=== PATIENT | female | born 1995 | race Caucasian/White ===

== ENCOUNTER 2016-11-30 17:21 | Emergency (ER) | payer OTHER ==
[~2016-11-30] VITALS: Ht 175.3 cm; Wt 74.2 kg
[~2016-11-30 17:21] MED LIST: BCPILLS PO; CERT200K; [UNRECOGNIZED DRUG - CODE] PO
[2016-11-30 17:25] VITALS: Ht 175.3 cm; Wt 74.2 kg
[2016-11-30] MEDS ORDERED: SODIUM CHLORIDE 0.9% 1000ML 1,000 ML IV STA (17:35)
[2016-11-30] MEDS ORDERED: KETOROLAC TROMETHAMINE 30 MG/ML VIAL IV STA (17:35)
--- NOTE | 2016-11-30 17:36 | EMERGENCY ROOM VISIT NOTE ---
History Report prepared by Haim: Juan Shrestha Under the Supervision of: Dr. Shanna Pickens M.D. First contact with patient: 17:35 Chief Complaint: ILLNESS Stated Complaint: TEMP 103, CHILLS, MOORE, SORE THROAT History of Present Illness The patient is a 21 year old female who presents to the Emergency Room with complaints of a worsening illness that started yesterday. The patient notes that the symptoms worsened today. She says she a sore throat, headache, chills, cough, and nausea. The patient notes low energy, and she has only eaten once today. She denies any shortness of breath or urinary symptoms. The patient did not get her flu shot this year. She has Crohn's disease and has not had a bowel movement yesterday or today. The patient did not take any ibuprofen, but she did take 2 NyQuil today as well as cough drops. Her primary care physician is Dr. Yee, and she has a customer account executive too. Source of History: patient Onset: Yesterday Position: other (global - illness) Timing: worsening Associated Symptoms: + chills, + cough, + headache, + nausea, No SOB, No urinary symptoms Note: Associated symptoms: Low energy. Review of Systems See HPI for pertinent positives & negatives. A total of 10 systems reviewed and were otherwise negative. Past Medical & Surgical Medical Problems: (1) Crohn disease Family History Cancer Diabetes mellitus FH: heart disease Hypertension Social History Smoking Status: Never Smoker Alcohol Use: none Drug Use: none Marital Status: in relationship Housing Status: lives with family Occupation Status: student Current/Historical Medications Scheduled Control Pills ( Control Pills), 1 TAB PO DAILY Oseltamivir (Tamiflu), 75 MG PO BID Miscellaneous Medications Vedolizumab (Entyvio) Allergies Coded Allergies: Infliximab (Verified Allergy, Severe, ANAPHYLAXIS, 04/16/16) Physical Exam Vital Signs Date Time Temp Pulse Resp B/P Pulse Ox O2 Delivery O2 Flow Rate FiO2 11/30/16 20:32 105 18 11/30/16 19:37 37.9 102 18 109/60 98 Room Air 11/30/16 17:25 39.0 138 20 111/79 100 Room Air Physical Exam Vital signs reviewed. General: Noted to be febrile, somewhat ill-appearing 21 year old female, in no significant distress. HEENT: No scleral icterus, PERRLA, neck supple. Atraumatic. Posterior oropharynx is clear. Cardiovascular: Tachycardic rate and regular rhythm, no extra sounds. Pulmonary: Clear to auscultation bilaterally, normal work of breathing. Dry cough. Abdomen: Soft, nontender, nondistended, positive bowel sounds. Musculoskeletal: Atraumatic, no peripheral edema. Neurologic: Patient awake alert and oriented x 3, full strength in all 4 extremities. Cranial nerves 2 through 12 grossly intact. Skin: Warm, dry, no rash Medical Decision & Procedures ER Provider Diagnostic Interpretation: X-ray results as stated below per interpretation by me and the radiologist: SINGLE VIEW CHEST CLINICAL HISTORY: Cough and fever. FINDINGS: An AP, portable, upright chest radiograph is compared to study dated 04/16/2016. The examination is mildly degraded by portable technique and patient rotation. The cardiomediastinal silhouette is unremarkable. The lungs and pleural spaces are clear. No pneumothorax is seen. The bony thorax is grossly intact. IMPRESSION: No active disease in the chest. Electronically signed by: Henry Patel M.D. 11/30/2016 7:12 PM Laboratory Results 11/30/16 17:46 Red Blood Count 4.64, Mean Corpuscular Volume 79.1, Mean Corpuscular Hemoglobin 25.4, Mean Corpuscular Hemoglobin Concent 32.2, Mean Platelet Volume 9.5, Neutrophils (%) (Auto) 70.5, Lymphocytes (%) (Auto) 11.1, Monocytes (%) (Auto) 17.0, Eosinophils (%) (Auto) 0.6, Basophils (%) (Auto) 0.4, Neutrophils # (Auto ) 3.81, Lymphocytes # (Auto) 0.60, Monocytes # (Auto) 0.92, Eosinophils # (Auto ) 0.03, Basophils # (Auto) 0.02 11/30/16 17:46 Test 11/30/16 17:46 11/30/16 17:50 11/30/16 18:10 White Blood Count 5.40 K/uL (4.8-10.8) Red Blood Count 4.64 M/uL (4.2-5.4) Hemoglobin 11.8 g/dL (12.0-16.0) Hematocrit 36.7 % (37-47) Mean Corpuscular Volume 79.1 fL (80-100) Mean Corpuscular Hemoglobin 25.4 pg (25-34) Mean Corpuscular Hemoglobin Concent 32.2 g/dl (32-36) Platelet Count 253 K/uL (130-400) Mean Platelet Volume 9.5 fL (7.4-10.4) Neutrophils (%) (Auto) 70.5 % Lymphocytes (%) (Auto) 11.1 % Monocytes (%) (Auto) 17.0 % Eosinophils (%) (Auto) 0.6 % Basophils (%) (Auto) 0.4 % Neutrophils # (Auto) 3.81 K/uL (1.4-6.5) Lymphocytes # (Auto) 0.60 K/uL (1.2-3.4) Monocytes # (Auto) 0.92 K/uL (0.11-0.59) Eosinophils # (Auto) 0.03 K/uL (0-0.5) Basophils # (Auto) 0.02 K/uL (0-0.2) RDW Standard Deviation 42.5 fL (36.4-46.3) RDW Coefficient of Variation 14.9 % (11.5-14.5) Immature Granulocyte % (Auto) 0.4 % Immature Granulocyte # (Auto) 0.02 K/uL (0.00-0.02) Anion Gap 8.0 mmol/L (3-11) Est Creatinine Clear Calc Drug Dose 118.3 ml/min Estimated GFR () 125.1 Estimated GFR (Non- 107.9 BUN/Creatinine Ratio 8.2 (10-20) Calcium Level 8.6 mg/dl (8.5-10.1) Total Bilirubin 0.4 mg/dl (0.2-1) Direct Bilirubin 0.2 mg/dl (0-0.2) Aspartate Amino Transf (AST/SGOT) 21 U/L (15-37) Alanine Aminotransferase (ALT/SGPT) 24 U/L (12-78) Alkaline Phosphatase 78 U/L (45-117) Total Protein 7.3 gm/dl (6.4-8.2) Albumin 3.2 gm/dl (3.4-5.0) Urine Color YELLOW Urine Appearance CLEAR (CLEAR) Urine pH 8.0 (4.5-7.5) Urine Specific Gerlaw 1.005 (1.000-1.030) Urine Protein NEG (NEG) Urine Glucose (UA) NEG (NEG) Urine Ketones NEG (NEG) Urine Occult Blood NEG (NEG) Urine Nitrite NEG (NEG) Urine Bilirubin NEG (NEG) Urine Urobilinogen NEG (NEG) Urine Leukocyte Esterase TRACE (NEG) Urine WBC (Auto) 1-5 /hpf (0-5) Urine RBC (Auto) 0-4 /hpf (0-4) Urine Hyaline Casts (Auto) 0 /lpf (0-5) Urine Epithelial Cells (Auto) >30 /lpf (0-5) Urine Bacteria (Auto) NEG (NEG) Influenza Type A Antigen POS for Influ A (NEG) Influenza Type B Antigen Neg for Influ B (NEG) Laboratory results per my review. Medications Administered Medications (Trade) Dose Ordered Sig/Amna Route Start Time Stop Time Status Last Admin Dose Admin Sodium Chloride (Nss 1000ml) 1,000 ml @ 999 mls/hr Q1H1M STAT IV 11/30/16 17:35 11/30/16 18:35 DC 11/30/16 17:47 999 MLS/HR Ketorolac Tromethamine (Toradol Inj) 30 mg NOW STAT IV 11/30/16 17:35 11/30/16 17:37 DC 11/30/16 17:48 30 MG Oseltamivir Phosphate (Tamiflu Cap) 75 mg NOW STAT PO 11/30/16 19:47 11/30/16 19:48 DC 11/30/16 19:47 75 MG ED Course 1735: Ordered Toradol Inj 30 mg IV, NSS 1000 ml @ 999 mls/hr IV. 1736: Past medical records reviewed. The patient was evaluated in room C12B. A complete history and physical examination was performed. 1946: Ordered Tamiflu Cap 75 mg PO. 1949: I reevaluated the patient and she is resting comfortably. The patient verbally expressed agreement and understanding of the treatment plan. The patient will be discharged. Medical Decision Differential diagnosis: Influenza, other viral illness, pneumonia, urinary tract infection, metabolic abnormality, medication effect, cellulitis, meningitis, intra-abdominal source. This patient was evaluated and appeared to be in no significant distress. IV access was obtained and laboratory work was drawn. Patient was placed on the cardiac catheterization technician. She was hydrated with normal saline solution. Patient was medicated with IV Toradol. Laboratory work is fairly unrevealing. Influenza swab is positive for influenza A. Strep swab is negative. I did discuss my findings with the patient and her family. They're concerned regarding her Crohn 's disease and therapies. Tamiflu was ordered 75 mg. They were educated on use of Tylenol for fever management and that the patient should see hydrated. She will follow-up with her primary care physician this week and return to the ER for worsening of symptoms or any medical concerns. Impression Primary Impression: Influenza A Scribe Attestation The scribe's documentation has been prepared under my direction and personally reviewed by me in its entirety. I confirm that the note above accurately reflects all work, treatment, procedures, and medical decision making performed by me. Departure Information Dispostion Home / Self-Care Prescriptions Oseltamivir (Tamiflu) 75 Mg Cap 75 MG PO BID, #9 CAP Prov: Shanna Pickens M.D. 11/30/16 Referrals Tiffany Yee DO (PCP) Forms HOME CARE DOCUMENTATION FORM, IMPORTANT VISIT INFORMATION, WORK / SCHOOL INSTRUCTIONS Patient Instructions A Signature Page, My [facility], Oseltamivir Phosphate Oral capsule Additional Instructions Diagnosis: Influenza A Tylenol 650 mg every 6 hours as needed for pain or fever. Ibuprofen 600 mg every 6 hours as needed for pain or fever with food. Tamiflu 75 mg twice daily for 5 days. Drink plenty of clear fluids. Return to the ER for worsening symptoms or any medical concerns
[2016-11-30 17:59] LABS: BASO % 0.4 %; BASO ABS # 0.02 K/uL (0-0.2); COMPLETE YES; EOS % 0.6 %; HEMATOCRIT 36.7 % (37-47); IG% 0.4 %; LYMPH % 11.1 %; MEAN CELL VOLUME 79.1 fL (80-100); MEAN CORPUSCULAR HEMOGLOBIN 25.4 pg (25-34); MEAN CORPUSCULAR HGB CONC 32.2 g/dl (32-36); MEAN PLATELET VOLUME 9.5 fL (7.4-10.4); NEUT % 70.5 %; PLATELET COUNT 253 K/uL (130-400); RED BLOOD COUNT 4.64 M/uL (4.2-5.4)
[2016-11-30 18:13] LABS: URINE APPEARANCE CLEAR (CLEAR); URINE BILIRUBIN NEG (NEG); URINE COLOR YELLOW; URINE EPITHELIAL CELL AUTO >30 /lpf (0-5); URINE NITRITE NEG (NEG); URINE SPECIFIC GRAVITY 1.005 (1.000-1.030); UROBILINOGEN NEG (NEG); ZZUR CULT IF INDIC CLEAN CATCH NO
[2016-11-30 18:13] LABS: BUN/CREATININE RATIO 8.2 (10-20); CALCIUM 8.6 mg/dl (8.5-10.1); CREATININE 0.78 mg/dl (0.60-1.20); POTASSIUM 3.7 mmol/L (3.5-5.1)
[2016-11-30 18:15] LABS: MANUAL MICROSCOPIC REQUIRED? NO; REVIEW REQ? NO
[2016-11-30] MEDS ORDERED: VEDO1INJ (18:15)
--- NOTE | 2016-11-30 19:14 | DIAGNOSTIC IMAGING REPORT ---
SINGLE VIEW CHEST CLINICAL HISTORY: Cough and fever. FINDINGS: An AP, portable, upright chest radiograph is compared to study dated 04/16/2016. The examination is mildly degraded by portable technique and patient rotation. The cardiomediastinal silhouette is unremarkable. The lungs and pleural spaces are clear. No pneumothorax is seen. The bony thorax is grossly intact. IMPRESSION: No active disease in the chest. Electronically signed by: Henry Patel M.D. 11/30/2016 7:12 PM
[2016-11-30 19:37] VITALS: BP 109/60; TEMP 37.9; O2SAT 98
[2016-11-30] MEDS ORDERED: OSEL75CA12 PO (19:46)
[2016-11-30] MEDS ORDERED: OSELTAMIVIR PHOSPHATE 75 MG CAP PO STA (19:47)
[2016-11-30 20:32] VITALS: PULSE 105
== END 2016-11-30 20:05 | disposition home or self-care (01) ==
LOC: C.EDB 17:21 → C.EDC 20:05
DX: J11.1 Influenza due to unidentified influenza virus with other respiratory manifestations (principal); K50.90 Crohn's disease, unspecified, without complications

== ENCOUNTER → 2017-02-02 | Outpatient (CLI) | payer OTHER ==
[~2017-02-02] MED LIST changes: +AMOX500C3 PO; -CERT200K; +DICL1GEL12 TOP; +OSEL75CA12 PO; +VEDO1INJ; +VEDO1INJ INJ; -[UNRECOGNIZED DRUG - CODE] PO
== END | disposition home or self-care (01) ==
LOC: C.LABBC 11:33
PROVIDERS: ATTEND Obstetrics & Gynecology
DX: Z11.3 Encounter for screening for infections with a predominantly sexual mode of transmission (principal)

== ENCOUNTER → 2017-02-25 | Outpatient (CLI) | payer OTHER ==
[~2017-02-25] MED LIST changes: -VEDO1INJ INJ; +VEDO1INJ IV
== END | disposition home or self-care (01) ==
LOC: C.LABSPEC 11:11
PROVIDERS: ATTEND Nurse Practitioner Family
DX: R09.89 Other specified symptoms and signs involving the circulatory and respiratory systems (principal)

== ENCOUNTER → 2017-04-24 | Outpatient (CLI) | payer OTHER | END | disposition home or self-care (01) | LOC: C.LABSPEC 15:48 | PROVIDERS: ATTEND Physician Assistant | DX: L29.8 Other pruritus (principal) ==

== ENCOUNTER 2017-06-01 19:18 | Emergency (ER) | payer OTHER ==
[~2017-06-01] VITALS: Ht 175.3 cm; Wt 77.5 kg
[~2017-06-01 19:18] MED LIST changes: -AMOX500C3 PO; -DICL1GEL12 TOP; -VEDO1INJ IV
[2017-06-01 19:34] VITALS: TEMP 36.7; Ht 175.3 cm; Wt 77.5 kg
[2017-06-01] MEDS ORDERED: VEDO1INJ INJ (19:52)
[2017-06-01] MEDS ORDERED: PROPARACAINE HCL 0.5% OP SOLN 15 ML BTL OP STA (20:26)
[2017-06-01] MEDS ORDERED: AMOXICILLIN 500 MG CAP PO ONE (20:30)
[2017-06-01] MEDS ORDERED: TRIMETHOPRIM/POLYMYXIN B OP ONE (20:30)
--- NOTE | 2017-06-01 20:34 | EMERGENCY ROOM VISIT NOTE ---
History First contact with patient: 20:07 Chief Complaint: EYE PAIN Stated Complaint: ITCHY EYES - PAIN IN RIGHT EAR History of Present Illness The patient is a 22 year old female who presents to the Emergency Room with complaints of discharge from the right eye that started this morning. The patient reports a sore throat over the last day. She will also reports bilateral ear pain right greater than left for 1 day. She denies any significant pain in the right eye. She is concerned that she may have an infection. She denies any changes in vision. She does not wear contacts or glasses. She denies any fever or chills. No significant cough or shortness of breath. Review of Systems 6 system review performed and negative unless noted in HPI or below Past Medical/Surgical History Medical Problems: (1) Crohn disease History of Crohn's disease status post bowel resection Family History Cancer Diabetes mellitus FH: heart disease Hypertension Social History Smoking Status: Never Smoker Alcohol Use: none Drug Use: none Marital Status: in relationship Housing Status: lives with family Occupation Status: student Current/Historical Medications Scheduled Vedolizumab (Entyvio), 300 MG INJ Q8WK Allergies Coded Allergies: Infliximab (Verified Allergy, Severe, ANAPHYLAXIS, 04/16/16) Physical Exam Vital Signs Date Time Temp Pulse Resp B/P (MAP) Pulse Ox O2 Delivery O2 Flow Rate FiO2 06/01/17 19:34 36.7 111 20 133/87 99 Right Eye Acuity: 20/20 Left Eye Acuity: 20/20 pt does not wear glasses Physical Exam VITALS: Vitals are noted on the nurse's note and reviewed by myself. Vital signs stable. GENERAL: 22-year-old female, in no acute distress, nondiaphoretic, well- developed well-nourished. SKIN: The skin was without rashes, erythema, edema, or bruising. HEAD: Normocephalic atraumatic. EARS: External auditory canals clear rate tympanic membrane is erythematous and bulging. No fluid was noted. Left tympanic membrane is bulging and also mildly erythematous. Fluid noted behind left TM. EYES: Pupils equal round and reactive to light and accommodation. Extraocular movements intact. Yellow discharge noted from the right eye. Conjunctiva is mildly injected. Slit-lamp exam of the right eye did not reveal any intake. Conjunctivae is intact. NOSE: Patent, turbinates without inflammation or discharge. No sinus tenderness. MOUTH: Mucous membranes moist. Tonsils are not enlarged, but mildly erythematous. Pharynx without erythema or exudate. Uvula midline. Airway patent. Tongue does not deviate. NECK: Lymphadenopathy noted in the anterior cervical chain bilaterally. No nuchal rigidity. HEART: Regular rate and rhythm without murmurs gallops or rubs. LUNGS: Clear to auscultation bilaterally without wheezes, rales or rhonchi. No accessory muscle use. MUSCULOSKELETAL:Normal gait. Strength 5/5 throughout. NEURO: Patient was alert and oriented to person place and time. Normal sensation to touch. No focal neurological deficits. Medical Decision & Procedures Procedure none ED Course Patient was seen and examined A slip exam was performed Polytrim ophthalmic solution was applied to the right eye The patient was given 1 dose of amoxicillin 500 mg Discharge instructions were reviewed, and the patient was discharged home in good condition Medical Decision Differential diagnosis: Bacterial versus viral conjunctivitis, corneal abrasion , otitis media, sinusitis, strep pharyngitis The patient's symptoms and physical presentation are consistent with a bacterial conjunctivae is of the right eye. No diminished the cornea was noted. The patient also appears to have otitis media, which will be treated with a ten-day course of antibiotics. Regarding the bacterial conjunctivitis, she was given Polytrim eyedrops. She will follow-up with her primary care physician for a recheck. Impression Primary Impression: Bacterial conjunctivitis Additional Impression: Otitis media Bacterial conjunctivitis, otitis media Departure Information Dispostion Home / Self-Care Condition GOOD Referrals No Doctor, Assigned (PCP) Patient Instructions [facility] Problem Qualifiers
[2017-06-01] MEDS ORDERED: AMOX500C3 PO (20:57)
[2017-06-01 21:01] VITALS: BP 138/90; PULSE 100; O2SAT 100
== END 2017-06-01 21:06 | disposition home or self-care (01) ==
LOC: C.EDB 19:19 → C.EDD 21:06
DX: H10.021 Other mucopurulent conjunctivitis, right eye (principal); H66.92 Otitis media, unspecified, left ear; K50.90 Crohn's disease, unspecified, without complications; Z80.9 Family history of malignant neoplasm, unspecified; Z83.3 Family history of diabetes mellitus; Z82.49 Family history of ischemic heart disease and other diseases of the circulatory system; Z79.899 Other long term (current) drug therapy

== ENCOUNTER 2017-07-23 09:33 | Emergency (ER) | payer OTHER ==
[~2017-07-23] VITALS: Ht 175.3 cm; Wt 77.5 kg
[~2017-07-23 09:33] MED LIST changes: -BCPILLS PO; -OSEL75CA12 PO; -VEDO1INJ; +VEDO1INJ INJ
[2017-07-23 09:42] VITALS: TEMP 36.4; Ht 175.3 cm; Wt 77.5 kg
[2017-07-23] MEDS ORDERED: KETOROLAC TROMETHAMINE 60 MG/2 ML VIAL IM STA (10:02)
[2017-07-23] MEDS ORDERED: DICL1GEL12 TOP (10:08)
--- NOTE | 2017-07-23 10:10 | EMERGENCY ROOM VISIT NOTE ---
ED Visit Note First contact with patient: 09:47 CHIEF COMPLAINT: Left wrist pain HISTORY OF PRESENT ILLNESS: This 22-year-old female patient presents to the emergency department, ambulatory, with her mother, complaining of left wrist pain. The patient states she had an IV placed in her left posterior wrist 2 weeks ago for a colonoscopy. The patient states she has been intermittently having pain for the past 2 weeks. The patient states she woke this morning, and the pain became worse. The patient states this morning, she did notice a small bump under the skin. She describes the pain as burning, worse with movement or palpation. She states her fingers feel "weird" and are "hard to move". The patient rates her pain 6/10. She has taken no pain medications over -the-counter for relief. The patient has also not used any ice or heat. The patient denies redness, drainage, fever, chills, headache, nausea, vomiting, or other concerning symptoms. REVIEW OF SYSTEMS: A 10 system review of systems was performed with positives and pertinent negatives listed in the history of present illness. All other systems were reviewed and are negative. ALLERGIES: Infliximab MEDICATIONS: Entyvio PMH: Crohn's disease SOCIAL HISTORY: The patient lives locally with family. She denies drug, alcohol , tobacco use. PHYSICAL EXAM: VITALS: Vitals are noted on the nurse's note and reviewed by myself. Vital signs stable. GENERAL: This is a well-appearing, 22-year-old female, in no acute distress, nondiaphoretic, well-developed well-nourished. SKIN: The skin was without rashes, erythema, edema, or bruising. There is a possible small, pen-tip sized lump under the skin on the posterior aspect of the medial wrist. There is no erythema, induration, fluctuance, drainage, definite lump, or warmth of this area. There is no tenting of the skin. Capillary reflex less than 2 seconds. MUSCULOSKELETAL: No muscle atrophy, erythema, or edema noted. Full range of motion without joint tenderness in all extremities. No tenderness to palpation. Normal gait. Strength 5/5 throughout. NEURO: Patient was alert and oriented to person place and time. Normal sensation to light and sharp touch. Deep tendon reflexes 2+ throughout. No focal neurological deficits. EMERGENCY DEPARTMENT COURSE: She was seen and evaluated as above. I do not see any signs of infection, infiltration, or other concerning findings. The patient denies injury or fall over the past 2 weeks since the pain began. I do suspect that the pain could be related to possible nerve damage from the IV insertion, and discussed with the patient that this may take several weeks to fully heal. I recommended anti-inflammatories, but the patient states she was told not to take these medications. I suggested an IM injection of Toradol, and the patient is agreeable at bedside. When the nurse went into the room to give the patient the Toradol, the patient declined the injection because it is an NSAID. The patient states she would prefer to just use warm, moist compresses at home and the topical Voltaren gel. Discharge instructions were discussed at bedside. The patient was discharged home in good condition. DIFFERENTIAL DIAGNOSIS: Abscess, cellulitis, infiltration, nerve damage, musculoskeletal injury, malignancy, and others. DIAGNOSIS: Left Wrist pain DISCHARGE INSTRUCTIONS & TREATMENT: You were seen today for right wrist/hand pain 2 weeks after having an IV inserted. I suspect some nerve pain or trauma from the insertion of the IV. This may take several weeks to fully heal. Ibuprofen(Motrin, Advil) may be used for fever or pain. Use 600mg every six hours as needed. Take with food. Avoid using more than 2400mg in a 24 hour period. Do not use 2400mg per day for more than three consecutive days without physician direction. Prolonged inappropriate use can lead to stomach upset or ulcers. (AND/OR) Acetaminophen(Tylenol) may be used for fever or pain. Use 1000mg every six to eight hours as needed. Avoid using more than 3000mg in a 24 hour period. Use Voltaren gel as directed for pain and inflammation. This medication may be a good alternative with your history of Crohn's disease and inability to tolerate NSAIDs. Please follow up in 2-3 days with your PCP for recheck of the wound. Please return to the emergency department if you experience increased redness, swelling, pain, pus like drainage, fever, chills, nausea, vomiting, or other concerning symptoms. Problem List Medical Problems: (1) Crohn disease Status: Chronic Current/Historical Medications Scheduled Vedolizumab (Entyvio), 300 MG INJ Q8WK Scheduled PRN Diclofenac Sodium (Topical) (Voltaren 1% Top Gel), 4 GM TOP QID PRN for Pain Allergies Coded Allergies: Infliximab (Verified Allergy, Severe, ANAPHYLAXIS, 04/16/16) Vital Signs Date Time Temp Pulse Resp B/P (MAP) Pulse Ox O2 Delivery O2 Flow Rate FiO2 07/23/17 10:36 76 20 130/79 100 07/23/17 09:42 36.4 84 20 136/91 95 Room Air Departure Information Impression Primary Impression: Left wrist pain Dispostion Home / Self-Care Condition GOOD Prescriptions Diclofenac Sodium (Topical) (VOLTAREN 1% TOP GEL) 1 % Gel 4 GM TOP QID Y for Pain, #1 TUBE Prov: Lynette Harp PA-C 07/23/17 Referrals Tiffany Mari DO (PCP) Patient Instructions My [facility] Additional Instructions You were seen today for right wrist/hand pain 2 weeks after having an IV inserted. I suspect some nerve pain or trauma from the insertion of the IV. This may take several weeks to fully heal. Ibuprofen(Motrin, Advil) may be used for fever or pain. Use 600mg every six hours as needed. Take with food. Avoid using more than 2400mg in a 24 hour period. Do not use 2400mg per day for more than three consecutive days without physician direction. Prolonged inappropriate use can lead to stomach upset or ulcers. (AND/OR) Acetaminophen(Tylenol) may be used for fever or pain. Use 1000mg every six to eight hours as needed. Avoid using more than 3000mg in a 24 hour period. Use Voltaren gel as directed for pain and inflammation. This medication may be a good alternative with your history of Crohn's disease and inability to tolerate NSAIDs. Please follow up in 2-3 days with your PCP for recheck of the wound. Please return to the emergency department if you experience increased redness, swelling, pain, pus like drainage, fever, chills, nausea, vomiting, or other concerning symptoms.
[2017-07-23 10:36] VITALS: BP 130/79; PULSE 76; O2SAT 100
== END 2017-07-23 10:38 | disposition home or self-care (01) ==
LOC: C.EDB 09:34 → C.EDA 10:38
DX: M25.532 Pain in left wrist (principal); Z79.899 Other long term (current) drug therapy; K50.90 Crohn's disease, unspecified, without complications

== ENCOUNTER → 2017-11-16 | Outpatient (CLI) | payer OTHER ==
[~2017-11-16] MED LIST changes: -VEDO1INJ INJ; +VEDO1INJ IV
== END | disposition home or self-care (01) ==
LOC: C.LAB1850 14:04
PROVIDERS: ATTEND Internal Medicine Gastroenterology
DX: K50.014 Crohn's disease of small intestine with abscess (principal)

== ENCOUNTER 2017-11-26 15:01 | Emergency (ER) | payer OTHER ==
[~2017-11-26] VITALS: Ht 175.3 cm; Wt 79.1 kg
[2017-11-26 15:03] VITALS: TEMP 36.7; Ht 175.3 cm; Wt 79.1 kg
--- NOTE | 2017-11-26 15:18 | EMERGENCY ROOM VISIT NOTE ---
History First contact with patient: 15:14 Chief Complaint: ABDOMINAL PAIN Stated Complaint: STOMACH PAIN History of Present Illness The patient is a 22 year old female with PMH of Crohn's disease on Entyveo and previous C. diff infection who presents to the Emergency Room with complaints of worsening abdominal pain and nausea that started this morning. She states the pain is across the top of her abdomen, intermittent, aching and occasionally sharp, 8/10. She states she was diagnosed with C.diff last week, has been placed on Flagyl which she was taking since Thursday, and states her diarrhea has been improving. Yesterday her nausea became worse, so she decided to stop taking the Flagyl. She has not taken any medications for her nausea or pain. She denies vomiting,fevers/chills, back pain, chest pain, SOB, dizziness or syncope, bloody or black stools, urinary symptoms, abnormal vaginal bleeding or discharge, or rash. Review of Systems A complete 10 point review of systems was reviewed with the patient with pertinent positives and negatives as per history of present illness. All else were negative. Past Medical/Surgical History Medical Problems: (1) Crohn disease (2) Crohn's disease of both small and large intestine Family History Cancer Diabetes mellitus FH: heart disease Hypertension Social History Smoking Status: Never Smoker Alcohol Use: none Drug Use: none Marital Status: in relationship Housing Status: lives with family Occupation Status: student Current/Historical Medications Scheduled Ondasetron Odt (Zofran Odt), 4 MG SL Q6H Vedolizumab (Entyvio), 300 MG IV Q8WK Allergies Reviewed in chart Physical Exam Vital Signs Date Time Temp Pulse Resp B/P (MAP) Pulse Ox O2 Delivery O2 Flow Rate FiO2 11/26/17 18:33 84 18 123/69 99 Room Air 11/26/17 17:36 90 18 116/59 99 Room Air 11/26/17 15:03 36.7 102 16 134/86 97 Room Air Physical Exam CONSTITUTIONAL: Pleasant and cooperative. No acute distress. Mildly dehydrated. Well appearing and well nourished. HEENT: Normocephalic, atraumatic. Pupils equal, round and reactive to light, EOMI. TMs normal. Pharynx normal. Tacky mucus membranes. NECK: Supple, full active range of motion without discomfort. RESPIRATORY: Clear to auscultation bilaterally with no wheezing, crackles, rhonchi or stridor. Equal expansion bilaterally. CARDIOVASCULAR: Regular rate and rhythm with no murmurs, rubs or gallops. Normal peripheral perfusion. No edema. GASTROINTESTINAL: Diffuse upper abdominal tenderness to palpation. Soft, nondistended. No palpable masses or HSM. Bowel sounds present in all quadrants. MUSCULOSKELETAL: Full range of motion of all joints without discomfort. INTEGUMENTARY: No rash or other significant dermatologic conditions noted. NEUROLOGIC: Alert and oriented X 4 with normal affect. Cranial nerves II-XII grossly intact. No focal neurologic deficits noted. Medical Decision & Procedures Laboratory Results 11/26/17 15:15 Red Blood Count 5.03, Mean Corpuscular Volume 67.6, Mean Corpuscular Hemoglobin 19.5, Mean Corpuscular Hemoglobin Concent 28.8, Mean Platelet Volume 8.8, Neutrophils (%) (Auto) 82.8, Lymphocytes (%) (Auto) 11.6, Monocytes (%) (Auto) 4.4, Eosinophils (%) (Auto) 0.5, Basophils (%) (Auto) 0.4, Neutrophils # (Auto) 10.97, Lymphocytes # (Auto) 1.53, Monocytes # (Auto) 0.58, Eosinophils # (Auto) 0.07, Basophils # (Auto) 0.05 11/26/17 15:15 Test 11/26/17 15:15 11/26/17 16:30 White Blood Count 13.24 K/uL (4.8-10.8) Red Blood Count 5.03 M/uL (4.2-5.4) Hemoglobin 9.8 g/dL (12.0-16.0) Hematocrit 34.0 % (37-47) Mean Corpuscular Volume 67.6 fL (80-100) Mean Corpuscular Hemoglobin 19.5 pg (25-34) Mean Corpuscular Hemoglobin Concent 28.8 g/dl (32-36) Platelet Count 452 K/uL (130-400) Mean Platelet Volume 8.8 fL (7.4-10.4) Neutrophils (%) (Auto) 82.8 % Lymphocytes (%) (Auto) 11.6 % Monocytes (%) (Auto) 4.4 % Eosinophils (%) (Auto) 0.5 % Basophils (%) (Auto) 0.4 % Neutrophils # (Auto) 10.97 K/uL (1.4-6.5) Lymphocytes # (Auto) 1.53 K/uL (1.2-3.4) Monocytes # (Auto) 0.58 K/uL (0.11-0.59) Eosinophils # (Auto) 0.07 K/uL (0-0.5) Basophils # (Auto) 0.05 K/uL (0-0.2) RDW Standard Deviation 39.9 fL (36.4-46.3) RDW Coefficient of Variation 16.1 % (11.5-14.5) Immature Granulocyte % (Auto) 0.3 % Immature Granulocyte # (Auto) 0.04 K/uL (0.00-0.02) Toxic Granulation 1+ Hypochromasia PRESENT Anisocytosis PRESENT Microcytosis PRESENT Stomatocytes 1+ Erythrocyte Sedimentation Rate 15 mm/hr (0-21) Anion Gap 8.0 mmol/L (3-11) Est Creatinine Clear Calc Drug Dose 134.5 ml/min Estimated GFR () 142.9 Estimated GFR (Non- 123.3 BUN/Creatinine Ratio 17.8 (10-20) Calcium Level 9.0 mg/dl (8.5-10.1) Total Bilirubin 0.5 mg/dl (0.2-1) Direct Bilirubin 0.1 mg/dl (0-0.2) Aspartate Amino Transf (AST/SGOT) 24 U/L (15-37) Alanine Aminotransferase (ALT/SGPT) 29 U/L (12-78) Alkaline Phosphatase 86 U/L (45-117) C-Reactive Protein 0.69 mg/dl (0-0.29) Total Protein 7.6 gm/dl (6.4-8.2) Albumin 3.4 gm/dl (3.4-5.0) Lipase 109 U/L (73-393) Urine Color DK YELLOW Urine Appearance CLEAR (CLEAR) Urine pH 6.0 (4.5-7.5) Urine Specific Gary 1.025 (1.000-1.030) Urine Protein NEG (NEG) Urine Glucose (UA) NEG (NEG) Urine Ketones TRACE (NEG) Urine Occult Blood NEG (NEG) Urine Nitrite NEG (NEG) Urine Bilirubin NEG (NEG) Urine Urobilinogen NEG (NEG) Urine Leukocyte Esterase TRACE (NEG) Urine WBC (Auto) 1-5 /hpf (0-5) Urine RBC (Auto) 0-4 /hpf (0-4) Urine Hyaline Casts (Auto) 1-5 /lpf (0-5) Urine Epithelial Cells (Auto) >30 /lpf (0-5) Urine Bacteria (Auto) NEG (NEG) Urine Renal Epithelial Cells /lpf (0-5) Urine Mucus PRESENT (NONE PRSENT) Urine Yeast (Auto) BUDDING (NONE PRSENT) Urine Test NEG (NEG) Medications Administered Medications (Trade) Dose Ordered Sig/Amna Route Start Time Stop Time Status Last Admin Dose Admin Sodium Chloride 1,000 ml @ 999 mls/hr Q1H1M STAT IV 11/26/17 15:39 11/26/17 16:39 DC 11/26/17 16:23 999 MLS/HR Ondansetron HCl (Zofran Inj) 4 mg NOW STAT IV 11/26/17 15:39 11/26/17 15:43 DC 11/26/17 16:23 4 MG Morphine Sulfate (MoRPHine SULFATE INJ) 4 mg NOW STAT IV 11/26/17 15:47 11/26/17 15:48 DC 11/26/17 16:23 4 MG Ondansetron HCl (Zofran Inj) 4 mg NOW STAT IV 11/26/17 17:55 11/26/17 17:56 DC 11/26/17 18:01 4 MG Ondansetron HCl (ZOFRAN ODT 4MG Home Pack) 1 homepack UD ONCE PO 11/26/17 19:30 11/26/17 19:31 DC 11/26/17 19:30 1 HOMEPACK Medical Decision CC: Patient presenting with complaint of abdominal pain and nausea Interpretation of Labs: Mild leukocytosis, mild anemia (consistent with baseline), no significant electrolyte abnormalities, normal renal function, normal liver enzymes and lipase. No significant elevation in inflammatory markers. UA negative for infection, urine negative. Differential Diagnosis: Includes, but not limited to Crohn's flare, gastroenteritis, gastritis, C. difficile colitis, dehydration, intra-abdominal abscess, fistula, small bowel obstruction, among others Medication Reconciliation: I attest that I have personally reviewed the patient' s current medication list. Vital signs review: I reviewed the patient's vital signs and interpret them as follows: T: Afebrile; BP: Normotensive; HR: Tachycardic; RR: Within normal limits; Pulse Ox: Within normal limits on room air. Blood pressure screening: The patient was found to have normal blood pressure on screening and does not require follow-up for repeat blood pressure check. Summary: Patient was evaluated at bedside, history and physical exam performed. Patient alert and oriented, in no acute distress, resting calmly in stretcher. She appears mildly dehydrated, but is nontoxic appearing. She is afebrile. Diffuse upper abdominal tenderness to palpation, no rebound tenderness or guarding, no palpable masses. Orders were placed at bedside for labs, UA and urine , IV fluids for hydration, IV Zofran and morphine for nausea and pain, CT abdomen/pelvis to evaluate for intra-abdominal pathology. Patient discussed with Dr. Lara, who agrees with my assessment and plan. Labs reviewed as above, mild leukocytosis, otherwise unremarkable. CT reviewed, no acute abnormalities. Patient reassessed multiple times throughout ED stay, she is much improved after medications. Her nausea and pain are improved. She is able to tolerate PO fluids, and was able to take her dose of Flagyl without difficulty. Tachycardia improved after IV fluids. Patient was updated on all results and plan for discharge home, she was encouraged to follow closely with her PCP and GI doctors. She was also given strict return precautions should her symptoms worsen in any way, she verbalized understanding. She was provided with a prescription for Zofran to continue managing her nausea. The patient was discharged home in stable condition and ambulatory. Impression Primary Impression: Abdominal pain Additional Impression: Nausea Departure Information Dispostion Home / Self-Care Condition GOOD Prescriptions Ondasetron Odt (ZOFRAN ODT) 4 Mg Tab 4 MG SL Q6H for Nausea, #10 TAB Prov: Alaina Anderson CRNP 11/26/17 Referrals Tiffany Mari DO (PCP) Patient Instructions Clostridium Difficile Infec, ED Nausea Vomiting, [facility] Additional Instructions You have been treated in the Emergency Department your Abdominal Pain. Laboratory results and imaging studies have ruled out any emergent causes for your abdominal pain which would warrant admission or surgery. Continue taking the Flagyl as prescribed for the full amount until completed. This is to treat your C. diff infection. You have been prescribed Zofran to be used for any nausea or vomiting. Take as prescribed. For pain control, you may take regular strength (325mg/tab) Tylenol ( acetaminophen) 2 tabs every 4-6 hours as needed. Do not exceed 10 tablets in a 24 hour period. Avoid taking more than 3000mg of Tylenol per day. This includes any other sources of acetaminophen you may take on a regular basis. Drink plenty of fluids to stay well hydrated. Follow up with your primary care provider and commercial lines account manager in the next few days. Return to the emergency department if your symptoms persist or worsen despite treatment plan outlined above or if the following symptoms occur: increased fevers, chills, worsening nausea/vomiting, blood in your stool or urine. Work Instructions Return To Work: 2 days Problem Qualifiers Primary Impression: Abdominal pain Abdominal location: generalized Qualified Codes: R10.84 - Generalized abdominal pain
[2017-11-26] MEDS ORDERED: SODIUM CHLORIDE 0.9% 1000ML 1,000 ML IV STA (15:39)
[2017-11-26] MEDS ORDERED: ONDANSETRON INJ 2 MG/ML 2 ML VIAL IV STA ×2 (15:39→17:55)
[2017-11-26] MEDS ORDERED: OPTIRAY 320 IV PRN (15:45)
[2017-11-26] MEDS ORDERED: MoRPHine SULFATE 4 MG/ML 1 ML CARP\\VIAL IV STA (15:47)
[2017-11-26 15:56] LABS: ALBUMIN 3.4 gm/dl (3.4-5.0); CREATININE 0.68 mg/dl (0.60-1.20); POTASSIUM 3.8 mmol/L (3.5-5.1)
[2017-11-26 15:59] LABS: TOTAL PROTEIN 7.6 gm/dl (6.4-8.2)
[2017-11-26 16:04] LABS: HEMOGLOBIN 9.8 g/dL (12.0-16.0); MEAN CELL VOLUME 67.6 fL (80-100); MEAN CORPUSCULAR HEMOGLOBIN 19.5 pg (25-34); MEAN CORPUSCULAR HGB CONC 28.8 g/dl (32-36); MEAN PLATELET VOLUME 8.8 fL (7.4-10.4); PLATELET COUNT 452 K/uL (130-400); RED CELL DISTRIBUTION WIDTH CV 16.1 % (11.5-14.5); RED CELL DISTRIBUTION WIDTH SD 39.9 fL (36.4-46.3); WHITE BLOOD COUNT 13.24 K/uL (4.8-10.8)
[2017-11-26 16:08] LABS: BASO % 0.4 %; BASO ABS # 0.05 K/uL (0-0.2); EOS % 0.5 %; EOS ABS # 0.07 K/uL (0-0.5); IG# 0.04 K/uL (0.00-0.02); LYMPH % 11.6 %; LYMPH ABS # 1.53 K/uL (1.2-3.4); MONO % 4.4 %; MONO ABS # 0.58 K/uL (0.11-0.59); NEUT % 82.8 %; NEUT ABS # 10.97 K/uL (1.4-6.5)
--- NOTE | 2017-11-26 17:25 | DIAGNOSTIC IMAGING REPORT ---
ABD/PELVIS IV CONTRAST ONLY CLINICAL HISTORY: 22 years-old Female presenting with eval crohns exacerbation, abscess, perf, SBO, etc, positive for C. difficile. TECHNIQUE: Multidetector CT of the abdomen and pelvis was performed after the administration of intravenous contrast. IV contrast: 120 mL of Optiray 320. A dose lowering technique was used consistent with the principles of ALARA (as low as reasonably achievable). COMPARISON: 10/06/2017. CT DOSE (mGy.cm): The estimated cumulative dose is 413.07 mGy.cm. FINDINGS: Ab Initio Etl Developer topogram: Anastomotic suture lines noted in the right abdomen. Lung bases: Minimal basilar opacities, likely atelectasis. Normal heart size. No pericardial or pleural effusion. Liver: Normal morphology. No liver lesion. Patent hepatic vasculature. Biliary: No intrahepatic or extrahepatic biliary ductal dilatation. Gallbladder contains gallstones. Pancreas: Normal. Spleen: Normal. Adrenal glands: Normal. Kidneys and ureters: Normal. No hydronephrosis. Bladder: Normal. Pelvic organs: Uterus and ovaries normal. Bowel: Mild wall thickening of the sigmoid colon may in part be due to underdistention. Mild wall thickening of the proximal transverse colon new from prior. Postsurgical changes of the ileocecectomy with a neoterminal ileum in the right lower quadrant, which appears patent. Nonetheless, there is abnormal distention of the distal ileum extending to the level of the neoterminal ileum with minimal perienteric fluid noted just upstream from the anastomosis. Small bowel taper smoothly to a less dilated caliber upstream. In the dilated segment of bowel, which extends over 20 to 30 cm, no significant wall thickening is apparent. More proximal small bowel is normal-appearing. A focal segment of mildly distended jejunum is not significantly abnormal. Peritoneal cavity: Trace free fluid in the pelvis. Free fluid also noted in the right lower quadrant. Lymph nodes: No enlarged lymph nodes in the abdomen or pelvis. Vasculature: Aorta and IVC patent and normal in caliber. No significant prominence of the vasa recta is suggested. Abdominal wall: Normal. Musculoskeletal: Normal. IMPRESSION: 1. Distended neoterminal ileum without convincing evidence of obstruction as the ileocolic anastomosis appears patent. This may be functional in etiology. The distended distal ileum does not demonstrate wall thickening though trace free fluid noted adjacent to the anastomosis in the right lower quadrant. This may indicate mild inflammation, although free fluid could be secondary to the presence of pelvic fluid. Pelvic fluid is likely physiologic. No convincing evidence of penetrating or fibrostenotic disease. 2. Mild wall thickening of the proximal transverse colon could represent mild C. difficile colitis versus colonic involvement of Crohn's disease. Electronically signed by: Quincy Cruz M.D. 11/26/2017 5:24 PM Dictated Date/Time: 11/26/2017 5:14 PM
[2017-11-26 18:33] VITALS: BP 123/69; PULSE 84; O2SAT 99
[2017-11-26] MEDS ORDERED: ONDA4TAB10 SL (18:45)
[2017-11-26] MEDS ORDERED: ONDANSETRON HOME PACK 4MG OD TAB PO ONE (19:30)
[2018-03-25] MEDS ORDERED: [UNRECOGNIZED DRUG - OTHER] IV (10:55)
[2018-03-25] MEDS ORDERED: FLUC150T PO (10:55)
== END 2017-11-26 19:15 | disposition home or self-care (01) ==
LOC: C.EDB 15:02
DX: R10.84 Generalized abdominal pain (principal); R11.0 Nausea; K50.90 Crohn's disease, unspecified, without complications; Z83.3 Family history of diabetes mellitus; Z82.49 Family history of ischemic heart disease and other diseases of the circulatory system

== ENCOUNTER → 2017-12-18 | Outpatient (CLI) | payer OTHER | END | disposition home or self-care (01) | LOC: C.LABSPEC 17:31 | DX: Z12.4 Encounter for screening for malignant neoplasm of cervix (principal) ==

== ENCOUNTER → 2017-12-18 | Outpatient (CLI) | payer OTHER ==
[2017-12-18 17:27] LABS: HEPATITIS B SURFACE AG NEG (NEG)
[2017-12-18 17:56] LABS: HEP C IGG 13 YRS+OLDER_RFLX NEG (NEG)
[2017-12-20 00:28] LABS: RAPID PLASMA REAGIN NONREACTIVE (NONREACT)
== END | disposition home or self-care (01) ==
LOC: C.LAB1850 15:21
DX: Z11.3 Encounter for screening for infections with a predominantly sexual mode of transmission (principal)

== ENCOUNTER → 2017-12-18 | Outpatient (CLI) | payer OTHER ==
[~2017-12-18] MED LIST changes: +ONDA4TAB10 SL
== END | disposition home or self-care (01) ==
LOC: C.PAPS 10:23
PROVIDERS: ATTEND Obstetrics & Gynecology
DX: Z12.4 Encounter for screening for malignant neoplasm of cervix (principal)

== ENCOUNTER 2017-12-25 03:56 | Emergency (ER) | payer OTHER ==
[~2017-12-25] VITALS: Ht 175.3 cm; Wt 78.5 kg
[2017-12-25 03:59] VITALS: Ht 175.3 cm; Wt 78.5 kg
[2017-12-25] MEDS ORDERED: SODIUM CHLORIDE 0.9% 1000ML 1,000 ML IV STA ×2 (04:16→06:49)
[2017-12-25] MEDS ORDERED: DiphenhydrAMINE HCL 50 MG/ML VIAL IV STA ×2 (04:16→05:46)
[2017-12-25] MEDS ORDERED: FAMOTIDINE 20MG/5ML IV PUSH IV STA (04:16)
[2017-12-25] MEDS ORDERED: METOCLOPRAMIDE HCL INJ 5 MG/ML 2 ML VIAL IV. STA (04:16)
[2017-12-25] MEDS: DICYCLOMINE HCL 10 MG/ML 2 ML AMP IM ONE ×2 (04:30→04:57)
[2017-12-25 04:41] LABS: BASO % 0.4 %; BASO ABS # 0.05 K/uL (0-0.2); EOS % 1.2 %; EOS ABS # 0.14 K/uL (0-0.5); HEMATOCRIT 32.3 % (37-47); HEMOGLOBIN 9.4 g/dL (12.0-16.0); IG# 0.04 K/uL (0.00-0.02); LYMPH % 14.7 %; LYMPH ABS # 1.75 K/uL (1.2-3.4); MEAN CORPUSCULAR HEMOGLOBIN 19.5 pg (25-34); MEAN CORPUSCULAR HGB CONC 29.1 g/dl (32-36); MEAN PLATELET VOLUME 8.9 fL (7.4-10.4); MONO % 7.7 %; MONO ABS # 0.91 K/uL (0.11-0.59); NEUT % 75.7 %; NEUT ABS # 8.98 K/uL (1.4-6.5); PLATELET COUNT 358 K/uL (130-400); RED CELL DISTRIBUTION WIDTH CV 15.8 % (11.5-14.5); RED CELL DISTRIBUTION WIDTH SD 38.6 fL (36.4-46.3); WHITE BLOOD COUNT 11.87 K/uL (4.8-10.8)
[2017-12-25] MEDS ORDERED: BCPILLS PO (04:52)
[2017-12-25 05:01] LABS: ALBUMIN 3.2 gm/dl (3.4-5.0); ALT/SGPT 29 U/L (12-78); AST/SGOT 22 U/L (15-37); BLOOD UREA NITROGEN 12 mg/dl (7-18); CALCIUM 8.6 mg/dl (8.5-10.1); CARBON DIOXIDE 27 mmol/L (21-32); CREATININE 0.74 mg/dl (0.60-1.20); GLUCOSE 101 mg/dl (70-99); LIPASE 128 U/L (73-393); POTASSIUM 4.1 mmol/L (3.5-5.1); SODIUM 135 mmol/L (136-145)
[2017-12-25 05:04] LABS: ALKALINE PHOSPHATASE 75 U/L (45-117); TOTAL PROTEIN 7.2 gm/dl (6.4-8.2)
[2017-12-25] MEDS ORDERED: PROCHLORPERAZINE 5 MG/ML 2 ML VIAL IV STA (05:46)
[2017-12-25] MEDS ORDERED: KETOROLAC TROMETHAMINE 30 MG/ML VIAL IV STA (05:46)
[2017-12-25] MEDS ORDERED: MoRPHine SULFATE 4 MG/ML 1 ML CARP\\VIAL IV STA (06:36)
[2017-12-25] MEDS ORDERED: ONDANSETRON HOME PACK 4MG OD TAB PO ONE (06:45)
[2017-12-25] MEDS ORDERED: OXYCODONE IR HOME PACK PO ONE (06:45)
--- NOTE | 2017-12-25 07:12 | EMERGENCY ROOM VISIT NOTE ---
History First contact with patient: 04:02 Chief Complaint: ABDOMINAL PAIN Stated Complaint: STOMACH PAIN Nursing Triage Summary: Stomach cramping 2230 and vomiting 0200. Denies others symptoms. History of Present Illness The patient is a 22 year old female who presents to the Emergency Room with complaints of abdominal cramping with nausea and vomiting and chronic diarrhea. Patient has Crohn's disease. She follows with [facility]. She saw them last month. She's been on Flagyl for C. difficile. She finished this 2 weeks ago. No well water. Patient states she's chronic diarrhea that is slightly increased again. No change in odor or texture. No blood or black in it. Patient describes the pain as cramping, ranging in severity 6 out of 10 throughout her upper abdomen. Similar to prior. Nothing makes it better or worse. Patient denies chest pain, dyspnea, fever, chills, cough, congestion, back pain, urinary symptoms. Colonoscopy earlier this year was stable per patient. Review of Systems See HPI for pertinent positives & negatives. A total of 10 systems reviewed and were otherwise negative. Past Medical/Surgical History Medical Problems: (1) Crohn disease (2) Crohn's disease of both small and large intestine Family History Cancer Diabetes mellitus FH: heart disease Hypertension Social History Smoking Status: Never Smoker Alcohol Use: none Drug Use: none Marital Status: in relationship Housing Status: lives with family Occupation Status: student Current/Historical Medications Scheduled Control Pills ( Control Pills), 1 TAB PO DAILY Physical Exam Vital Signs Date Time Temp Pulse Resp B/P (MAP) Pulse Ox O2 Delivery O2 Flow Rate FiO2 12/25/17 06:41 74 15 96 12/25/17 06:31 115/66 12/25/17 06:26 80 25 96 12/25/17 06:11 82 19 118/64 98 Room Air 12/25/17 05:41 95 22 99 12/25/17 05:31 122/76 12/25/17 05:26 94 19 100 12/25/17 05:11 86 25 99 12/25/17 05:01 119/70 12/25/17 04:56 96 18 100 12/25/17 04:50 93 12/25/17 04:41 102 17 98 12/25/17 04:31 116/73 12/25/17 04:26 104 99 12/25/17 04:12 122/81 12/25/17 04:11 107 99 Room Air 12/25/17 03:59 36.7 99 20 105/65 100 Room Air Physical Exam VITALS: Vitals are noted on the nurse's note and reviewed by myself. Vital signs stable. GENERAL: Pleasant female, in no acute distress, nondiaphoretic, well-developed well-nourished. SKIN: The skin was without rashes, erythema, edema, or bruising. There is no tenting of the skin. Capillary reflex less than 2 seconds. HEAD: Normocephalic atraumatic. EARS: External auditory canals clear, tympanic membranes pearly dunn without erythema or effusion bilaterally. EYES: Pupils equal round and reactive to light and accommodation. Conjunctivae without injection, sclerae without icterus. Extraocular movements intact. NOSE: Patent, turbinates without inflammation or discharge. MOUTH: Mucous membranes mildly dry. Pharynx without erythema or exudate. Uvula midline. Airway patent. Tongue does not deviate. NECK: Supple without nuchal rigidity. No lymphadenopathy. No thyromegaly. Cervical spine is nontender. No JVD. HEART: Regular rate and rhythm without murmurs gallops or rubs. LUNGS: Clear to auscultation bilaterally without wheezes, rales or rhonchi. No dullness to percussion. No retractions or accessory muscle use. ABDOMEN: Positive bowel sounds x 4. Normal tympanic percussion. Soft, tender to palpation upper abdomen, no CVA tenderness, without masses or organomegaly. Courtney sign negative. No guarding or rebound tenderness. MUSCULOSKELETAL: No muscle atrophy, erythema, or edema noted. NEURO: Patient was alert and oriented to person place and time. Normal sensation to light and sharp touch. No focal neurological deficits. Medical Decision & Procedures Laboratory Results 12/25/17 04:29 Red Blood Count 4.82, Mean Corpuscular Volume 67.0, Mean Corpuscular Hemoglobin 19.5, Mean Corpuscular Hemoglobin Concent 29.1, Mean Platelet Volume 8.9, Neutrophils (%) (Auto) 75.7, Lymphocytes (%) (Auto) 14.7, Monocytes (%) (Auto) 7.7, Eosinophils (%) (Auto) 1.2, Basophils (%) (Auto) 0.4, Neutrophils # (Auto) 8.98, Lymphocytes # (Auto) 1.75, Monocytes # (Auto) 0.91, Eosinophils # (Auto) 0.14, Basophils # (Auto) 0.05 12/25/17 04:29 Test 12/25/17 04:29 White Blood Count 11.87 K/uL (4.8-10.8) Red Blood Count 4.82 M/uL (4.2-5.4) Hemoglobin 9.4 g/dL (12.0-16.0) Hematocrit 32.3 % (37-47) Mean Corpuscular Volume 67.0 fL (80-100) Mean Corpuscular Hemoglobin 19.5 pg (25-34) Mean Corpuscular Hemoglobin Concent 29.1 g/dl (32-36) Platelet Count 358 K/uL (130-400) Mean Platelet Volume 8.9 fL (7.4-10.4) Neutrophils (%) (Auto) 75.7 % Lymphocytes (%) (Auto) 14.7 % Monocytes (%) (Auto) 7.7 % Eosinophils (%) (Auto) 1.2 % Basophils (%) (Auto) 0.4 % Neutrophils # (Auto) 8.98 K/uL (1.4-6.5) Lymphocytes # (Auto) 1.75 K/uL (1.2-3.4) Monocytes # (Auto) 0.91 K/uL (0.11-0.59) Eosinophils # (Auto) 0.14 K/uL (0-0.5) Basophils # (Auto) 0.05 K/uL (0-0.2) RDW Standard Deviation 38.6 fL (36.4-46.3) RDW Coefficient of Variation 15.8 % (11.5-14.5) Immature Granulocyte % (Auto) 0.3 % Immature Granulocyte # (Auto) 0.04 K/uL (0.00-0.02) Anisocytosis PRESENT Microcytosis PRESENT Ovalocytes 1+ Erythrocyte Sedimentation Rate 23 mm/hr (0-21) Anion Gap 5.0 mmol/L (3-11) Est Creatinine Clear Calc Drug Dose 123.6 ml/min Estimated GFR () 132.4 Estimated GFR (Non- 114.2 BUN/Creatinine Ratio 16.5 (10-20) Calcium Level 8.6 mg/dl (8.5-10.1) Total Bilirubin 0.3 mg/dl (0.2-1) Direct Bilirubin < 0.1 mg/dl (0-0.2) Aspartate Amino Transf (AST/SGOT) 22 U/L (15-37) Alanine Aminotransferase (ALT/SGPT) 29 U/L (12-78) Alkaline Phosphatase 75 U/L (45-117) C-Reactive Protein 0.56 mg/dl (0-0.29) Total Protein 7.2 gm/dl (6.4-8.2) Albumin 3.2 gm/dl (3.4-5.0) Lipase 128 U/L (73-393) Human Chorionic Gonadotropin, Qual NEG (NEG) Date/Time Source Procedure Growth Status 12/25/17 06:00 Stool C.difficile Toxin B Gene (PCR) - Final No C. difficile toxin B gene detected Complete Medications Administered Medications (Trade) Dose Ordered Sig/Amna Route Start Time Stop Time Status Last Admin Dose Admin Dicyclomine HCl (Bentyl Inj) 20 mg NOW ONCE IM 12/25/17 04:30 12/25/17 04:31 DC 12/25/17 04:57 20 MG Metoclopramide HCl (Reglan Inj) 10 mg NOW STAT IV. 12/25/17 04:16 12/25/17 04:18 DC 12/25/17 04:47 10 MG Diphenhydramine HCl (Benadryl Inj) 12.5 mg NOW STAT IV 12/25/17 04:16 12/25/17 04:18 DC 12/25/17 04:50 12.5 MG Sodium Chloride 1,000 ml @ 999 mls/hr Q1H1M STAT IV 12/25/17 04:16 12/25/17 05:16 DC 12/25/17 04:44 999 MLS/HR Famotidine (Pepcid 20mg Iv Push) 20 mg ONE STAT IV 12/25/17 04:16 12/25/17 04:18 DC 12/25/17 04:47 20 MG Ketorolac Tromethamine (Toradol Inj) 30 mg NOW STAT IV 12/25/17 05:46 12/25/17 05:47 DC 12/25/17 06:16 30 MG Prochlorperazine Edisylate (Compazine Inj) 10 mg NOW STAT IV 12/25/17 05:46 12/25/17 05:47 DC 12/25/17 06:12 10 MG Diphenhydramine HCl (Benadryl Inj) 12.5 mg NOW STAT IV 12/25/17 05:46 12/25/17 05:47 DC 12/25/17 06:09 12.5 MG Morphine Sulfate (MoRPHine SULFATE INJ) 4 mg NOW STAT IV 12/25/17 06:36 12/25/17 06:38 DC 12/25/17 06:44 4 MG Oxycodone HCl (Roxicodone Immediate Rel 5MG Home Pack) 1 homepack UD ONCE PO 12/25/17 06:45 12/25/17 06:46 DC 12/25/17 06:44 1 HOMEPACK Ondansetron HCl (ZOFRAN ODT 4MG Home Pack) 1 homepack UD ONCE PO 12/25/17 06:45 12/25/17 06:46 DC 12/25/17 06:44 1 HOMEPACK Sodium Chloride 1,000 ml @ 999 mls/hr Q1H1M STAT IV 12/25/17 06:49 12/25/17 07:49 12/25/17 07:04 999 MLS/HR ED Course Prior records/ancillary studies reviewed. Triage Nursing notes reviewed. Additional history obtained from the family. The patient's history was concerning for nausea, vomiting, diarrhea, and abdominal pain. Differential diagnosis: Etiologies such as Crohn's exacerbation, C. difficile, stool infection, gastroenteritis, food borne illness, infections, appendicitis, diverticulitis, inflammatory bowel disease, obstruction, GI bleed, biliary pathology, as well as others were entertained. Physical examination findings: As above. Abdominal examination revealed minimal upper abdominal tenderness. Vital signs reviewed and revealed stable. ER treatment provided: IV hydration 1 L NSS. Bentyl, Reglan, Benadryl On reassessment the patient felt better. Patient was tolerating p.o. intake. Diagnostics interpretation by me: The labs revealed mild stable anemia, mild leukocytosis, improved from prior Minimally elevated inflammatory markers. Negative C. difficile This appears to be consistent with Crohn's exacerbation. Patient did not have acute abdomen on exam. She is well-appearing. She felt much better after being medicated as above. She is advised to rest, stay well-hydrated and to take medications as directed. She is advised to follow-up with her GI doctor in a few days or here in the ER sooner for fevers, vomiting, pain, worsening signs or symptoms or as needed. Patient has had multiple CT scans in the past. I do not believe she is another one today. She felt better after being medicated as above. She's had no fever. By the evaluation outlined above emergent etiologies such as appendicitis, diverticulitis, obstruction, cardiac sources, mesenteric ischemia, aortic pathology, renal colic, PUD, biliary pathology, UTI, as well as others were deemed relatively unlikely. The pt informed about the findings as listed above. All questions were answered and pleased with the treatment. Return instructions were outlined and the patient was discharged in stable condition. Referral: The patient was referred to their primary care physician and GI for follow-up in 2 to 3 days for a recheck of the current condition. Case reviewed with my attending Medical Decision As above Medication Reconcilliation Current Medication List: was personally reviewed by me Blood Pressure Screening Patient's blood pressure: Normal blood pressure Impression Primary Impression: Exacerbation of Crohn's disease Departure Information Dispostion Home / Self-Care Condition GOOD Referrals Tiffnay Mari DO (PCP) Patient Instructions My [facility] [address] Additional Instructions DO NOT drive, drink alcohol, operate machinery, or perform dangerous activities today. You were given medications in the ER that can affect your ability to safely function or operate a vehicle. Oxycodone (OxyIR) 5mg: Take 1-2 pills every four hours for breakthrough pain. Avoid alcohol, operating machinery or dangerous equipment, working on ladders or roofs, DRIVING, or situations where being under the influence may be dangerous. It is recommended to use an [id number] stool softener such as Colace, 100mg twice daily while taking this medication to avoid constipation. Ibuprofen(Motrin, Advil) may be used for fever or pain. Use 600mg every six hours as needed. Take with food. Avoid using more than 2400mg in a 24 hour period. Do not use 2400mg per day for more than three consecutive days without physician direction. Prolonged inappropriate use can lead to stomach upset or ulcers. (AND/OR) Acetaminophen(Tylenol) may be used for fever or pain. Use 1000mg every six hours as needed. Avoid using more than 3000mg in a 24 hour period. Zofran 4mg: Take one every six hours as needed for nausea. Avoid alcohol, operating machinery or dangerous equipment, working on ladders or roofs, DRIVING , or situations where being under the influence may be dangerous. Rest and drink plenty of fluids as tolerated. Slow sips of water or sports drinks are recommended instead of large amounts all at once. Continue current medications. Once your stomach is settled start with a clear liquid diet (jello, soup broth, etc.) and then advance as tolerated. You should avoid full, heavy meals for about 24 hrs from the time your symptoms resolved. Return to the ER immediately for worsening or persistent abdominal pain, vomiting, fevers, chest pains, difficulty breathing, black or bloody stools, worsening of your condition, or as needed. Follow up with your GI and family care doctor in 2-3 days for a recheck of your current condition. Problem Qualifiers Primary Impression: Exacerbation of Crohn's disease Digestive disease complication type: unspecified complication Qualified Codes : K50.919 - Crohn's disease, unspecified, with unspecified complications
[2017-12-25 08:10] VITALS: BP 110/58; PULSE 68; TEMP 36.7; O2SAT 97
== END 2017-12-25 08:11 | disposition home or self-care (01) ==
LOC: C.ED 03:57 → C.EDB 08:11
DX: K50.919 Crohn's disease, unspecified, with unspecified complications (principal); Z83.3 Family history of diabetes mellitus; Z82.49 Family history of ischemic heart disease and other diseases of the circulatory system

== ENCOUNTER 2020-10-02 20:47 | Inpatient (IN) ==
[2020-10-02 21:29] LABS: Basophils # (auto) 0.02 K/uL (0-0.2); Basophils % (auto) 0.2 %; Eosinophils # (auto) 0.12 K/uL (0-0.5); Hematocrit (blood only) 43.7 % (37-47); Hemoglobin 14.6 g/dL (12.0-16.0); Immature Granulocytes # (auto) 0.03 K/uL (0.00-0.02); Immature Granulocytes % (auto) 0.3 %; Lymphocytes # (auto) 2.15 K/uL (1.2-3.4); Mean Corpuscular Hemoglobin 29.9 pg (25-34); Mean Corpuscular Hgb Conc 33.4 g/dL (32-36); Mean Corpuscular Volume 89.4 fL (80-100); Monocytes # (auto) 0.54 K/uL (0.11-0.59); Monocytes % (auto) 4.5 %; Neutrophils # (auto) 9.09 K/uL (1.4-6.5); Platelet Count 316 K/uL (130-400); RDW Coefficient of Variation 14.7 % (11.5-14.5); RDW Standard Deviation 44.7 fL (36.4-46.3); Red Blood Count 4.89 M/uL (4.2-5.4); White Blood Count 11.95 K/uL (4.8-10.8)
[2020-10-02 21:49] LABS: Appearance Urine Clear (Clear); Bacteria Urine Automated Negative (Negative); Bilirubin Urine Negative (Negative); Blood Urine Negative (Negative); Color Urine Yellow; Epithelial Cell Urine Auto >30 /lpf (0-5); Glucose Urine UA Negative (Negative); Ketones Urine Negative (Negative); Leukocyte Esterase Urine Negative (Negative); Nitrite Urine Negative (Negative); Protein Urine Trace (Negative); RBC Urine Automated 0-4 /hpf (0-4); Urobilinogen Urine Negative (Negative); pH Urine 6.5 (4.5-7.5)
[2020-10-02] MEDS ORDERED: ONDANSETRON INJ 2 MG/ML 2 ML VIAL IV STA (21:58)
[2020-10-02] MEDS ORDERED: KETOROLAC TROMETHAMINE 15 MG/ML VIAL IV STA (21:58)
[2020-10-02 22:19] LABS: Albumin Globulin Ratio 0.7 (0.9-2); Albumin Level 3.2 gm/dl (3.4-5.0); Bilirubin,Total 0.7 mg/dl (0.2-1); Calcium 8.4 mg/dl (8.5-10.1); Creatinine Clr Calc Pharmacy 121.3 ml/min; Est GFR (African American) 119.7; Est GFR (Non-African American) 103.3; Globulin 4.7 gm/dl (2.5-4.0); Total Protein 7.9 gm/dl (6.4-8.2)
[2020-10-02 22:30] LABS: Potassium 4.1 mmol/L (3.5-5.1)
[2020-10-02 22:32] LABS: BUN Creatinine Ratio 12.7 (10-20)
[2020-10-02 22:50] LABS: D Dimer 290 ug/L FEU (0-500); INR 0.9 (0.9-1.1); Partial Thromboplastin Time 27.1 Seconds (21.0-31.0)
[2020-10-02 23:10] LABS: Base Excess VBG 2.3 mEq/L; pH VBG 7.39 (7.36-7.41)
[2020-10-02] MEDS ORDERED: IOVERSOL 100ml IV ONE (23:11)
[2020-10-02] MEDS ORDERED: MoRPHine SULFATE 4 MG/ML 1 ML CARP\\VIAL IV STA (23:44)
[2020-10-02] MEDS ORDERED: SODIUM CHLORIDE 0.9% 1000ML 1,000 ML IV ONE (23:44)
--- NOTE | 2020-10-03 01:49 | History & Physical Report ---
Date of Service October 03, 2020 Assessment & Plan (1) Abdominal pain: Leida Cheung is a 25-year-old female with a past medical history of Crohn's with partial bowel resection and cholecystectomy who presents with acute left upper quadrant abdominal pain and is found to have evidence of pancreatitis on CT scan. Acute left upper quadrant abdominal pain suspect 2/[address]-A: Mild stranding adjacent to the distal pancreatic body and tail which may indicate acute pancreatitis in the appropriate clinical setting. No peripancreatic fluid collection. Homogeneous pancreatic enhancement.Cholecystectomy. No dilated bowel. Right colon post surgical changes, as before. Nonvisualization of the appendix which may be surgically absent.Unremarkable uterus and adnexa. Patient with history of gallstones and status post cholecystectomy Patient denies alcohol use prior to symptoms, minimal use at baseline. No evidence of hypercalcemia on admission labs Lipase 1083, do not trend LR 200 cc/h overnight Skilled analgesia, morphine 2-4 mg scaled analgesia every 4 hours Lipid panel pending NPO, advance to clears as tolerated Metabolic acidosis without acidemia Bicarb decreased to 13 with increased anion gap of 28. Delta delta 15, ratio of 1.4 suggesting pure high anion gap acidosis Patient with increase watery diarrhea over the previous 4 months, potassium normal.? Fistula Lactate pending No evidence of uremia, alcohol/methanol ingestion, glycol exposure, aspirin exposure, or CKD Patient potentially at risk of loss of bicarbonate due to enteric fistula formation in the setting of Crohn's, no overt fistula was seen on CT Patient is hypochloremic, low suspicion for renal tubular acidosis wasting. Urine pH pending. Repeat CMP, VBG pending Serum osmole's, urine osmoles with pH, lactate, salicylate/Tylenol/ethanol levels pending Crohn's disease No leukocytosis, no evidence for acute bowel dilation or inflammation on CT, see above. No additional treatment at this time DVT prophylaxis: SCDs, ambulate Diet: N.p.o., early advance to clears as tolerated by patient Disposition: Medical surgical CODE STATUS: Full code (2) Vomiting: (3) Acidosis, metabolic: (4) Pancreatitis: History of Present Illness . Patient endorses loose Chief Complaint: Abdominal pain Primary Care Provider: Cyrus Nelson III, EVA Leida Cheung is a 25-year-old female with a past medical history of Crohn's with partial bowel resection and cholecystectomy who presents with acute left upper quadrant abdominal pain. Patient reports that around noon the day of admission she developed quickly worsening left upper quadrant abdominal pain with some radiation to her back. This pain was worse with inhalation and movement and was a 7/10 at the worst and is currently at a 5 out of 10. She reports she does not know if food changed her pain, but she has had almost no appetite and only had a small amount of pudding today. She has had chills for the last few hours, denies fever. She has been nauseous but has not vomited. She has not had any bloody bowel movements. Patient endorses loose, watery diarrhea for 4 months unchanged in the last week. She reports she has felt generally unwell for about 2 months, she was seen 2 months ago in the emergency department for abdominal discomfort and general unwellness but overall was medically stable and was discharged outpatient follow-up. She reports she has Crohn's with intermittent flares on a biologic. She is followed at [facility] by Dr. Hui. Her last colonoscopy was 3 years ago, she reports she is overdue but has had good healing difficulties. She has been urinating normally and denies dysuria. She reports she rarely drinks alcohol due to it "not mixing well with Crohn's ", drinks at most once or twice a month and only 1 drink in a setting. He denies tobacco product and recreational drug use. She has not taken any [id number] medic debbie or remedies. Medical history: Reviewed Surgical history: Reviewed Allergies: Reviewed Family history: Reviewed Social: She lives in a home with her boyfriend, no sick contacts at home. Minimal alcohol use, no tobacco use, no recreational drug use. No alcohol intake preceding symptoms. CODE STATUS: Full code Allergies Allergy/AdvReac Type Severity Reaction Status Date / Time infliximab Allergy Severe Anaphylaxis Verified 10/02/20 22:30 Home Medications Home Medications Medication Instructions Recorded Confirmed Type norgestimate-ethinyl estradiol 1 tab PO DAILY #28 tab 02/21/20 10/02/20 Rx 0.18 mg/0.215mg/0.25mg-35 mcg(28)tablet Past Med/Surg History Medical History Crohn disease Gallstone Small bowel obstruction Surgical History S/P cholecystectomy Social History Smoking Status: Never smoker Second Hand Exposure: No; Do You Dip or Chew Tobacco: No; Tobacco Cessation Education Requested by Patient: No Hx Alcohol Use: Yes Hx Substance Use: No Preferred Language: Indonesian Communication Ability: Effective Speech Clinician Required: No Beliefs That Will Affect Care: None Current Living Situation: Significant Other Other Information That Helps Us Care for You: No Feels Safe at Home: Yes Safety Concerns: Feels Safe At This Time Assistive Devices: None Review of Systems Review of Systems: All systems reviewed & are unremarkable except as noted in HPI & below Physical Exam Physical Exam: General: A&Ox3. NAD. Cooperative. HEENT: Atraumatic, normocephalic. Pupils equal and reactive to light and accommodation. Visual acuity grossly intact. Hearing grossly intact. Pulm: CTAB A&P. -wheezes, -rales, -rhonchi. Symmetrical chest rise. No increase work of breathing. No respiratory distress. Cardiac: RRR, -mrg. Radial pulses intact and symmetrical. Abdominal: Left upper quadrant tender to palpation. Remaining abdomen "achy "on exam, but without focal pain or involuntary guarding. Bowel sounds intact. Extremities: Bark Spudder strength, ankle plantar flexion/dorsiflexion intact bilaterally without asymmetry. Sensation to soft touch intact in fingers and toes without deficit or asymmetry. PT pulses intact. No lower extremity asymmetry or edema. Results & Data Results & Data ([facility]) Vital Signs (Past 12 Hours) Vital Signs Temp Pulse Pulse Resp BP BP Pulse Ox 10/02/20 23:49 89 18 142/87 H 96 10/02/20 23:06 89 18 121/79 96 10/02/20 22:38 36.9 C 10/02/20 21:10 86 18 128/74 96 10/02/20 20:49 103 H 18 145/90 H 97 Supervising Physician Co-Signing Physician Notes Patient seen and examined, chart reviewed, case discussed with Dr. Leonard and I agree with his assessment and plan as documented above. Resident Activity Tracking Resident Involvement: Resident Care Provided Care Provided: Adult Hospital Medicine (1) Abdominal pain Abdominal location: unspecified location Qualified Code(s): R10.9 - Unspecified abdominal pain
[2020-10-03] MEDS ORDERED: MoRPHine SULFATE 2 MG/ML CARP IV STA (01:55)
[2020-10-03] MEDS ORDERED: ACETAMINOPHEN 325 MG TAB PO PRN (02:45)
[2020-10-03] MEDS ORDERED: MoRPHine SULFATE 4 MG/ML 1 ML CARP\\VIAL IV PRN (02:45)
[2020-10-03] MEDS: LACTATED RINGER'S 1,000 ML IV SCH ×5 (02:56→23:32)
[2020-10-03 03:12] LABS: Basophils # (auto) 0.02 K/uL (0-0.2); Basophils % (auto) 0.2 %; Eosinophils # (auto) 0.18 K/uL (0-0.5); Eosinophils % (auto) 1.9 %; Hematocrit (blood only) 39.6 % (37-47); Hemoglobin 13.3 g/dL (12.0-16.0); Immature Granulocytes # (auto) 0.02 K/uL (0.00-0.02); Immature Granulocytes % (auto) 0.2 %; Lymphocytes # (auto) 2.05 K/uL (1.2-3.4); Lymphocytes % (auto) 21.4 %; Mean Corpuscular Hemoglobin 30.1 pg (25-34); Mean Corpuscular Hgb Conc 33.6 g/dL (32-36); Mean Corpuscular Volume 89.6 fL (80-100); Mean Platelet Volume 9.5 fL (7.4-10.4); Monocytes # (auto) 0.81 K/uL (0.11-0.59); Monocytes % (auto) 8.4 %; Neutrophils # (auto) 6.51 K/uL (1.4-6.5); Neutrophils % (auto) 67.9 %; Platelet Count 275 K/uL (130-400); RDW Coefficient of Variation 14.8 % (11.5-14.5); RDW Standard Deviation 45.5 fL (36.4-46.3); Red Blood Count 4.42 M/uL (4.2-5.4); White Blood Count 9.59 K/uL (4.8-10.8)
[2020-10-03 03:19] LABS: Base Excess VBG 1.6 mEq/L; HCO3 VBG 28 mmol/L; PCO2 VBG 53 mmHg (38-50); PO2 VBG 29 mmHg; pH VBG 7.35 (7.36-7.41)
[2020-10-03 03:28] LABS: Oxygen Saturation VBG < 60.0 %
[2020-10-03 03:51] LABS: Albumin Globulin Ratio 0.8 (0.9-2); Albumin Level 2.8 gm/dl (3.4-5.0); BUN Creatinine Ratio 15.7 (10-20); Bilirubin,Total 0.6 mg/dl (0.2-1); Calcium 7.8 mg/dl (8.5-10.1); Creatinine Clr Calc Pharmacy 158.9 ml/min; Est GFR (African American) 145.8; Est GFR (Non-African American) 125.8; Globulin 3.7 gm/dl (2.5-4.0); Total Protein 6.5 gm/dl (6.4-8.2)
[2020-10-03 04:20] LABS: Acetaminophen < 2 ug/ml (10-30); Salicylate < 1.7 mg/dl (2.8-20)
[2020-10-03 04:22] LABS: Potassium 3.9 mmol/L (3.5-5.1)
--- NOTE | 2020-10-03 05:07 | Emergency Department Note ---
History of Present Illness General Chief complaint: Abdominal Pain Stated complaint: ABDOMINAL PAIN Time Seen by Provider: 10/02/20 21:32 Source: patient Mode of arrival: ambulatory Limitations: no limitations History of Present Illness Maximum Pain Intensity: 3 This patient is a 25-year-old female who presents to the emergency department for evaluation of abdominal pain. Patient reports that her symptoms started this afternoon, about 8 hours prior to arrival. Symptoms have gradually worsened. She reports pain in the left upper quadrant/left flank which is constant and worse with movement or deep breath. She rates her pain a 6/10. She has associated nausea, but no vomiting. Denies urinary symptoms or fevers. Patient has a history of Crohn's and has chronic diarrhea. She denies any changes in her bowel movements. She states this does not feel like prior Crohn's flares. Patient has had a cholecystectomy and small bowel resection. She does take control pills. She is not a smoker and denies recent travel or immobilization. Home Medications Home Medications Medication Instructions Recorded Confirmed Type norgestimate-ethinyl estradiol 1 tab PO DAILY #28 tab 02/21/20 10/02/20 Rx 0.18 mg/0.215mg/0.25mg-35 mcg(28)tablet Allergies Allergy/AdvReac Type Severity Reaction Status Date / Time infliximab Allergy Severe Anaphylaxis Verified 10/02/20 22:30 Past Med/Surg History Medical History Crohn disease Gallstone Small bowel obstruction Surgical History S/P cholecystectomy Social History Smoking Status: Never smoker Second Hand Exposure: No; Do You Dip or Chew Tobacco: No; Tobacco Cessation Education Requested by Patient: No Hx Alcohol Use: Yes Hx Substance Use: No Preferred Language: Chinese Communication Ability: Effective Communications Maintainer Required: No Beliefs That Will Affect Care: None Current Living Situation: Significant Other Other Information That Helps Us Care for You: No Feels Safe at Home: Yes Safety Concerns: Feels Safe At This Time Assistive Devices: None Review of Systems A total of 10 systems reviewed and were otherwise negative Physical Exam Vital Signs Vital Signs - 24 hr 10/02/20 20:49 10/02/20 21:10 10/02/20 22:38 Temperature 36.9 C Temperature Source Oral Oral Pulse Rate 103 H Pulse Rate [Right Finger] 86 Pulse Rhythm [Right Finger] Regular Pulse Strength [Right Finger] Normal Respiratory Rate 18 18 Respiratory Effort / Characteristics Non-Labored Spontaneous Non-Labored Spontaneous Respiratory Depth Normal Normal Respiratory Pattern Regular Regular Blood Pressure 145/90 H Blood Pressure [Left Arm] 128/74 Blood Pressure Mean 108 Blood Pressure Mean [Left Arm] 92 Blood Pressure Position Sitting Blood Pressure Position [Left Arm] Lying Pulse Oximetry 97 96 Oxygen Delivery Method Room Air Room Air Sepsis Recent Fever Within 48 Hours No Sepsis New/Unexplained Change in Mental Status No Sepsis Action Taken by Nursing No Action Required 10/02/20 23:06 10/02/20 23:49 10/03/20 01:38 Temperature Temperature Source Pulse Rate Pulse Rate [Right Finger] 89 89 88 Pulse Rhythm [Right Finger] Pulse Strength [Right Finger] Respiratory Rate 18 18 18 Respiratory Effort / Characteristics Respiratory Depth Respiratory Pattern Blood Pressure Blood Pressure [Left Arm] 121/79 142/87 H 116/72 Blood Pressure Mean Blood Pressure Mean [Left Arm] 93 105 86 Blood Pressure Position Blood Pressure Position [Left Arm] Pulse Oximetry 96 96 97 Oxygen Delivery Method Room Air Room Air Room Air Sepsis Recent Fever Within 48 Hours Sepsis New/Unexplained Change in Mental Status Sepsis Action Taken by Nursing VITALS: Vitals are noted on the nurse's note and reviewed by myself. Vital signs stable. GENERAL: This is a 25-year-old female, in no acute distress, well-developed well-nourished. SKIN: The skin was without rashes. EYES: Pupils equal round and reactive to light and accommodation. MOUTH: Mucous membranes moist. Tonsils are not enlarged. Pharynx without erythema or exudate. NECK: Supple without nuchal rigidity. No lymphadenopathy. HEART: Regular rate and rhythm without murmurs gallops or rubs. LUNGS: Clear to auscultation bilaterally without wheezes, rales or rhonchi. No retractions or accessory muscle use. ABDOMEN: Positive bowel sounds x 4. Soft, moderate tenderness to palpation in the left upper quadrant. No guarding or rebound tenderness. NEURO: Patient was alert and oriented to person place and time. Course Consultations Consultation #1: Dr. Johnson - [facility] [place] hospitalist Administered Medications Lactated Ringer's (Lr) 1,000 mls @ 200 mls/hr IV .Q5H ADELA Stop: 11/02/20 02:44 Last Admin: 10/03/20 02:56 Dose: 200 mls/hr Documented by: [id number] Discontinued Medications Sodium Chloride (Nss 1000ml) 1,000 mls @ 999 mls/hr IV .Q1H1M ONE Stop: 10/03/20 00:44 Last Infusion: 10/03/20 00:58 Dose: 0 mls/hr Documented by: [id number] Admin: 10/02/20 23:47 Dose: 999 mls/hr Documented by: [id number] Ioversol (Ioversol 100ml) 93 ml IV ONCE ONE Stop: 10/02/20 23:12 Last Admin: 10/02/20 23:11 Dose: 1 ml Documented by: [id number] Ketorolac Tromethamine (Ketorolac Tromethamine 15 Mg/Ml Vial) 15 mg IV NOW STA Stop: 10/02/20 21:59 Last Admin: 10/02/20 22:06 Dose: 15 mg Documented by: [id number] Morphine Sulfate (Morphine Sulfate 4 Mg/Ml 1 Ml Carp\Vial) 4 mg IV NOW STA Stop: 10/02/20 23:45 Last Admin: 10/02/20 23:47 Dose: 4 mg Documented by: [id number] Morphine Sulfate (Morphine Sulfate 2 Mg/Ml Carp) 2 mg IV NOW STA Stop: 10/03/20 01:56 Last Admin: 10/03/20 02:01 Dose: 2 mg Documented by: [id number] Ondansetron HCl (Ondansetron Inj 2 Mg/Ml 2 Ml Vial) 4 mg IV NOW STA Stop: 10/02/20 21:59 Last Admin: 10/02/20 22:06 Dose: 4 mg Documented by: [id number] Medical Decision Making Differential Diagnosis Appendicitis, ovarian cyst, ovarian torsion, ectopic , TOA, PID, infections, diverticulitis, UTI, obstruction, mesenteric ischemia, aortic pathology, inflammatory bowel disease, renal colic, PUD, pancreatitis, biliary pathology, hernia, volvulus, constipation, as well as other pathologies. Home Medications Current Medication List: was personally reviewed by me Laboratory Data Attestation: I reviewed the patient's lab results. Result diagrams: 10/03/20 02:57 10/03/20 02:57 Lab Results 10/02/20 10/02/20 10/02/20 Range/Units 21:05 21:05 21:05 WBC 11.95 H (4.8-10.8) K/uL RBC 4.89 (4.2-5.4) M/uL Hgb 14.6 (12.0-16.0) g/dL Hct 43.7 (37-47) % MCV 89.4 (80-100) fL MCH 29.9 (25-34) pg MCHC 33.4 (32-36) g/dL RDW Std Deviation 44.7 (36.4-46.3) fL RDW Coeff of Thang 14.7 H (11.5-14.5) % Plt Count 316 (130-400) K/uL MPV 10.0 (7.4-10.4) fL Immature Gran % (Auto) 0.3 % Neut % (Auto) 76.0 % Lymph % (Auto) 18.0 % Meagher % (Auto) 4.5 % Eos % (Auto) 1.0 % Baso % (Auto) 0.2 % Neut # (Auto) 9.09 H (1.4-6.5) K/uL Lymph # (Auto) 2.15 (1.2-3.4) K/uL Meagher # (Auto) 0.54 (0.11-0.59) K/uL Eos # (Auto) 0.12 (0-0.5) K/uL Baso # (Auto) 0.02 (0-0.2) K/uL Immature Gran # (Auto) 0.03 H (0.00-0.02) K/uL PT (9.0-12.0) Seconds INR (0.9-1.1) APTT (21.0-31.0) Seconds PTT Ratio D-Dimer VBG pH (7.36-7.41) VBG pCO2 (38-50) mmHg VBG pO2 mmHg VBG HCO3 mmol/L VBG O2 Saturation % VBG Base Excess mEq/L Barometric Pressure mm/Hg Sodium 135 L (136-145) mmol/L Potassium 4.1 (3.5-5.1) mmol/L Chloride 95 L (98-107) mmol/L Carbon Dioxide 13 L (21-32) mmol/L Anion Gap 28.0 H (3-11) BUN 10 (7-18) mg/dl Creatinine 0.79 (0.6-1.2) mg/dl Est Cr Clr Drug Dosing 121.3 ml/min Est GFR ( Amer) 119.7 Est GFR (Non-Af Amer) 103.3 BUN/Creatinine Ratio 12.7 (10-20) Glucose 101 H (70-99) mg/dl Calcium 8.4 L (8.5-10.1) mg/dl Total Bilirubin 0.7 (0.2-1) mg/dl AST 31 (15-37) U/L ALT 37 (12-78) U/L Alkaline Phosphatase 120 H (45-117) U/L Total Protein 7.9 (6.4-8.2) gm/dl Albumin 3.2 L (3.4-5.0) gm/dl Globulin 4.7 H (2.5-4.0) gm/dl Albumin/Globulin Ratio 0.7 L (0.9-2) Lipase 1083 H (73-393) U/L Urine Color Yellow Urine Appearance Clear (Clear) Urine pH 6.5 (4.5-7.5) Ur Specific Elmo 1.030 (1.000-1.030) Urine Protein Trace H (Negative) Urine Glucose (UA) Negative (Negative) Urine Ketones Negative (Negative) Urine Blood Negative (Negative) Urine Nitrite Negative (Negative) Urine Bilirubin Negative (Negative) Urine Urobilinogen Negative (Negative) Ur Leukocyte Esterase Negative (Negative) Urine WBC (Auto) 1-5 (0-5) /hpf Urine RBC (Auto) 0-4 (0-4) /hpf U Hyaline Cast (Auto) 1-5 (0-5) /lpf U Epithel Cells (Auto) >30 H (0-5) /lpf Urine Bacteria (Auto) Negative (Negative) POC Ur Test (NEG) 10/02/20 10/02/20 10/02/20 Range/Units 21:05 21:05 21:05 WBC (4.8-10.8) K/uL RBC (4.2-5.4) M/uL Hgb (12.0-16.0) g/dL Hct (37-47) % MCV (80-100) fL MCH (25-34) pg MCHC (32-36) g/dL RDW Std Deviation (36.4-46.3) fL RDW Coeff of Thang (11.5-14.5) % Plt Count (130-400) K/uL MPV (7.4-10.4) fL Immature Gran % (Auto) % Neut % (Auto) % Lymph % (Auto) % Meagher % (Auto) % Eos % (Auto) % Baso % (Auto) % Neut # (Auto) (1.4-6.5) K/uL Lymph # (Auto) (1.2-3.4) K/uL Meagher # (Auto) (0.11-0.59) K/uL Eos # (Auto) (0-0.5) K/uL Baso # (Auto) (0-0.2) K/uL Immature Gran # (Auto) (0.00-0.02) K/uL PT 10.0 (9.0-12.0) Seconds INR 0.9 (0.9-1.1) APTT 27.1 (21.0-31.0) Seconds PTT Ratio 1.0 D-Dimer Cancelled 290 VBG pH (7.36-7.41) VBG pCO2 (38-50) mmHg VBG pO2 mmHg VBG HCO3 mmol/L VBG O2 Saturation % VBG Base Excess mEq/L Barometric Pressure mm/Hg Sodium (136-145) mmol/L Potassium (3.5-5.1) mmol/L Chloride (98-107) mmol/L Carbon Dioxide (21-32) mmol/L Anion Gap (3-11) BUN (7-18) mg/dl Creatinine (0.6-1.2) mg/dl Est Cr Clr Drug Dosing ml/min Est GFR ( Amer) Est GFR (Non-Af Amer) BUN/Creatinine Ratio (10-20) Glucose (70-99) mg/dl Calcium (8.5-10.1) mg/dl Total Bilirubin (0.2-1) mg/dl AST (15-37) U/L ALT (12-78) U/L Alkaline Phosphatase (45-117) U/L Total Protein (6.4-8.2) gm/dl Albumin (3.4-5.0) gm/dl Globulin (2.5-4.0) gm/dl Albumin/Globulin Ratio (0.9-2) Lipase (73-393) U/L Urine Color Urine Appearance (Clear) Urine pH (4.5-7.5) Ur Specific Elmo (1.000-1.030) Urine Protein (Negative) Urine Glucose (UA) (Negative) Urine Ketones (Negative) Urine Blood (Negative) Urine Nitrite (Negative) Urine Bilirubin (Negative) Urine Urobilinogen (Negative) Ur Leukocyte Esterase (Negative) Urine WBC (Auto) (0-5) /hpf Urine RBC (Auto) (0-4) /hpf U Hyaline Cast (Auto) (0-5) /lpf U Epithel Cells (Auto) (0-5) /lpf Urine Bacteria (Auto) (Negative) POC Ur Test NEG (NEG) 10/02/20 Range/Units 23:00 WBC (4.8-10.8) K/uL RBC (4.2-5.4) M/uL Hgb (12.0-16.0) g/dL Hct (37-47) % MCV (80-100) fL MCH (25-34) pg MCHC (32-36) g/dL RDW Std Deviation (36.4-46.3) fL RDW Coeff of Thang (11.5-14.5) % Plt Count (130-400) K/uL MPV (7.4-10.4) fL Immature Gran % (Auto) % Neut % (Auto) % Lymph % (Auto) % Meagher % (Auto) % Eos % (Auto) % Baso % (Auto) % Neut # (Auto) (1.4-6.5) K/uL Lymph # (Auto) (1.2-3.4) K/uL Meagher # (Auto) (0.11-0.59) K/uL Eos # (Auto) (0-0.5) K/uL Baso # (Auto) (0-0.2) K/uL Immature Gran # (Auto) (0.00-0.02) K/uL PT (9.0-12.0) Seconds INR (0.9-1.1) APTT (21.0-31.0) Seconds PTT Ratio D-Dimer VBG pH 7.39 (7.36-7.41) VBG pCO2 47 (38-50) mmHg VBG pO2 40 mmHg VBG HCO3 28 mmol/L VBG O2 Saturation 71.0 % VBG Base Excess 2.3 mEq/L Barometric Pressure 741.4 mm/Hg Sodium (136-145) mmol/L Potassium (3.5-5.1) mmol/L Chloride (98-107) mmol/L Carbon Dioxide (21-32) mmol/L Anion Gap (3-11) BUN (7-18) mg/dl Creatinine (0.6-1.2) mg/dl Est Cr Clr Drug Dosing ml/min Est GFR ( Amer) Est GFR (Non-Af Amer) BUN/Creatinine Ratio (10-20) Glucose (70-99) mg/dl Calcium (8.5-10.1) mg/dl Total Bilirubin (0.2-1) mg/dl AST (15-37) U/L ALT (12-78) U/L Alkaline Phosphatase (45-117) U/L Total Protein (6.4-8.2) gm/dl Albumin (3.4-5.0) gm/dl Globulin (2.5-4.0) gm/dl Albumin/Globulin Ratio (0.9-2) Lipase (73-393) U/L Urine Color Urine Appearance (Clear) Urine pH (4.5-7.5) Ur Specific Elmo (1.000-1.030) Urine Protein (Negative) Urine Glucose (UA) (Negative) Urine Ketones (Negative) Urine Blood (Negative) Urine Nitrite (Negative) Urine Bilirubin (Negative) Urine Urobilinogen (Negative) Ur Leukocyte Esterase (Negative) Urine WBC (Auto) (0-5) /hpf Urine RBC (Auto) (0-4) /hpf U Hyaline Cast (Auto) (0-5) /lpf U Epithel Cells (Auto) (0-5) /lpf Urine Bacteria (Auto) (Negative) POC Ur Test (NEG) Imaging Data Attestation: I personally reviewed and interpreted this imaging study as follows: Radiologist's Impression: CT ABDOMEN & PELVIS With Contrast: Comparison 08/14/2020. Mild stranding adjacent to the distal pancreatic body and tail which may indicate acute pancreatitis in the appropriate clinical setting. No peripancreatic fluid collection. Homogeneous pancreatic enhancement. Cholecystectomy. No dilated bowel. Right colon post surgical changes, as before. Nonvisualization of the appendix which may be surgically absent. Unremarkable uterus and adnexa. Radiologist: Robel Bowman M.D. MDM Narrative The patient is a 25-year-old female who presents today complaining of left upper quadrant abdominal pain. Labs revealed a mild leukocytosis of 11.9, no anemia. Patient found to have elevated anion gap of 28 and serum bicarb 13, however VBG was ordered and was completely normal. Cause of this is unclear. Lipase was elevated at 1093, CT with evidence of acute pancreatitis. Patient given IV fluids, pain medication and Zofran in the emergency department with improvement of her symptoms. Case discussed with the [facility] hospitalist service, who agreed to evaluate the patient for further care. Impression & Plan Pancreatitis Discharge Plan Visit Data Chief Complaint: Abdominal Pain Stated Complaint: ABDOMINAL PAIN ED Provider: Sage Silveira ED Midlevel Provider: Tg Martinez Discharge Problem: Pancreatitis Patient Disposition: Admitted As Inpatient Discharge Instructions Interventions: ED Discharge Assessment Last Done: 10/03/20 02:13
[2020-10-03] MEDS: MoRPHine SULFATE 2 MG/ML CARP IV PRN ×3 (06:07→15:23)
--- NOTE | 2020-10-03 07:16 | Billing Data ---
Date of Service October 03, 2020 Coding Level of Care Code 65123 Initial Inpt Care Lvl 3
--- NOTE | 2020-10-03 07:21 | CT Scan Report ---
CT OF THE ABDOMEN AND PELVIS WITH CONTRAST CLINICAL HISTORY: Left upper quadrant abdominal pain. COMPARISON STUDY: CT of the abdomen and pelvis August 14, 2020. TECHNIQUE: Following IV administration of 93 mL of Optiray-320, axial images of the abdomen and pelvi s were obtained from the lung bases to the proximal femurs. Images were reviewed in the axial, sagitt al, and coronal planes. IV contrast was administered without complication. Automated exposure contro l was utilized for the study. A dose lowering technique was utilized adhering to the principles of A MARY ANN. CT DOSE: 604.63 mGy.cm FINDINGS: Lung bases are unremarkable. No pneumatosis, free air or portal venous gas is present. Ther e is no biliary ductal dilatation status post cholecystectomy. No hepatic lesions are present. The sp dipti, adrenal glands and kidneys are normal. Note is made of mild infiltration and fluid along the po sterior aspect of the pancreatic body extending into the left anterior pararenal space. There is homo geneous enhancement of the pancreas. Splenic vein is patent. No pseudoaneurysm is identified on this non-CTA exam. There is no evidence for a bowel obstruction status post ileocecectomy. Apparent wall t hickening of the transverse colon is likely due to underdistention. Major vasculature is patent. Ther e is no lymphadenopathy. No fracture or suspicious lesion is identified within the visualized skeleta l structures. IMPRESSION: 1. Mild peripancreatic infiltration and fluid along the posterior aspect of the pancreatic body and t ail extending into the left anterior pararenal space. This is consistent with acute pancreatitis. No evidence for pancreatic necrosis. 2. No biliary ductal dilatation status post cholecystectomy. 3. Status post ileocecectomy. Apparent wall thickening of the transverse colon is probably due to und erdistention. ACT 112: Negative or not required by law. Electronically signed by: Kee Aguilar M.D. 10/03/2020 7:20 AM
--- NOTE | 2020-10-03 08:14 | Hospitalist Progress Note ---
Date of Service October 03, 2020 Assessment & Plan (1) Abdominal pain: Leida Cheung is a 25-year-old female with a past medical history of Crohn's, maintained on Entyvio, with a previous history of partial bowel resection and cholecystectomy who presents with acute left upper quadrant abdominal pain and is found to have evidence of pancreatitis on CT scan with modest elevation of lipase. Acute left upper quadrant abdominal pain suspect 2/[address]-A: Mild stranding adjacent to the distal pancreatic body and tail which may indicate acute pancreatitis in the appropriate clinical setting. No peripancreatic fluid collection. Homogeneous pancreatic enhancement.Cholecys tectomy. No dilated bowel. Right colon post surgical changes, as before. Nonvisualization of the appendix which may be surgically absent.Unremarkable uterus and adnexa. Patient with history of gallstones and status post cholecystectomy Patient denies alcohol use prior to symptoms, minimal use at baseline. No evidence of hypercalcemia on admission labs LR 200 cc/h NPO, advance to clears as tolerated Crohn's disease No leukocytosis, no evidence for acute bowel dilation or inflammation on CT, see above. No additional treatment at this time, will involve Dr Figueredo (2) Vomiting: (3) Acidosis, metabolic: Metabolic acidosis without acidemia, now with very quick reduction of anion gap No evidence of uremia, alcohol/methanol ingestion, glycol exposure, aspirin exposure, or CKD Patient potentially at risk of loss of bicarbonate due to enteric fistula formation in the setting of Crohn's, no overt fistula was seen on CT Patient is hypochloremic, low suspicion for renal tubular acidosis wasting. Urine pH pending. Repeat CMP, VBG slightly elevated cos and low ph but not severe Serum osmole's, urine osmoles with pH, lactate extremely low, normal salicylate/normal Tylenol/normal ethanol (4) Pancreatitis: very minor lipase elevation now resolving Admission and Anticipated Discharge Date Admission Date: October 03, 2020 Subjective Patient states she is done well on the Entyvio however over the last 2 months she is feels there is been some change in her GI system. Has had increased bowel production discomfort. Initially she thought the crampy discomfort was he r menstrual period however this is persistent this is what prompted her to seek care in emergency department 1 day prior. At that time she had minor elevation of her lipase and was brought in for what was considered to be pancreatitis. Her lipase is resolving previously has had a cholecystectomy and has no significant elevations of her liver function tests to suggest this might be microlithiasis causing pancreatitis. Lisa also has no listing of pancreatitis and its package insert. Because of her slight progression while on infusion therapy gastroenterology consultation be undertaken her abdomen is generally tender no focal tenderness rebound no guarding Review of Systems Review of Systems: Mild to moderate distress and fatigue no headache, blurry or double vision no speech or swallowing issues no chest pain, pressure or palpitations no shortness of breath, cough or wheezes Generalized abdominal pain, mild nausea without vomiting, increasing diarrhea not bloody no dysuria, hematuria or frequency no focal joint pain or swelling no back pain, CVA tenderness or radicular pain no bruising, bleeding or rashes no focal signs of weakness or numbness or altered sensation no complaints of anxiety or depression. Physical Exam Physical Exam: The patient appeared well nourished and normally developed. Vital signs as documented. Head exam is normocephalic atraumatic no scleral icterus Neck is without JVD, thyromegaly, or carotid bruits. Lungs are clear to auscultation, no focal loss of breath sounds Cardiac exam, Rhythm is regular.. No murmurs, rubs or gallops. Abdominal exam reveals normal bowel sounds, soft non usually generally tender to palpation Extremities are nonedematous and both pedal pulses are present Neurologic exam is alert and oriented, no focal loss of strength or sensation Skin is without bruises or rashes Psychologically is without concerns for anxiety or depression. Results & Data Results & Data ([facility]) Vital Signs (Past 12 Hours) Vital Signs Temp Pulse Pulse Resp BP BP Pulse Ox 10/03/20 08:07 98.1 F 82 17 101/66 97 10/03/20 02:58 98.1 F 91 H 18 122/75 97 10/03/20 02:10 87 18 115/73 97 10/03/20 01:38 88 18 116/72 97 10/02/20 23:49 89 18 142/87 H 96 10/02/20 23:06 89 18 121/79 96 10/02/20 22:38 98.4 F 10/02/20 21:10 86 18 128/74 96 10/02/20 20:49 103 H 18 145/90 H 97 PG Care Time/CCT Total # of Minutes Spent Total Time Spent with Patient: Total time spent is greater than 50% in coordination of care (as documented) at patient's floor/unit and/or counseling patient: Coding Level of Care Code 25218 Subseq Hosp Care Lvl 2 Diagnoses Abdominal pain R10.9 Abdominal location: unspecified location Vomiting R11.10 Acidosis, metabolic E87.2 Pancreatitis K85.90 (1) Abdominal pain Abdominal location: unspecified location Qualified Code(s): R10.9 - Unspecified abdominal pain
--- NOTE | 2020-10-03 15:34 | Consultation Report ---
DATE OF CONSULTATION: 10/03/2020 GASTROINTESTINAL CONSULT NOTE REASON FOR EVALUATION: Acute pancreatitis. HISTORY OF PRESENT ILLNESS: The patient is a 25-year-old who has had Crohn's disease since she was about 11 years old, diagnosed in [place] and followed there as well. The patient had aggressive disease and about 4 years ago, had to have an ileocecal resection done by Dr. Brink with a mini laparotomy approach due to a fistula and abscess. The disease was also stuck to her right ovary. Following the surgery, she was started on vedolizumab and she has been on this every 8 weeks since then and is doing quite well. Her last dose was 6 days ago. She receives these in [place]. In 01/2019, the patient developed abdominal pain and was found to have symptomatic gallstones and underwent a laparoscopic cholecystectomy for multiple small stones. Following the surgery, she was having abdominal pain for a couple of months, but it resolved. For the last month or so, she has been experiencing some abdominal pain and she had one episode of severe rigors and chills about a month ago that resolved. She presented to the hospital today with the onset yesterday of severe left upper quadrant pain that was unrelenting, associated with nausea and retching. She was found to have a lipase of over [address] scan showed inflammation in the tail of the pancreas, bile duct was normal caliber and her liver tests were normal. The patient denies significant use of any alcohol. As far as laboratory goes, her calcium is slightly low at 8.4, albumin is 2.8. She is currently not nauseated, but still having some abdominal pain. PAST MEDICAL HISTORY: Remarkable for ileal Crohn's disease status post ileocecal resection about 4 years ago. She has had gallstone disease with laparoscopic cholecystectomy. MEDICATIONS: She was on a control pill, which she stopped on her own about 3 months ago. ALLERGIES: INFLIXIMAB CAUSED ANAPHYLAXIS. SOCIAL HISTORY: The patient does not smoke. Drinks alcohol rarely. She currently lives with significant other. 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 REVIEW OF SYSTEMS: Otherwise, negative. PHYSICAL EXAMINATION: GENERAL: The patient appears awake, alert, in no acute distress. VITAL SIGNS: Blood pressure is 142/87, pulse 89, respirations 18, pulse ox on room air is 96%. ABDOMEN: Shows laparoscopic scars and a mini incision above the umbilicus, which are all well healed. There is mild tenderness in the left upper quadrant. No mass or rebound. IMPRESSION AND PLAN: The patient has acute pancreatitis. She does not drink significant alcohol and she stopped her control pill 3 months ago. Her calcium is normal. I plan on checking her triglyceride level and checking an MRCP to see if there are any signs of a retained common duct stone. We will continue to follow the patient.
[2020-10-03] MEDS: MoRPHine SULFATE 4 MG/ML 1 ML CARP\\VIAL IV PRN ×2 (18:49→22:07)
[2020-10-03] MEDS ORDERED: ONDANSETRON INJ 2 MG/ML 2 ML VIAL IV PRN (18:54)
[2020-10-03] MEDS ORDERED: ONDANSETRON INJ 2 MG/ML 2 ML VIAL ONE (19:00)
--- NOTE | 2020-10-03 20:24 | Magnetic Resonance Report ---
MR MRCP HISTORY: pancreatitis- hx cholecystectomy. Evaluate for obstructing stones TECHNIQUE: MRCP of the abdomen was performed without contrast according to standard departmental prot ocol. COMPARISON STUDY: Abdomen and pelvis CT 10/02/2020. FINDINGS: Prior cholecystectomy. Trace bilateral pleural effusions. No hepatic or splenic masses. No hydronephrosis. Normal right adrenal gland. The left adrenal gland is obscured by the fluid/edema pos terior to the pancreatic tail. There is also fluid located within the left anterior pararenal space. This is unchanged compared the prior CT. There is minimal edema anterior to the tail the pancreas. Th is is consistent with acute pancreatitis. The main pancreatic duct and common bile duct are normal in course and caliber. No filling defects within the common bile duct to suggest a stone. The common bi le duct measures 4 mm in diameter. No retroperitoneal lymphadenopathy. Normal caliber abdominal aorta . Questionable mild colonic wall thickening. This is only partially imaged on this study. The main po rtal vein appears patent. Question of slight irregularity within the intrahepatic bile ducts. IMPRESSION: 1. Prior cholecystectomy. 2. The common bile duct and main pancreatic duct are normal in course and caliber. No filling defects identified to suggest an obstructing stone. 3. Mild edema surrounding the pancreatic tail consistent with acute pancreatitis. 4. Trace bilateral pleural effusions.. 5. Question of slight irregularity within the intrahepatic bile ducts. This could represent early zachary marcos sclerosing cholangitis. ACT 112: Negative or not required by law. Electronically signed by: Saqib Cummins M.D. 10/03/2020 8:22 PM
[2020-10-03] MEDS ORDERED: PROCHLORPERAZINE 5 MG in SYRINGE 4 ML IV ONE (20:30)
[2020-10-04] MEDS: LACTATED RINGER'S 1,000 ML IV SCH ×4 (04:35→19:57)
--- NOTE | 2020-10-04 08:23 | Gastroenterology Progress Note ---
Date of Service October 04, 2020 Assessment & Plan (1) Pancreatitis: (2) Crohn disease: MRCP demonstrating no obstruction. Lipase 193 this morning with remaining labs pending. Patient reports improvement in both pain and nausea. Continue diet as tolerated. Currently tolerating clears. Continue IVF and prn pain/nausea medications. Will continue to follow. Please refer to supervising physician addendum for further recommendations. Admission and Anticipated Discharge Date Admission Date: October 03, 2020 Subjective Patient upright in bed and on her phone this morning. She reports abdominal pain is improved. Received pain medication x 1 through the night. Denies pain this morning. Denies further vomiting. Medicated x 1 for nausea through the night. Denies nausea this morning. Tolerating clear liquid diet this morning. Review of Systems Review of Systems: All systems reviewed & are unremarkable except as noted in Subjective Physical Exam Constitutional: WD/WN, vitals as above Eyes: no eyelid abnormality and no conjunctival abnormality ENMT: Ears: no external ear abnormality Nose: no external nose abnormality Neck: normal visual inspection and trachea midline Respiratory: normal respiratory effort; no respiratory distress and no labored breathing Cardiovascular: RRR, no murmur, no edema Gastrointestinal (Abdomen): Inspection/Auscultation: abdomen normal to inspection and normal bowel sounds; abdomen not distended Percussion/Palpation: + abdomen tender (mild LUQ tenderness) and abdomen soft; no guarding and abdomen not rigid Musculoskeletal: Extremities: extremities normal to inspection Skin: no rashes, warm and dry Neurologic: PERRL, EOMI, accommodation nl, no face palsy, no dysarthria Psychiatric: A+Ox3, euthymic affect Results & Data ([facility]) Vital Signs (Past 12 Hours) Vital Signs Temp Pulse Resp BP Pulse Ox 10/04/20 07:31 37.3 C 104 H 20 109/67 94 10/03/20 23:06 36.8 C 99 H 16 96/56 L 93 Laboratory Results - last 24 hr 10/03/20 10/03/20 10/03/20 02:57 15:15 17:40 GGT Triglycerides 801 H Lipase 618 H 5'-Nucleotidase Urine pH 7.0 Urine Osmolality ANCA 10/03/20 10/04/20 10/04/20 17:40 07:53 07:53 GGT Pending Triglycerides Lipase Pending 5'-Nucleotidase Urine pH Urine Osmolality 325 L ANCA 10/04/20 07:53 GGT Triglycerides Lipase 5'-Nucleotidase Pending Urine pH Urine Osmolality ANCA Pending 10/03/2020: MRCP demonstrates 1. Prior cholecystectomy. 2. The common bile duct and main pancreatic duct are normal in course and caliber. No filling defects identified to suggest an obstructing stone. 3. Mild edema surrounding the pancreatic tail consistent with acute pancreatitis. 4. Trace bilateral pleural effusions.. 5. Question of slight irregularity within the intrahepatic bile ducts. This co uld represent early primary sclerosing cholangitis.
--- NOTE | 2020-10-04 16:03 | Progress Notes ---
DATE: 10/04/2020 Progress note on patient in addition to the note on her by Elise Busch earlier today. I examined the patient, interviewed her and reviewed the chart and labs. Her lipase has come back to normal at 193. Her MRCP today showed a normal bile duct, no stones and normal liver tests. Her triglyceride level, however, was significantly elevated at 801, which is likely the etiology for her pancreatitis. After discussion with the pharmacist, decided to put her on fenofibrate 145 mg once a day with or without food. We will also consult the dietitian to instruct her in a low-triglyceride diet. For now we will keep her on clear liquids because on exam she is control room tender in the epigastric and left upper quadrant.
[2020-10-04] MEDS: MoRPHine SULFATE 2 MG/ML CARP IV PRN (16:22)
--- NOTE | 2020-10-04 16:31 | Hospitalist Progress Note ---
Date of Service October 04, 2020 Assessment & Plan (1) Abdominal pain: Leida Cheung is a 25-year-old female with a past medical history of Crohn's, maintained on Entyvio, with a previous history of partial bowel resection and cholecystectomy who presents with acute left upper quadrant abdominal pain and is found to have evidence of pancreatitis on CT scan with modest elevation of lipase. Acute left upper quadrant abdominal pain suspect 2/[address]-A: Mild stranding adjacent to the distal pancreatic body and tail which may indicate acute pancreatitis in the appropriate clinical setting. No peripancreatic fluid collection. Homogeneous pancreatic enhancement.Cholecys tectomy. No dilated bowel. Right colon post surgical changes, as before. Nonvisualization of the appendix which may be surgically absent.Unremarkable uterus and adnexa. Patient with history of gallstones and status post cholecystectomy Patient denies alcohol use prior to symptoms, minimal use at baseline. No evidence of hypercalcemia on admission labs LR 200 cc/h advance diet to full liquids was disclosed about elevated lipase, MRCP shows:IMPRESSION: 1. Prior cholecystectomy. 2. The common bile duct and main pancreatic duct are normal in course and caliber. No filling defects identified to suggest an obstructing stone. 3. Mild edema surrounding the pancreatic tail consistent with acute pancreatitis. 4. Trace bilateral pleural effusions.. 5. Question of slight irregularity within the intrahepatic bile ducts. This could represent early primary sclerosing cholangitis. did send away ggt, 5 nucleatidase and p anca testing Crohn's disease No leukocytosis, no evidence for acute bowel dilation or inflammation on CT, see above. No additional treatment at this time, will involve Dr Figueredo (2) Vomiting: (3) Acidosis, metabolic: Metabolic acidosis without acidemia, this has resolved (4) Pancreatitis: very minor lipase elevation now resolved Admission and Anticipated Discharge Date Admission Date: October 03, 2020 Subjective She reports abdominal pain and nausea is improved. Received nausea medicine 10/03. Denies pain this morning. Denies further vomiting. Tolerating clear liquid diet this morning. Review of Systems Review of Systems: Mild to moderate distress and fatigue no headache, blurry or double vision no speech or swallowing issues no chest pain, pressure or palpitations no shortness of breath, cough or wheezes Generalized abdominal pain, mild nausea without vomiting, increasing diarrhea not bloody no dysuria, hematuria or frequency no focal joint pain or swelling no back pain, CVA tenderness or radicular pain no bruising, bleeding or rashes no focal signs of weakness or numbness or altered sensation no complaints of anxiety or depression. Physical Exam Physical Exam: The patient appeared well nourished and normally developed. Vital signs as documented. Head exam is normocephalic atraumatic no scleral icterus Neck is without JVD, thyromegaly, or carotid bruits. Lungs are clear to auscultation, no focal loss of breath sounds Cardiac exam, Rhythm is regular.. No murmurs, rubs or gallops. Abdominal exam reveals normal bowel sounds, soft non usually generally tender to palpation Extremities are nonedematous and both pedal pulses are present Neurologic exam is alert and oriented, no focal loss of strength or sensation Skin is without bruises or rashes Psychologically is without concerns for anxiety or depression. Results & Data Results & Data ([facility]) Vital Signs (Past 12 Hours) Vital Signs Temp Pulse Resp BP Pulse Ox 10/04/20 15:37 99.9 F H 97 H 18 116/74 97 10/04/20 07:31 99.1 F 104 H 20 109/67 94 PG Care Time/CCT Total # of Minutes Spent Total Time Spent with Patient: Total time spent is greater than 50% in coordination of care (as documented) at patient's floor/unit and/or counseling patient: Coding Level of Care Code 78725 Subseq Hosp Care Lvl 2 Diagnoses Abdominal pain R10.9 Abdominal location: unspecified location Vomiting R11.10 Acidosis, metabolic E87.2 Pancreatitis K85.90 (1) Abdominal pain Abdominal location: unspecified location Qualified Code(s): R10.9 - Unspecified abdominal pain
[2020-10-05] MEDS: LACTATED RINGER'S 1,000 ML IV SCH ×3 (03:00→11:30)
[2020-10-05 06:13] LABS: Basophils # (auto) 0.02 K/uL (0-0.2); Basophils % (auto) 0.2 %; Eosinophils # (auto) 0.25 K/uL (0-0.5); Hematocrit (blood only) 39.5 % (37-47); Hemoglobin 12.4 g/dL (12.0-16.0); Immature Granulocytes # (auto) 0.02 K/uL (0.00-0.02); Immature Granulocytes % (auto) 0.2 %; Lymphocytes % (auto) 21.3 %; Mean Corpuscular Hemoglobin 29.2 pg (25-34); Mean Corpuscular Hgb Conc 31.4 g/dL (32-36); Mean Corpuscular Volume 92.9 fL (80-100); Mean Platelet Volume 9.9 fL (7.4-10.4); Monocytes # (auto) 0.95 K/uL (0.11-0.59); Monocytes % (auto) 11.2 %; Neutrophils # (auto) 5.42 K/uL (1.4-6.5); Neutrophils % (auto) 64.1 %; Platelet Count 259 K/uL (130-400); RDW Coefficient of Variation 14.4 % (11.5-14.5); RDW Standard Deviation 47.1 fL (36.4-46.3); Red Blood Count 4.25 M/uL (4.2-5.4); White Blood Count 8.46 K/uL (4.8-10.8)
[2020-10-05 06:42] LABS: Alanine Aminotransferase 21 U/L (12-78); Albumin Level 2.5 gm/dl (3.4-5.0); Aspartate Aminotransferase 17 U/L (15-37); BUN Creatinine Ratio 4.3 (10-20); Blood Urea Nitrogen 2 mg/dl (7-18); Calcium 8.7 mg/dl (8.5-10.1); Carbon Dioxide 30 mmol/L (21-32); Chloride 106 mmol/L (98-107); Creatinine Clr Calc Pharmacy 181.8 ml/min; Est GFR (African American) > 150.0; Glucose 90 mg/dl (70-99); Lipase 144 U/L (73-393); Potassium 3.5 mmol/L (3.5-5.1); Sodium 141 mmol/L (136-145)
[2020-10-05 06:43] LABS: Albumin Globulin Ratio 0.6 (0.9-2); Alkaline Phosphatase 90 U/L (45-117); Bilirubin,Total 0.5 mg/dl (0.2-1); Total Protein 6.5 gm/dl (6.4-8.2)
[2020-10-05] MEDS: MoRPHine SULFATE 2 MG/ML CARP IV PRN (08:01)
--- NOTE | 2020-10-05 08:36 | Gastroenterology Progress Note ---
Date of Service October 05, 2020 Assessment & Plan (1) Pancreatitis: (2) Crohn disease: Triglycerides 801 yesterday with normal lipase. Patient received first dose of fenofibrate this morning. Patient denies both pain and nausea. Tolerating po low fat diet. Follow-up with PCP for the high triglycerides. [place] [facility]. Thank you for the consult and reconsult with further issues. Please refer to supervising physician addendum for further recommendations. Admission and Anticipated Discharge Date Admission Date: October 03, 2020 Subjective Patient is awake and sitting upright in bed on her cell phone. She reports abdominal pain and nausea is improved. Denies pain this morning. Denies further vomiting. Tolerating po diet this morning. Review of Systems Review of Systems: All systems reviewed & are unremarkable except as noted in Subjective Physical Exam Constitutional: WD/WN, vitals as above Eyes: no eyelid abnormality and no conjunctival abnormality ENMT: Ears: no external ear abnormality Nose: no external nose abnormality Neck: normal visual inspection and trachea midline Respiratory: normal respiratory effort; no respiratory distress and no labored breathing Cardiovascular: RRR, no murmur, no edema Gastrointestinal (Abdomen): Inspection/Auscultation: abdomen normal to inspection and normal bowel sounds; abdomen not distended Percussion/Palpation: abdomen soft; abdomen nontender, no guarding and abdomen not rigid Musculoskeletal: Extremities: extremities normal to inspection Skin: no rashes, warm and dry Neurologic: PERRL, EOMI, accommodation nl, no face palsy, no dysarthria Psychiatric: A+Ox3, euthymic affect Results & Data ([facility]) Vital Signs (Past 12 Hours) Vital Signs Temp Pulse Resp BP Pulse Ox 10/05/20 07:32 36.6 C 79 18 125/85 98 10/04/20 23:00 36.7 C 96 H 18 121/74 97 Laboratory Results - last 24 hr 10/04/20 10/05/20 10/05/20 07:53 05:34 05:34 WBC 8.46 RBC 4.25 Hgb 12.4 Hct 39.5 MCV 92.9 MCH 29.2 MCHC 31.4 L RDW Std Deviation 47.1 H RDW Coeff of Thang 14.4 Plt Count 259 MPV 9.9 Immature Gran % (Auto) 0.2 Neut % (Auto) 64.1 Lymph % (Auto) 21.3 [place] % (Auto) 11.2 Eos % (Auto) 3.0 Baso % (Auto) 0.2 Neut # (Auto) 5.42 Lymph # (Auto) 1.80 [place] # (Auto) 0.95 H Eos # (Auto) 0.25 Baso # (Auto) 0.02 Immature Gran # (Auto) 0.02 Sodium 141 Potassium 3.5 Chloride 106 Carbon Dioxide 30 Anion Gap 5.0 BUN 2 L Creatinine 0.53 L Est Cr Clr Drug Dosing 181.8 Est GFR ( Amer) > 150.0 Est GFR (Non-Af Amer) 131.0 BUN/Creatinine Ratio 4.3 L Glucose 90 Calcium 8.7 Total Bilirubin 0.5 GGT 8 AST 17 ALT 21 Alkaline Phosphatase 90 Total Protein 6.5 Albumin 2.5 L Globulin 4.0 Albumin/Globulin Ratio 0.6 L Lipase 144
[2020-10-05] MEDS ORDERED: FENOFIBRATE NANOCRYSTALLIZED 145 MG TABLET PO SCH (09:00)
--- NOTE | 2020-10-05 17:47 | Discharge Summary ---
Date of Service October 05, 2020 Admission HPI Per Admitting Provider Leida Cheung is a 25-year-old female with a past medical history of Crohn's with partial bowel resection and cholecystectomy who presents with acute left upper quadrant abdominal pain. Patient reports that around noon the day of admission she developed quickly worsening left upper quadrant abdominal pain with some radiation to her back. This pain was worse with inhalation and movement and was a 7/10 at the worst and is currently at a 5 out of 10. She reports she does not know if food changed her pain, but she has had almost no appetite and only had a small amount of pudding today. She has had chills for the last few hours, denies fever. She has been nauseous but has not vomited. She has not had any bloody bowel movements. Patient endorses loose, watery diarrhea for 4 months unchanged in the last week. She reports she has felt generally unwell for about 2 months, she was seen 2 months ago in the emergency department for abdominal discomfort and general unwellness but overall was medically stable and was discharged outpatient follow-up. She reports she has Crohn's with intermittent flares on a biologic. She is followed at [facility] by Dr. Hui. Her last colonoscopy was 3 years ago, she reports she is overdue but has had good healing difficulties. She has been urinating normally and denies dysuria. She reports she rarely drinks alcohol due to it "not mixing well with Crohn's ", drinks at most once or twice a month and only 1 drink in a setting. He denies tobacco product and recreational drug use. She has not taken any [id number] medicines or remedies. Medical history: Reviewed Surgical history: Reviewed Allergies: Reviewed Family history: Reviewed Social: She lives in a home with her boyfriend, no sick contacts at home. Minimal alcohol use, no tobacco use, no recreational drug use. No alcohol intake preceding symptoms. CODE STATUS: Full code Principal Diagnosis pancreatitis secondary to elevated triglycerides Discharge Exam The patient appeared well Vital signs as documented. Lungs are clear to auscultation and appear unlabored Cardiac exam, Rhythm is regular.. No murmurs, rubs or gallops. Abdominal exam reveals normal bowel sounds, soft non tender, no masses Extremities are nonedematous and both pedal pulses are normal. Neurologic exam is alert and oriented, no focal loss of strength or sensation Skin is without bruises or rashes Psychologically is without concerns for anxiety or depression. Discharge Data Allergies Allergy/AdvReac Type Severity Reaction Status Date / Time infliximab Allergy Severe Anaphylaxis Verified 10/02/20 22:30 Consultations 10/03/20 00:11 ED Decision to Admit Stat 10/03/20 09:55 Consult Gastroenterology Routine Ordered Studies 10/02/20 22:54 CT abd pelvis IV con only Urgent 10/03/20 14:57 MR MRCP Routine Hospital Course (1) Abdominal pain: Leida Cheung is a 25-year-old female with a past medical history of Crohn's, maintained on Entyvio, with a previous history of partial bowel resection and cholecystectomy who presents with acute left upper quadrant abdominal pain and is found to have evidence of pancreatitis on CT scan with modest elevation of lipase. Acute left upper quadrant abdominal pain suspect 2/[address]-A: Mild stranding adjacent to the distal pancreatic body and tail which may indicate acute pancreatitis in the appropriate clinical setting. No peripancreatic fluid collection. Homogeneous pancreatic enhancement.Cholecystectomy. No dilated bowel. Right colon post surgical changes, as before. Nonvisualization of the appendix which may be surgically absent.Unremarkable uterus and adnexa. Patient with history of gallstones and status post cholecystectomy Patient denies alcohol use prior to symptoms, minimal use at baseline. No evidence of hypercalcemia on admission labs Patient was found to have elevated triglycerides 800 range this was felt to be etiology of her pancreatitis she was put on TriCor at time of discharge was disclosed about MRCP showing :IMPRESSION: 1. Prior cholecystectomy. 2. The common bile duct and main pancreatic duct are normal in course and caliber. No filling defects identified to suggest an obstructing stone. 3. Mild edema surrounding the pancreatic tail consistent with acute pancreatitis. 4. Trace bilateral pleural effusions.. 5. Question of slight irregularity within the intrahepatic bile ducts. This could represent early primary sclerosing cholangitis. Patient will follow up with Dr. Figueredo to further discuss this finding did send away ggt, 5 nucleatidase and p anca testing Crohn's disease No leukocytosis, no evidence for acute bowel dilation or inflammation on CT, see above. No additional treatment at this time, will involve Dr Figueredo for local follow- up and patient will still keep her follow-up at [facility] in coordination with Dr. Figueredo. She previously seen Dr. Brink and Dr. Figueredo's office prior to her and subsequent to her bowel resection (2) Vomiting: (3) Acidosis, metabolic: Metabolic acidosis without acidemia, this has resolved (4) Pancreatitis: very minor lipase elevation now resolved Total Time Total Time Spent Total Time Spent (In Minutes): It required greater than 30 minutes to prepare this patient for discharge, this included personally discussing with Dr. Figueredo for follow-up with this patient Discharge Plan Discharge Items Patient Disposition: Home - Self-Care Reason For Visit: PANCREATITIS Discharge Diagnosis: pancreatitis, elevated triglycerides Activity: Resume your previous activity Non-emergency contact: Primary Care Provider and Superintendent Operating Call non-emergency contact if: you have any medication questions Follow-up/Referrals: Cyrus Nelson III, CRNP [Primary Care Provider] - 10/11/20 9:20 am (You have a follow up appt with Cyrus Nelson on 10/11 at 920. It is important that you arrive 15 minutes prior to your appt, and that you keep this appt. If it does not fit your schedule please call [phone] to get it rescheduled. ) Elise Busch CRNP [Nurse Practitioner] - 10/15/20 10:00 am (You have a follow up appt with Elise Busch on Monday 10/15 at 10:00am. Please arrive at 940. It is important that you keep this appt, if it does not fit your schedule, please call [phone] to reschedule. ) Diet: Low Fat Addtl Attending Provider Instructions: please follow up with Gastroenterology and inform your primary care provider about you new medicine Pending Studies at Discharge: Yes Stand-Alone Forms: My [facility] Twist and Shout, Smoking Cessation Medications and DC Order Prescriptions: New fenofibrate nanocrystallized 145 mg Tablet 145 mg PO QAM Qty: 30 RF: 5 Continued norgestimate-ethinyl estradiol [Tri-Sprintec (28)] 0.18/0.215/0.25 mg-35 mcg (28) tablet 1 tab PO DAILY Qty: 28 RF: 2 Discharge Orders: Discharge Order (Routine); Ordered 10/05/20 Ordered By: Sage Solomon Admission Data Admit Date/Time: 10/03/20 01:55 Attending Provider: Sage Solomon Admit Provider: Quincy Leonard Primary Care Provider: Cyrus Nelson III Other Providers: Maria T Johnson ; Royal Figueredo Other Interventions: Discharge Summary Assessment (RN) Last Done: 10/05/20 13:02 Coding Level of Care Code D/C Day Management >30 mins Diagnoses Abdominal pain R10.9 Abdominal location: unspecified location Vomiting R11.10 Acidosis, metabolic E87.2 Pancreatitis K85.90
[2020-10-11 14:58] LABS: ANCA Screen Negative (Negative)
== END 2020-10-05 13:38 | disposition home or self-care (01) | DRG 439 ==
LOC: ED 20:47 → SUATTDRO 10-03 01:55 → 2N 10-03 01:55

== ENCOUNTER 2022-04-27 17:55 | Inpatient (IN) ==
[2022-04-27] MEDS ORDERED: ONDANSETRON INJ 2 MG/ML 2 ML VIAL IV STA ×3 (18:30→23:01)
[2022-04-27 19:08] LABS: Basophils # (auto) 0.03 K/uL (0-0.2); Basophils % (auto) 0.3 %; Eosinophils # (auto) 0.08 K/uL (0-0.5); Eosinophils % (auto) 0.7 %; Hemoglobin 16.9 g/dL (12.0-16.0); Immature Granulocytes # (auto) 0.03 K/uL (0.00-0.02); Immature Granulocytes % (auto) 0.3 %; Lymphocytes # (auto) 1.38 K/uL (1.2-3.4); Lymphocytes % (auto) 11.6 %; Mean Corpuscular Hemoglobin 30.6 pg (25-34); Mean Corpuscular Hgb Conc 35.2 g/dL (32-36); Mean Platelet Volume 9.7 fL (7.4-10.4); Monocytes # (auto) 0.37 K/uL (0.11-0.59); Monocytes % (auto) 3.1 %; Neutrophils # (auto) 10.03 K/uL (1.4-6.5); Platelet Count 362 K/uL (130-400); RDW Coefficient of Variation 12.2 % (11.5-14.5); RDW Standard Deviation 38.8 fL (36.4-46.3); Red Blood Count 5.52 M/uL (4.2-5.4); White Blood Count 11.92 K/uL (4.8-10.8)
[2022-04-27] MEDS ORDERED: SODIUM CHLORIDE 0.9% 1000ML 1,000 ML IV ONE (19:08)
[2022-04-27 19:27] LABS: Alanine Aminotransferase 19 U/L (7-52); Albumin Globulin Ratio 1.4 (0.9-2); Albumin Level 4.6 gm/dl (3.4-5.0); Alkaline Phosphatase 86 U/L (34-104); Anion Gap 14 (3-11); Aspartate Aminotransferase 19 U/L (13-39); BUN Creatinine Ratio 15.1 (10-20); Bilirubin,Total 0.7 mg/dl (0.2-1.0); Blood Urea Nitrogen 8 mg/dl (6-23); Calcium 10.2 mg/dl (8.5-10.1); Carbon Dioxide 21 mmol/L (21-32); Chloride 105 mmol/L (98-107); Est GFR (African American) 149.8 ml/min; Est GFR (Non-African American) 129.2 ml/min; Globulin 3.3 gm/dl (2.5-4.0); Glucose 98 mg/dl (70-99(Fasting)); Lipase 18 U/L (11-82); Potassium 3.6 mmol/L (3.5-5.1); Sodium 140 mmol/L (136-145); Total Protein 7.9 gm/dl (6.0-8.3)
[2022-04-27] MEDS ORDERED: diphenhydrAMINE 50 MG/ML VIAL IV STA (20:43)
[2022-04-27] MEDS ORDERED: MoRPHine SULFATE 4 MG/ML 1 ML CARP\\VIAL IV STA ×2 (20:43→23:01)
--- NOTE | 2022-04-27 21:08 | XRay Report ---
KUB CLINICAL HISTORY: Vomiting. Crohn's disease. FINDINGS: 2 AP supine abdominal radiographs are compared to study dated 12/23/2021 and correlated with abdominal CT dated 11/21/2021. Suture material projects over the right midabdomen. There is gaseous distention of the small bowel loops which measure up to 4.1 cm in diameter. There is a paucity of gas in the colon, and the appearance is typical for a small bowel obstruction. No evidence of intraperit chilel free air is seen on these supine views. Cholecystectomy clips are noted in the right upper quad rant. There are no abnormal abdominal calcifications. Tiny phleboliths are seen in the pelvis. The [place] structures appear intact. The lung bases are clear as imaged. IMPRESSION: Findings are typical for a small bowel obstruction. Electronically signed by: Henry Patel M.D. 04/27/2022 9:07 PM
[2022-04-27] MEDS ORDERED: OPTIRAY 320 100ml IV ONE (21:59)
[2022-04-27 22:09] LABS: Appearance Urine Cloudy (Clear); Bacteria Urine Automated Negative (Negative); Bilirubin Urine Negative (Negative); Blood Urine Negative (Negative); Color Urine Dark Yellow; Epithelial Cell Urine Auto >30 /lpf (0-5); Glucose Urine UA Negative (Negative); Ketones Urine Trace (Negative); Leukocyte Esterase Urine Negative (Negative); Nitrite Urine Negative (Negative); Protein Urine Trace (Negative); RBC Urine Automated 0-4 /hpf (0-4); Specific Gravity Urine 1.025 (1.000-1.030); Urobilinogen Urine Negative (Negative); pH Urine 5.5 (4.5-7.5)
--- NOTE | 2022-04-27 22:21 | CT Scan Report ---
CT SCAN OF THE ABDOMEN AND PELVIS WITH IV CONTRAST CLINICAL HISTORY: Generalized abdominal pain. Vomiting. Crohn's disease. COMPARISON STUDY: Abdominal CT dated 11/21/2021. Abdominal radiographs performed the same day . TECHNIQUE: Following the IV administration of 94 cc of Optiray 320, CT scan of the abdomen and pelvi s is performed from the lung bases to the proximal femora. Images are reviewed in the axial, sagittal , and coronal planes. IV contrast was administered without complication. A small amount of oral contr ast was utilized. A dose lowering technique was utilized adhering to the principles of ALARA. CT DOSE: 509.37 mGy.cm FINDINGS: Lung bases: The heart is normal in size and without pericardial effusion. The lung bases are clear. Liver: The contrast-enhanced liver is normal in size, contour, and attenuation. There is no intrahepa tic biliary ductal dilatation. The hepatic veins and portal veins are patent. Gallbladder: Surgically absent noting clips in the gallbladder fossa. Spleen: Normal in size and attenuation. Pancreas: Unremarkable. Adrenal glands: Unremarkable. Kidneys: The contrast enhanced kidneys are normal in size and without hydronephrosis. The kidneys enh ance symmetrically. Abdominal vasculature: The abdominal aorta is normal in course and caliber. Bowel: Enteric contrast is noted in the stomach. Postoperative changes consistent with ileocecal rese ction. The mid to distal small bowel is distended and filled with fluid. Small bowel loops measure up to 4 cm in diameter. The small bowel is dilated to the ileocolic anastomosis. There is also liquid s tool throughout the colon. Trace interloop fluid is seen scattered throughout the mesentery. No focal ly thick walled or hyperemic bowel loops are identified. No pneumatosis intestinalis or portal venous gas is seen. The proximal small bowel loops are relatively decompressed. Peritoneum: No intraperitoneal free air is seen. There is a small volume of abdominopelvic ascites. Lymphadenopathy: None. Pelvic viscera: The bladder is decompressed and grossly unremarkable. Uterus and adnexa are normal as visualized. A tampon is in place. Skeletal structures: No lytic or blastic lesions are seen. IMPRESSION: 1. There is postoperative change from ileocecal resection. No thick walled or hyperemic bowel loops a re identified to suggest active Crohn's disease. 2. The mid to distal small bowel loops are distended and fluid-filled to the level of the anastomosis . There is associated interloop fluid, and the appearance indicates at least a partial small bowel ob struction. This is likely related to the anastomosis, and underlying anastomotic stricture would be i mpossible to exclude. 3. Liquid stool is seen throughout the colon. 4. There is a small volume of abdominopelvic ascites. 5. Additional findings as above. ACT 112: Negative or not required by law. Electronically signed by: Henry Patel M.D. 04/27/2022 10:19 PM
[2022-04-27] MEDS ORDERED: SODIUM CHLORIDE 0.9% 1000ML 1,000 ML IV SCH (23:15)
--- NOTE | 2022-04-27 23:17 | Emergency Department Note ---
Impression & Plan Crohn disease, Partial obstruction of small intestine ED Provider Note CHIEF COMPLAINT: Abdominal pain, vomiting HISTORY OF PRESENT ILLNESS: This 27-year-old [facility] of abdominal pain and vomiting. Patient has a history of Crohn's and is status post ileocecectomy. Patient follows with GI at [facility] and is currently vedolizumab to control her Crohn's disease. She states she has been vomiting for most of the day and unable to tolerate any fluids. She denies any fevers or blood in the vomit. She has not had any diarrhea. Patient states she did have an episode of bowel obstruction but it was several years ago. She has had multiple episodes of abdominal pain and vomiting but states they have been unable to identify a specific etiology. She does feel that this is the worst the episodes have ever been. Patient denies any chance of . She does not have any urinary symptoms currently. She denies any chest pain, shortness of breath or fevers. REVIEW OF SYSTEMS: A review of systems was performed with positives and pertinent negatives listed in the history of present illness. 10 systems were reviewed and are otherwise negative. ALLERGIES: see below MEDICATIONS: see below PMH: see below SOCIAL HISTORY: see below DDx: Gastroenteritis, food borne illness, infections, appendicitis, diverticulitis, inflammatory bowel disease, obstruction, GI bleed, biliary pathology, volvulus, as well as other pathologies. PHYSICAL EXAM: Vital signs reviewed. General: Somewhat ill-appearing 27-year-old female, in some discomfort HEENT: No scleral icterus, PERRLA, neck supple. Dry mucous membranes Cardiovascular: Regular rate and rhythm, no extra sounds. Pulmonary: Clear to auscultation bilaterally, normal work of breathing. Abdomen: Soft, mildly distended, positive tympany, positive bowel sounds. Musculoskeletal: Atraumatic, no peripheral edema. Neurologic: Patient awake alert and oriented x 3 Skin: Warm, dry, no rash EMERGENCY DEPARTMENT COURSE/MDM: This patient was evaluated and appeared to be in no significant distress. IV access was obtained and laboratory work was drawn. The patient was hydrated with normal saline solution, given IV morphine and Zofran for her discomfort. CT imaging was initially ordered with IV and oral contrast due to the Crohn's disease however she was unable to tolerate the oral contrast and preferred not to have CT imaging if at all possible. A KUB x- ray was performed and reveals evidence of obstruction. Follow-up CT imaging was then performed after a discussion with the patient. She was able to tolerate a small amount of oral contrast after several hours. She did receive a second dose of IV Zofran as well as a dose of IV Benadryl. She was feeling improved. CT imaging reveals partial small bowel obstruction. IV hydration was continued and the patient's case was discussed with the hospitalist service for further evaluation and management. Patient seems happy with this plan and agrees. She was given a second dose of IV morphine for continued discomfort. There has been no further vomiting. MONITORING: An order for cardiac monitoring was placed and the patient is noted to be in a sinus tachycardia at 111 beats per minute. RADIOLOGY: see below DISPOSITION: admit Past Med/Surg History Medical History C. difficile colitis (09/29/14) Crohn disease Dysmenorrhea Gallstone Hypercholesterolemia Irregular menses Oral contraceptive pill surveillance Pancreatitis Small bowel obstruction Surgical History H/O resection of small bowel S/P cholecystectomy Family History Uncle Prostate cancer paternal Family/Other Myocardial infarction maternal great grandfather Denies family history of Ovarian cancer Breast cancer Colorectal cancer Social History Smoking Status: Never smoker Second Hand Exposure: No; Hx Alcohol Use: Yes Alcohol type: beer, wine and hard liquor Alcohol Intake Frequency: 2-4 x/Month Hx Substance Use: No Preferred Language: Moldovan Communication Ability: Effective Visual Impairment: No Limitations Hearing Ability: Normal Train Operations Manager Required: No Beliefs That Will Affect Care: None marital status: Single Current Living Situation: Significant Other current occupational status: employed 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 Feels Safe at Home: Yes Childhood Exposure to Second-Hand Smoke: No Dental Care, Regularly: Yes Physical Activity Frequency: Daily Seatbelt Use: always Sunscreen Use: Yes Assistive Devices: None Allergies Allergies Allergy/AdvReac Type Severity Reaction Status Date / Time infliximab Allergy Severe Anaphylaxis Verified 04/27/22 20:06 Remicade AdvReac Unknown Unknown Uncoded 04/27/22 20:06 Home Meds Home Medications Medication Instructions Recorded Confirmed vedolizumab 300 mg intravenous 300 mg IV UNKNOWN 11/16/20 04/27/22 solution (Entyvio) norgestimate-ethinyl estradiol 1 tab PO HS 04/27/22 04/27/22 0.18 mg/0.215mg/0.25mg-35 mcg(28)tablet (Tri-Sprintec (28)) Previous Rx's Medication Instructions Recorded fenofibrate nanocrystallized 145 145 mg PO QAM #30 tab 10/05/20 mg tablet ondansetron 4 mg disintegrating 4 mg PO Q6H PRN #12 tab 11/21/21 tablet oxycodone 5 mg tablet 5 - 10 mg PO Q6H #20 tab 11/21/21 ondansetron HCl 4 mg tablet 4 mg PO Q6H PRN #20 tab 12/23/21 Results & Data (ED) Vital Signs Vital Signs - 24 hr 04/27/22 18:23 04/27/22 20:14 Temperature 36.0 C L Temperature Source Temporal Artery Scan Pulse Rate 111 H Pulse Rate [Left] 65 Pulse Rhythm [Left] Regular Pulse Strength [Left] Normal Respiratory Rate 23 18 Respiratory Effort / Characteristics Non-Labored Spontaneous Respiratory Depth Normal Normal Blood Pressure 136/102 H Blood Pressure [Left Arm] 132/92 Blood Pressure Mean 113 Blood Pressure Mean [Left Arm] 105 Blood Pressure Position Sitting Blood Pressure Position [Left Arm] Lying Pulse Oximetry 98 95 Oxygen Delivery Method Room Air Room Air Sepsis Recent Fever Within 48 Hours No Sepsis New/Unexplained Change in Mental Status No Sepsis Action Taken by Nursing No Action Required Home Medications Current Medication List: was personally reviewed by me Laboratory Data Attestation: I reviewed the patient's lab results. Result diagrams: 04/27/22 18:50 04/27/22 18:50 Lab Results 04/27/22 04/27/22 04/27/22 Range/Units 18:50 18:50 21:45 WBC 11.92 H (4.8-10.8) K/uL RBC 5.52 H (4.2-5.4) M/uL Hgb 16.9 H (12.0-16.0) g/dL Hct 48.0 H (37-47) % MCV 87.0 (80-100) fL MCH 30.6 (25-34) pg MCHC 35.2 (32-36) g/dL RDW Std Deviation 38.8 (36.4-46.3) fL RDW Coeff of Thang 12.2 (11.5-14.5) % Plt Count 362 (130-400) K/uL MPV 9.7 (7.4-10.4) fL Immature Gran % (Auto) 0.3 % Neut % (Auto) 84.0 % Lymph % (Auto) 11.6 % Hunt % (Auto) 3.1 % Eos % (Auto) 0.7 % Baso % (Auto) 0.3 % Neut # (Auto) 10.03 H (1.4-6.5) K/uL Lymph # (Auto) 1.38 (1.2-3.4) K/uL Hunt # (Auto) 0.37 (0.11-0.59) K/uL Eos # (Auto) 0.08 (0-0.5) K/uL Baso # (Auto) 0.03 (0-0.2) K/uL Immature Gran # (Auto) 0.03 H (0.00-0.02) K/uL Sodium 140 (136-145) mmol/L Potassium 3.6 (3.5-5.1) mmol/L Chloride 105 (98-107) mmol/L Carbon Dioxide 21 (21-32) mmol/L Anion Gap 14 H (3-11) BUN 8 (6-23) mg/dl Creatinine 0.53 L (0.6-1.2) mg/dl Est Cr Clr Drug Dosing Not Reportable Est GFR ( Amer) 149.8 ml/min Est GFR (Non-Af Amer) 129.2 ml/min BUN/Creatinine Ratio 15.1 (10-20) Glucose 98 (70-99(Fasting)) mg/dl Calcium 10.2 H (8.5-10.1) mg/dl Total Bilirubin 0.7 (0.2-1.0) mg/dl AST 19 (13-39) U/L ALT 19 (7-52) U/L Alkaline Phosphatase 86 (34-104) U/L Total Protein 7.9 (6.0-8.3) gm/dl Albumin 4.6 (3.4-5.0) gm/dl Globulin 3.3 (2.5-4.0) gm/dl Albumin/Globulin Ratio 1.4 (0.9-2) Lipase 18 (11-82) U/L Urine Color Dark Yellow Urine Appearance Cloudy A (Clear) Urine pH 5.5 (4.5-7.5) Ur Specific [place] 1.025 (1.000-1.030) Urine Protein Trace H (Negative) Urine Glucose (UA) Negative (Negative) Urine Ketones Trace H (Negative) Urine Blood Negative (Negative) Urine Nitrite Negative (Negative) Urine Bilirubin Negative (Negative) Urine Urobilinogen Negative (Negative) Ur Leukocyte Esterase Negative (Negative) Urine WBC (Auto) 1-5 (0-5) /hpf Urine RBC (Auto) 0-4 (0-4) /hpf U Hyaline Cast (Auto) 5-10 H (0-5) /lpf U Epithel Cells (Auto) >30 H (0-5) /lpf Urine Bacteria (Auto) Negative (Negative) POC Ur Test (NEG) 04/27/22 Range/Units 21:45 WBC (4.8-10.8) K/uL RBC (4.2-5.4) M/uL Hgb (12.0-16.0) g/dL Hct (37-47) % MCV (80-100) fL MCH (25-34) pg MCHC (32-36) g/dL RDW Std Deviation (36.4-46.3) fL RDW Coeff of Thang (11.5-14.5) % Plt Count (130-400) K/uL MPV (7.4-10.4) fL Immature Gran % (Auto) % Neut % (Auto) % Lymph % (Auto) % Hunt % (Auto) % Eos % (Auto) % Baso % (Auto) % Neut # (Auto) (1.4-6.5) K/uL Lymph # (Auto) (1.2-3.4) K/uL Hunt # (Auto) (0.11-0.59) K/uL Eos # (Auto) (0-0.5) K/uL Baso # (Auto) (0-0.2) K/uL Immature Gran # (Auto) (0.00-0.02) K/uL Sodium (136-145) mmol/L Potassium (3.5-5.1) mmol/L Chloride (98-107) mmol/L Carbon Dioxide (21-32) mmol/L Anion Gap (3-11) BUN (6-23) mg/dl Creatinine (0.6-1.2) mg/dl Est Cr Clr Drug Dosing Est GFR ( Amer) ml/min Est GFR (Non-Af Amer) ml/min BUN/Creatinine Ratio (10-20) Glucose (70-99(Fasting)) mg/dl Calcium (8.5-10.1) mg/dl Total Bilirubin (0.2-1.0) mg/dl AST (13-39) U/L ALT (7-52) U/L Alkaline Phosphatase (34-104) U/L Total Protein (6.0-8.3) gm/dl Albumin (3.4-5.0) gm/dl Globulin (2.5-4.0) gm/dl Albumin/Globulin Ratio (0.9-2) Lipase (11-82) U/L Urine Color Urine Appearance (Clear) Urine pH (4.5-7.5) Ur Specific Stratham (1.000-1.030) Urine Protein (Negative) Urine Glucose (UA) (Negative) Urine Ketones (Negative) Urine Blood (Negative) Urine Nitrite (Negative) Urine Bilirubin (Negative) Urine Urobilinogen (Negative) Ur Leukocyte Esterase (Negative) Urine WBC (Auto) (0-5) /hpf Urine RBC (Auto) (0-4) /hpf U Hyaline Cast (Auto) (0-5) /lpf U Epithel Cells (Auto) (0-5) /lpf Urine Bacteria (Auto) (Negative) POC Ur Test NEG (NEG) Administered Medications Discontinued Medications Diphenhydramine HCl (Diphenhydramine 50 Mg/Ml Vial) 25 mg IV NOW STA Stop: 04/27/22 20:44 Last Admin: 04/27/22 20:58 Dose: 25 mg Documented by: [id number] Sodium Chloride (Nss 1000ml) 1,000 mls @ 999 mls/hr IV .Q1H1M ONE Stop: 04/27/22 20:08 Last Infusion: 04/27/22 21:29 Dose: 0 mls/hr Documented by: [id number] Admin: 04/27/22 20:05 Dose: 999 mls/hr Documented by: [id number] Ioversol (Optiray 320 100ml) 94 ml IV ONCE ONE Stop: 04/27/22 22:00 Last Admin: 04/27/22 22:01 Dose: 94 ml Documented by: [id number] Morphine Sulfate (Morphine Sulfate 4 Mg/Ml 1 Ml Carp\Vial) 4 mg IV NOW STA Stop: 04/27/22 20:44 Last Admin: 04/27/22 20:58 Dose: 4 mg Documented by: [id number] Ondansetron HCl (Ondansetron Inj 2 Mg/Ml 2 Ml Vial) 4 mg IV NOW STA Stop: 04/27/22 18:31 Last Admin: 04/27/22 19:03 Dose: 4 mg Documented by: [id number] Ondansetron HCl (Ondansetron Inj 2 Mg/Ml 2 Ml Vial) 4 mg IV NOW STA Stop: 04/27/22 19:09 Last Admin: 04/27/22 20:06 Dose: 4 mg Documented by: [id number] Imaging Data Radiologist's Impression: KUB X-Ray 04/27/22 20:43 KUB CLINICAL HISTORY: Vomiting. Crohn's disease. FINDINGS: 2 AP supine abdominal radiographs are compared to study dated 12/23/2021 and correlated with abdominal CT dated 11/21/2021. Suture material projects over the right midabdomen. There is gaseous distention of the small bowel loops which measure up to 4.1 cm in diameter. There is a paucity of gas in the colon, and the appearance is typical for a small bowel obstruction. No evidence of intraperitoneal free air is seen on these supine views. Cholecystectomy clips are noted in the right upper quadrant. There are no abnormal abdominal calcifications. Tiny phleboliths are seen in the pelvis. The bony structures appear intact. The lung bases are clear as imaged. IMPRESSION: Findings are typical for a small bowel obstruction. Electronically signed by: Henry Patel M.D. 04/27/2022 9:07 PM Abdomen/Pelvis CT 04/27/22 21:23 CT SCAN OF THE ABDOMEN AND PELVIS WITH IV CONTRAST CLINICAL HISTORY: Generalized abdominal pain. Vomiting. Crohn's disease. COMPARISON STUDY: Abdominal CT dated 11/21/2021. Abdominal radiographs performed the same day 04/27/2022. TECHNIQUE: Following the IV administration of 94 cc of Optiray 320, CT scan of the abdomen and pelvis is performed from the lung bases to the proximal femora. Images are reviewed in the axial, sagittal, and coronal planes. IV contrast was administered without complication. A small amount of oral contrast was utilized. A dose lowering technique was utilized adhering to the principles of ALARA. CT DOSE: 509.37 mGy.cm FINDINGS: Lung bases: The heart is normal in size and without pericardial effusion. The lung bases are clear. Liver: The contrast-enhanced liver is normal in size, contour, and attenuation. There is no intrahepatic biliary ductal dilatation. The hepatic veins and portal veins are patent. Gallbladder: Surgically absent noting clips in the gallbladder fossa. Spleen: Normal in size and attenuation. Pancreas: Unremarkable. Adrenal glands: Unremarkable. Kidneys: The contrast enhanced kidneys are normal in size and without hydronephrosis. The kidneys enhance symmetrically. Abdominal vasculature: The abdominal aorta is normal in course and caliber. Bowel: Enteric contrast is noted in the stomach. Postoperative changes consistent with ileocecal resection. The mid to distal small bowel is distended and filled with fluid. Small bowel loops measure up to 4 cm in diameter. The small bowel is dilated to the ileocolic anastomosis. There is also liquid stool throughout the colon. Trace interloop fluid is seen scattered throughout the mesentery. No focally thick walled or hyperemic bowel loops are identified. No pneumatosis intestinalis or portal venous gas is seen. The proximal small bowel loops are relatively decompressed. Peritoneum: No intraperitoneal free air is seen. There is a small volume of abdominopelvic ascites. Lymphadenopathy: None. Pelvic viscera: The bladder is decompressed and grossly unremarkable. Uterus and adnexa are normal as visualized. A tampon is in place. Skeletal structures: No lytic or blastic lesions are seen. IMPRESSION: 1. There is postoperative change from ileocecal resection. No thick walled or hyperemic bowel loops are identified to suggest active Crohn's disease. 2. The mid to distal small bowel loops are distended and fluid-filled to the level of the anastomosis. There is associated interloop fluid, and the appearance indicates at least a partial small bowel obstruction. This is likely related to the anastomosis, and underlying anastomotic stricture would be impossible to exclude. 3. Liquid stool is seen throughout the colon. 4. There is a small volume of abdominopelvic ascites. 5. Additional findings as above. ACT 112: Negative or not required by law. Electronically signed by: Henry Patel M.D. 04/27/2022 10:19 PM Blood Pressure Blood Pressure Findings: Normal blood pressure Blood Pressure Disposition: did not require urgent referral Discharge Plan Visit Data Chief Complaint: Abdominal Pain Stated Complaint: ABDOMINAL PAIN AND VOMITING ED Provider: Shanna Pickens Discharge Problem: Crohn disease, Partial obstruction of small intestine Patient Disposition: Admitted As Inpatient Prescriptions Prescriptions: No Action Entyvio 300 mg recon soln 300 mg IV UNKNOWN RF: 0 fenofibrate nanocrystallized 145 mg Tablet 145 mg PO QAM Qty: 30 RF: 5 norgestimate-ethinyl estradiol [Tri-Sprintec (28)] 0.18/0.215/0.25 mg-35 mcg (28) tablet 1 tab PO HS RF: 0 ondansetron 4 mg tablet,disintegrating 4 mg PO Q6H PRN (Reason: nausea and vomiting) Qty: 12 RF: 0 oxycodone 5 mg tablet 5 - 10 mg PO Q6H Qty: 20 RF: 0 ondansetron HCl 4 mg tablet 4 mg PO Q6H PRN (Reason: nausea and vomiting) Qty: 20 RF: 0 Referrals Referrals: Cyrus Nelson III, CRNP [Primary Care Provider] -
--- NOTE | 2022-04-27 23:18 | History & Physical Report ---
Date of Service April 27, 2022 Assessment & Plan (1) Partial obstruction of small intestine: Plan: Leida Cheung is a 27yo female with PMHx significant for Crohn's disease (h/o ileocecal resection in 2014; on Entyvio) who presented to [facility] ED on 04/27 for acute-onset generalized abdominal pain with associated nausea and vomiting - found to have partial SBO. Partial SBO Acute onset of symptoms earlier today, with CT A/P showing distended mid to distal small bowel loops and fluid-filled to the level of the anastomosis of previous ileocecal resection, with evidence of at least partial SBO. Also per report, cannot rule out underlying anastomotic stricture. Suspect partial SBO due to stricture vs adhesions. - per review of [facility] GI notes, patient had colonoscopy in 2020 also showing anastomotic stricture - s/p Zofran x3 and Morphine x2 in ED and patient is currently largely symptom- free although still with no appetite - continue with PRN Zofran for N/V - PRN pain regimen: Tylenol 1g IV Q8H; Dilaudid 0.5mg IV Q6H - s/p 1L NSS bolus - continue with LR @125cc/hr - will hold off on NGT placement at this time, as patient is significantly improved - maintain NPO status for now, advance diet as tolerated - consulted Surgery - appreciate recs Chronic Medical Conditions: Crohn's disease: managed by [facility] GI. Continue Q6week Entyvio injections. Hypercholesterolemia: hold Fenofibrate while NPO FEN/GI: NPO; LR @125cc/hr DVT Prophylaxis: none indicated Code Status: full code Disposition: med/surg (2) Oral contraceptive pill surveillance: (3) Hypercholesterolemia: (4) Crohn disease: History of Present Illness Chief Complaint: abdominal pain Primary Care Provider: Cyrus Nelson III, EVA Leida Cheung is a 27yo female with PMHx significant for Crohn's disease (h/o ileocecal resection in 2014; on Entyvio) who presented to [facility] ED on 04/27 for acute-onset generalized abdominal pain with associated nausea and vomiting at 2pm. Patient vomited ~5 times and once upon coming to the ED, and now does not feel like she has anything left to vomit. Patient does report less severe episodes of nausea with associated mild abdominal pain which has occurred several times per month for the last several months. She recently had an abdominal MRI with her [facility] GI provider due to these complaints but reports that all testing was normal. Patient denies any recent Crohn's flares and feels that her Entyvio is working well for her. Denies fever/chills or recent illness. Patient f/w [facility] for Crohn's disease. Last colonoscopy in 02/2021 which showed anastomotic stricture which could not be traversed at that time. In the ED the patient was hemodynamically stable. Labs significant for WBC 11.92 (neutrophilic predominance and mild L shift) and Hgb 16.9. Lipase WNL and CBC/CMP otherwise WNL. CT A/P with distended mid to distal small bowel loops and fluid-filled to the level of the anastomosis of previous ileocecal resection, with evidence of at least partial SBO. In the ED the patient received 1L NSS bolus, Zofran x3, Benadryl 25mg IV x1, and Morphine 4mg IV x2. Currently patient's nausea and abdominal pain have almost completely resolved. Allergies Allergy/AdvReac Type Severity Reaction Status Date / Time infliximab Allergy Severe Anaphylaxis Verified 04/27/22 20:06 Remicade AdvReac Unknown Unknown Uncoded 04/27/22 20:06 Home Medications Medication Instructions Recorded Confirmed Type fenofibrate nanocrystallized 145 145 mg PO QAM #30 tab 10/05/20 04/27/22 Rx mg tablet vedolizumab 300 mg intravenous 300 mg IV UNKNOWN 11/16/20 04/27/22 History solution (Entyvio) ondansetron 4 mg disintegrating 4 mg PO Q6H PRN #12 tab 11/21/21 04/27/22 Rx tablet oxycodone 5 mg tablet 5 - 10 mg PO Q6H #20 tab 11/21/21 04/27/22 Rx ondansetron HCl 4 mg tablet 4 mg PO Q6H PRN #20 tab 12/23/21 04/27/22 Rx norgestimate-ethinyl estradiol 1 tab PO HS 04/27/22 04/27/22 History 0.18 mg/0.215mg/0.25mg-35 mcg(28)tablet (Tri-Sprintec (28)) Past Med/Surg History Medical History C. difficile colitis (09/29/14) Crohn disease Dysmenorrhea Gallstone Hypercholesterolemia Irregular menses Oral contraceptive pill surveillance Pancreatitis Small bowel obstruction Surgical History H/O resection of small bowel S/P cholecystectomy Family History Uncle Prostate cancer paternal Family/Other Myocardial infarction maternal great grandfather Denies family history of Ovarian cancer Breast cancer Colorectal cancer Social History Smoking Status: Never smoker Second Hand Exposure: No; Hx Alcohol Use: Yes Alcohol type: other Alcohol Intake Frequency: 2-4 x/Month Hx Substance Use: No Preferred Language: Danish Communication Ability: Effective Visual Impairment: No Limitations Hearing Ability: Normal Starch Crab Required: No Beliefs That Will Affect Care: None marital status: Single Current Living Situation: Alone current occupational status: employed 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 NAD. Cooperative. HEENT: Atraumatic, normocephalic. Pulm: CTAB A&P. -wheezes, -rales, -rhonchi. Symmetrical chest rise. No increase work of breathing. No respiratory distress. Cardiac: RRR, -mrg. Radial pulses intact and symmetrical. Abdominal: soft, non-distended, mild tenderness to palpation of abdomen which is most pronounced at RLQ, without rebound or guarding. NA BS x 4 Skin: warm, dry, no rash Results & Data Results & Data ([facility]) Vital Signs (Past 12 Hours) Vital Signs Temp Pulse Pulse Resp BP BP Pulse Ox 04/27/22 20:14 65 18 132/92 95 04/27/22 18:23 36.0 C L 111 H 23 136/102 H 98 Supervising Physician Co-Signing Physician Notes Attending addendum: I have physically seen this patient, have supervised the medical residents activities, and agree with the H&P unless as otherwise noted. Assessment and Plan: Partial small bowel obstruction/Crohn's/history of ileocecal resection- CT suggestion of PSBO associated with anastomosis site NPO Acetaminophen 1 g IV every 8 hours as needed for mild pain or fever Dilaudid 0.5 mg IV every 6 hours as needed moderate to severe pain Status post 1 L normal saline in ED LR at 125 MLS per hour Zosyn 4.5 g IV every 8 hours Immunosuppressed on Entyvio as outpatient General surgery consult Remaining orders and notations as noted Resident Activity Tracking Resident Involvement: Resident Care Provided Care Provided: Adult Hospital Medicine (1) Crohn disease Digestive disease complication type: with intestinal obstruction Gastrointestinal tract location: unspecified location Qualified Code(s): K50.912 - Crohn's disease, unspecified, with intestinal obstruction
[2022-04-27] MEDS ORDERED: ACETAMINOPHEN 1000 MG/100 ML IV IV PRN (23:47)
[2022-04-27] MEDS ORDERED: HYDROmorphone INJ 0.5 MG/0.5 ML SYR IV PRN (23:47)
[2022-04-27] MEDS ORDERED: ONDANSETRON INJ 2 MG/ML 2 ML VIAL IV PRN (23:47)
[2022-04-28] MEDS: LACTATED RINGER'S 1,000 ML IV SCH ×2 (00:39→08:57)
[2022-04-28] MEDS ORDERED: PIPERACILL/TAZOBAC CONSULT ACTIVE PRN (05:18)
--- NOTE | 2022-04-28 05:20 | Billing Data ---
Date of Service April 28, 2022 Coding Level of Care Code 43022 Initial Inpt Care Lvl 3
[2022-04-28] MEDS ORDERED: PIPERACILLIN/TAZOBACTAM 4.5 GM in DEXTROSE 5% 100 ML IV SCH (05:30)
[2022-04-28] MEDS ORDERED: PIPERACILLIN/TAZOBACTAM 4.5 GM in DEXTROSE 5% 100 ML IV ONE (06:00)
[2022-04-28 06:09] LABS: Basophils # (auto) 0.04 K/uL (0-0.2); Basophils % (auto) 0.4 %; Eosinophils # (auto) 0.18 K/uL (0-0.5); Hematocrit (blood only) 38.5 % (37-47); Hemoglobin 13.1 g/dL (12.0-16.0); Immature Granulocytes # (auto) 0.01 K/uL (0.00-0.02); Immature Granulocytes % (auto) 0.1 %; Lymphocytes # (auto) 2.94 K/uL (1.2-3.4); Lymphocytes % (auto) 32.6 %; Mean Corpuscular Hemoglobin 30.3 pg (25-34); Mean Corpuscular Volume 89.1 fL (80-100); Mean Platelet Volume 9.2 fL (7.4-10.4); Monocytes # (auto) 0.65 K/uL (0.11-0.59); Monocytes % (auto) 7.2 %; Neutrophils # (auto) 5.21 K/uL (1.4-6.5); Neutrophils % (auto) 57.7 %; Platelet Count 303 K/uL (130-400); RDW Coefficient of Variation 12.3 % (11.5-14.5); RDW Standard Deviation 39.7 fL (36.4-46.3); Red Blood Count 4.32 M/uL (4.2-5.4); White Blood Count 9.03 K/uL (4.8-10.8)
[2022-04-28 06:44] LABS: BUN Creatinine Ratio 11.1 (10-20); Calcium 8.4 mg/dl (8.5-10.1); Creatinine Clr Calc Pharmacy 146.5 ml/min; Est GFR (African American) 141.5 ml/min; Est GFR (Non-African American) 122.1 ml/min; Potassium 3.4 mmol/L (3.5-5.1)
--- NOTE | 2022-04-28 07:59 | Hospitalist Progress Note ---
Date of Service April 28, 2022 Assessment & Plan (1) Partial obstruction of small intestine: Plan: Leida Cheung is a 27yo female with PMHx significant for Crohn's disease (h/o ileocecal resection in 2014; on Entyvio) who presented to [facility] ED on 04/27 for acute-onset generalized abdominal pain with associated nausea and vomiting - found to have partial SBO. Partial SBO Acute onset of symptoms earlier today, with CT A/P showing distended mid to distal small bowel loops and fluid-filled to the level of the anastomosis of previous ileocecal resection, with evidence of at least partial SBO. Also per report, cannot rule out underlying anastomotic stricture. Suspect partial SBO due to stricture vs adhesions. - per review of [facility] notes, patient had colonoscopy in 2020 also showing anastomotic stricture - s/p Zofran x3 and Morphine x2 in ED and patient is currently largely symptom- free although still with no appetite - continue with PRN Zofran for N/V - PRN pain regimen: Tylenol 1g IV Q8H; Dilaudid 0.5mg IV Q6H - s/p 1L NSS bolus - continue with LR @125cc/hr - will hold off on NGT placement at this time, as patient is significantly improved - maintain NPO status for now, advance diet as tolerated - consulted Surgery - appreciate recs Chronic Medical Conditions: Crohn's disease: managed by [facility]. Continue Q6week Entyvio injections. Hypercholesterolemia: hold Fenofibrate while NPO FEN/GI: NPO; LR @125cc/hr DVT Prophylaxis: none indicated Code Status: full code Disposition: med/surg (2) Oral contraceptive pill surveillance: (3) Hypercholesterolemia: (4) Crohn disease: Admission and Anticipated Discharge Date Admission Date: April 27, 2022 Results & Data Results & Data ([facility]) Vital Signs (Past 12 Hours) Vital Signs Temp Pulse Resp BP Pulse Ox 04/28/22 07:43 36.6 C 71 16 112/71 98 04/28/22 01:08 36.8 C 97 H 18 125/78 100 04/28/22 01:00 36.8 C 97 H 18 125/78 100 04/27/22 23:21 86 18 125/77 96 04/27/22 20:14 65 18 132/92 95 Laboratory Results 0504/28/22 04/27/22 Range/Units 05:40 05:40 23:49 WBC 9.03 (4.8-10.8) K/uL RBC 4.32 (4.2-5.4) M/uL Hgb 13.1 D (12.0-16.0) g/dL Hct 38.5 (37-47) % MCV 89.1 (80-100) fL MCH 30.3 (25-34) pg MCHC 34.0 (32-36) g/dL RDW Std Deviation 39.7 (36.4-46.3) fL RDW Coeff of Thang 12.3 (11.5-14.5) % Plt Count 303 (130-400) K/uL MPV 9.2 (7.4-10.4) fL Immature Gran % (Auto) 0.1 % Neut % (Auto) 57.7 % Lymph % (Auto) 32.6 % [place] % (Auto) 7.2 % Eos % (Auto) 2.0 % Baso % (Auto) 0.4 % Neut # (Auto) 5.21 (1.4-6.5) K/uL Lymph # (Auto) 2.94 (1.2-3.4) K/uL [place] # (Auto) 0.65 H (0.11-0.59) K/uL Eos # (Auto) 0.18 (0-0.5) K/uL Baso # (Auto) 0.04 (0-0.2) K/uL Immature Gran # (Auto) 0.01 (0.00-0.02) K/uL Sodium 142 (136-145) mmol/L Potassium 3.4 L (3.5-5.1) mmol/L Chloride 108 H (98-107) mmol/L Carbon Dioxide 29 (21-32) mmol/L Anion Gap 5 (3-11) BUN 7 (6-23) mg/dl Creatinine 0.63 (0.6-1.2) mg/dl Est Cr Clr Drug Dosing 146.5 Est GFR ( Amer) 141.5 ml/min Est GFR (Non-Af Amer) 122.1 ml/min BUN/Creatinine Ratio 11.1 (10-20) Glucose 88 (70-99(Fasting)) mg/dl Calcium 8.4 L (8.5-10.1) mg/dl Magnesium 2.0 (1.7-2.4) mg/dl Total Bilirubin (0.2-1.0) mg/dl AST (13-39) U/L ALT (7-52) U/L Alkaline Phosphatase (34-104) U/L Total Protein (6.0-8.3) gm/dl Albumin (3.4-5.0) gm/dl Globulin (2.5-4.0) gm/dl Albumin/Globulin Ratio (0.9-2) Lipase (11-82) U/L Urine Color Urine Appearance (Clear) Urine pH (4.5-7.5) Ur Specific [place] (1.000-1.030) Urine Protein (Negative) Urine Glucose (UA) (Negative) Urine Ketones (Negative) Urine Blood (Negative) Urine Nitrite (Negative) Urine Bilirubin (Negative) Urine Urobilinogen (Negative) Ur Leukocyte Esterase (Negative) Urine WBC (Auto) (0-5) /hpf Urine RBC (Auto) (0-4) /hpf U Hyaline Cast (Auto) (0-5) /lpf U Epithel Cells (Auto) (0-5) /lpf Urine Bacteria (Auto) (Negative) POC Ur Test (NEG) SARS-CoV-2, RNA, NAAT NEGATIVE (NEGATIVE) 04/27/22 04/27/22 04/27/22 Range/Units 21:45 21:45 18:50 WBC (4.8-10.8) K/uL RBC (4.2-5.4) M/uL Hgb (12.0-16.0) g/dL Hct (37-47) % MCV (80-100) fL MCH (25-34) pg MCHC (32-36) g/dL RDW Std Deviation (36.4-46.3) fL RDW Coeff of Thang (11.5-14.5) % Plt Count (130-400) K/uL MPV (7.4-10.4) fL Immature Gran % (Auto) % Neut % (Auto) % Lymph % (Auto) % [place] % (Auto) % Eos % (Auto) % Baso % (Auto) % Neut # (Auto) (1.4-6.5) K/uL Lymph # (Auto) (1.2-3.4) K/uL [place] # (Auto) (0.11-0.59) K/uL Eos # (Auto) (0-0.5) K/uL Baso # (Auto) (0-0.2) K/uL Immature Gran # (Auto) (0.00-0.02) K/uL Sodium 140 (136-145) mmol/L Potassium 3.6 (3.5-5.1) mmol/L Chloride 105 (98-107) mmol/L Carbon Dioxide 21 (21-32) mmol/L Anion Gap 14 H (3-11) BUN 8 (6-23) mg/dl Creatinine 0.53 L (0.6-1.2) mg/dl Est Cr Clr Drug Dosing Not Reportable Est GFR ( Amer) 149.8 ml/min Est GFR (Non-Af Amer) 129.2 ml/min BUN/Creatinine Ratio 15.1 (10-20) Glucose 98 (70-99(Fasting)) mg/dl Calcium 10.2 H (8.5-10.1) mg/dl Magnesium (1.7-2.4) mg/dl Total Bilirubin 0.7 (0.2-1.0) mg/dl AST 19 (13-39) U/L ALT 19 (7-52) U/L Alkaline Phosphatase 86 (34-104) U/L Total Protein 7.9 (6.0-8.3) gm/dl Albumin 4.6 (3.4-5.0) gm/dl Globulin 3.3 (2.5-4.0) gm/dl Albumin/Globulin Ratio 1.4 (0.9-2) Lipase 18 (11-82) U/L Urine Color Dark Yellow Urine Appearance Cloudy A (Clear) Urine pH 5.5 (4.5-7.5) Ur Specific [place] 1.025 (1.000-1.030) Urine Protein Trace H (Negative) Urine Glucose (UA) Negative (Negative) Urine Ketones Trace H (Negative) Urine Blood Negative (Negative) Urine Nitrite Negative (Negative) Urine Bilirubin Negative (Negative) Urine Urobilinogen Negative (Negative) Ur Leukocyte Esterase Negative (Negative) Urine WBC (Auto) 1-5 (0-5) /hpf Urine RBC (Auto) 0-4 (0-4) /hpf U Hyaline Cast (Auto) 5-10 H (0-5) /lpf U Epithel Cells (Auto) >30 H (0-5) /lpf Urine Bacteria (Auto) Negative (Negative) POC Ur Test NEG (NEG) SARS-CoV-2, RNA, NAAT (NEGATIVE) 04/27/22 Range/Units 18:50 WBC 11.92 H (4.8-10.8) K/uL RBC 5.52 H (4.2-5.4) M/uL Hgb 16.9 H (12.0-16.0) g/dL Hct 48.0 H (37-47) % MCV 87.0 (80-100) fL MCH 30.6 (25-34) pg MCHC 35.2 (32-36) g/dL RDW Std Deviation 38.8 (36.4-46.3) fL RDW Coeff of Thang 12.2 (11.5-14.5) % Plt Count 362 (130-400) K/uL MPV 9.7 (7.4-10.4) fL Immature Gran % (Auto) 0.3 % Neut % (Auto) 84.0 % Lymph % (Auto) 11.6 % [place] % (Auto) 3.1 % Eos % (Auto) 0.7 % Baso % (Auto) 0.3 % Neut # (Auto) 10.03 H (1.4-6.5) K/uL Lymph # (Auto) 1.38 (1.2-3.4) K/uL [place] # (Auto) 0.37 (0.11-0.59) K/uL Eos # (Auto) 0.08 (0-0.5) K/uL Baso # (Auto) 0.03 (0-0.2) K/uL Immature Gran # (Auto) 0.03 H (0.00-0.02) K/uL Sodium (136-145) mmol/L Potassium (3.5-5.1) mmol/L Chloride (98-107) mmol/L Carbon Dioxide (21-32) mmol/L Anion Gap (3-11) BUN (6-23) mg/dl Creatinine (0.6-1.2) mg/dl Est Cr Clr Drug Dosing Est GFR ( Amer) ml/min Est GFR (Non-Af Amer) ml/min BUN/Creatinine Ratio (10-20) Glucose (70-99(Fasting)) mg/dl Calcium (8.5-10.1) mg/dl Magnesium (1.7-2.4) mg/dl Total Bilirubin (0.2-1.0) mg/dl AST (13-39) U/L ALT (7-52) U/L Alkaline Phosphatase (34-104) U/L Total Protein (6.0-8.3) gm/dl Albumin (3.4-5.0) gm/dl Globulin (2.5-4.0) gm/dl Albumin/Globulin Ratio (0.9-2) Lipase (11-82) U/L Urine Color Urine Appearance (Clear) Urine pH (4.5-7.5) Ur Specific [place] (1.000-1.030) Urine Protein (Negative) Urine Glucose (UA) (Negative) Urine Ketones (Negative) Urine Blood (Negative) Urine Nitrite (Negative) Urine Bilirubin (Negative) Urine Urobilinogen (Negative) Ur Leukocyte Esterase (Negative) Urine WBC (Auto) (0-5) /hpf Urine RBC (Auto) (0-4) /hpf U Hyaline Cast (Auto) (0-5) /lpf U Epithel Cells (Auto) (0-5) /lpf Urine Bacteria (Auto) (Negative) POC Ur Test (NEG) SARS-CoV-2, RNA, NAAT (NEGATIVE) PG Care Time/CCT Total # of Minutes Spent Total Time Spent with Patient: Total time spent is greater than 50% in coordination of care (as documented) at patient's floor/unit and/or counseling patient: Coding Diagnoses Partial obstruction of small intestine K56.600 Oral contraceptive pill surveillance Z30.41 Hypercholesterolemia E78.00 Crohn disease K50.912 Digestive disease complication type: with intestinal obstruction Gastrointestinal tract location: unspecified location (1) Crohn disease Digestive disease complication type: with intestinal obstruction Gastrointestinal tract location: unspecified location Qualified Code(s): K50.912 - Crohn's disease, unspecified, with intestinal obstruction
[2022-04-28] MEDS ORDERED: POTASSIUM CHLORIDE 20 MEQ in LACTATED RINGER'S 1,000 ML IV SCH (09:00)
--- NOTE | 2022-04-28 09:26 | XRay Report ---
XR KUB/Abdomen 1 view CLINICAL HISTORY: SBO TECHNIQUE: 1 view of the abdomen was obtained. Comparison: Comparison is made to abdomen radiograph 04/27/2022 FINDINGS: Cholecystomy clips are seen. The osseous structures are grossly unremarkable. The bowel gas pattern i s nonobstructive. A moderate amount of stool is noted within the large bowel. IMPRESSION: Nonobstructive bowel gas pattern. ACT 112: Negative or not required by law. Electronically signed by: Anthony Jones M.D. 04/28/2022 9:24 AM
[2022-04-28] MEDS ORDERED: PIPERACILLIN/TAZOBACTAM 3.375 GM in DEXTROSE 5% 100 ML IV SCH (10:00)
--- NOTE | 2022-04-28 11:10 | Discharge Summary ---
Date of Service April 28, 2022 Admission HPI Per Admitting Provider Leida Cheung is a 27yo female with PMHx significant for Crohn's disease (h/o ileocecal resection in 2014; on Entyvio) who presented to [facility] ED on 04/27 for acute-onset generalized abdominal pain with associated nausea and vomiting at 2pm. Patient vomited ~5 times and once upon coming to the ED, and now does not feel like she has anything left to vomit. Patient does report less severe episodes of nausea with associated mild abdominal pain which has occurred several times per month for the last several months. She recently had an abdominal MRI with her [facility] provider due to these complaints but reports that all testing was normal. Patient denies any recent Crohn's flares and feels that her Entyvio is working well for her. Denies fever/chills or recent illness. Patient f/w [facility] for Crohn's disease. Last colonoscopy in 02/2021 which showed anastomotic stricture which could not be traversed at that time. In the ED the patient was hemodynamically stable. Labs significant for WBC 11.92 (neutrophilic predominance and mild L shift) and Hgb 16.9. Lipase WNL and CBC/CMP otherwise WNL. CT A/P with distended mid to distal small bowel loops and fluid-filled to the level of the anastomosis of previous ileocecal resection, with evidence of at least partial SBO. In the ED the patient received 1L NSS bolus, Zofran x3, Benadryl 25mg IV x1, and Morphine 4mg IV x2. Currently patient's nausea and abdominal pain have almost completely resolved. Admission Exam Per Admitting Provider General: A&Ox3. NAD. Cooperative. HEENT: Atraumatic, normocephalic. Pulm: CTAB A&P. -wheezes, -rales, -rhonchi. Symmetrical chest rise. No increase work of breathing. No respiratory distress. Cardiac: RRR, -mrg. Radial pulses intact and symmetrical. Abdominal: soft, non-distended, mild tenderness to palpation of abdomen which is most pronounced at RLQ, without rebound or guarding. NA BS x 4 Skin: warm, dry, no rash Principal Diagnosis Partial Small Bowel Obstruction Discharge Exam General: WN/WD female, resting comfortably in bed, NAD HEENT: head atraumatic, normocephalic, pupils equal/reactive to light Resp: CTAB, no w/c/r, no edema CV: RRR, no m/r/g, no edema GI: +BS, soft, non-tender, no guarding/rigidity : no [place] MSK/Neuro: moves all extremities, no focal deficit Psych: alert, oriented x 3, pleasant and cooperative Discharge Data Allergies Allergy/AdvReac Type Severity Reaction Status Date / Time infliximab Allergy Severe Anaphylaxis Verified 04/27/22 20:06 Remicade AdvReac Unknown Unknown Uncoded 04/27/22 20:06 Consultations 04/27/22 23:01 ED Decision to Admit Stat 04/28/22 01:05 Consult General Surgery Routine 04/28/22 07:58 Consult Gastroenterology Routine Ordered Studies KUB X-Ray 04/27/22 20:43 KUB CLINICAL HISTORY: Vomiting. Crohn's disease. FINDINGS: 2 AP supine abdominal radiographs are compared to study dated 12/23/2021 and correlated with abdominal CT dated 11/21/2021. Suture material projects over the right midabdomen. There is gaseous distention of the small bowel loops which measure up to 4.1 cm in diameter. There is a paucity of gas in the colon, and the appearance is typical for a small bowel obstruction. No evidence of intraperitoneal free air is seen on these supine views. Cholecystectomy clips are noted in the right upper quadrant. There are no abnormal abdominal calcifications. Tiny phleboliths are seen in the pelvis. The bony structures appear intact. The lung bases are clear as imaged. IMPRESSION: Findings are typical for a small bowel obstruction. Electronically signed by: Henry Patel M.D. 04/27/2022 9:07 PM Abdomen/Pelvis CT 04/27/22 21:23 CT SCAN OF THE ABDOMEN AND PELVIS WITH IV CONTRAST CLINICAL HISTORY: Generalized abdominal pain. Vomiting. Crohn's disease. COMPARISON STUDY: Abdominal CT dated 11/21/2021. Abdominal radiographs performed the same day 04/27/2022. TECHNIQUE: Following the IV administration of 94 cc of Optiray 320, CT scan of the abdomen and pelvis is performed from the lung bases to the proximal femora. Images are reviewed in the axial, sagittal, and coronal planes. IV contrast was administered without complication. A small amount of oral contrast was utilized. A dose lowering technique was utilized adhering to the principles of ALARA. CT DOSE: 509.37 mGy.cm FINDINGS: Lung bases: The heart is normal in size and without pericardial effusion. The lung bases are clear. Liver: The contrast-enhanced liver is normal in size, contour, and attenuation. There is no intrahepatic biliary ductal dilatation. The hepatic veins and portal veins are patent. Gallbladder: Surgically absent noting clips in the gallbladder fossa. Spleen: Normal in size and attenuation. Pancreas: Unremarkable. Adrenal glands: Unremarkable. Kidneys: The contrast enhanced kidneys are normal in size and without hydronephrosis. The kidneys enhance symmetrically. Abdominal vasculature: The abdominal aorta is normal in course and caliber. Bowel: Enteric contrast is noted in the stomach. Postoperative changes consistent with ileocecal resection. The mid to distal small bowel is distended and filled with fluid. Small bowel loops measure up to 4 cm in diameter. The small bowel is dilated to the ileocolic anastomosis. There is also liquid stool throughout the colon. Trace interloop fluid is seen scattered throughout the mesentery. No focally thick walled or hyperemic bowel loops are identified. No pneumatosis intestinalis or portal venous gas is seen. The proximal small bowel loops are relatively decompressed. Peritoneum: No intraperitoneal free air is seen. There is a small volume of abdominopelvic ascites. Lymphadenopathy: None. Pelvic viscera: The bladder is decompressed and grossly unremarkable. Uterus and adnexa are normal as visualized. A tampon is in place. Skeletal structures: No lytic or blastic lesions are seen. IMPRESSION: 1. There is postoperative change from ileocecal resection. No thick walled or hyperemic bowel loops are identified to suggest active Crohn's disease. 2. The mid to distal small bowel loops are distended and fluid-filled to the level of the anastomosis. There is associated interloop fluid, and the appearance indicates at least a partial small bowel obstruction. This is likely related to the anastomosis, and underlying anastomotic stricture would be impossible to exclude. 3. Liquid stool is seen throughout the colon. 4. There is a small volume of abdominopelvic ascites. 5. Additional findings as above. ACT 112: Negative or not required by law. Electronically signed by: Henry Patel M.D. 04/27/2022 10:19 PM KUB X-Ray 04/28/22 07:00 XR KUB/Abdomen 1 view CLINICAL HISTORY: SBO TECHNIQUE: 1 view of the abdomen was obtained. Comparison: Comparison is made to abdomen radiograph 04/27/2022 FINDINGS: Cholecystomy clips are seen. The osseous structures are grossly unremarkable. The bowel gas pattern is nonobstructive. A moderate amount of stool is noted within the large bowel. IMPRESSION: Nonobstructive bowel gas pattern. ACT 112: Negative or not required by law. Electronically signed by: Anthony Jones M.D. 04/28/2022 9:24 AM Hospital Course (1) Partial obstruction of small intestine: Leida Cheung is a 27yo female with PMHx significant for Crohn's disease (h/o ileocecal resection in 2014; on Entyvio) who presented to [facility] ED on 04/27 for acute-onset generalized abdominal pain with associated nausea and vomiting - found to have partial SBO. CTAP without active Crohns flair, did note mid to distal small bowel loops and fluid-filled to the level of the anastomosis of previous ileocecal resection, with evidence of at least partial SBO. Also per report, cannot rule out underlying anastomotic stricture. Suspect partial SBO due to stricture vs adhesions. Most recent c-scope February last year, noted area of stricture unable to be traversed -- has f/u appointment in May for repeat IVF provided, pain control, antiemetics prn General surgery, GI on consult -- agreed with advancement of diet and discharge today. Low fiber/residue diet Moving bowels/resolution of abdominal pain --> advanced diet without issue Repeat KUB without obstructive pattern To continue low fiber diet x 2 weeks, outpatient f/u GI for c-scope (2) Hypercholesterolemia: fenofibrate at home -- continued at discharge (3) Crohn disease: no active flare at this time managed by [facility]. Continue Q6week Entyvio injections. (4) Oral contraceptive pill surveillance: Total Time Total Time Spent Total Time Spent (In Minutes): 40 Discharge Plan Discharge Items Patient Disposition: Home - Self-Care Reason For Visit: SBO Discharge Diagnosis: Partial Small bowel obstruciton Goals: You have been hospitalized for an acute medical problem. During your stay at [facility], we have made an effort to correct the problem that brought you to the hospital while keeping you as comfortable as possible. Medications were used to bring your condition under control and your discharge instructions will include directions for any medications you should take after leaving the hospital. Please make sure you see your Primary Care Provider as part of your follow up plan. Activity: Resume your previous activity Non-emergency contact: Primary Care Provider, Surgeon and Stewardess Supervisor Call non-emergency contact if: you have any medication questions, your symptoms worsen, your pain is not controlled and you have a fever Follow-up/Referrals: Cyrus Nelson III, EVA [Primary Care Provider] - Diet: Low Fiber Addtl Attending Provider Instructions: You have been hospitalized for a partial small bowel obstruction. This is likely contributed by adhesions from prior bowel surgery, and thankfully this has been able to be managed conservatively with bowel rest and hydration. Repeat imaging showed NO OBSTRUCTION. General surgery was consulted and agreed with plan. You should continue low fiber diet for next 2 weeks, then advance as tolerated. You should have follow up with [facility] for repeat c-scope and we will attempt to get additional provider/referral for evaluation for second opinion on Thursday when the nurse navigator is back. Please follow up with your PCP in the next 7-10 days to monitor your progress after discharge. Please return to the ER with any worsening pain, inability to move your bowels, inability to keep up with oral intake, or for any other symptoms concerning for you. Take care! Pending Studies at Discharge: No Stand-Alone Forms: My [facility] Medications and DC Order Prescriptions: Continued Entyvio 300 mg recon soln 300 mg IV UNKNOWN RF: 0 fenofibrate nanocrystallized 145 mg Tablet 145 mg PO QAM Qty: 30 RF: 5 norgestimate-ethinyl estradiol [Tri-Sprintec (28)] 0.18/0.215/0.25 mg-35 mcg (28) tablet 1 tab PO HS RF: 0 ondansetron 4 mg tablet,disintegrating 4 mg PO Q6H PRN (Reason: nausea and vomiting) Qty: 12 RF: 0 oxycodone 5 mg tablet 5 - 10 mg PO Q6H Qty: 20 RF: 0 ondansetron HCl 4 mg tablet 4 mg PO Q6H PRN (Reason: nausea and vomiting) Qty: 20 RF: 0 Discharge Orders: Discharge Order (Routine); Ordered 04/28/22 Ordered By: Jennyfer Singh Admission Data Admit Date/Time: 04/27/22 23:47 Attending Provider: Eamon Porras Admit Provider: Tyler Freeman Primary Care Provider: Cyrus Nelson III Other Providers: Medardo Jordan ; Alcides Gomez ; Jaime Arthur Coding Level of Care Code 63701 OBS Care - Discharge Diagnoses Partial obstruction of small intestine K56.600 Oral contraceptive pill surveillance Z30.41 Hypercholesterolemia E78.00 Crohn disease K50.912 Digestive disease complication type: with intestinal obstruction Gastrointestinal tract location: unspecified location
--- NOTE | 2022-04-28 12:09 | Surgery Consultation ---
Date of Consultation April 28, 2022 Assessment & Plan (1) Partial obstruction of small intestine: (2) Crohn disease: 27-year-old woman with history of Crohn's disease status post ileocecectomy 10 years ago presents with partial small bowel obstruction. It has resolved this morning. X-ray is normal. She is passing flatus. She denies nausea or vomiting. We will advance her diet as tolerated. She is very anxious to go home. If she tolerates diet today, she may be discharged later today from a surgical standpoint. History of Present Illness Attending Physician: Eamon Porras History of Present Illness 27-year-old woman with a longstanding history of Crohn's disease, status post ileocecectomy at [facility] 10 years ago presents with abrupt onset of abdominal pain. CT scan demonstrated a partial small bowel obstruction. Currently, she states the pain has improved. She denies any nausea or vomiting currently. She is passing flatus. She denies fevers or chills. X-ray this morning demonstrates normal bowel pattern. Allergies Allergy/AdvReac Type Severity Reaction Status Date / Time infliximab Allergy Severe Anaphylaxis Verified 04/27/22 20:06 Remicade AdvReac Unknown Unknown Uncoded 04/27/22 20:06 Home Medications Medication Instructions Recorded Confirmed Type fenofibrate nanocrystallized 145 145 mg PO QAM #30 tab 10/05/20 04/27/22 Rx mg tablet vedolizumab 300 mg intravenous 300 mg IV UNKNOWN 11/16/20 04/27/22 History solution (Entyvio) ondansetron 4 mg disintegrating 4 mg PO Q6H PRN #12 tab 11/21/21 04/27/22 Rx tablet oxycodone 5 mg tablet 5 - 10 mg PO Q6H #20 tab 11/21/21 04/27/22 Rx ondansetron HCl 4 mg tablet 4 mg PO Q6H PRN #20 tab 12/23/21 04/27/22 Rx norgestimate-ethinyl estradiol 1 tab PO HS 04/27/22 04/27/22 History 0.18 mg/0.215mg/0.25mg-35 mcg(28)tablet (Tri-Sprintec (28)) Patient History Medical History C. difficile colitis (09/29/14) Crohn disease Dysmenorrhea Gallstone Hypercholesterolemia Irregular menses Oral contraceptive pill surveillance Pancreatitis Small bowel obstruction Surgical History H/O resection of small bowel S/P cholecystectomy Family History Uncle Prostate cancer paternal Family/Other Myocardial infarction maternal great grandfather Denies family history of Ovarian cancer Breast cancer Colorectal cancer Social History Smoking Status: Never smoker Second Hand Exposure: No; Hx Alcohol Use: Yes Alcohol type: other Alcohol Intake Frequency: 2-4 x/Month Hx Substance Use: No Preferred Language: Indonesian Communication Ability: Effective Visual Impairment: No Limitations Hearing Ability: Normal Fire Prevention Bureau Captain Required: No Beliefs That Will Affect Care: None marital status: Single Current Living Situation: Alone current occupational status: employed 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 Other Information That Helps Us Care for You: No Feels Safe at Home: Yes Safety Concerns: Feels Safe At This Time Childhood Exposure to Second-Hand Smoke: No Dental Care, Regularly: Yes Physical Activity Frequency: Daily Seatbelt Use: always Sunscreen Use: Yes Assistive Devices: None Review of Systems Review of Systems: All systems reviewed & are unremarkable except as noted in HPI & below Physical Exam 2 Constitutional: WD/WN, vitals as above Eyes: PERRL, conjunctivae normal, anicteric sclerae Neck: trachea midline, no thyromegaly Respiratory: normal respiratory effort; no respiratory distress and no labored breathing Cardiovascular: Rate/Rhythm: regular rate and regular rhythm Gastrointestinal (Abdomen): Inspection/Auscultation: abdomen normal to inspection; abdomen not distended Percussion/Palpation: abdomen soft; abdomen nontender, no guarding and abdomen not rigid Musculoskeletal: Extremities: no cyanosis and no clubbing Skin: no rashes, warm and dry Psychiatric: A+Ox3, euthymic affect Results & Data ([facility]) Vital Signs (Past 12 Hours) Vital Signs Temp Pulse Resp BP Pulse Ox 04/28/22 07:43 36.6 C 71 16 112/71 98 04/28/22 01:08 36.8 C 97 H 18 125/78 100 04/28/22 01:00 36.8 C 97 H 18 125/78 100 Laboratory Results 04/28/22 04/28/22 04/27/22 Range/Units 05:40 05:40 23:49 WBC 9.03 (4.8-10.8) K/uL RBC 4.32 (4.2-5.4) M/uL Hgb 13.1 D (12.0-16.0) g/dL Hct 38.5 (37-47) % MCV 89.1 (80-100) fL MCH 30.3 (25-34) pg MCHC 34.0 (32-36) g/dL RDW Std Deviation 39.7 (36.4-46.3) fL RDW Coeff of Thang 12.3 (11.5-14.5) % Plt Count 303 (130-400) K/uL MPV 9.2 (7.4-10.4) fL Immature Gran % (Auto) 0.1 % Neut % (Auto) 57.7 % Lymph % (Auto) 32.6 % Rapides % (Auto) 7.2 % Eos % (Auto) 2.0 % Baso % (Auto) 0.4 % Neut # (Auto) 5.21 (1.4-6.5) K/uL Lymph # (Auto) 2.94 (1.2-3.4) K/uL Rapides # (Auto) 0.65 H (0.11-0.59) K/uL Eos # (Auto) 0.18 (0-0.5) K/uL Baso # (Auto) 0.04 (0-0.2) K/uL Immature Gran # (Auto) 0.01 (0.00-0.02) K/uL Sodium 142 (136-145) mmol/L Potassium 3.4 L (3.5-5.1) mmol/L Chloride 108 H (98-107) mmol/L Carbon Dioxide 29 (21-32) mmol/L Anion Gap 5 (3-11) BUN 7 (6-23) mg/dl Creatinine 0.63 (0.6-1.2) mg/dl Est Cr Clr Drug Dosing 146.5 Est GFR ( Amer) 141.5 ml/min Est GFR (Non-Af Amer) 122.1 ml/min BUN/Creatinine Ratio 11.1 (10-20) Glucose 88 (70-99(Fasting)) mg/dl Calcium 8.4 L (8.5-10.1) mg/dl Magnesium 2.0 (1.7-2.4) mg/dl Total Bilirubin (0.2-1.0) mg/dl AST (13-39) U/L ALT (7-52) U/L Alkaline Phosphatase (34-104) U/L Total Protein (6.0-8.3) gm/dl Albumin (3.4-5.0) gm/dl Globulin (2.5-4.0) gm/dl Albumin/Globulin Ratio (0.9-2) Lipase (11-82) U/L Urine Color Urine Appearance (Clear) Urine pH (4.5-7.5) Ur Specific Zenda (1.000-1.030) Urine Protein (Negative) Urine Glucose (UA) (Negative) Urine Ketones (Negative) Urine Blood (Negative) Urine Nitrite (Negative) Urine Bilirubin (Negative) Urine Urobilinogen (Negative) Ur Leukocyte Esterase (Negative) Urine WBC (Auto) (0-5) /hpf Urine RBC (Auto) (0-4) /hpf U Hyaline Cast (Auto) (0-5) /lpf U Epithel Cells (Auto) (0-5) /lpf Urine Bacteria (Auto) (Negative) POC Ur Test (NEG) SARS-CoV-2, RNA, NAAT NEGATIVE (NEGATIVE) 04/27/22 04/27/22 04/27/22 Range/Units 21:45 21:45 18:50 WBC (4.8-10.8) K/uL RBC (4.2-5.4) M/uL Hgb (12.0-16.0) g/dL Hct (37-47) % MCV (80-100) fL MCH (25-34) pg MCHC (32-36) g/dL RDW Std Deviation (36.4-46.3) fL RDW Coeff of Thang (11.5-14.5) % Plt Count (130-400) K/uL MPV (7.4-10.4) fL Immature Gran % (Auto) % Neut % (Auto) % Lymph % (Auto) % Rapides % (Auto) % Eos % (Auto) % Baso % (Auto) % Neut # (Auto) (1.4-6.5) K/uL Lymph # (Auto) (1.2-3.4) K/uL Rapides # (Auto) (0.11-0.59) K/uL Eos # (Auto) (0-0.5) K/uL Baso # (Auto) (0-0.2) K/uL Immature Gran # (Auto) (0.00-0.02) K/uL Sodium 140 (136-145) mmol/L Potassium 3.6 (3.5-5.1) mmol/L Chloride 105 (98-107) mmol/L Carbon Dioxide 21 (21-32) mmol/L Anion Gap 14 H (3-11) BUN 8 (6-23) mg/dl Creatinine 0.53 L (0.6-1.2) mg/dl Est Cr Clr Drug Dosing Not Reportable Est GFR ( Amer) 149.8 ml/min Est GFR (Non-Af Amer) 129.2 ml/min BUN/Creatinine Ratio 15.1 (10-20) Glucose 98 (70-99(Fasting)) mg/dl Calcium 10.2 H (8.5-10.1) mg/dl Magnesium (1.7-2.4) mg/dl Total Bilirubin 0.7 (0.2-1.0) mg/dl AST 19 (13-39) U/L ALT 19 (7-52) U/L Alkaline Phosphatase 86 (34-104) U/L Total Protein 7.9 (6.0-8.3) gm/dl Albumin 4.6 (3.4-5.0) gm/dl Globulin 3.3 (2.5-4.0) gm/dl Albumin/Globulin Ratio 1.4 (0.9-2) Lipase 18 (11-82) U/L Urine Color Dark Yellow Urine Appearance Cloudy A (Clear) Urine pH 5.5 (4.5-7.5) Ur Specific Zenda 1.025 (1.000-1.030) Urine Protein Trace H (Negative) Urine Glucose (UA) Negative (Negative) Urine Ketones Trace H (Negative) Urine Blood Negative (Negative) Urine Nitrite Negative (Negative) Urine Bilirubin Negative (Negative) Urine Urobilinogen Negative (Negative) Ur Leukocyte Esterase Negative (Negative) Urine WBC (Auto) 1-5 (0-5) /hpf Urine RBC (Auto) 0-4 (0-4) /hpf U Hyaline Cast (Auto) 5-10 H (0-5) /lpf U Epithel Cells (Auto) >30 H (0-5) /lpf Urine Bacteria (Auto) Negative (Negative) POC Ur Test NEG (NEG) SARS-CoV-2, RNA, NAAT (NEGATIVE) 04/27/22 Range/Units 18:50 WBC 11.92 H (4.8-10.8) K/uL RBC 5.52 H (4.2-5.4) M/uL Hgb 16.9 H (12.0-16.0) g/dL Hct 48.0 H (37-47) % MCV 87.0 (80-100) fL MCH 30.6 (25-34) pg MCHC 35.2 (32-36) g/dL RDW Std Deviation 38.8 (36.4-46.3) fL RDW Coeff of Thang 12.2 (11.5-14.5) % Plt Count 362 (130-400) K/uL MPV 9.7 (7.4-10.4) fL Immature Gran % (Auto) 0.3 % Neut % (Auto) 84.0 % Lymph % (Auto) 11.6 % Rapides % (Auto) 3.1 % Eos % (Auto) 0.7 % Baso % (Auto) 0.3 % Neut # (Auto) 10.03 H (1.4-6.5) K/uL Lymph # (Auto) 1.38 (1.2-3.4) K/uL Rapides # (Auto) 0.37 (0.11-0.59) K/uL Eos # (Auto) 0.08 (0-0.5) K/uL Baso # (Auto) 0.03 (0-0.2) K/uL Immature Gran # (Auto) 0.03 H (0.00-0.02) K/uL Sodium (136-145) mmol/L Potassium (3.5-5.1) mmol/L Chloride (98-107) mmol/L Carbon Dioxide (21-32) mmol/L Anion Gap (3-11) BUN (6-23) mg/dl Creatinine (0.6-1.2) mg/dl Est Cr Clr Drug Dosing Est GFR ( Amer) ml/min Est GFR (Non-Af Amer) ml/min BUN/Creatinine Ratio (10-20) Glucose (70-99(Fasting)) mg/dl Calcium (8.5-10.1) mg/dl Magnesium (1.7-2.4) mg/dl Total Bilirubin (0.2-1.0) mg/dl AST (13-39) U/L ALT (7-52) U/L Alkaline Phosphatase (34-104) U/L Total Protein (6.0-8.3) gm/dl Albumin (3.4-5.0) gm/dl Globulin (2.5-4.0) gm/dl Albumin/Globulin Ratio (0.9-2) Lipase (11-82) U/L Urine Color Urine Appearance (Clear) Urine pH (4.5-7.5) Ur Specific Zenda (1.000-1.030) Urine Protein (Negative) Urine Glucose (UA) (Negative) Urine Ketones (Negative) Urine Blood (Negative) Urine Nitrite (Negative) Urine Bilirubin (Negative) Urine Urobilinogen (Negative) Ur Leukocyte Esterase (Negative) Urine WBC (Auto) (0-5) /hpf Urine RBC (Auto) (0-4) /hpf U Hyaline Cast (Auto) (0-5) /lpf U Epithel Cells (Auto) (0-5) /lpf Urine Bacteria (Auto) (Negative) POC Ur Test (NEG) SARS-CoV-2, RNA, NAAT (NEGATIVE) (1) Crohn disease Digestive disease complication type: with intestinal obstruction Gastrointestinal tract location: unspecified location Qualified Code(s): K50.912 - Crohn's disease, unspecified, with intestinal obstruction
--- NOTE | 2022-04-28 14:30 | Gastrointestinal Consultation ---
Date of Consultation April 28, 2022 Assessment & Plan (1) Partial obstruction of small intestine: SBO resolved clinically and she is being DCed. She states has colonoscopy at our office in May. In the meantime recommend low residue diet. Fruits and vegetables should be baby food consistency. crohns---colo to assess disease as above. Continue Entyvio History of Present Illness Reason for Consultation: SBO Attending Physician: Eamon Porras History of Present Illness cc abd pain HPI Pt with ileal crohns since age 11 s/p ileocecectomy 2014 on Entvyvio. Last colo 02/2021 anastomostic erosions and stricture which could not be traversed. MRA at [facility] 01/2022 mild inflammation ileum. Pt admittted with n/v, abd pain and CT c/w SBO. KUB today normal. Pt tolerating clear liquid diet with minimal pain. Allergies Allergy/AdvReac Type Severity Reaction Status Date / Time infliximab Allergy Severe Anaphylaxis Verified 04/27/22 20:06 Remicade AdvReac Unknown Unknown Uncoded 04/27/22 20:06 Home Medications Medication Instructions Recorded Confirmed Type fenofibrate nanocrystallized 145 145 mg PO QAM #30 tab 10/05/20 04/27/22 Rx mg tablet vedolizumab 300 mg intravenous 300 mg IV UNKNOWN 11/16/20 04/27/22 History solution (Entyvio) ondansetron 4 mg disintegrating 4 mg PO Q6H PRN #12 tab 11/21/21 04/27/22 Rx tablet oxycodone 5 mg tablet 5 - 10 mg PO Q6H #20 tab 11/21/21 04/27/22 Rx ondansetron HCl 4 mg tablet 4 mg PO Q6H PRN #20 tab 12/23/21 04/27/22 Rx norgestimate-ethinyl estradiol 1 tab PO HS 04/27/22 04/27/22 History 0.18 mg/0.215mg/0.25mg-35 mcg(28)tablet (Tri-Sprintec (28)) Patient History Medical History C. difficile colitis (09/29/14) Crohn disease Dysmenorrhea Gallstone Hypercholesterolemia Irregular menses Oral contraceptive pill surveillance Pancreatitis Small bowel obstruction Surgical History H/O resection of small bowel S/P cholecystectomy Family History Uncle Prostate cancer paternal Family/Other Myocardial infarction maternal great grandfather Denies family history of Ovarian cancer Breast cancer Colorectal cancer Social History Smoking Status: Never smoker Second Hand Exposure: No; Hx Alcohol Use: Yes Alcohol type: other Alcohol Intake Frequency: 2-4 x/Month Hx Substance Use: No Preferred Language: Armenian Communication Ability: Effective Visual Impairment: No Limitations Hearing Ability: Normal Drapery Examiner Required: No Beliefs That Will Affect Care: None marital status: Single Current Living Situation: Alone current occupational status: employed 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 Other Information That Helps Us Care for You: No Feels Safe at Home: Yes Safety Concerns: Feels Safe At This Time Childhood Exposure to Second-Hand Smoke: No Dental Care, Regularly: Yes Physical Activity Frequency: Daily Seatbelt Use: always Sunscreen Use: Yes Assistive Devices: None Review of Systems Review of Systems: All systems reviewed & are unremarkable except as noted in HPI & below Physical Exam Constitutional: WD/WN, vitals as above Eyes: PERRL, conjunctivae normal, anicteric sclerae ENMT: Ears: no hearing impairment Neck: normal visual inspection and trachea midline Respiratory: normal respiratory effort, lungs clear to auscultation Cardiovascular: RRR, no murmur, no edema Gastrointestinal (Abdomen): normal bowel sounds, soft, nontender, no hepat osplenomegaly Skin: normal turgor Neurologic: PERRL, EOMI, accommodation nl, no face palsy, no dysarthria Psychiatric: A+Ox3, euthymic affect Results & Data ([facility]) Vital Signs (Past 12 Hours) Vital Signs Temp Pulse Resp BP Pulse Ox 04/28/22 07:43 36.6 C 71 16 112/71 98
== END 2022-04-28 15:20 | disposition home or self-care (01) | DRG 389 ==
LOC: ED 17:55 → EDINP 23:47 → SUATTDRO 23:47 → 3E 04-28 00:49

== ENCOUNTER 2022-07-13 02:25 | Inpatient (IN) ==
[2022-07-13] MEDS ORDERED: ONDANSETRON INJ 2 MG/ML 2 ML VIAL IV STA (02:40)
[2022-07-13] MEDS ORDERED: ACETAMINOPHEN 1,000 MG/100 ML VIAL IV STA (02:40)
[2022-07-13] MEDS ORDERED: SODIUM CHLORIDE 0.9% 1000ML 1,000 ML IV ONE (02:40)
[2022-07-13] MEDS ORDERED: MoRPHine SULFATE 4 MG/ML 1 ML CARP\\VIAL IV STA ×2 (02:40→03:34)
[2022-07-13] MEDS ORDERED: FAMOTIDINE 20MG IV PUSH 20 MG/5 ML SYR IV STA (02:40)
--- NOTE | 2022-07-13 02:49 | Emergency Department Note ---
History of Present Illness General Chief complaint: Abdominal Pain Stated complaint: ABDOMINAL PAIN Time Seen by Provider: 07/13/22 02:32 Source: patient Mode of arrival: ambulatory Limitations: no limitations History of Present Illness Provider complaint: Abdominal pain, nausea and vomiting Onset (ago): day(s) 1 Location: abdomen Radiation: back Maximum Pain Intensity: 7 Exacerbated By: + eating Associated symptoms: + fever/chills, + loss of appetite and + nausea/vomiting This is a 27-year-old female presents emergency department due to concern for abdominal pain, nausea and vomiting. Patient does have a history of Crohn's disease and has had recent flares, most recently 1 month ago. She states she did just finish a very long steroid taper this past week. She states at 1 PM this afternoon she began developing abdominal pain again. Patient states she tried to lay down in the hopes that the pain would improve as it was in the same location as her usual Crohn's flares. She states this evening she began getting nauseated and began vomiting multiple times. She did not notice any blood, states it appeared brown and foamy. She states no change in her usual chronic diarrhea, no black or bloody stools. She states pain is across her upper abdomen and on the left half of her abdomen and radiates into her back. She states she is also had a prior history of pancreas problems. She states she has had chills, no fevers. She states she is scheduled for colonoscopy at [place] the end of the month to decide further treatment/management regarding her illn ess. No other recent sick contacts or change in medications. No concern for . She states her urine appears concentrated but no other change in urine or urinary habits. No abnormal vaginal bleeding. In discussing evaluation here, patient is requesting to avoid a CAT scan as she has had multiple CAT scans previously. Pt seen during a time of high acuity and national emergency pandemic while wearing PPE. Home Medications Medication Instructions Recorded Confirmed Type norgestimate-ethinyl estradiol 1 tab PO HS 04/27/22 06/19/22 History 0.18 mg/0.215mg/0.25mg-35 mcg(28)tablet (Tri-Sprintec (28)) cholestyramine (with sugar) 4 gram 1 ea PO DAILY 04/29/22 06/19/22 History oral powder buspirone 5 mg tablet 5 mg PO BID PRN anxiety #60 tabs 06/18/22 06/19/22 Rx clotrimazole 10 mg ed 10 mg mucous membrane 5XD 14 days 06/18/22 06/19/22 Rx #70 tabs oxycodone 5 mg tablet 5 mg PO Q6H PRN pain #12 tabs 06/19/22 Rx prednisone 10 mg tablet See Rx Instructions .Route 06/19/22 Rx .COMPLEX #70 tabs Allergies Allergy/AdvReac Type Severity Reaction Status Date / Time infliximab Allergy Severe Anaphylaxis Verified 06/18/22 13:24 Remicade AdvReac Unknown Unknown Uncoded 06/18/22 13:24 Past Med/Surg History Medical History C. difficile colitis (09/29/14) Crohn disease Dysmenorrhea Gallstone Hypercholesterolemia Irregular menses Oral contraceptive pill surveillance Pancreatitis Partial obstruction of small intestine Small bowel obstruction Surgical History H/O resection of small bowel S/P cholecystectomy Family History Uncle Prostate cancer paternal Family/Other Myocardial infarction maternal great grandfather Denies family history of Ovarian cancer Breast cancer Colorectal cancer Social History Smoking Status: Never smoker Second Hand Exposure: No; Hx Alcohol Use: No Hx Substance Use: No Preferred Language: Pashto Communication Ability: Effective Visual Impairment: No Limitations Hearing Ability: Normal [employer] Required: No Beliefs That Will Affect Care: None marital status: Single Current Living Situation: Alone current occupational status: employed 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 Feels Safe at Home: Yes Childhood Exposure to Second-Hand Smoke: No Dental Care, Regularly: Yes Physical Activity Frequency: Daily Seatbelt Use: always Sunscreen Use: Yes Assistive Devices: None Review of Systems A total of 10 systems reviewed and were otherwise negative All systems reviewed & are unremarkable except as noted in HPI & below Physical Exam Vital Signs Vital Signs - 24 hr 07/13/22 02:27 07/13/22 04:49 Temperature 36.7 C 36.6 C Temperature Source Temporal Artery Scan Oral Pulse Rate 101 H Pulse Rate [Right Finger] 75 Pulse Rhythm Regular Pulse Rhythm [Right Finger] Regular Pulse Strength Normal Pulse Strength [Right Finger] Normal Respiratory Rate 18 16 Respiratory Effort / Characteristics Non-Labored Spontaneous Respiratory Depth Normal Normal Respiratory Pattern Regular Blood Pressure 137/88 Blood Pressure [Left Arm] 117/76 Blood Pressure Mean 104 Blood Pressure Mean [Left Arm] 89 Blood Pressure Position Sitting Blood Pressure Position [Left Arm] Lying Pulse Oximetry 98 94 Oxygen Delivery Method Room Air Room Air Sepsis Recent Fever Within 48 Hours No Sepsis New/Unexplained Change in Mental Status N/A Sepsis Action Taken by Nursing No Action Required GENERAL: alert, uncomfortable appearing, well nourished, mild distress, non- toxic EYE EXAM: normal conjunctiva, PERRL and EOM's grossly intact OROPHARYNX: no exudate, no erythema, lips, buccal mucosa, and tongue normal and mucous membranes are moist NECK: supple, no nuchal rigidity, no adenopathy, non-tender LUNGS: Clear to auscultation. Normal chest wall mechanics, no w/r/r HEART: no murmurs, S1 normal and S2 normal ABDOMEN: abdomen soft, tenderness across the upper abdomen, worse on the left side, normo-active bowel sounds, no masses, no rebound or guarding. BACK: Back is symmetrical on inspection and there is no deformity, no midline tenderness, no CVA tenderness. SKIN: no rashes and no bruising UPPER EXTREMITIES: upper extremities are grossly normal. FROM, nml pulses b/l. LOWER EXTREMITIES: No pitting edema. FROM, nml pulses b/l. NEURO EXAM: Normal sensorium, cranial nerves II-XII grossly intact, normal speech, no gross weakness of arms, no gross weakness of legs. Gross sensation intact. Course Administered Medications Cholestyramine Resin (Cholestyramine Light 4 Gm Pkt) 4 gm PO DAILY ADELA Stop: 08/12/22 08:59 Last Admin: 07/13/22 09:42 Dose: 4 gm Documented By: SRAVAN Hydromorphone HCl (Hydromorphone Inj 0.5 Mg/0.5 Ml Syr) 0.5 mg IV Q4H PRN PRN Reason: pain Stop: 07/27/22 14:37 Last Admin: 07/13/22 15:52 Dose: 0.5 mg Documented By: SRAVAN Insulin Human Regular 250 (units/ Sodium Chloride) 250 mls @ 8.6 mls/hr IV .Q24H ADELA; Protocol Stop: 08/12/22 17:29 Last Admin: 07/13/22 18:23 Dose: 0.1 units/kg/hr, 8.6 mls/hr Documented By: MICHAEL Co-signed By: SRAVAN Potassium Chloride/Dextrose/Sod Cl (D5w And 1/2nss + 20meq Kcl) 20 meq in 1,000 mls @ 75 mls/hr IV .[id number] ADELA Stop: 08/12/22 17:29 Last Admin: 07/13/22 18:23 Dose: 75 mls/hr Documented By: MICHAEL Lactated Ringer's (Lr) 1,000 mls @ 400 mls/hr IV .Q2H30M ADELA Stop: 07/14/22 02:29 Last Admin: 07/13/22 21:37 Dose: 400 mls/hr Documented By: [id number] Morphine Sulfate (Morphine Sulfate 2 Mg/Ml Carp) 2 mg IV Q3H PRN PRN Reason: Pain (1,2,3,4,5) & Pre PT Stop: 07/27/22 08:06 Last Admin: 07/13/22 20:04 Dose: 2 mg Documented By: [id number] Admin: 07/13/22 13:50 Dose: 2 mg Documented By: Admin: 07/13/22 09:38 Dose: 2 mg Documented By: SRAVAN Discontinued Medications Diphenhydramine HCl (Diphenhydramine 50 Mg/Ml Vial) 12.5 mg IV NOW STA Stop: 07/13/22 03:35 Last Admin: 07/13/22 03:51 Dose: 12.5 mg Documented By: MARIANO Hydromorphone HCl (Hydromorphone Inj 0.5 Mg/0.5 Ml Syr) 0.5 mg IV Q15M PRN PRN Reason: Pain Stop: 07/27/22 05:00 Last Admin: 07/13/22 05:36 Dose: 0.5 mg Documented By: Admin: 07/13/22 05:17 Dose: 0.5 mg Documented By: MARIANO Hydromorphone HCl (Hydromorphone Inj 0.5 Mg/0.5 Ml Syr) 0.25 mg IV NOW STA Stop: 07/13/22 11:49 Last Admin: 07/13/22 12:54 Dose: 0.25 mg Documented By: SRAVAN Sodium Chloride (Nss 1000ml) 1,000 mls @ 999 mls/hr IV .Q1H1M ONE Stop: 07/13/22 03:40 Last Infusion: 07/13/22 04:02 Dose: 0 mls/hr Documented By: Admin: 07/13/22 03:05 Dose: 999 mls/hr Documented By: MT Acetaminophen (Ofirmev) 1,000 mg in 100 mls @ 400 mls/hr IV NOW STA Stop: 07/13/22 02:54 Last Infusion: 07/13/22 03:25 Dose: 0 mls/hr Documented By: Admin: 07/13/22 03:05 Dose: 400 mls/hr Documented By: MARIANO Famotidine (Pepcid 20mg Iv Push) 20 mg in 5 mls @ 2.5 mls/min IV NOW STA Stop: 07/13/22 02:41 Last Admin: 07/13/22 03:05 Dose: 2.5 mls/min Documented By: MARIANO Prochlorperazine (Compazine) 1 mls @ 1 mls/min IV ONE ONE Stop: 07/13/22 03:35 Last Admin: 07/13/22 03:49 Dose: 1 mls/min Documented By: MARIANO Magnesium Sulfate/Dextrose (Magnesium Sulfate / D5w) 1 gm in 100 mls @ 50 mls/hr IV Q2H [facility] Stop: 07/13/22 14:06 Last Infusion: 07/13/22 15:19 Dose: 0 mls/hr Documented By: Admin: 07/13/22 13:12 Dose: 50 mls/hr Documented By: Infusion: 07/13/22 13:12 Dose: 0 mls/hr Documented By: Admin: 07/13/22 11:10 Dose: 50 mls/hr Documented By: Infusion: 07/13/22 11:10 Dose: 50 mls/hr Documented By: Admin: 07/13/22 09:41 Dose: 50 mls/hr Documented By: SRAVAN Lactated Ringer's (Lr) 1,000 mls @ 400 mls/hr IV .Q2H30M ADELA Stop: 07/13/22 21:33 Last Admin: 07/13/22 21:45 Dose: Not Given Documented By: [id number] Admin: 07/13/22 21:37 Dose: Not Given Documented By: [id number] Infusion: 07/13/22 21:04 Dose: 0 mls/hr Documented By: [id number] Infusion: 07/13/22 19:22 Dose: 400 mls/hr Documented By: [id number] Admin: 07/13/22 14:39 Dose: 200 mls/hr Documented By: Infusion: 07/13/22 14:39 Dose: 200 mls/hr Documented By: Admin: 07/13/22 09:40 Dose: 200 mls/hr Documented By: SRAVAN Promethazine HCl 6.25 mg/ (Sodium Chloride) 50.25 mls @ 201 mls/hr IV NOW STA Stop: 07/13/22 12:04 Last Infusion: 07/13/22 13:13 Dose: 0 mls/hr Documented By: Admin: 07/13/22 12:54 Dose: 201 mls/hr Documented By: SRAVAN Ioversol (Optiray 300 100ml) 89 ml IV ONCE ONE Stop: 07/13/22 12:16 Last Admin: 07/13/22 12:20 Dose: 89 ml Documented By: JAYCEE Ioversol (Optiray 300 500ml) 78 ml IV ONCE ONE Stop: 07/13/22 19:05 Last Admin: 07/13/22 19:05 Dose: 78 ml Documented By: DORYS Ketorolac Tromethamine (Ketorolac 30 Mg/Ml Vial) 30 mg IV NOW ONE Stop: 07/13/22 17:02 Last Admin: 07/13/22 18:10 Dose: 30 mg Documented By: SRAVAN Morphine Sulfate (Morphine Sulfate 4 Mg/Ml 1 Ml Carp\Vial) 4 mg IV NOW STA Stop: 07/13/22 02:41 Last Admin: 07/13/22 03:04 Dose: 4 mg Documented By: MARIANO Morphine Sulfate (Morphine Sulfate 4 Mg/Ml 1 Ml Carp\Vial) 4 mg IV NOW STA Stop: 07/13/22 03:35 Last Admin: 07/13/22 03:52 Dose: 4 mg Documented By: MARIANO Ondansetron HCl (Ondansetron Inj 2 Mg/Ml 2 Ml Vial) 4 mg IV NOW STA Stop: 07/13/22 02:41 Last Admin: 07/13/22 03:04 Dose: 4 mg Documented By: MARIANO Potassium Chloride (Potassium Chloride Crtab 20 Meq Tabcr) 40 meq PO NOW STA Stop: 07/13/22 08:08 Last Admin: 07/13/22 09:41 Dose: 40 meq Documented By: MM Medical Decision Making Differential Diagnosis Differential diagnoses includes but is not limited to gastritis, peptic ulcer d isease, GERD, gallbladder disease, pancreatitis, small bowel obstruction, acute coronary syndrome, pericarditis, ischemic bowel, irritable bowel disease, irritable bowel syndrome, appendicitis, diverticulitis, malignancy, hernia, urinary tract infection, torsion, [/ectopic (if female)], perforation, trauma, infectious. Medical Records Attestation: I reviewed the patient's medical records. Home Medications Current Medication List: was personally reviewed by me Laboratory Data Attestation: I reviewed the patient's lab results. Result diagrams: 07/13/22 17:23 07/13/22 21:38 Lab Results 07/13/22 07/13/22 07/13/22 Range/Units 02:58 02:58 02:58 WBC 12.68 H (4.8-10.8) K/ul RBC 4.51 (3.93-5.22) M/uL Hgb 15.1 (12.0-16.0) g/dl Hct 39.8 (34.1-44.9) % MCV 88.2 (80.0-100.0) fL MCH 33.5 (25.0-34.0) pg MCHC 37.9 H (32.0-36.0) g/dL RDW Std Deviation 37.9 (36.4-46.3) fL RDW Coeff of Thang 11.8 (11.5-14.5) % Plt Count 244 (130-400) K/uL MPV 9.2 L (9.4-12.3) fL Immature Gran % (Auto) 0.2 % Neut % (Auto) 83.4 % Lymph % (Auto) 9.8 % Emanuel % (Auto) 5.4 % Eos % (Auto) 0.6 % Baso % (Auto) 0.6 % Neut # (Auto) 10.57 H (1.4-6.5) K/uL Lymph # (Auto) 1.24 (1.2-3.4) K/uL Emanuel # (Auto) 0.69 (0.24-0.82) K/uL Eos # (Auto) 0.07 (0-0.50) K/uL Baso # (Auto) 0.08 (0-0.2) K/uL Immature Gran # (Auto) 0.03 H (0.00-0.02) K/uL Sodium 131 L (136-145) mmol/L Potassium 3.9 (3.5-5.1) mmol/L Chloride 98 (98-107) mmol/L Carbon Dioxide 25 (21-32) mmol/L Anion Gap 8 (3-11) BUN 9 (6-23) mg/dl Creatinine 0.56 L (0.6-1.2) mg/dl Est Cr Clr Drug Dosing 168.4 ml/min Est GFR ( Amer) 147.1 ml/min Est GFR (Non-Af Amer) 126.9 ml/min BUN/Creatinine Ratio 16.1 (10-20) Glucose 104 H (70-99(Fasting)) mg/dl Lactate (0.4-2.0) mmol/L Calcium 8.6 (8.5-10.1) mg/dl Magnesium 1.7 (1.7-2.4) mg/dl Total Bilirubin 1.1 H (0.2-1.0) mg/dl AST 14 (13-39) U/L ALT 13 (7-52) U/L Alkaline Phosphatase 70 (34-104) U/L Total Protein 6.2 (6.0-8.3) gm/dl Albumin 3.5 (3.4-5.0) gm/dl Globulin 2.7 (2.5-4.0) gm/dl Albumin/Globulin Ratio 1.3 (0.9-2) Lipase 253 H (11-82) U/L HCG, Qual Negative (Negative) Urine Color Urine Appearance (Clear) Urine pH (4.5-7.5) Ur Specific [place] (1.000-1.030) Urine Protein (Negative) Urine Glucose (UA) (Negative) Urine Ketones (Negative) Urine Blood (Negative) Urine Nitrite (Negative) Urine Bilirubin (Negative) Urine Urobilinogen (Negative) Ur Leukocyte Esterase (Negative) SARS-CoV-2, RNA, NAAT (NEGATIVE) 07/13/22 07/13/22 07/13/22 Range/Units 02:58 04:30 05:20 WBC (4.8-10.8) K/ul RBC (3.93-5.22) M/uL Hgb (12.0-16.0) g/dl Hct (34.1-44.9) % MCV (80.0-100.0) fL MCH (25.0-34.0) pg MCHC (32.0-36.0) g/dL RDW Std Deviation (36.4-46.3) fL RDW Coeff of Thang (11.5-14.5) % Plt Count (130-400) K/uL MPV (9.4-12.3) fL Immature Gran % (Auto) % Neut % (Auto) % Lymph % (Auto) % Emanuel % (Auto) % Eos % (Auto) % Baso % (Auto) % Neut # (Auto) (1.4-6.5) K/uL Lymph # (Auto) (1.2-3.4) K/uL Emanuel # (Auto) (0.24-0.82) K/uL Eos # (Auto) (0-0.50) K/uL Baso # (Auto) (0-0.2) K/uL Immature Gran # (Auto) (0.00-0.02) K/uL Sodium (136-145) mmol/L Potassium (3.5-5.1) mmol/L Chloride (98-107) mmol/L Carbon Dioxide (21-32) mmol/L Anion Gap (3-11) BUN (6-23) mg/dl Creatinine (0.6-1.2) mg/dl Est Cr Clr Drug Dosing ml/min Est GFR ( Amer) ml/min Est GFR (Non-Af Amer) ml/min BUN/Creatinine Ratio (10-20) Glucose (70-99(Fasting)) mg/dl Lactate 1.4 (0.4-2.0) mmol/L Calcium (8.5-10.1) mg/dl Magnesium (1.7-2.4) mg/dl Total Bilirubin (0.2-1.0) mg/dl AST (13-39) U/L ALT (7-52) U/L Alkaline Phosphatase (34-104) U/L Total Protein (6.0-8.3) gm/dl Albumin (3.4-5.0) gm/dl Globulin (2.5-4.0) gm/dl Albumin/Globulin Ratio (0.9-2) Lipase (11-82) U/L HCG, Qual (Negative) Urine Color Yellow Urine Appearance Clear (Clear) Urine pH 8.0 H (4.5-7.5) Ur Specific [place] 1.023 (1.000-1.030) Urine Protein Negative (Negative) Urine Glucose (UA) Negative (Negative) Urine Ketones 1+ H (Negative) Urine Blood Negative (Negative) Urine Nitrite Negative (Negative) Urine Bilirubin Negative (Negative) Urine Urobilinogen Negative (Negative) Ur Leukocyte Esterase Negative (Negative) SARS-CoV-2, RNA, NAAT NEGATIVE (NEGATIVE) Imaging Data My Impression: KUB: No air-fluid levels, no obvious SBO MDM Narrative An order was placed for continuous cardiac monitoring. The monitor shows a rate of _102__ with sinus tachycardia__ rhythm. This is a 27-year-old female presents with upper and left-sided abdominal pain. Patient does have prior history of Crohn's disease and has a Crohn's flare approximately 1 month ago. Patient does take regular medications from this and follows with GI. Patient was afebrile and hemodynamically stable on arrival. She was noted to be mildly tachycardic which I suspect is due to pain and dehydration from the vomiting that it followed. Patient states she vomited multiple times, no hematemesis. No recent hematochezia despite her usual loose stools and diarrhea. Upon discussing evaluation with the patient initially, she requested no CTs to be done as she has had multiple CAT scans previously due to her GI history. She was in agreement with a KUB to help evaluate for SBO which she has had previously also due to prior surgery. KUB unremarkable, labs did reveal a mild leukocytosis as well as an elevated lipase. Patient states she has previously had pancreatitis. She has had prior cholecystectomy. Upon additional review of EMR, she was noted to have high triglycerides on prior evaluation. No other recent change in medications or recent illness. Patient required multiple doses of IV pain medication and did receive 2 L of IV fluids as an in the ER. Due to concern for ability to control pain as well as unclear etiology of her abdominal pain and pancreatitis at this time, we discussed additional inpatient evaluation, she was in agreement. Case discussed with hospitalist for additional evaluation and management. At this time I feel pancreatitis is more likely than recurrent Crohn's flare, although patient did just recently finish a long steroid taper after her last flareup. Impression & Plan Abdominal pain, Pancreatitis, Crohn disease Discharge Plan Visit Data Chief Complaint: Abdominal Pain Stated Complaint: ABDOMINAL PAIN ED Provider: Karlee Aguiar Discharge Problem: Abdominal pain, Pancreatitis, Crohn disease Patient Disposition: Admitted As Inpatient Discharge Instructions Interventions: ED Discharge Assessment Last Done: 07/13/22 07:34
[2022-07-13 03:10] LABS: Basophils # (auto) 0.08 K/uL (0-0.2); Basophils % (auto) 0.6 %; Eosinophils # (auto) 0.07 K/uL (0-0.50); Eosinophils % (auto) 0.6 %; Hematocrit (blood only) 39.8 % (34.1-44.9); Hemoglobin 15.1 g/dl (12.0-16.0); Immature Granulocytes # (auto) 0.03 K/uL (0.00-0.02); Immature Granulocytes % (auto) 0.2 %; Lymphocytes # (auto) 1.24 K/uL (1.2-3.4); Lymphocytes % (auto) 9.8 %; Mean Corpuscular Hemoglobin 33.5 pg (25.0-34.0); Mean Corpuscular Hgb Conc 37.9 g/dL (32.0-36.0); Mean Corpuscular Volume 88.2 fL (80.0-100.0); Mean Platelet Volume 9.2 fL (9.4-12.3); Monocytes # (auto) 0.69 K/uL (0.24-0.82); Monocytes % (auto) 5.4 %; Neutrophils # (auto) 10.57 K/uL (1.4-6.5); Neutrophils % (auto) 83.4 %; Platelet Count 244 K/uL (130-400); RDW Coefficient of Variation 11.8 % (11.5-14.5); RDW Standard Deviation 37.9 fL (36.4-46.3); Red Blood Count 4.51 M/uL (3.93-5.22); White Blood Count 12.68 K/ul (4.8-10.8)
[2022-07-13] MEDS ORDERED: PROCHLORPERAZINE 1 ML IV ONE (03:34)
[2022-07-13] MEDS ORDERED: diphenhydrAMINE 50 MG/ML VIAL IV STA (03:34)
[2022-07-13 03:41] LABS: Pregnancy Test, Serum Negative (Negative)
[2022-07-13 04:13] LABS: Albumin Globulin Ratio 1.3 (0.9-2); Albumin Level 3.5 gm/dl (3.4-5.0); BUN Creatinine Ratio 16.1 (10-20); Bilirubin,Total 1.1 mg/dl (0.2-1.0); Calcium 8.6 mg/dl (8.5-10.1); Creatinine Clr Calc Pharmacy 168.4 ml/min; Est GFR (African American) 147.1 ml/min; Est GFR (Non-African American) 126.9 ml/min; Globulin 2.7 gm/dl (2.5-4.0); Magnesium 1.7 mg/dl (1.7-2.4); Potassium 3.9 mmol/L (3.5-5.1); Total Protein 6.2 gm/dl (6.0-8.3)
[2022-07-13 04:46] LABS: Appearance Urine Clear (Clear); Bilirubin Urine Negative (Negative); Blood Urine Negative (Negative); Color Urine Yellow; Glucose Urine UA Negative (Negative); Ketones Urine 1+ (Negative); Leukocyte Esterase Urine Negative (Negative); Nitrite Urine Negative (Negative); Protein Urine Negative (Negative); Specific Gravity Urine 1.023 (1.000-1.030); Urobilinogen Urine Negative (Negative)
[2022-07-13] MEDS: HYDROmorphone INJ 0.5 MG/0.5 ML SYR IV PRN ×3 (05:17→15:52)
--- NOTE | 2022-07-13 06:06 | History & Physical Report ---
Date of Service July 13, 2022 Assessment & Plan (1) Pancreatitis: Plan: 27yo female with history of Crohn's disease s/p ileocolectomy in 2014 on Entyvio infusions presenting with epigastric and left flank abdominal pain. Elevated lipase on labs at 253. Patient with history of pancreatitis 2 years ago thought to be secondary to elevated triglycerides. She does not drink EtOH, is s/p cholecystectomy She is HD stable and nontoxic in appearance. Pain is improved with Morphine and Dilaudid -Admit to medical with telemetry -Check triglycerides -Check procalcitonin -Keep NPO -Continue IVF LR at 200mL/hr x 2 liters -Morphine PRN pain -Zofran PRN nausea -Electrolyte repletion - Mg x 2mg, KCL x 40mEq -If elevated TG will benefit from treatment with insulin gtt (initiate at 0.1u/kg/hr with dextrose infusion -Modest fluid resuscitation (2) CLIF (generalized anxiety disorder): Plan: Chronic. Stable -Continue home Buspar 5mg po BID PRN anxiety (3) Hypercholesterolemia: Plan: Lipid panel ordered (4) Crohn disease: Plan: Patient on Entyvio injections Does not feel that current pain is secondary to Crohn's flare Recently completed steroid taper History of Present Illness Chief Complaint: acute pancreatitis Primary Care Provider: Cyrus Nelson III, EVA Leida Cheung is a 27yo female with history of Crohn's (dx at age 11, s/p ileocecal resection in 2014, follows with GI at [facility] [place], receives Entyvio injections q 6 weeks). Patient was admitted to [facility] 04/27/22 - 04/28/22 with partial SBO which resolved with conservative treatment). Patient presents with acute abdominal pain that started yesterday at 13:00. Pain in epigastric with radiation into the back and left flank, severe with associated nausea and vomiting as well as mild diarrhea. Pain is similar to prior pancreatitis pain. She has chills but no fevers. Otherwise denies chest pain, palpitations, cough, SOB. Patient was hospitalized for acute pancreatitis in 09/2020 thought to be secondary to hypertriglyceridemia - TG of 800's. She does not drink EtOH. Has history of gallstones s/p cholecystectomy. She had an MRCP performed during that visit which showed a normal CBD and pancreatic duct and slight irregularity of the intrahepatic bile ducts possibly representing early PSC. She was started on TriCor on discharge. Allergies Allergy/AdvReac Type Severity Reaction Status Date / Time infliximab Allergy Severe Anaphylaxis Verified 06/18/22 13:24 Remicade AdvReac Unknown Unknown Uncoded 06/18/22 13:24 Home Medications Medication Instructions Recorded Confirmed Type norgestimate-ethinyl estradiol 1 tab PO HS 04/27/22 06/19/22 History 0.18 mg/0.215mg/0.25mg-35 mcg(28)tablet (Tri-Sprintec (28)) cholestyramine (with sugar) 4 gram 1 ea PO DAILY 04/29/22 06/19/22 History oral powder buspirone 5 mg tablet 5 mg PO BID PRN anxiety #60 tabs 06/18/22 06/19/22 Rx clotrimazole 10 mg ed 10 mg mucous membrane 5XD 14 days 06/18/22 06/19/22 Rx #70 tabs oxycodone 5 mg tablet 5 mg PO Q6H PRN pain #12 tabs 06/19/22 Rx prednisone 10 mg tablet See Rx Instructions .Route 06/19/22 Rx .COMPLEX #70 tabs Past Med/Surg History Medical History C. difficile colitis (09/29/14) Crohn disease Dysmenorrhea Gallstone Hypercholesterolemia Irregular menses Oral contraceptive pill surveillance Pancreatitis Partial obstruction of small intestine Small bowel obstruction Surgical History H/O resection of small bowel S/P cholecystectomy Family History Uncle Prostate cancer paternal Family/Other Myocardial infarction maternal great grandfather Denies family history of Ovarian cancer Breast cancer Colorectal cancer Social History Smoking Status: Never smoker Second Hand Exposure: No; Hx Alcohol Use: Yes Alcohol type: other Alcohol Intake Frequency: 2-4 x/Month Hx Substance Use: No Preferred Language: Barbadian Communication Ability: Effective Visual Impairment: No Limitations Hearing Ability: Normal Personal Computer Network Analyst Required: No Beliefs That Will Affect Care: None marital status: Single Current Living Situation: Alone current occupational status: employed 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 Feels Safe at Home: Yes Childhood Exposure to Second-Hand Smoke: No Dental Care, Regularly: Yes Physical Activity Frequency: Daily Seatbelt Use: always Sunscreen Use: Yes Assistive Devices: None Review of Systems Review of Systems: All systems reviewed & are unremarkable except as noted in HPI & below Physical Exam 2 Physical Exam: General: patient in discomfort, NAD, AA&O x 4 Skin: warm, dry, intact, no rashes or lesions HEENT: NC/AT, PERRL, EOMI, anicteric sclera, conjunctiva without injection, external ear normal to inspection and nontender, nares patent, moist mucus membranes, dentition intact, no oropharyngeal lesions, neck supple, trachea midline, no LAD, no thyromegaly, no JVD Heart: +S1/S2, regular, no m/r/g Lungs: equal air entry bilaterally, no rales/rhonchi/wheezes Abd: +BS, soft, ND, tender in epigastrium, no rebound/guarding, no masses/organomegaly/ascites Ext: warm, 2+ pulses in UE/LE bilaterally, no clubbing/cyanosis or edema Neuro: nonfocal, patient AA&O x 4, speech intact, no facial droop, moving all extremities on command with equal strength 5/5 Results & Data Results & Data ([facility]) Vital Signs (Past 12 Hours) Vital Signs Temp Pulse Pulse Resp BP BP Pulse Ox 07/13/22 04:49 36.6 C 75 16 117/76 94 07/13/22 02:27 36.7 C 101 H 18 137/88 98 O2 Del Method 07/13/22 04:49 Room Air 07/13/22 02:27 Room Air Laboratory Results Laboratory Results WBC 12.68 K/ul (4.8-10.8) H 07/13/22 02:58 RBC 4.51 M/uL (3.93-5.22) 07/13/22 02:58 Hgb 15.1 g/dl (12.0-16.0) 07/13/22 02:58 Hct 39.8 % (34.1-44.9) 07/13/22 02:58 MCV 88.2 fL (80.0-100.0) 07/13/22 02:58 MCH 33.5 pg (25.0-34.0) 07/13/22 02:58 MCHC 37.9 g/dL (32.0-36.0) H 07/13/22 02:58 RDW Std Deviation 37.9 fL (36.4-46.3) 07/13/22 02:58 RDW Coeff of Thang 11.8 % (11.5-14.5) 07/13/22 02:58 Plt Count 244 K/uL (130-400) 07/13/22 02:58 MPV 9.2 fL (9.4-12.3) L 07/13/22 02:58 Immature Gran % (Auto) 0.2 % 07/13/22 02:58 Neut % (Auto) 83.4 % 07/13/22 02:58 Lymph % (Auto) 9.8 % 07/13/22 02:58 Sanders % (Auto) 5.4 % 07/13/22 02:58 Eos % (Auto) 0.6 % 07/13/22 02:58 Baso % (Auto) 0.6 % 07/13/22 02:58 Neut # (Auto) 10.57 K/uL (1.4-6.5) H 07/13/22 02:58 Lymph # (Auto) 1.24 K/uL (1.2-3.4) 07/13/22 02:58 Sanders # (Auto) 0.69 K/uL (0.24-0.82) 07/13/22 02:58 Eos # (Auto) 0.07 K/uL (0-0.50) 07/13/22 02:58 Baso # (Auto) 0.08 K/uL (0-0.2) 07/13/22 02:58 Immature Gran # (Auto) 0.03 K/uL (0.00-0.02) H 07/13/22 02:58 Sodium 131 mmol/L (136-145) L 07/13/22 02:58 Potassium 3.9 mmol/L (3.5-5.1) 07/13/22 02:58 Chloride 98 mmol/L (98-107) 07/13/22 02:58 Carbon Dioxide 25 mmol/L (21-32) 07/13/22 02:58 Anion Gap 8 (3-11) 07/13/22 02:58 BUN 9 mg/dl (6-23) 07/13/22 02:58 Creatinine 0.56 mg/dl (0.6-1.2) L 07/13/22 02:58 Est Cr Clr Drug Dosing 168.4 ml/min 07/13/22 02:58 Est GFR ( Amer) 147.1 ml/min 07/13/22 02:58 Est GFR (Non-Af Amer) 126.9 ml/min 07/13/22 02:58 BUN/Creatinine Ratio 16.1 (10-20) 07/13/22 02:58 Glucose 104 mg/dl (70-99(Fasting)) H 07/13/22 02:58 Lactate 1.4 mmol/L (0.4-2.0) 07/13/22 02:58 Calcium 8.6 mg/dl (8.5-10.1) 07/13/22 02:58 Magnesium 1.7 mg/dl (1.7-2.4) 07/13/22 02:58 Total Bilirubin 1.1 mg/dl (0.2-1.0) H 07/13/22 02:58 AST 14 U/L (13-39) 07/13/22 02:58 ALT 13 U/L (7-52) 07/13/22 02:58 Alkaline Phosphatase 70 U/L (34-104) 07/13/22 02:58 Total Protein 6.2 gm/dl (6.0-8.3) 07/13/22 02:58 Albumin 3.5 gm/dl (3.4-5.0) 07/13/22 02:58 Globulin 2.7 gm/dl (2.5-4.0) 07/13/22 02:58 Albumin/Globulin Ratio 1.3 (0.9-2) 07/13/22 02:58 Lipase 253 U/L (11-82) H 07/13/22 02:58 HCG, Qual Negative (Negative) 07/13/22 02:58 Urine Color Yellow 07/13/22 04:30 Urine Appearance Clear (Clear) 07/13/22 04:30 Urine pH 8.0 (4.5-7.5) H 07/13/22 04:30 Ur Specific [place] 1.023 (1.000-1.030) 07/13/22 04:30 Urine Protein Negative (Negative) 07/13/22 04:30 Urine Glucose (UA) Negative (Negative) 07/13/22 04:30 Urine Ketones 1+ (Negative) H 07/13/22 04:30 Urine Blood Negative (Negative) 07/13/22 04:30 Urine Nitrite Negative (Negative) 07/13/22 04:30 Urine Bilirubin Negative (Negative) 07/13/22 04:30 Urine Urobilinogen Negative (Negative) 07/13/22 04:30 Ur Leukocyte Esterase Negative (Negative) 07/13/22 04:30 SARS-CoV-2, RNA, NAAT NEGATIVE (NEGATIVE) 07/13/22 05:20 Diagnostic Findings Laboratory Results WBC 12.68 K/ul (4.8-10.8) H 07/13/22 02:58 RBC 4.51 M/uL (3.93-5.22) 07/13/22 02:58 Hgb 15.1 g/dl (12.0-16.0) 07/13/22 02:58 Hct 39.8 % (34.1-44.9) 07/13/22 02:58 MCV 88.2 fL (80.0-100.0) 07/13/22 02:58 MCH 33.5 pg (25.0-34.0) 07/13/22 02:58 MCHC 37.9 g/dL (32.0-36.0) H 07/13/22 02:58 RDW Std Deviation 37.9 fL (36.4-46.3) 07/13/22 02:58 RDW Coeff of Thang 11.8 % (11.5-14.5) 07/13/22 02:58 Plt Count 244 K/uL (130-400) 07/13/22 02:58 MPV 9.2 fL (9.4-12.3) L 07/13/22 02:58 Immature Gran % (Auto) 0.2 % 07/13/22 02:58 Neut % (Auto) 83.4 % 07/13/22 02:58 Lymph % (Auto) 9.8 % 07/13/22 02:58 Sanders % (Auto) 5.4 % 07/13/22 02:58 Eos % (Auto) 0.6 % 07/13/22 02:58 Baso % (Auto) 0.6 % 07/13/22 02:58 Neut # (Auto) 10.57 K/uL (1.4-6.5) H 07/13/22 02:58 Lymph # (Auto) 1.24 K/uL (1.2-3.4) 07/13/22 02:58 Sanders # (Auto) 0.69 K/uL (0.24-0.82) 07/13/22 02:58 Eos # (Auto) 0.07 K/uL (0-0.50) 07/13/22 02:58 Baso # (Auto) 0.08 K/uL (0-0.2) 07/13/22 02:58 Immature Gran # (Auto) 0.03 K/uL (0.00-0.02) H 07/13/22 02:58 Sodium 131 mmol/L (136-145) L 07/13/22 02:58 Potassium 3.9 mmol/L (3.5-5.1) 07/13/22 02:58 Chloride 98 mmol/L (98-107) 07/13/22 02:58 Carbon Dioxide 25 mmol/L (21-32) 07/13/22 02:58 Anion Gap 8 (3-11) 07/13/22 02:58 BUN 9 mg/dl (6-23) 07/13/22 02:58 Creatinine 0.56 mg/dl (0.6-1.2) L 07/13/22 02:58 Est Cr Clr Drug Dosing 168.4 ml/min 07/13/22 02:58 Est GFR ( Amer) 147.1 ml/min 07/13/22 02:58 Est GFR (Non-Af Amer) 126.9 ml/min 07/13/22 02:58 BUN/Creatinine Ratio 16.1 (10-20) 07/13/22 02:58 Glucose 104 mg/dl (70-99(Fasting)) H 07/13/22 02:58 Lactate 1.4 mmol/L (0.4-2.0) 07/13/22 02:58 Calcium 8.6 mg/dl (8.5-10.1) 07/13/22 02:58 Magnesium 1.7 mg/dl (1.7-2.4) 07/13/22 02:58 Total Bilirubin 1.1 mg/dl (0.2-1.0) H 07/13/22 02:58 AST 14 U/L (13-39) 07/13/22 02:58 ALT 13 U/L (7-52) 07/13/22 02:58 Alkaline Phosphatase 70 U/L (34-104) 07/13/22 02:58 Total Protein 6.2 gm/dl (6.0-8.3) 07/13/22 02:58 Albumin 3.5 gm/dl (3.4-5.0) 07/13/22 02:58 Globulin 2.7 gm/dl (2.5-4.0) 07/13/22 02:58 Albumin/Globulin Ratio 1.3 (0.9-2) 07/13/22 02:58 Lipase 253 U/L (11-82) H 07/13/22 02:58 HCG, Qual Negative (Negative) 07/13/22 02:58 Urine Color Yellow 07/13/22 04:30 Urine Appearance Clear (Clear) 07/13/22 04:30 Urine pH 8.0 (4.5-7.5) H 07/13/22 04:30 Ur Specific [place] 1.023 (1.000-1.030) 07/13/22 04:30 Urine Protein Negative (Negative) 07/13/22 04:30 Urine Glucose (UA) Negative (Negative) 07/13/22 04:30 Urine Ketones 1+ (Negative) H 07/13/22 04:30 Urine Blood Negative (Negative) 07/13/22 04:30 Urine Nitrite Negative (Negative) 07/13/22 04:30 Urine Bilirubin Negative (Negative) 07/13/22 04:30 Urine Urobilinogen Negative (Negative) 07/13/22 04:30 Ur Leukocyte Esterase Negative (Negative) 07/13/22 04:30 SARS-CoV-2, RNA, NAAT NEGATIVE (NEGATIVE) 07/13/22 05:20 PG Care Time/CCT Total # of Minutes Spent Total Time Spent with Patient: Total time spent is greater than 50% in coordination of care (as documented) at patient's floor/unit and/or counseling patient: Coding Level of Care Code 13811 Initial Inpt Care Lvl 2 Diagnoses Pancreatitis K85.90 CLIF (generalized anxiety disorder) F41.1 Hypercholesterolemia E78.00 Crohn disease K50.919 Digestive disease complication type: unspecified complication Gastrointestinal tract location: unspecified location (1) Crohn disease Digestive disease complication type: unspecified complication Gastrointestinal tract location: unspecified location Qualified Code(s): K50.919 - Crohn's disease, unspecified, with unspecified complications
--- NOTE | 2022-07-13 07:48 | XRay Report ---
KUB CLINICAL HISTORY: Generalized abdominal pain. Bilious vomiting. FINDINGS: 2 AP supine abdominal radiographs are compared to study dated 06/19/2022 and correlated with abdominal CT dated 04/27/2022. Cholecystectomy clips are noted in the right upper quadrant and there is suture material in the right lower quadrant. There is no radiographic evidence of bowel obstructio n. No evidence of intraperitoneal free air is seen on these supine images. There are no abnormal abdo casper calcifications. The bony structures appear intact. IMPRESSION: Postoperative findings as above with no acute abnormality identified. Electronically signed by: Henry Patel M.D. 07/13/2022 7:46 AM
[2022-07-13] MEDS ORDERED: MoRPHine SULFATE 4 MG/ML 1 ML CARP\\VIAL IV PRN (08:07)
[2022-07-13] MEDS ORDERED: ONDANSETRON INJ 2 MG/ML 2 ML VIAL IV PRN (08:07)
[2022-07-13] MEDS ORDERED: POTASSIUM CHLORIDE CRTAB 20 MEQ TABCR PO STA (08:07)
[2022-07-13] MEDS ORDERED: DOCUSATE SODIUM 100 MG CAP PO PRN (08:07)
[2022-07-13] MEDS: MoRPHine SULFATE 2 MG/ML CARP IV PRN ×3 (09:38→20:04)
[2022-07-13] MEDS: LACTATED RINGER'S 1,000 ML IV SCH ×6 (09:40→23:48)
[2022-07-13] MEDS: MAGNESIUM SULFATE / D5W 1 GM/100 ML BAG IV SCH ×3 (09:41→13:12)
[2022-07-13] MEDS: CHOLESTYRAMINE LIGHT 4 GM PKT PO SCH (09:42)
--- NOTE | 2022-07-13 11:41 | Hospitalist Progress Note ---
Date of Service July 13, 2022 Assessment & Plan (1) Pancreatitis: Plan: Leida is a 27 year old female with history of Crohn's, hypertriglyceridemia, pancreatitis (2019), and SBO who presented for rapid onset upper abdominal pain radiating to the back and left flank who has been admitted for management of acute pancreatitis 2/2 elevated lipase levels. Acute Pancreatitis - Continued epigastric and L flank pain w/ associated nausea - ordered CT Abdomen/Pelvis - Patient w/ Hx of pancreatitis in 2019 2/2 hypertriglyceridemia - Patient is tachycardic, but otherwise hemodynamically stable - Triglycerides - Lipid Panel Pending - Hyponatremia (131) - will monitor, expect to resolve with treatment of pancreatitis - Hypomagnesemia and hypokalemia repleted (Mg x 2 mg, KCl x 40 mEq) - Continue NPO - Currently receiving IVF LR @ 200 mL/hr, will increase to 400 mL/hr (AAFP recommends 5-10 mL/kg/hr fluid resuscitation with LR in the setting of acute pancreatitis) - Ordered now dose of Dilaudid 0.25 at 1200 (no benefit), ordered PRN dosing of Dilaudid 0.5 mg - Ordered Phenergan for nausea CT Abdomen/Pelvis 07/13/22 1. Interval development of marked pancreatitis with extensive peripancreatic fluid present. 2. Interval development of mild abdominal and pelvic ascites. 3. Bibasilar atelectasis. 4. Incidental note of left ovarian cyst. (2) CLIF (generalized anxiety disorder): Plan: - Continue home Buspar 5 mg PO BID PRN (3) Crohn disease: Plan: - Patient currently receiving Entyvio injections q6 weeks - Patient believes current episode is not similar to her episodes of Crohn's - She recently completed a steroid taper for a Crohn's flare - Does not feel that Entyvio is helping her IBD Plan FEN: 400 mL/hr, hyponatremic (monitoring), NPO DVT Ppx: Ambulation Code: Full Dispo: Med/Surg Admission and Anticipated Discharge Date Admission Date: July 13, 2022 Supervising Physician Co-Signing Physician Notes Patient seen and examined with PGY-1 Dr. Green. Agree with history, exam findings, assessment, and plan of care as outlined. Leida is a 27 year old female with history of Crohns (followed by IBD clinic at [place], on Entivyo, s/p ileocecectomy) and prior history of hyperTG-induced acute pancreatitis admitted with acute pancreatitis. This morning, continues to have pain, nausea and vomiting. Emesis is foamy and slightly bilious. Reports that she is only comfortable if she lies with her hips and knees flexed. She has received morphine 2 and 4mg for pain without any significant relief. VS and nursing notes reviewed Ill appearing. Laying with the knees/hips flexed due to pain. Heart is tachycardic. No murmur. Lungs are clear to auscultation throughout. Good air movement throughout. Abdomen is soft, tender in the left side and epigastric region. Labs and imaging reviewed 1. Acute hypertriglyceridemia pancreatitis. Lipase [address] this morning done because she was still having significant pain; showed evidence of acute pancreatitis; a small amount of ascites. Repeat lipase this afternoon after re-assessment due to minimal improvement in pain was 1256. CBC this afternoon remarkable for increased hgb from 15-17 despite fluid resuscitation on admission. Repeat CMP was unremarkable. IVFs at 400/hr. Pain management with toradol, morphine, dilaudid. PRN zofran and phenergan for nausea. MJ=4633 (did not result until late in the afternoon). Start insulin gtt + D5 1/2 NS with potassium per hypertriglyceridemia protocol. Check TG q12h. Check BMP q4 hour overnight and replete K as needed. Stop insulin gtt when TF < 500. PRN dilaudid and morphine, Zofran, phenergen. Continue with IVF resuscitation. 2. Severe hypertriglyceridemia. TG>7000. See above. Will need to clarify family history; does not appear that she is on medications that would cause severe hyperTG. She may benefit from gemfibrozil, low-fat diet, avoidance of high glycemic foods, abstinence from alcohol and possible consulting with a lipid specialist as an outpatient. 3. Tachycardia. Likely secondary to worsening pancreatitis and pain. EKG with sinus tachycardia, but d-dimer positive. CTA pending to rule out PE. 4. Crohn's disease s/p ileocececotmy in 2014. On Entyvio. Recently finished a prednisone taper. Follows with IBD clinic at [place]. Has a c-scope scheduled at [place] on 07/21. Dispo: pending clinical improvement. Subjective Leida is a 27 year old female with history of Crohn's, hypertriglyceridemia, pancreatitis (2019), and SBO who presented for rapid onset upper abdominal pain radiating to the back and left flank who has been admitted for management of acute pancreatitis 2/2 elevated lipase levels. Today 07/13/22: - Patient endorses significant discomfort - she continues to experience epigastric pain radiating to her back and left flank - She notes that this is the worst abdominal pain she has ever had and she cannot get comfortable - Patient denies continuation of loose bowel movements, but endorses chills, nausea, and emesis - Recently course of steroids for a Crohn's flare - takes Entyvio q6 weeks for years, but now believes it is no longer helping Review of Systems Review of Systems: See HPI. Physical Exam Physical Exam: Gen: NAD, alert, interactive HEENT: Supple, no LAD, no thyromegaly, no JVD Resp:Non-labored, no wheezing/rhonchi/rales, CTAB CV:tachycardic, regular rhythm, normal S1/S2, no M/R/G Abd: Soft, non-distended, significant epigastric TTP, hypoactive bowels, no masses Extr: 2+ dp bilaterally, no edema Skin: No rashes lesions or erythema Results & Data Results & Data ([facility]) Vital Signs (Past 12 Hours) Vital Signs Temp Pulse Pulse Resp BP BP Pulse Ox 07/13/22 10:37 36.8 C 103 H 20 114/76 95 07/13/22 09:46 36.5 C 101 H 16 115/75 94 07/13/22 07:20 77 18 132/92 94 07/13/22 04:49 36.6 C 75 16 117/76 94 07/13/22 02:27 36.7 C 101 H 18 137/88 98 O2 Del Method 07/13/22 10:37 Room Air 07/13/22 09:46 07/13/22 07:20 Room Air 07/13/22 04:49 Room Air 07/13/22 02:27 Room Air Resident Activity Tracking Resident Involvement: Resident Care Provided Care Provided: Adult [facility] Medicine (1) Crohn disease Digestive disease complication type: unspecified complication Gastrointestinal tract location: unspecified location Qualified Code(s): K50.919 - Crohn's disease, unspecified, with unspecified complications
[2022-07-13] MEDS ORDERED: HYDROmorphone INJ 0.5 MG/0.5 ML SYR IV STA (11:48)
[2022-07-13] MEDS ORDERED: PROMETHAZINE HCL 6.25 MG in SODIUM CHLORIDE 0.9% 50 ML IV STA (11:50)
[2022-07-13] MEDS ORDERED: OPTIRAY 300 100mL IV ONE (12:15)
--- NOTE | 2022-07-13 13:13 | CT Scan Report ---
CT abd pelvis IV con only CLINICAL HISTORY: Epigastric Pain. Evaluate for pancreatitis COMPARISON STUDY: 04/27/2022 CT DOSE: 481.39 mGy.cm TECHNIQUE: Standard CT of the Abdomen and Pelvis was performed with IV contrast. A dose lowering rex hnique was utilized adhering to the principles of ALARA. Contrast Volume: Optiray 320, 89 ml. The patient did not receive oral contrast. FINDINGS: Lung base: There has been interval development of bibasilar atelectasis. Abdominal cavity: There has been interval development of mild abdominal ascites. Fluid is seen centra lly and surrounding the spleen with extension down the left paracolic gutter. Liver: There is homogeneous attenuation of the liver parenchyma. There is no evidence for enhancing m ass lesion. Spleen: There is homogeneous attenuation of the splenic parenchyma. There is no enhancing mass lesion . Pancreas: There has been interval development of marked edema involving the entire pancreas. Extensiv e peripancreatic edema and fluid is present. Findings are characteristic of marked pancreatitis. Gall Bladder: Surgical clips are present. Adrenal glands: The adrenal glands are normal in size and attenuation. There is no evidence for enhan cing mass lesion. Kidneys: There is homogeneous attenuation of the renal parenchyma bilaterally. There is no evidence f or renal calculus or hydronephrosis. There is no evidence for enhancing mass. Bowel: The bowel loops are normally placed within the abdomen and pelvis without evidence for dilatat ion or obstruction. There is no evidence for mass lesion. There are no inflammatory changes present. There is no evidence for free air. Surgical clips are present at the cecum most characteristic of pre vious appendectomy. Bladder: The bladder is within normal limits with no evidence for focal mass, calculus or diverticulu m. : There is no evidence for pelvic mass or adenopathy. There is a left ovarian cyst present measurin g at least 6.2 cm. There is small to moderate amount of free fluid also present within the cul-de-sac . Vasculature: There is no evidence for aneurysmal dilatation of the abdominal aorta. Osseous structures: There is no acute osseous pathology. IMPRESSION: 1. Interval development of marked pancreatitis with extensive peripancreatic fluid present. 2. Interval development of mild abdominal and pelvic ascites. 3. Bibasilar atelectasis. 4. Incidental note of left ovarian cyst. ACT 112: Negative or not required by law. Electronically signed by: Benson Mejía M.D. 07/13/2022 1:11 PM
[2022-07-13] MEDS ORDERED: HYDROmorphone INJ 0.5 MG/0.5 ML SYR IV PRN (14:38)
[2022-07-13 14:41] LABS: Triglycerides 7345 mg/dl (0-150)
[2022-07-13] MEDS ORDERED: KETOROLAC 30 MG/ML VIAL IV ONE (17:01)
[2022-07-13 17:14] LABS: Cholesterol 859 mg/dl (0-200)
[2022-07-13 17:17] LABS: HDL Cholesterol 21 mg/dl
[2022-07-13 17:39] LABS: Hematocrit (blood only) 48.4 % (34.1-44.9); Hemoglobin 17.6 g/dl (12.0-16.0); Mean Corpuscular Hemoglobin 31.3 pg (25.0-34.0); Mean Corpuscular Hgb Conc 36.4 g/dL (32.0-36.0); Mean Corpuscular Volume 86.1 fL (80.0-100.0); Mean Platelet Volume 9.4 fL (9.4-12.3); Platelet Count 276 K/uL (130-400); RDW Coefficient of Variation 12.2 % (11.5-14.5); RDW Standard Deviation 38.5 fL (36.4-46.3); Red Blood Count 5.62 M/uL (3.93-5.22); White Blood Count 15.35 K/ul (4.8-10.8)
[2022-07-13] MEDS ORDERED: HYDROmorphone INJ 0.5 MG/0.5 ML SYR IV SCH (18:00)
[2022-07-13 18:03] LABS: D Dimer 1410 ug/L FEU (0-500)
[2022-07-13 18:21] LABS: Lipase 1256 U/L (11-82)
[2022-07-13] MEDS: INSULIN REGULAR 250 UNITS in SODIUM CHLORIDE 0.9% 247.5 ML IV SCH (18:23)
[2022-07-13] MEDS: D5W AND 1/2NSS + 20MEQ KCL 20 MEQ/1,000 ML BAG IV SCH (18:23)
[2022-07-13 18:55] LABS: Alanine Aminotransferase 12 U/L (7-52); Alkaline Phosphatase 58 U/L (34-104); Anion Gap 15 (3-11); Aspartate Aminotransferase 26 U/L (13-39); BUN Creatinine Ratio 11.4 (10-20); Blood Urea Nitrogen 5 mg/dl (6-23); Calcium 6.5 mg/dl (8.5-10.1); Carbon Dioxide 16 mmol/L (21-32); Chloride 100 mmol/L (98-107); Creatinine Clr Calc Pharmacy 218.6 ml/min; Est GFR (African American) > 150.0 ml/min; Est GFR (Non-African American) 137.4 ml/min; Globulin 2.9 gm/dl (2.5-4.0); Glucose 113 mg/dl (70-99(Fasting)); Potassium 3.8 mmol/L (3.5-5.1); Sodium 131 mmol/L (136-145); Total Protein 5.9 gm/dl (6.0-8.3)
[2022-07-13] MEDS ORDERED: OPTIRAY 300 500mL IV ONE (19:04)
--- NOTE | 2022-07-13 19:28 | CT Scan Report ---
CT angio chest PE protocol CLINICAL HISTORY: Chest pain and elevated d-dimer. Pancreatitis COMPARISON STUDY: No previous studies for comparison. CT DOSE: 371.69 mGy.cm TECHNIQUE: CT Angio of the chest was performed.followed by image post processing with coronal, and s agittal MIP reformats. Contrast Volume: Optiray 320, 78 ml FINDINGS: Vasculature: There is homogeneous perfusion of the pulmonary vasculature bilaterally. No intraluminal filling defects or evidence for pulmonary embolus is seen. Airway: The airway is clear. No endobronchial lesion is identified. Lungs and pleural: There is a small left pleural effusion with evidence for bibasilar atelectasis, ri ght greater than left The lungs are otherwise clear of acute alveolar opacities, air bronchograms or pulmonary nodules. Mediastinum: There is no evidence for pathologic adenopathy. The heart size is within normal limits. The thoracic aorta is within normal limits. There is no evidence for pericardial effusion. Osseous structures: There is no acute osseous pathology. Impression: 1. No CTA evidence for pulmonary embolus. 2. Small left pleural effusion and bibasilar atelectasis, left greater than right. ACT 112: Negative or not required by law. Electronically signed by: Benson Mejía M.D. 07/13/2022 7:26 PM
[2022-07-13 22:46] LABS: Calcium 6.5 mg/dl (8.5-10.1); Carbon Dioxide 17 mmol/L (21-32); Chloride 101 mmol/L (98-107); Glucose 84 mg/dl (70-99(Fasting)); Potassium 3.7 mmol/L (3.5-5.1); Sodium 130 mmol/L (136-145)
[2022-07-13 22:47] LABS: Anion Gap 12 (3-11); BUN Creatinine Ratio 13.3 (10-20); Blood Urea Nitrogen 6 mg/dl (6-23); Creatinine Clr Calc Pharmacy 213.7 ml/min; Est GFR (African American) > 150.0 ml/min; Est GFR (Non-African American) 136.4 ml/min
[2022-07-13] MEDS: KETOROLAC TROMETHAMINE 15 MG/ML VIAL IV PRN (23:18)
[2022-07-13] MEDS ORDERED: PHARMACY GLYCEMIC MGMT CONSULT PRN (23:34)
[2022-07-14] MEDS: HYDROmorphone INJ 0.5 MG/0.5 ML SYR IV PRN ×6 (00:15→21:23)
[2022-07-14 03:13] LABS: Anion Gap 9 (3-11); BUN Creatinine Ratio 13.7 (10-20); Blood Urea Nitrogen 7 mg/dl (6-23); Calcium 5.7 mg/dl (8.5-10.1); Carbon Dioxide 21 mmol/L (21-32); Chloride 102 mmol/L (98-107); Creatinine Clr Calc Pharmacy 188.6 ml/min; Est GFR (African American) > 150.0 ml/min; Est GFR (Non-African American) 130.9 ml/min; Glucose 79 mg/dl (70-99(Fasting)); Potassium 3.5 mmol/L (3.5-5.1); Sodium 132 mmol/L (136-145)
[2022-07-14] MEDS ORDERED: STAT IV STA ×3 (04:47→17:07)
[2022-07-14] MEDS ORDERED: CALCIUM GLUCONATE 10% 1,000 MG in DEXTROSE 5% 50 ML IV ONE ×3 (04:47→13:30)
[2022-07-14] MEDS: DEXTROSE 50% 50 ML SYRINGE IV PRN ×3 (05:03→23:32)
[2022-07-14] MEDS: KETOROLAC TROMETHAMINE 15 MG/ML VIAL IV PRN ×3 (05:16→19:46)
[2022-07-14] MEDS: D5W AND 1/2NSS + 20MEQ KCL 20 MEQ/1,000 ML BAG IV SCH ×3 (05:26→15:53)
[2022-07-14] MEDS ORDERED: HYDROmorphone INJ 1 MG/ML SYRINGE IV STA (05:49)
[2022-07-14] MEDS ORDERED: HYDROmorphone INJ 0.5 MG/0.5 ML SYR IV PRN (05:50)
[2022-07-14 06:51] LABS: Hematocrit (blood only) 49.7 % (34.1-44.9); Hemoglobin 17.3 g/dl (12.0-16.0); Mean Corpuscular Hemoglobin 30.1 pg (25.0-34.0); Mean Corpuscular Hgb Conc 34.8 g/dL (32.0-36.0); Mean Corpuscular Volume 86.6 fL (80.0-100.0); Mean Platelet Volume 9.2 fL (9.4-12.3); Platelet Count 290 K/uL (130-400); RDW Coefficient of Variation 12.7 % (11.5-14.5); RDW Standard Deviation 39.6 fL (36.4-46.3); Red Blood Count 5.74 M/uL (3.93-5.22); White Blood Count 14.04 K/ul (4.8-10.8)
[2022-07-14 06:58] LABS: Basophils # (auto) 0.01 K/uL (0-0.2); Basophils % (auto) 0.1 %; Eosinophils # (auto) 0.02 K/uL (0-0.50); Eosinophils % (auto) 0.1 %; Immature Granulocytes # (auto) 0.08 K/uL (0.00-0.02); Immature Granulocytes % (auto) 0.6 %; Lymphocytes # (auto) 0.63 K/uL (1.2-3.4); Lymphocytes % (auto) 4.5 %; Monocytes # (auto) 0.45 K/uL (0.24-0.82); Monocytes % (auto) 3.2 %; Neutrophils # (auto) 12.85 K/uL (1.4-6.5); Neutrophils % (auto) 91.5 %
--- NOTE | 2022-07-14 07:02 | Hospitalist Progress Note ---
Date of Service July 14, 2022 Assessment & Plan (1) Pancreatitis: Plan: Leida is a 27 year old female with history of Crohn's (followed by IBD clinic at [place], on Entivyo, s/p ileocecectomy), hypertriglyceridemia induced pancreatitis (2019), and SBO who presented for rapid onset upper abdominal pain radiating to the back and left flank who has been admitted for management of acute pancreatitis 2/2 elevated lipase levels. Acute Pancreatitis - Continued predominance of epigastric tenderness w/ associated diffuse abdominal discomfort (nausea controlled) - Pain mgmt: PRN dilaudid, toradol, morphine, Zofran, and phenergen. - Triglycerides - 07/13 AM 7345, 07/14 AM 2467, 07/14 PM Pending - Hyponatremia (129) - likely 2/2 fluid bolus/fluid mgmt - Potassium - monitor Q4 and replete per hyperTG protocol - Glucose - monitor Q4 and replete per hyperTG protocol - Hypocalcemia - 07/13 PM 6.1, replete with 2g calcium gluconate - Continue NPO - Currently receiving D5W + 1/2 NS + 20 mEq KCl Tachycardia (w/o Hypotension, + SIRS) - Ddx: Pain 2/2 Acute HyperTG Pancreatitis * Likely contribution to patient's continued tachycardia - Ddx: Illeus 2/2 Pancreatitis vs. narcotic pain mgmt * Hypoactive bowel sounds * Diffuse abdominal tenderness w/o peritoneal signs * Likely contribution to patient's continued tachycardia - Ddx: Bacteremia * WBC stable: 15.3 to 14 * Blood cultures drawn AM, pending * Empiric Zosyn started AM - Ddx: Pneumonia * Only evidence of bibasilar atelectasis on CTA * Lungs CTAB, breathing non-labored * MRSA nares negative * Decreased suspicion d/t negative CTA 07/13, CTAB, and negative MRSA nares - Ddx: Necrosis/Infection of Pancreas * Lipase downtrendin to 754 (repeat Lipase AM) * WBC stable: 15.3 to 14 * Decreased suspicion for pancreatic necrosis - Ddx: Pulmonary Embolism * D-dimer + * CTA - * Unlikely CT Abdomen/Pelvis 07/13/22 1. Interval development of marked pancreatitis with extensive peripancreatic fluid present. 2. Interval development of mild abdominal and pelvic ascites. 3. Bibasilar atelectasis. 4. Incidental note of left ovarian cyst. (2) CLIF (generalized anxiety disorder): Plan: - Continue home Buspar 5 mg PO BID PRN (3) Crohn disease: Plan: - Patient currently receiving Entyvio injections q6 weeks - Patient believes current episode is not similar to her episodes of Crohn's - She recently completed a steroid taper for a Crohn's flare - Does not feel that Entyvio is helping her IBD Plan FEN: D5W + 1/2 NS + 20 mEq KCl, NPO DVT Ppx: Lovenox 40 mg QAM Code: Full Dispo: Med/Surg Admission and Anticipated Discharge Date Admission Date: July 13, 2022 Supervising Physician Co-Signing Physician Notes I personally examined the patient and verified all fisher points of history and exam, discussed case, and agree with decision making with Dr Green A lot of abdominal painnotes that it is different today than yesterdayshe still has epigastric pain that is fairly similar to yesterday, but also a diffuse abdominal pain that feels a bit different more focused on her lower abdomen and more distention. On a later revisited around 7:30 PM, her pain is about the same. on directed questioning she notes that it is adequately c ontrolled, however. She has not had flatus or bowel movement, she has voided some. Some nausea no vomiting. Vitals noted, in general she appears uncomfortable. HEENT normocephalic atraumatic mucous membranes moist. Cardio is regular but somewhat tachycardic, no rubs murmurs gallops. Lungs diminished air entry bibasilar no rales rhonchi or wheeze with good effort. Abdomen this morning is moderately distended epigastric quite tender with some voluntary guarding, elsewhere is diffusely tender no guarding rebound or rigidity. Of note she has no epigastric rebound. This evening, her abdominal exam is mildly less distendedstill moderate overall but less than earlier, diffuse tenderness, worst at the epigastrium but no epigastric guarding. No rebound or rigidity. Hypertriglyceridemia induced pancreatitiscontinue insulin drip, continue fluids and supportive care. After discharge we will want to have her on a fibrate. She noted in trying to control her inflammatory bowel disease symptoms she had recently switched to essentially what amounted to a very high simple and processed carbohydrate dietwhich may have provided the nidus for her triglycerides to spike to her current status. Sirsmost likely from pancreatitisincreased fluids. Cannot definitively rule out secondary infection, although I suspect her splinted breathing is from atelectasis/upper abdominal pain, and I doubt she has pancreatic necrosis given her reducing lipase (she declined repeat CT scan and less of critical necessity)on empiric Zosynwe will continue for now. Serial exams, fluid support, supportive care. otherwise as above Subjective Leida is a 27 year old female with history of Crohn's, hypertriglyceridemia, pancreatitis (2019), and SBO who presented for rapid onset upper abdominal pain radiating to the back and left flank who has been admitted for management of acute pancreatitis 2/2 elevated lipase levels. Today 07/14/22: - Continues to endorse significant discomfort - patient notes continued significant epigastric pain but also states that the pain is now diffuse and extending to her lower abdomen. She notes that even moving her legs causes lower abdominal pain. She feels as though her muscles are 'sore' throughout her abdomen. - She notes that this is the worst abdominal pain she has ever had and that she has not yet found relief despite receiving pain medications and fluids. She notes her previous episode of pancreatitis 2/2 hypertriglyceridemia, but does not recall her previous levels or what helped with her pain. - Katy notes that despite fluid administration she has only urinated twice today, she states that the amount of urination is small and dark yellow in color. She notes significant instigation of pain when transferring to the bathroom. She denies any loose bowel movements. - Patient endorses diaphoresis that soaks her sheets while simultaneously fe eling cold. She states that her nausea is well controlled and that she has not had any emesis since admission. - Patient denies any family history of pancreatitis or hypertriglyceridemia. She does not drink alcohol (she cut all alcohol from her diet 2 years ago at the last episode of pancreatitis) and does not smoke cigarettes. 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 Review of Systems Review of Systems: See HPI. Physical Exam Physical Exam: 0800 Gen: acutely distressed, diaphoretic, flushed Resp:Non-labored, no wheezing/rhonchi/rales, CTAB CV:tachycardic, regular rhythm, normal S1/S2, no M/R/G Abd: Soft, moderately-distended, significant TTP in all 4 quadrants (most notable in epigastrium), hypoactive bowels in all 4 quadrants, no masses, no rebound tenderness Extr: 2+ dp bilaterally, no edema Skin: No rashes lesions or erythema 1300 Gen: NAD, uncomfortable, non-flushed Resp:Non-labored, no wheezing/rhonchi/rales, CTAB CV:tachycardic, regular rhythm, normal S1/S2, no M/R/G Abd: Soft, moderately-distended, significant TTP in all 4 quadrants (most notable in epigastrium), hypoactive bowels in all 4 quadrants, no masses, no rebound tenderness Results & Data Results & Data ([facility]) Vital Signs (Past 12 Hours) Vital Signs Temp Pulse Resp BP Pulse Ox O2 Del Method 07/14/22 03:17 36.3 C L 120 H 20 101/73 92 Room Air 07/13/22 22:54 117 H 20 106/74 94 Room Air 07/13/22 19:26 36.5 C 124 H 20 112/77 94 Room Air Resident Activity Tracking Resident Involvement: Resident Care Provided Care Provided: Adult Hospital Medicine
[2022-07-14] MEDS: CHOLESTYRAMINE LIGHT 4 GM PKT PO SCH (07:34)
[2022-07-14] MEDS ORDERED: LACTATED RINGER'S 2,000 ML IV ONE (08:28)
[2022-07-14] MEDS ORDERED: PIPERACILLIN/TAZOBACTAM 3.375 GM in DEXTROSE 5% 100 ML IV ONE (08:30)
--- NOTE | 2022-07-14 09:18 | Electrocardiogram Report ---
Test Reason : Blood Pressure : / mmHG Vent. Rate : 121 BPM Atrial Rate : 121 BPM P-R Int : 162 ms QRS Dur : 084 ms QT Int : 322 ms P-R-T Axes : 045 065 045 degrees QTc Int : 457 ms Sinus tachycardia Possible Left atrial enlargement Borderline ECG When compared with ECG of 19-JUN-2022 18:57, Nonspecific T wave abnormality now evident in Anterior leads Confirmed by Flash Guillory ([id number]) on 07/14/2022 9:18:04 AM Referred By: REFERRED SELF Confirmed By:Flash Guillory
[2022-07-14 09:26] LABS: Albumin Level 2.5 gm/dl (3.4-5.0); Bilirubin,Total 0.7 mg/dl (0.2-1.0); Calcium 5.9 mg/dl (8.5-10.1); Creatinine Clr Calc Pharmacy 183.9 ml/min; Est GFR (African American) 149.8 ml/min; Est GFR (Non-African American) 129.2 ml/min; Total Protein 5.1 gm/dl (6.0-8.3)
--- NOTE | 2022-07-14 09:35 | Electrocardiogram Report ---
Test Reason : Blood Pressure : / mmHG Vent. Rate : 120 BPM Atrial Rate : 120 BPM P-R Int : 138 ms QRS Dur : 072 ms QT Int : 316 ms P-R-T Axes : 042 068 044 degrees QTc Int : 446 ms Sinus tachycardia Low voltage QRS Borderline ECG When compared with ECG of 13-JUL-2022 17:09, (unconfirmed) Nonspecific T wave abnormality no longer evident in Anterior leads Confirmed by Flash Guillory ([id number]) on 07/14/2022 9:34:44 AM Referred By: REFERRED SELF Confirmed By:Flash Guillory
[2022-07-14] MEDS: MoRPHine SULFATE 2 MG/ML CARP IV PRN (10:23)
[2022-07-14 10:39] LABS: Calcium 6.1 mg/dl (8.5-10.1); Creatinine Clr Calc Pharmacy 129.9 ml/min; Est GFR (African American) 125.7 ml/min; Est GFR (Non-African American) 108.5 ml/min; Potassium 4.1 mmol/L (3.5-5.1)
[2022-07-14] MEDS ORDERED: STAT IV ONE (12:56)
[2022-07-14] MEDS: PIPERACILLIN/TAZOBACTAM 3.375 GM in DEXTROSE 5% 100 ML IV SCH ×2 (14:25→22:26)
[2022-07-14 14:52] LABS: Anion Gap 6 (3-11); BUN Creatinine Ratio 20.5 (10-20); Blood Urea Nitrogen 9 mg/dl (6-23); Calcium 6.1 mg/dl (8.5-10.1); Carbon Dioxide 21 mmol/L (21-32); Chloride 102 mmol/L (98-107); Creatinine Clr Calc Pharmacy 221.5 ml/min; Est GFR (African American) > 150.0 ml/min; Est GFR (Non-African American) 137.4 ml/min; Glucose 100 mg/dl (70-99(Fasting)); Potassium 3.8 mmol/L (3.5-5.1); Sodium 129 mmol/L (136-145)
[2022-07-14] MEDS ORDERED: CALCIUM GLUCONATE 10% 2,000 MG in DEXTROSE 5% 50 ML IV ONE (17:07)
[2022-07-14] MEDS: D5NSS + 20MEQ KCL 20 MEQ/1,000 ML BAG IV SCH ×2 (18:13→19:50)
--- NOTE | 2022-07-14 19:37 | Billing Data ---
Date of Service July 14, 2022 Coding Level of Care Code 39525 Subseq Hosp Care Lvl 3
[2022-07-14] MEDS: INSULIN REGULAR 250 UNITS in SODIUM CHLORIDE 0.9% 247.5 ML IV SCH (19:51)
[2022-07-14 21:59] LABS: Calcium 6.9 mg/dl (8.5-10.1); Creatinine Clr Calc Pharmacy 183.9 ml/min; Est GFR (African American) 149.8 ml/min; Est GFR (Non-African American) 129.2 ml/min; Potassium 4.1 mmol/L (3.5-5.1)
[2022-07-15] MEDS: D5NSS + 20MEQ KCL 20 MEQ/1,000 ML BAG IV SCH ×2 (00:41→06:13)
[2022-07-15] MEDS: HYDROmorphone INJ 0.5 MG/0.5 ML SYR IV PRN ×2 (01:08→08:56)
[2022-07-15 02:34] LABS: BUN Creatinine Ratio 16.4 (10-20); Calcium 6.3 mg/dl (8.5-10.1); Creatinine Clr Calc Pharmacy 159.7 ml/min; Est GFR (Non-African American) 123.4 ml/min; Phosphorus 2.2 mg/dl (2.5-4.9); Potassium 3.9 mmol/L (3.5-5.1)
[2022-07-15 02:50] LABS: Hematocrit (blood only) 42.8 % (34.1-44.9); Hemoglobin 14.4 g/dl (12.0-16.0); Mean Corpuscular Hemoglobin 29.7 pg (25.0-34.0); Mean Corpuscular Hgb Conc 33.6 g/dL (32.0-36.0); Mean Corpuscular Volume 88.2 fL (80.0-100.0); Mean Platelet Volume 9.5 fL (9.4-12.3); Platelet Count 339 K/uL (130-400); RDW Coefficient of Variation 13.2 % (11.5-14.5); RDW Standard Deviation 42.8 fL (36.4-46.3); Red Blood Count 4.85 M/uL (3.93-5.22); White Blood Count 15.83 K/ul (4.8-10.8)
[2022-07-15] MEDS: DEXTROSE 50% 50 ML SYRINGE IV PRN ×4 (03:06→07:36)
[2022-07-15] MEDS ORDERED: LORazepam 2 MG/1 ML VIAL IV STA (03:36)
[2022-07-15] MEDS ORDERED: LORazepam 0.5 mg IV INJ IV ONE (03:45)
[2022-07-15] MEDS ORDERED: LORazepam 0.5 MG in SYRINGE 0.25 ML IV ONE (03:45)
[2022-07-15] MEDS: KETOROLAC TROMETHAMINE 15 MG/ML VIAL IV PRN ×3 (04:37→18:28)
[2022-07-15] MEDS ORDERED: OPTIRAY 300 500mL IV ONE (05:20)
[2022-07-15] MEDS: PIPERACILLIN/TAZOBACTAM 3.375 GM in DEXTROSE 5% 100 ML IV SCH ×3 (05:21→21:33)
[2022-07-15] MEDS: busPIRone 5 MG TAB PO PRN (06:38)
[2022-07-15] MEDS: LACTATED RINGER'S 1,000 ML IV SCH ×2 (07:02→18:45)
--- NOTE | 2022-07-15 07:23 | CT Scan Report ---
CT OF THE ABDOMEN AND PELVIS WITH CONTRAST CLINICAL HISTORY: pancreatitis, worsening SOB COMPARISON STUDY: CT of the abdomen and pelvis July 13, 2022. TECHNIQUE: Following IV administration of 115 mL of Optiray, axial images of the abdomen and pelvis w ere obtained from the lung bases to the proximal femurs. Images were reviewed in the axial, sagittal, and coronal planes. IV contrast was administered without complication. Automated exposure control w as utilized for the study. A dose lowering technique was utilized adhering to the principles of SOURAV Sánchez. FINDINGS: Bilateral pleural effusions have significantly increased in size since CT of July 13 2. Associated bilateral lower lobe airspace opacities are noted. These findings are better depicted o n the chest CT which will be reported separately. No pneumatosis, free air or portal venous gas is pr esent. There is no biliary ductal dilatation status post cholecystectomy. The pancreas is edematous. Extensive peripancreatic fluid is noted. Fluid extends throughout the abdomen and pelvis. Overall, mo derate fluid is present. This fluid has significantly increased since CT of July 13, 2022. There is no evidence for pancreatic glandular necrosis. No peripancreatic fluid collection is present. The sp lenic vein is patent. The main, left and right portal veins are patent. No pseudoaneurysm is identifi ed on this non-CTA exam. The spleen, adrenal glands and kidneys are unremarkable. Is no hydronephrosi s. Ileocecectomy is noted. There is no evidence for a bowel obstruction. Moderate pelvic fluid is not ed, significantly increased since prior exam. This is likely related to acute pancreatitis. No fluid collection is suggest an abscess is identified. Apparent wall thickening of the colon is likely due t o underdistention. There is contrast within the bladder from prior contrast enhanced CT. A 3.8 cm lef t ovarian cyst is present. IMPRESSION: 1. Progression of severe acute pancreatitis since CT of July 13, 2022. Edematous pancreas with exte nsive peripancreatic fluid with moderate fluid throughout the abdomen and pelvis. No evidence for gla nd necrosis. No peripancreatic fluid collection. Patent vessels. 2. Increase in bilateral pleural effusions and bibasilar opacities, better depicted on the chest CT w ill be reported separately. 3. No bowel obstruction status post ileocecectomy. Colonic wall thickening, likely due to underdisten tion. ACT 112: Negative or not required by law. Electronically signed by: Kee Aguilar M.D. 07/15/2022 7:21 AM
[2022-07-15 07:26] LABS: INR 1.1 (0.9-1.1); Prothrombin Time 11.3 Seconds (9.0-12.0)
[2022-07-15 07:30] LABS: Acanthocytes 3+; Alanine Aminotransferase 14 U/L (7-52); Albumin Globulin Ratio 0.9 (0.9-2); Albumin Level 2.3 gm/dl (3.4-5.0); Alkaline Phosphatase 46 U/L (34-104); Anion Gap 5 (3-11); Aspartate Aminotransferase 43 U/L (13-39); BUN Creatinine Ratio 20.5 (10-20); Basophils # (auto) 0.13 K/uL (0-0.2); Basophils % (auto) 0.9 %; Bilirubin,Total 0.8 mg/dl (0.2-1.0); Blood Urea Nitrogen 9 mg/dl (6-23); Calcium 6.5 mg/dl (8.5-10.1); Carbon Dioxide 21 mmol/L (21-32); Chloride 105 mmol/L (98-107); Creatinine Clr Calc Pharmacy 221.2 ml/min; Echinocytes 1+; Eosinophils # (auto) 0.08 K/uL (0-0.50); Eosinophils % (auto) 0.6 %; Est GFR (African American) > 150.0 ml/min; Est GFR (Non-African American) 137.4 ml/min; Globulin 2.7 gm/dl (2.5-4.0); Glucose 95 mg/dl (70-99(Fasting)); Hematocrit (blood only) 41.9 % (34.1-44.9); Hemoglobin 14.1 g/dl (12.0-16.0); Immature Granulocytes # (auto) 0.09 K/uL (0.00-0.02); Immature Granulocytes % (auto) 0.7 %; Lymphocytes # (auto) 0.59 K/uL (1.2-3.4); Lymphocytes % (auto) 4.3 %; Mean Corpuscular Hemoglobin 29.9 pg (25.0-34.0); Mean Corpuscular Hgb Conc 33.7 g/dL (32.0-36.0); Mean Corpuscular Volume 88.8 fL (80.0-100.0); Mean Platelet Volume 9.2 fL (9.4-12.3); Monocytes # (auto) 0.29 K/uL (0.24-0.82); Monocytes % (auto) 2.1 %; Neutrophils # (auto) 12.63 K/uL (1.4-6.5); Neutrophils % (auto) 91.4 %; Platelet Count 238 K/uL (130-400); Poikilocytosis Present; Potassium 4.2 mmol/L (3.5-5.1); RDW Coefficient of Variation 13.2 % (11.5-14.5); Red Blood Count 4.72 M/uL (3.93-5.22); Sodium 131 mmol/L (136-145); Toxic Vacuolation 2+; White Blood Count 13.81 K/ul (4.8-10.8)
[2022-07-15] MEDS: ENOXAPARIN INJ 40 MG/0.4 ML SYR SQ SCH (08:56)
[2022-07-15] MEDS: CHOLESTYRAMINE LIGHT 4 GM PKT PO SCH (08:58)
--- NOTE | 2022-07-15 09:38 | CT Scan Report ---
CT ANGIOGRAM OF THE CHEST CLINICAL HISTORY: Dyspnea. Atypical chest pain. COMPARISON STUDY: Chest CT dated 07/13/2022. TECHNIQUE: Following the IV administration of 115 cc of Optiray 300, CT angiogram of the chest was pe rformed from the upper abdomen to the thoracic inlet utilizing the pulmonary embolus protocol. Images are reviewed in the axial, sagittal, and coronal planes. 3-D MIPS images are created and assessed. I V contrast was administered without complication. A dose lowering technique was utilized adhering to the principles of ALARA. The examination is significantly degraded by motion artifact. CT DOSE: 1303.72 mGy.cm FINDINGS: Thyroid: Imaged portions of the thyroid gland are normal in size and attenuation. Thoracic aorta: The thoracic aorta is normal in caliber and demonstrates standard 3-vessel arch anato my. No dissection is seen. Pulmonary vasculature: The pulmonary trunk is normal in caliber. There are no filling defects identif ied in main, lobar, or proximal segmental pulmonary branches to suggest pulmonary embolus. Evaluation of the segmental and subsegmental branches is significantly degraded by motion artifact Heart: The heart is normal in size and without pericardial effusion. Lungs and pleural spaces: Evaluation of the lung parenchyma is degraded by motion artifact. The trach ea and central airways appear clear appear There are moderate pleural effusions with dependent consol idation. Mediastinum: There is no mediastinal lymphadenopathy. Mikala: Clear. Axillae: There is no axillary lymphadenopathy. Upper abdomen: Ascites is noted in the upper abdomen. Skeletal structures: No lytic or blastic bony lesions are seen. IMPRESSION: 1. Significantly motion compromised examination. 2. There is no evidence of central pulmonary embolus in the main, lobar, or proximal segmental pulmon blaise arteries. The segmental and subsegmental vessels are not well evaluated due to motion artifact. 3. Moderate pleural effusions with dependent consolidation. These have increased in size as compared 07/13/2022. 4. Upper abdominal ascites. ACT 112: Negative or not required by law. Electronically signed by: Henry Patel M.D. 07/15/2022 9:37 AM
[2022-07-15 10:51] LABS: Anion Gap 9 (3-11); BUN Creatinine Ratio 19.1 (10-20); Blood Urea Nitrogen 9 mg/dl (6-23); Calcium 7.8 mg/dl (8.5-10.1); Carbon Dioxide 23 mmol/L (21-32); Chloride 100 mmol/L (98-107); Creatinine Clr Calc Pharmacy 207.1 ml/min; Est GFR (African American) > 150.0 ml/min; Est GFR (Non-African American) 134.4 ml/min; Glucose 89 mg/dl (70-99(Fasting)); Sodium 132 mmol/L (136-145)
[2022-07-15] MEDS ORDERED: HYDROmorphone PCA 30 MG/30 ML IV PRN (10:56)
[2022-07-15] MEDS ORDERED: HYDROmorphone Bolus from PCA IV STA (10:56)
[2022-07-15] MEDS ORDERED: NALOXONE HCL 0.4 MG/1 ML VIAL/CARP IV PRN (10:56)
--- NOTE | 2022-07-15 11:19 | Hospitalist Progress Note ---
Date of Service July 15, 2022 Assessment & Plan (1) Pancreatitis: Plan: Leida is a 27 year old female with history of Crohn's (followed by IBD clinic at [place], on Entiv[facility], s/p ileocecectomy), hypertriglyceridemia induced pancreatitis (2019), and SBO who presented for rapid onset upper abdominal pain radiating to the back and left flank who has been admitted for management of acute pancreatitis 2/2 elevated lipase levels. Acute Pancreatitis - Continued predominance of epigastric tenderness w/ associated diffuse abdominal discomfort (nausea controlled) - Pain mgmt: CUSTOMER CARE ASSISTANT Dilaudid placed, PRN Toradol, Zofran, and Phenergan. - Triglycerides - 07/13 AM 7345, 07/14 AM 2467, 07/15 AM 483 - Discontinued D5W + 1/2 NS + 20 mEq KCl (Patient's TG < 500) - Hyponatremia (132) - improving, likely 2/2 fluid bolus/fluid mgmt - Hypocalcemia - 07/15 7.8 L, asymptomatic, will monitor - Advance to Clear Liquids as tolerated, patient denies appetite at present Tachycardia (w/o Hypotension, + SIRS) - Ddx: Pain 2/2 Acute HyperTG Pancreatitis * Likely contribution to patient's continued tachycardia * Educated patient about the use and benefit of incentive spirometry * Educated patient about the importance of ambulation/upright posture to allow gravity to facilitate physiologic lung motion - Ddx: Illeus 2/2 Pancreatitis vs. narcotic pain mgmt * Hypoactive bowel sounds * Diffuse abdominal tenderness w/o peritoneal signs * Likely contribution to patient's continued tachycardia - Ddx: Bacteremia * WBC stable: 15.3 to 14 (downtrending) * Blood cultures - NGTD @ 24h * Empiric Zosyn started AM - Ddx: Pneumonia * Evidence of bibasilar atelectasis on CTA 07/13, bilateral pleural effusions on CTA 07/15 * Diminished breath sounds at bilateral bases * MRSA nares negative * Decreased suspicion d/t lack of evidence on CTA 07/15 and negative MRSA nares - Ddx: Necrosis/Infection of Pancreas * Lipase: 1256 to 754 to 383 (downtrending, continue to monitor) * WBC stable: 14 to 13 * CTAP - Progression of severe acute pancreatitis since CT 07/13. Edematous pancreas with extensive peripancreatic fluid with moderate fluid throughout the abdomen and pelvis. No evidence for gland necrosis. No peripancreatic fluid. Patent vessels. * Decreased suspicion for pancreatic necrosis per above - Ddx: Pulmonary Embolism * D-dimer + (07/13) * CTA - (07/13, 07/15) * Unlikely Crohn Disease - Patient currently receiving Entyvio injections q6 weeks - Patient believes current episode is not similar to her episodes of Crohn's - She recently completed a steroid taper for a Crohn's flare - Does not feel that Entyvio is helping her IBD CLIF - Continue home Buspar 5 mg PO BID PRN (2) CLIF (generalized anxiety disorder): (3) Crohn disease: Plan FEN: D5W + 1/2 NS + 20 mEq KCl, NPO DVT Ppx: Lovenox 40 mg QAM Code: Full Dispo: Med/Surg Admission and Anticipated Discharge Date Admission Date: July 13, 2022 Supervising Physician Co-Signing Physician Notes I personally examined the patient and verified all fisher points of history and exam, discussed case, and agree with decision making with Dr Norma Matthews pain seems to be doing better. She is sitting up. Biggest complaint today is shortness of breathwhich when I clarify is much more of a pain with breathing creating difficulty breathing. She notes that she might feel better with better pain control. Vitals noted, awake and alert fatigued somewhat tachypneic. HEENT normocephalic atraumatic mucous membranes moist. Cardio tachycardic without rubs murmurs gallops. Lungs diminished breath sounds bibasilar clear upper lung ward no rales rhonchi or wheezes with good effort she is somewhat tachypneic, no accessory muscle use. Abdomen is soft less distended than yesterday no guarding rebound or rigidity epigastrium is actually only mildly tender at worst and is soft. Skin shows no rashes no pallor or icterus. Neuro without focal deficits. Hypertriglyceridemia induced pancreatitisthis appears to be improvingtriglycerides are now low enough that insulin drip has been stopped. Fluids reduced. Trial of clear liquids and advance as tolerated. Does seem to be slowly improving. After discharge we will want to have her on a fibrate. She noted in trying to control her inflammatory bowel disease symptoms she had recently switched to essentially what amounted to a very high simple and processed carbohydrate dietwhich may have provided the nidus for her triglycer ides to spike to her current status. Sirsmost likely from pancreatitis. Given lack of findings of infection on serial exams as well as extensive diagnostic work-uplikely can DC empiric antibioticsparticularly if her situation continues to show improvement into tomorrow Splinted breathing/pleural effusions/atelectasisall relates to pancreatitis/pancreatic inflammation, and pain with a deep breath. I personally coached her on incentive spirometer useshe was at first not even able to get the ball to float, let alone get it to float into the area over the smiley facewith further coaching she was at least able to get the mental fluid someencouraged to do 5 times an hour. No evidence of pneumonia, no clear need for thoracentesis at this time. Fluid resuscitation for pancreatitis now appears to been adequatefluids have been reduced DVT prophylaxisLovenox otherwise as above Subjective Leida is a 27 year old female with history of Crohn's, hypertriglyceridemia, pancreatitis (2019), and SBO who presented for rapid onset upper abdominal pain radiating to the back and left flank who has been admitted for management of acute pancreatitis 2/2 elevated lipase levels. Today 07/15/22: - Continues to endorse significant discomfort - Katy notes that her diffuse abdominal pain continues, but pain control is improving - Patient's main concern is difficulty breathing - 2/2 abdominal pain in her epigastrium, feels like she cannot take a deep breath - Patient endorses regular urination, but denies bowel movement since admission - Patient denies continued diaphoresis and chills - She states that her nausea is well controlled and she has not had any emesis. Review of Systems Review of Systems: See HPI. Physical Exam Physical Exam: 0800 Gen: acutely distressed Resp:labored, no wheezing/rhonchi/rales, diminished lung sounds in bilateral bases CV:tachycardic, regular rhythm, normal S1/S2, no M/R/G Abd: Soft, mildly-distended, decreased TTP in all 4 quadrants (most notable in epigastrium), hypoactive bowels , no masses, no rebound tenderness Extr: 2+ dp bilaterally, no edema Skin: No rashes lesions or erythema 1130 Gen: NAD, uncomfortable, non-flushed, sitting upright Resp: Labored, no wheezing/rhonchi/rales, diminished lung sounds in bilateral bases CV:tachycardic, regular rhythm, normal S1/S2, no M/R/G Abd: Soft, mildly-distended, decreased TTP in all 4 quadrants (most notable in epigastrium), hypoactive bowels , no masses, no rebound tenderness 1700 Gen: NAD, comfortable, non-flushed, sitting upright Resp: Labored, no wheezing/rhonchi/rales, diminished lung sounds in bilateral bases CV:tachycardic, regular rhythm, normal S1/S2, no M/R/G Abd: Soft, mildly-distended, improved TTP, hypoactive bowels , no masses, no rebound tenderness Results & Data Results & Data ([facility]) Vital Signs (Past 12 Hours) Vital Signs Temp Pulse Pulse Resp BP Pulse Ox O2 Del Method 07/15/22 11:06 36.7 C 125 H 20 148/81 H 90 Room Air 07/15/22 10:51 132 H 07/15/22 10:43 Room Air, Nasal Cannula 07/15/22 07:42 36.4 C L 139 H 22 149/87 H 92 Room Air 07/15/22 06:41 36.8 C 136 H 22 180/99 H 99 07/15/22 03:50 Nasal Cannula 07/15/22 03:08 36.8 C 132 H 20 138/78 94 Room Air 07/14/22 23:46 36.3 C L 134 H 24 131/79 92 Room Air O2 Flow Rate 07/15/22 11:06 07/15/22 10:51 07/15/22 10:43 2 07/15/22 07:42 07/15/22 06:41 3 07/15/22 03:50 3 07/15/22 03:08 07/14/22 23:[address] Abdomen/Pelvis 07/13/22 1. Interval development of marked pancreatitis with extensive peripancreatic fluid present. 2. Interval development of mild abdominal and pelvic ascites. 3. Bibasilar atelectasis. 4. Incidental note of left ovarian cyst. Chest CTA 07/13/22 1. No CTA evidence for pulmonary embolus. 2. Small left pleural effusion and bibasilar atelectasis, left greater than right. CT Abdomen/Pelvis 07/15/22 1. Progression of severe acute pancreatitis since CT of July 13, 2022. Edematous pancreas with extensive peripancreatic fluid with moderate fluid throughout the abdomen and pelvis. No evidence for gland necrosis. No peripancreatic fluid collection. Patent vessels. 2. Increase in bilateral pleural effusions and bibasilar opacities, better depicted on the chest CT will be reported separately. 3. No bowel obstruction status post ileocecectomy. Colonic wall thickening, likely due to underdistention. Chest CTA 07/15/22 1. Significantly motion compromised examination. 2. There is no evidence of central pulmonary embolus in the main, lobar, or proximal segmental pulmonary arteries. The segmental and subsegmental vessels are not well evaluated due to motion artifact. 3. Moderate pleural effusions with dependent consolidation. These have increased in size as compared 07/13/2022. 4. Upper abdominal ascites. Resident Activity Tracking Resident Involvement: Resident Care Provided Care Provided: Adult Hospital Medicine
[2022-07-15] MEDS: SODIUM CHLORIDE 0.9% 1000ML 1,000 ML IV SCH (13:08)
--- NOTE | 2022-07-15 14:57 | Electrocardiogram Report ---
Test Reason : Blood Pressure : / mmHG Vent. Rate : 132 BPM Atrial Rate : 132 BPM P-R Int : 162 ms QRS Dur : 076 ms QT Int : 276 ms P-R-T Axes : 029 042 013 degrees QTc Int : 408 ms Sinus tachycardia Poor R wave progression, consider anterior KS vs. lead placement vs. LVH Nonspecific T wave abnormality Abnormal ECG When compared with ECG of 14-JUL-2022 06:25, Nonspecific T wave abnormality now evident in Inferior leads Confirmed by Flash Guillory ([id number]) on 07/15/2022 2:57:00 PM Referred By: REFERRED SELF Confirmed By:Flash Guillory
[2022-07-15 15:26] LABS: BUN Creatinine Ratio 18.9 (10-20); Calcium 7.8 mg/dl (8.5-10.1); Creatinine Clr Calc Pharmacy 183.7 ml/min; Est GFR (African American) 149.8 ml/min; Est GFR (Non-African American) 129.2 ml/min; Potassium 5.1 mmol/L (3.5-5.1)
--- NOTE | 2022-07-15 18:25 | Billing Data ---
Date of Service July 15, 2022 Coding Level of Care Code 73992 Subseq Hosp Care Lvl 3
--- NOTE | 2022-07-15 18:26 | Billing Data ---
Date of Service July 15, 2022 Coding Level of Care Code 26805 Subseq Hosp Care Lvl 3
[2022-07-16] MEDS: PIPERACILLIN/TAZOBACTAM 3.375 GM in DEXTROSE 5% 100 ML IV SCH (05:37)
[2022-07-16] MEDS: LACTATED RINGER'S 1,000 ML IV SCH ×2 (05:47→17:44)
--- NOTE | 2022-07-16 06:52 | Hospitalist Progress Note ---
Date of Service July 16, 2022 Assessment & Plan (1) Pancreatitis: Plan: Leida is a 27 year old female with history of Crohn's (followed by IBD clinic at [place], on [address], s/p ileocecectomy), hypertriglyceridemia induced pancreatitis (2019), and SBO who presented for rapid onset upper abdominal pain radiating to the back and left flank who has been admitted for management of acute pancreatitis 2/2 elevated lipase levels. Acute Pancreatitis - Improvement of epigastric tenderness and associated diffuse abdominal discomfort, nausea controlled - Patient has moved bowels, increased urination, and begun ambulating around hospital - Pain mgmt: BACON SKIN LIFTER Dilaudid placed, PRN Toradol, Zofran, and Phenergan. - Triglycerides - 07/13 AM 7345, 07/14 AM 2467, 07/15 AM 483, 07/16 AM 416 - Discontinued D5W + 1/2 NS + 20 mEq KCl (Patient's TG < 500) - Continue LR @ 80 mL/hr - Hyponatremia (133) - improving, likely 2/2 fluid bolus/fluid mgmt - Hypocalcemia (8.1) - improving, asymptomatic, will monitor - Advance to Clear Liquids as tolerated, patient denies appetite at present - Will discontinue fluids when PO intake improves Tachycardia (w/o Hypotension, + SIRS) - Ddx: Pain 2/2 Acute HyperTG Pancreatitis * Likely contribution to patient's continued tachycardia * Educated patient about the use and benefit of incentive spirometry * Educated patient about the importance of ambulation/upright posture to allow gravity to facilitate physiologic lung motion * Patient improving with above measures, continuing to follow closely - Ddx: Illeus 2/2 Pancreatitis vs. narcotic pain mgmt * Bowel movement 07/14 PM * Hypoactive bowel sounds * Improving diffuse abdominal tenderness w/o peritoneal signs - Ddx: Bacteremia * WBC (12) - downtrending * Blood cultures - NGTD @ 48h * Empiric Zosyn, 48 hour stop @ 1400 07/13 - Ddx: Pneumonia * Evidence of bibasilar atelectasis on CTA 07/13, bilateral pleural effusions on CTA 07/15 * Faint expiratory wheeze in bilateral bases * MRSA nares negative * Decreased suspicion d/t lack of evidence on CTA 07/15 and negative MRSA nares - Ddx: Necrosis/Infection of Pancreas * Lipase (383): downtrending, will check 8/18 AM * WBC downtrending * Decreased suspicion for pancreatic necrosis - Ddx: Pulmonary Embolism * D-dimer + (07/13) * CTA - (07/13, 07/15) * Unlikely Crohn Disease - Patient currently receiving Entyvio injections q6 weeks - Patient believes current episode is not similar to her episodes of Crohn's - She recently completed a steroid taper for a Crohn's flare - Does not feel that Entyvio is helping her IBD CLIF - Continue home Buspar 5 mg PO BID PRN (2) CLIF (generalized anxiety disorder): (3) Crohn disease: Plan FEN: D5W + 1/2 NS + 20 mEq KCl, NPO DVT Ppx: Lovenox 40 mg QAM Code: Full Dispo: Med/Surg Admission and Anticipated Discharge Date Admission Date: July 13, 2022 Supervising Physician Co-Signing Physician Notes I personally examined the patient and verified all fisher points of history and exam, discussed case, and agree with decision making with Dr Green Overall continuing to do better. Whenever I first saw her she was sleepingallowed her to rest. In follow-up this evening she is noting that her belly pain is a lot betternot great but better. Tolerating clear liquids, thinks she can handle more real food by tomorrow. Pain doing a lot better. Wonders about going home. Breathing is better as well. Vitals noted, in general she is awake and alert pleasant no distress. HEENT normocephalic atraumatic mucous membranes moist. Breathing less labored still mildly tachypneic with a little bit of grunting but easier than before. No accessory muscle use good effort. Skin shows no rashes no pallor or icterus. Hypertriglyceridemia induced pancreatitis improvingadvance diet to low-fat, continue pain control as needed, start Tricor. She noted in trying to control her inflammatory bowel disease symptoms she had recently switched to essentially what amounted to a very high simple and processed carbohydrate dietwhich may have provided the nidus for her triglycerides to spike to her current status. Sirsmost likely from pancreatitis. Empiric antibiotics have been stopped Splinted breathing/pleural effusions/atelectasisall relates to pancreatitis/pancreatic inflammation, and pain with a deep breath. Improving nicely with pain control and incentive spirometry use. Anticipate effusion being absorbed. Follow-up chest x-ray in the future to ensure resolution, but no apparent need for thoracentesis at this time Tachycardiacertainly as she was sicker with her pancreatitis, and as she was working harder to breathe she had a clear focus for a reactive sinus tachycardia. At this point the tachycardia seems to be persisting, a bit higher than would be expected for her now improving physiologic stress. To that end, we will give a very low-dose of metoprolol tonight, and hopefully ease her heart rates back towards normal. DVT prophylaxisLovenox otherwise as above Subjective Leida is a 27 year old female with history of Crohn's, hypertriglyceridemia, pancreatitis (2019), and SBO who presented for rapid onset upper abdominal pain radiating to the back and left flank who has been admitted for management of acute pancreatitis 2/2 elevated lipase levels. Today 07/16/22: - Leida feels that her pain is much improved, she continues to use BACON SKIN LIFTER pump (has used 1x since 99) - She endorses bowel movement last evening and increased frequency of urination - Notes that breathing is improved overall and that it is not hurting her as much to take a breath - She was happy that she was able to take a walk around the hospital last evening - Endorses continued use of Spirometer - Denies fevers and diaphoresis, nausea is well controlled, no headache Review of Systems Review of Systems: See HPI. Physical Exam Physical Exam: 0800 Gen: NAD, resting comfortably on arrival, ambulating during visit Resp: Labored (improving), no rhonchi/rales, faint expiratory wheeze at lung bases bilaterally CV:tachycardic, regular rhythm, normal S1/S2, no M/R/G Abd: Soft, moderately-distended, diffuse TTP (improving), hypoactive bowels, no masses, no rebound tenderness Extr: 2+ dp bilaterally, no edema Skin: No rashes lesions or erythema Results & Data Results & Data ([facility]) Vital Signs (Past 12 Hours) Vital Signs Temp Pulse Pulse Resp BP Pulse Ox O2 Del Method 07/15/22 22:25 127 H 07/16/22 02:14 36.7 C 128 H 22 134/68 94 Room Air 07/15/22 20:00 Room Air, Nasal Cannula 07/15/22 22:31 36.5 C 117 H 24 124/78 93 Room Air 07/15/22 19:00 36.9 C 134 H 24 120/73 91 Room Air O2 Flow Rate 07/15/22 22:25 07/16/22 02:14 07/15/22 20:00 2 07/15/22 22:31 07/15/22 19:00 Resident Activity Tracking Resident Involvement: Resident Care Provided Care Provided: Adult Hospital Medicine
[2022-07-16 08:53] LABS: Hematocrit (blood only) 33.4 % (34.1-44.9); Mean Corpuscular Hemoglobin 30.1 pg (25.0-34.0); Mean Corpuscular Hgb Conc 32.9 g/dL (32.0-36.0); Mean Corpuscular Volume 91.5 fL (80.0-100.0); Mean Platelet Volume 9.2 fL (9.4-12.3); Platelet Count 248 K/uL (130-400); RDW Coefficient of Variation 13.4 % (11.5-14.5); RDW Standard Deviation 44.8 fL (36.4-46.3); Red Blood Count 3.65 M/uL (3.93-5.22); White Blood Count 12.36 K/ul (4.8-10.8)
[2022-07-16 09:01] LABS: Anion Gap 3 (3-11); BUN Creatinine Ratio 17.3 (10-20); Blood Urea Nitrogen 9 mg/dl (6-23); Calcium 8.1 mg/dl (8.5-10.1); Carbon Dioxide 28 mmol/L (21-32); Chloride 102 mmol/L (98-107); Creatinine Clr Calc Pharmacy 193.8 ml/min; Est GFR (African American) > 150.0 ml/min; Glucose 108 mg/dl (70-99(Fasting)); Potassium 4.4 mmol/L (3.5-5.1); Sodium 133 mmol/L (136-145); Triglycerides 373 mg/dl (0-150)
[2022-07-16] MEDS: ENOXAPARIN INJ 40 MG/0.4 ML SYR SQ SCH (09:06)
[2022-07-16] MEDS: KETOROLAC TROMETHAMINE 15 MG/ML VIAL IV PRN (09:06)
[2022-07-16] MEDS: CHOLESTYRAMINE LIGHT 4 GM PKT PO SCH (09:06)
[2022-07-16] MEDS ORDERED: POLYETHYLENE (MIRALAX) 17 GM PACK PO PRN (09:54)
[2022-07-16] MEDS: SODIUM CHLORIDE 0.9% 1000ML 1,000 ML IV SCH (12:38)
--- NOTE | 2022-07-16 18:11 | Billing Data ---
Date of Service July 16, 2022 Coding Level of Care Code 23956 Subseq Hosp Care Lvl 3
[2022-07-16] MEDS ORDERED: METOPROLOL TARTRATE 25 MG TAB PO SCH (21:00)
[2022-07-17] MEDS: LACTATED RINGER'S 1,000 ML IV SCH (05:22)
[2022-07-17] MEDS: MAGNESIUM SULFATE / D5W 1 GM/100 ML BAG IV SCH ×2 (06:19→09:02)
--- NOTE | 2022-07-17 06:58 | Hospitalist Progress Note ---
Date of Service July 17, 2022 Assessment & Plan (1) Pancreatitis: Plan: Leida is a 27 year old female with history of Crohn's (followed by IBD clinic at [facility] on [address], s/p ileocecectomy), hypertriglyceridemia induced pancreatitis (2019), and SBO who presented for rapid onset upper abdominal pain radiating to the back and left flank who has been admitted for management of acute pancreatitis 2/2 elevated lipase levels. Acute Pancreatitis - Improvement of epigastric tenderness and abdominal discomfort, no nausea - Patient has moved bowels, increased urination, and begun ambulating around hospital - Pain mgmt: FINISH PRODUCTION MANAGER discontinued, will transition to Oxycodone 5 mg PO Q4, PRN Toradol, Zofran, and Phenergan. - Triglycerides - 07/13 AM 7345, 07/14 AM 2467, 07/15 AM 483, 07/16 AM 416, 07/17 238 - Discontinued LR @ 80 mL/hr - Hyponatremia (133) - improving, likely 2/2 fluid bolus/fluid mgmt - Hypocalcemia (8.1) - improving, asymptomatic, will monitor - Advance diet as tolerated - Started Fenofibrate 145 mg PO QAM Tachycardia (w/o Hypotension, + SIRS at presentation) - Metoprolol Tartrate (Lopressor) 12.5 mg PO daily (added 2100 07/16) - Ddx: Pain 2/2 Acute HyperTG Pancreatitis * Likely contribution to patient's continued tachycardia * Educated patient about the use and benefit of incentive spirometry * Educated patient about the importance of ambulation/upright posture to allow gravity to facilitate physiologic lung motion * Patient improving with above measures, continuing to follow closely - Ddx: Illeus 2/2 Pancreatitis vs. narcotic pain mgmt * Bowel movement 815 PM * Hypoactive bowel sounds * Improving diffuse abdominal tenderness w/o peritoneal signs CLIF - Changed Buspar 5 mg PO BID PRN to scheduled BID - Patient endorsed anxiety this morning, states she has not taken home Buspar over last 2 days - Timing of her panic attack correlated with changes noted on telemetry - Encouraged outpatient counseling upon discharge Crohn Disease - Patient currently receiving Entyvio injections q6 weeks - Patient believes current episode is not similar to her episodes of Crohn's - She recently completed a steroid taper for a Crohn's flare - Does not feel that Entyvio is helping her IBD (2) CLIF (generalized anxiety disorder): (3) Crohn disease: Plan FEN: Regular diet (as tolerated) DVT Ppx: Lovenox 40 mg QAM Code: Full Dispo: Med/Surg Admission and Anticipated Discharge Date Admission Date: July 13, 2022 Supervising Physician Co-Signing Physician Notes I personally examined the patient and verified all fisher points of history and exam, discussed case, and agree with decision making with Dr Green generally feeling better. breathing better, abdominal pain better. anxiety fairly bad - both acutely and chronically Vitals noted, in general she is awake and alert pleasant no distress. HEENT normocephalic atraumatic mucous membranes moist. Breathing less labored still mildly tachypneic with a little bit of grunting but easier than before. No accessory muscle use good effort. Skin shows no rashes no pallor or icterus. Hypertriglyceridemia induced pancreatitis improvingtolerating low-fat diet. Started Tricor. Discussed diet changes to keep triglycerides in line. Sirsmost likely from pancreatitis. Empiric antibiotics have been stopped Splinted breathing/pleural effusions/atelectasisall relates to pancreatitis/pancreatic inflammation, and pain with a deep breath. Improving nicely with pain control and incentive spirometry use. Anticipate effusion being absorbed. Follow-up chest x-ray in the future to ensure resolution, but no apparent need for thoracentesis at this time. Clinically improving Tachycardiacertainly as she was sicker with her pancreatitis, and as she was working harder to breathe she had a clear focus for a reactive sinus tachycardia. At this point the tachycardia seems to be persisting, a bit higher than would be expected for her now improving physiologic stress. I do wonder about how much may also relate to her anxiety. For now, given her hemodynamic stability but persistent tachycardiagentle beta-blockade AnxietyBuSpar scheduled twice daily, discussed extensively that true management of anxiety generally is much more involved with counseling/cognitive behavioral therapy rather than simply medications alone, that medications can be helpful but are rarely a definitive answer. DVT prophylaxisLovenox otherwise as above Subjective Leida is a 27 year old female with history of Crohn's, hypertriglyceridemia, pancreatitis (2019), and SBO who presented for rapid onset upper abdominal pain radiating to the back and left flank who has been admitted for management of acute pancreatitis 2/2 elevated lipase levels. Today 07/17/22: - Patient had a tachycardic EKG change overnight - Mg and K were evaluated. Mg was low (1.7) and repleted, correlated with patient's overnight episode of anxiety - Patient endorsed panic attack overnight d/t addition of room mate - she notes that she became claustrophobic, felt short of breath, and felt a tightness in her chest. Patient notes that she has been anxious throughout her admission, but has not taken her home Buspar since 07/15. Requested anxiety medication this morning. - Leida feels that her pain is much improved, she continues to use FINISH PRODUCTION MANAGER pump (once at bed time and once in the morning) - She endorses bowel movement this morning and normal frequency of urine - Leida notes that her abdomen is more bloated today - She continues to ambulate and use incentive spirometer - Denies fevers, diaphoresis, nausea, emesis, and headaches Review of Systems Review of Systems: See HPI. Physical Exam Physical Exam: 829 Gen: NAD, resting comfortably on arrival Resp: Mildly labored, no rhonchi/rales, expiratory wheeze at lung bases bilaterally CV:tachycardic, regular rhythm, normal S1/S2, no M/R/G Abd: Soft, moderately-distended, mild diffuse TTP (primarily in epigastrium), bowels+, no masses, no rebound tenderness Extr: 2+ dp bilaterally, no edema Skin: No rashes lesions or erythema Results & Data Results & Data ([facility]) Vital Signs (Past 12 Hours) Vital Signs Temp Pulse Pulse Resp BP Pulse Ox O2 Del Method 07/17/22 04:13 37.4 C 134 H 20 142/73 H 93 Room Air 07/17/22 03:00 37.1 C 119 H 20 127/75 91 Room Air 07/16/22 22:25 124 H 07/16/22 23:00 37.2 C 123 H 20 144/69 H 91 Room Air 07/16/22 21:00 Room Air 07/16/22 19:00 37.1 C 127 H 20 157/95 H 91 Room Air Resident Activity Tracking Resident Involvement: Resident Care Provided Care Provided: Adult Hospital Medicine
[2022-07-17 06:59] LABS: Anion Gap 6 (3-11); BUN Creatinine Ratio 9.5 (10-20); Blood Urea Nitrogen 4 mg/dl (6-23); Calcium 7.6 mg/dl (8.5-10.1); Carbon Dioxide 26 mmol/L (21-32); Chloride 103 mmol/L (98-107); Creatinine Clr Calc Pharmacy 240.5 ml/min; Est GFR (African American) > 150.0 ml/min; Est GFR (Non-African American) 139.5 ml/min; Glucose 98 mg/dl (70-99(Fasting)); Potassium 3.6 mmol/L (3.5-5.1); Sodium 135 mmol/L (136-145)
[2022-07-17 07:25] LABS: Hematocrit (blood only) 31.3 % (34.1-44.9); Hemoglobin 10.3 g/dl (12.0-16.0); Mean Corpuscular Hemoglobin 29.9 pg (25.0-34.0); Mean Corpuscular Hgb Conc 32.9 g/dL (32.0-36.0); Mean Corpuscular Volume 90.7 fL (80.0-100.0); Mean Platelet Volume 9.1 fL (9.4-12.3); Platelet Count 223 K/uL (130-400); RDW Coefficient of Variation 13.1 % (11.5-14.5); RDW Standard Deviation 42.5 fL (36.4-46.3); Red Blood Count 3.45 M/uL (3.93-5.22); White Blood Count 11.94 K/ul (4.8-10.8)
[2022-07-17 08:41] LABS: Lipase 66 U/L (11-82); Triglycerides 238 mg/dl (0-150)
[2022-07-17] MEDS: FENOFIBRATE NANOCRYSTALLIZED 145 MG TABLET PO SCH (09:01)
[2022-07-17] MEDS: ENOXAPARIN INJ 40 MG/0.4 ML SYR SQ SCH (09:01)
[2022-07-17] MEDS: CHOLESTYRAMINE LIGHT 4 GM PKT PO SCH (09:02)
[2022-07-17] MEDS ORDERED: oxyCODONE HCL IR 5 MG TAB (IMMEDIATE RELEASE) PO PRN (11:14)
[2022-07-17] MEDS: SODIUM CHLORIDE 0.9% 1000ML 1,000 ML IV SCH (12:06)
[2022-07-17] MEDS: busPIRone 5 MG TAB PO PRN (12:09)
--- NOTE | 2022-07-17 18:06 | Billing Data ---
Date of Service July 17, 2022 Coding Level of Care Code 72502 Subseq Hosp Care Lvl 3
--- NOTE | 2022-07-17 18:08 | Billing Data ---
Date of Service July 17, 2022 Coding Level of Care Code 49779 Subseq Hosp Care Lvl 3
[2022-07-17] MEDS: busPIRone 5 MG TAB PO SCH (21:11)
[2022-07-17] MEDS: PROPRANOLOL HCL 20 MG TAB PO SCH (21:13)
[2022-07-17] MEDS: KETOROLAC TROMETHAMINE 15 MG/ML VIAL IV PRN (21:14)
[2022-07-18] MEDS: KETOROLAC TROMETHAMINE 15 MG/ML VIAL IV PRN ×2 (03:34→12:54)
--- NOTE | 2022-07-18 06:39 | XRay Report ---
XR chest 1V portable HISTORY: 27 years-old Female SOB acute shortness of breath COMPARISON: CTA chest 07/15/2022 TECHNIQUE: AP view of the chest FINDINGS: Cardiac silhouette is upper limits of normal in size. Pulmonary vascular congestion. Layering pleural effusions with left greater than right bibasilar consolidation redemonstrated. No pneumothorax. The bones appear normal. IMPRESSION: 1. Pulmonary vascular congestion. 2. Layering pleural effusions with bibasilar consolidation appears similar to the study from 2. ACT 112: Negative or not required by law. The above report was generated using voice recognition software. It may contain grammatical, syntax o r spelling errors. Electronically signed by: Ayaz Workman M.D. 07/18/2022 6:37 AM
[2022-07-18] MEDS: CHOLESTYRAMINE LIGHT 4 GM PKT PO SCH (08:21)
[2022-07-18] MEDS: FENOFIBRATE NANOCRYSTALLIZED 145 MG TABLET PO SCH (08:21)
[2022-07-18] MEDS: PROPRANOLOL HCL 20 MG TAB PO SCH (08:22)
[2022-07-18] MEDS: busPIRone 5 MG TAB PO SCH (08:22)
[2022-07-18] MEDS: ENOXAPARIN INJ 40 MG/0.4 ML SYR SQ SCH (08:22)
[2022-07-18 08:33] LABS: Hematocrit (blood only) 32.5 % (34.1-44.9); Hemoglobin 10.6 g/dl (12.0-16.0); Mean Corpuscular Hemoglobin 29.9 pg (25.0-34.0); Mean Corpuscular Hgb Conc 32.6 g/dL (32.0-36.0); Mean Corpuscular Volume 91.8 fL (80.0-100.0); Mean Platelet Volume 9.3 fL (9.4-12.3); Platelet Count 225 K/uL (130-400); RDW Coefficient of Variation 12.5 % (11.5-14.5); RDW Standard Deviation 42.1 fL (36.4-46.3); Red Blood Count 3.54 M/uL (3.93-5.22); White Blood Count 10.03 K/ul (4.8-10.8)
[2022-07-18 08:58] LABS: Anion Gap 7 (3-11); BUN Creatinine Ratio 10.8 (10-20); Blood Urea Nitrogen 4 mg/dl (6-23); Calcium 8.3 mg/dl (8.5-10.1); Carbon Dioxide 31 mmol/L (21-32); Chloride 101 mmol/L (98-107); Creatinine Clr Calc Pharmacy 273.5 ml/min; Est GFR (African American) > 150.0 ml/min; Est GFR (Non-African American) 145.4 ml/min; Glucose 88 mg/dl (70-99(Fasting)); Potassium 3.1 mmol/L (3.5-5.1); Sodium 139 mmol/L (136-145)
--- NOTE | 2022-07-18 12:58 | Discharge Summary ---
Date of Service July 18, 2022 Admission HPI Per Admitting Provider Leida Cheung is a 27yo female with history of Crohn's (dx at age 11, s/p ileocecal resection in 2015, follows with GI at [facility] [place], receives Entyvio injections q 6 weeks). Patient was admitted to [facility] 04/27/22 - 04/28/22 with partial SBO which resolved with conservative treatment). Patient presents with acute abdominal pain that started yesterday at 13:00. Pain in epigastric with radiation into the back and left flank, severe with associated nausea and vomiting as well as mild diarrhea. Pain is similar to prior pancreatitis pain. She has chills but no fevers. Otherwise denies chest pain, palpitations, cough, SOB. Patient was hospitalized for acute pancreatitis in 09/2020 thought to be secondary to hypertriglyceridemia - TG of 800's. She does not drink EtOH. Has history of gallstones s/p cholecystectomy. She had an MRCP performed during that visit which showed a normal CBD and pancreatic duct and slight irregularity of the intrahepatic bile ducts possibly representing early PSC. She was started on TriCor on discharge. Admission Exam Per Admitting Provider General: patient in discomfort, NAD, AA&O x 4 Skin: warm, dry, intact, no rashes or lesions HEENT: NC/AT, PERRL, EOMI, anicteric sclera, conjunctiva without injection, external ear normal to inspection and nontender, nares patent, moist mucus membranes, dentition intact, no oropharyngeal lesions, neck supple, trachea midline, no LAD, no thyromegaly, no JVD Heart: +S1/S2, regular, no m/r/g Lungs: equal air entry bilaterally, no rales/rhonchi/wheezes Abd: +BS, soft, ND, tender in epigastrium, no rebound/guarding, no masses/organomegaly/ascites Ext: warm, 2+ pulses in UE/LE bilaterally, no clubbing/cyanosis or edema Neuro: nonfocal, patient AA&O x 4, speech intact, no facial droop, moving all extremities on command with equal strength 5/5 Principal Diagnosis Acute Pancreatitis Discharge Exam Gen: NAD, resting comfortably on arrival Resp: Non-labored, no rhonchi/rales, resolved expiratory wheeze, slightly diminished lungs sounds in left base CV:tachycardic, regular rhythm, normal S1/S2, no M/R/G Abd: Soft, moderately-distended, mild TTP (primarily in epigastrium), bowels+, no masses, no rebound tenderness Extr: 2+ dp bilaterally, no edema Skin: No rashes lesions or erythema Discharge Data Allergies Allergy/AdvReac Type Severity Reaction Status Date / Time infliximab Allergy Severe Anaphylaxis Verified 06/18/22 13:24 Consultations 07/13/22 05:49 ED Decision to Admit Stat Ordered Studies 07/13/22 11:53 CT Abd and Pelvis [CT abd pelvis IV con only] Routine 1. Interval development of marked pancreatitis with extensive peripancreatic fluid present. 2. Interval development of mild abdominal and pelvic ascites. 3. Bibasilar atelectasis. 4. Incidental note of left ovarian cyst. 07/13/22 18:23 CT angio chest PE protocol Urgent 1. No CTA evidence for pulmonary embolus. 2. Small left pleural effusion and bibasilar atelectasis, left greater than right. 07/15/22 04:18 CT Abd and Pelvis [CT abd pelvis IV con only] Urgent 1. Progression of severe acute pancreatitis since CT of July 13, 2022. Edematous pancreas with extensive peripancreatic fluid with moderate fluid throughout the abdomen and pelvis. No evidence for gland necrosis. No peripancreatic fluid collection. Patent vessels. 2. Increase in bilateral pleural effusions and bibasilar opacities, better depicted on the chest CT will be reported separately. 3. No bowel obstruction status post ileocecectomy. Colonic wall thickening, likely due to underdistention. CT angio chest PE protocol Urgent 1. Significantly motion compromised examination. 2. There is no evidence of central pulmonary embolus in the main, lobar, or proximal segmental pulmonary arteries. The segmental and subsegmental vessels are not well evaluated due to motion artifact. 3. Moderate pleural effusions with dependent consolidation. These have increased in size as compared 07/13/2022. 4. Upper abdominal ascites. 07/17/22 Chest X Ray 1. Pulmonary vascular congestion. 2. Layering pleural effusions with bibasilar consolidation appears similar to the study from 07/15/2022. Hospital Course (1) Pancreatitis: Leida is a 27 year old female with history of Crohn's (followed by IBD clinic at [place], on Entivyo, s/p ileocecectomy), hypertriglyceridemia induced pancreatitis (2019), and SBO who presented for rapid onset upper abdominal pain radiating to the back and left flank who has been admitted for management of acute pancreatitis 2/2 elevated lipase levels. Acute Pancreatitis - Improvement of epigastric tenderness and abdominal discomfort, no nausea - Patient has moved bowels, increased urination, and begun ambulating around hospital - Pain mgmt: BRAND DIRECTOR discontinued, transitioned to Oxycodone 5 mg PO Q4 - Triglycerides - 07/13 AM 7345, 07/17 238 - Hyponatremia (139) - resolved - Hypocalcemia (8.3) - improving, asymptomatic - Returned to regular diet - advised low carb/starch diet to help with TG levels, advised patient that tailoring diet to IBD and IBS would not be as helpful as maintaining a diet that is safe for pancreatitis/hypertriglyceridemia. Encouraged patient that appropriate management of her anxiety (counseling > medications) will provide the greatest benefit for her Irritable Bowel Syndrome. Encouraged patient that appropriate management of Crohn Disease (monocolonal antibody/biologics) will be more benefiticial to her symptoms than dietary changes. - Started Fenofibrate 145 mg PO QAM Tachycardia (w/o Hypotension, + SIRS at presentation) - Propranolol 40 mg BID added 07/17, improved tachycardia, suspect likely d/t anxiety component of patient's tachycardia - Ddx: Pleural Effusions * Improving with incentive spirometry and ambulation * Recommend follow up CXR in 1 months * Recommended home monitoring of pulse ox if short of breath - Ddx: Pain 2/2 Acute HyperTG Pancreatitis * Likely contribution to patient's continued tachycardia * Educated patient about the use and benefit of incentive spirometry * Educated patient about the importance of ambulation/upright posture to allow gravity to facilitate physiologic lung motion * Patient improving with above measures, continuing to follow closely - Ddx: Illeus 2/2 Pancreatitis vs. narcotic pain mgmt * Daily bowel movements starting 07/14 * Normoactive bowel sounds 07/18 * Improving abdominal tenderness w/o peritoneal signs CLIF - Changed Buspar 5 mg PO BID PRN to scheduled BID - Patient endorsed anxiety this morning, states she has not taken home Buspar over last 2 days - Timing of her panic attack correlated with changes noted on telemetry - Encouraged outpatient counseling upon discharge, provided resources Crohn Disease - Patient currently receiving Entyvio injections q6 weeks - Patient believes current episode is not similar to her episodes of Crohn's - She recently completed a steroid taper for a Crohn's flare - Does not feel that Lisa is helping her IBD (2) CLIF (generalized anxiety disorder): (3) Crohn disease: Plan FEN: Regular diet (low carb) Code: Full Dispo: Home Total Time Total Time Spent Total Time Spent (In Minutes): <30 Discharge Plan Discharge Items Patient Disposition: Home - Self-Care Reason For Visit: ACUTE PANCREATITIS Discharge Diagnosis: Acute Pancreatitis, Bilateral Pleural Effusions Condition on Discharge: Good Activity: Resume your previous activity Activity Comment: As tolerated. Non-emergency contact: Primary Care Provider Call non-emergency contact if: you have any medication questions, your symptoms worsen, your pain is not controlled and your temperature is above 101 Follow-up/Referrals: Cyrus Nelson III, CRNP [Primary Care Provider] - 07/21/22 4:00 pm Diet: Carb Consistent or DM2 Addtl Attending Provider Instructions: You were admitted to the hospital for acute pancreatitis. You were found to have elevated triglyceride levels. You were treated with insulin to bring the triglyceride levels down. Pleural effusions (fluid in the bottom of your lungs) were found during your admission, those were treated with incentive spirometry and increased activity (walking around/sitting upright). A discharge summary will be sent to your primary care physician to ensure continuity of care. Please bring this discharge summary with you to your next office appointment so that your provider can review it at that time. Follow-up appointments: - Make a follow-up appointment with your PCP within the next week. It is very important that you follow up with them shortly after discharge from the hospital. We have requested a follow-up appointment with your primary care physician within one week of discharge. Please call their office if you do not hear from them. - [facility] Psych Liaison stopped by your room during your visit to provide you with a book of counseling resources in the [place] area. I encourage you to make an appointment with a counselor or psychologist in the coming weeks. As we discussed, anti-anxiety medications are only a small component to managing anxiety. Research has shown that the greatest benefit comes from regular counseling. Your primary care provider will aos be able to assist you in coordinating counseling services if you have any difficulty finding someone who you enjoy seeing. Medications: - Your medication list has been reviewed and reconciled upon discharge to ensure accuracy and continuity of care. An updated list of all your medications is included with your hospital discharge paperwork. Please review this list closely, and make note of any changes. - A new medication called Fenofibrate was sent to your pharmacy, this medication helps with your triglycerides. Please take Fenofibrate (Tricor) 145 mg by mouth every day. - A new medication called Propranolol was sent to your pharmacy, this medication helps with your heart rate and your anxiety. Please take Propranolol 40 mg by mouth twice every day. Your PCP will review this medication with you. - A new medication called Oxycodone was sent to your pharmacy, this medication helps with your pain from the pancreatitis. Please take Oxycodone 5 mg as needed for pain. Please let your PCP know if your pain persists. - I recommend that you purchase a Pulse Ox to monitor your oxygen levels. If you become short of breath, check your your oxygen saturation on the Pulse Ox. If your oxygen levels are reading 92% + no additional treatment is needed. If you oxygen levels are reading less than 92% and you are short of breath, consult your primary care doctor. - If you have any issues filling these prescriptions, please call [phone] and ask to leave a message for Dr. Green. - Take your medications as instructed; do not skip a dose of your medicines. Make sure all of your doctors know every medicine you are taking (including [id number] medicines, vitamins, and supplements). - Call your primary care provider before taking any new medicines (including over- the-counter medicines, vitamins, and supplements), because some of these may interact with your current medications, or may make your symptoms worse. - Tell your primary care provider if you cannot afford your medications. Contact your Primary Care Provider if you experience: - Mild worsening of your abdominal discomfort - Mild worsening of your shortness of breath - Fever - Difficulty following your treatment plan or taking medications Call 911 or go to the emergency department if you experience: - Sudden, severe abdominal pain or nausea/vomiting - Severe chest pain, or chest pain that radiates (moves) to your jaw or arm - Sudden, severe shortness of breath or difficulty breathing It was a pleasure to be a part of your care, Dr. Yair Green Pending Studies at Discharge: No Stand-Alone Forms: My [facility] [employer], Smoking Cessation Medications and DC Order Prescriptions: New propranolol 20 mg Tablet 40 mg PO BID Qty: 60 0RF oxycodone 5 mg Tablet 5 mg PO Q4 PRNQty: 0 0RF fenofibrate nanocrystallized 145 mg Tablet 145 mg PO QAM Qty: 30 3RF oxycodone 5 mg tablet 5 mg PO TID PRN (Reason: pain (scale score 7-10)) Qty: 10 0RF Continued cholestyramine (with sugar) 4 gram powder 1 ea PO DAILY clotrimazole 10 mg ed 10 mg mucous membrane 5XD 14 Days Qty: 70 0RF norgestimate-ethinyl estradiol [Tri-Sprintec (28)] 0.18/0.215/0.25 mg-35 mcg (28) tablet 1 tab PO HS oxycodone 5 mg tablet 5 mg PO Q6H PRN (Reason: pain) Qty: 12 0RF prednisone 10 mg tablet See Rx Instructions .ROUTE .COMPLEX Qty: 70 0RF Rx Instructions: 40 mg by mouth for 7 days, then 30 mg by mouth for the next 7 days, then 20 mg by mouth for the next 7 days, then 10 mg by mouth for the last 7 days Changed buspirone 5 mg tablet 5 mg PO BID Qty: 60 2RF Discharge Orders: Discharge Order (Routine); Ordered 07/18/22 Ordered By: Yair Green Admission Data Admit Date/Time: 07/13/22 05:47 Attending Provider: Saul Gaston Admit Provider: Maria T Johnson Primary Care Provider: Cyrus Nelson III Other Providers: Maria T Johnson ; Elaina Estrella Other Interventions: Discharge Summary Assessment (RN) Last Done: 07/18/22 13:29 Supervising Physician Co-Signing Physician Notes I personally examined the patient and verified all fisher points of history and exam, discussed case, and agree with decision making with Dr Green Feeling good, feeling up to going home. Vitals noted, in general she is awake and alert pleasant no distress. HEENT normocephalic atraumatic mucous membranes moist. Breathing unlabored and better than before. No accessory muscle use good effort. Skin shows no rashes no pallor or icterus. Hypertriglyceridemia induced pancreatitis improvingtolerating low-fat diet. Started Tricor. Discussed diet changes to keep triglycerides in line. Sirsmost likely from pancreatitis. Empiric antibiotics have been stopped for several days with no recurrence Splinted breathing/pleural effusions/atelectasisall relates to pancreatitis/pancreatic inflammation, and pain with a deep breath. Improving nicely with pain control and incentive spirometry use. Anticipate effusion being absorbed. Follow-up chest x-ray in the future (4 to 6 weeks) to ensure resolution, but no apparent need for thoracentesis at this time. Clinically improving. Discussed getting a pulse oximeter at home so that if she feels any shortness of breathgiven her differentials for this would likely be related to the effusion versus anxiety versus deconditioning from her prolonged acute illnessshe could utilize the pulse oximeter to help guide her on whether or not she would need to immediately seek care. Tachycardiacertainly as she was sicker with her pancreatitis, and as she was working harder to breathe she had a clear focus for a reactive sinus tachycardia. At this point the tachycardia seems to be persisting, a bit higher than would be expected for her now improving physiologic stress. I do wonder about how much may also relate to her anxiety. Continue with propranolol for nowdiscussed that it could help with anxiety adrenergic symptoms some, discussed possible side effectscontinue at low-dose and either titrate or DC as an outpatient depending on response. AnxietyBuSpar scheduled twice daily, discussed extensively that true management of anxiety generally is much more involved with counseling/cognitive behavioral therapy rather than simply medications alone, that medications can be helpful but are rarely a definitive answer. DVT prophylaxisLovenox utilized during her stay otherwise as above, stable for home Resident Activity Tracking Resident Involvement: Resident Care Provided Care Provided: Adult Hospital Medicine
--- NOTE | 2022-07-18 17:40 | Billing Data ---
Date of Service July 18, 2022 Coding Level of Care Code D/C DAY MANAGEMENT <30 MINS
== END 2022-07-18 14:46 | disposition home or self-care (01) | DRG 439 ==
LOC: ED 02:25 → SUATTDRO 05:47 → 2N 05:47
DX: E87.1 Hypo-osmolality and hyponatremia; E83.42 Hypomagnesemia; K50.90 Crohn's disease, unspecified, without complications; R18.8 Other ascites; F41.1 Generalized anxiety disorder; E78.00 Pure hypercholesterolemia, unspecified; K56.7 Ileus, unspecified; Z88.8 Allergy status to other drugs, medicaments and biological substances; R65.10 Systemic inflammatory response syndrome (SIRS) of non-infectious origin without acute organ dysfunction; K85.90 Acute pancreatitis without necrosis or infection, unspecified; Z90.49 Acquired absence of other specified parts of digestive tract; I47.2 Ventricular tachycardia

== ENCOUNTER 2023-10-27 07:12 | Observation (INO) ==
--- OUTSIDE RECORDS SUMMARY | 2023-10-27 07:30 | External Medical Summary | Continuity of Care Document ---
Author Name Unknown Organization [facility] Address [address] [place] [address] [place] [id number] Care Team Providers Care Instructor Knitting Name Role Phone Cyrus Nelson Primary Care Physician [phone] Encounter [facility] [id number] Date(s): 06/26/23 - 06/26/23 [facility] [address] [place] [address]- [phone] Discharge Disposition: Home or Self Care Attending Physician: MD Hui Andrew Referring Physician: MD Hui Andrew Allergies, Adverse Reactions, Alerts Substance Reaction Severity Status Remicade 1 Pharyngeal swelling Active 1throat swells Functional Status 06/26/23 Gait Steady Immunizations Given and Recorded Vaccine Date Status Refusal Reason influenza virus vaccine, inactivated 11/19/18 Give n Medications Bentyl 10 mg oral capsule Start: 03/07/22 11:40:00 EDT, 1 cap, PO, qid, Disp# 90 cap, Refills: 3, Pharmacy: [facility] Start Date: 03/07/22 Status: Ordered cholestyramine 4 g/9 g oral powder for reconstitution Start: 01/09/23 9:12:00 EST, 4 g =, PO, Daily, Disp# 60 each, Refills: 11, Pharmacy: [facility] Start Date: 01/09/23 Status: Ordered Entyvio 300 mg intravenous injection Start: 10/31/16 11:51:00, 300 mg =, IV, q0nteti, Last infusion was 10/26/2017 Start Date: 10/31/16 Status: Ordered Sutab oral tablet Start: 03/16/23 15:21:00 EDT, See Instructions, Disp# 24 tab, Refills: 0, Follow instruction from endoscopy lab Sutab Coupon: BIN: [id number] PCN: [id number] Group: [id number] , [facility] Start Date: 03/16/23 Status: Ordered Tri-Sprintec oral tablet Start: 09/18/15 12:18:00, 1 tab, PO, Daily Start Date: 09/18/15 Status: Ordered Problem List Condition Confirmation Course Effective Dates Status Health St atus Informant Abdominal pain Confirmed Active Crohn's disease Confirmed Active Preop examination Confirmed Active Procedures Procedure Date Related Diagnosis Body Site Status Colonoscopy 1, 2 03/26/23 Complete d Esophagogastroduodenoscopy 3 09/12/21 Completed Colonoscopy 4 03/08/21 Completed MRCP - Magnetic resonance cholangiopancreatography 5 10/03/20 Compl eted Colonoscopy 05/20/16 Completed Procedure 6 09/26/15 Completed Gastrografin enema 7 09/18/[address] of abdomen and pelvis 8 09/12/15 Completed None Completed 1Pathology: No significan Pathology: colon-hepati flexure, transverse colon, colon-splenic flexure, descenigng colon, sigmoid conon, rectum. Ileocolonic anastomosis, bipsy: Small segment of intestianlmucosa with minimal pithelial epair and minute amount of inflammatory exudate compativle with erosion-ulcer. 2COLO to ileo-colo anastomosis, stricture at anastosis could not traversse with erosion noted. erosion at anal verge, surveillance colon bx done 3EGD normal exam, lower, mid and upper esophagus bx taken 4COLO to ileocolonic anastomosis, erosions and stricturing (could not pass scope through) at anastomosis--bx, remainder of colon normal with surveillance biopsied taken. 51. Prior cholecystectomy 2. The common bile duct and main pancreatic duct are normal in course and caliber. No filling defects identified to suggest an obstructing stone. 3. Mild edema surround the pancreatic tail consistent with acute pancreatitis. 4. Trace bilaeral pleural effusions. 5. Question of slight ireegularity within the intrahepatic bile ducts. This could represent early primary sclerosing cholangitis. 6Enterovesicular fistula take down--laproscopically 7Unremarkable gastrografin enema. No coilonic abnormality identified. No colonic abnormality identified No fistulous tracts identified. No small bowel opacification. 8Interval improvement in findings since exam of 08/26/15. The small bowel obstruction has resolved. Mild right lower quadrant infiltration and ascites has also improved since prior exam. Persistent moderate circumferential wall thickening and hyperemia of the distal ileum has slightly improved since prior exam but suggests active Crohn's disease. Slight decrease in size of the fistula/abscess from the distal ileum to the bladder dome with associated inflammation and wall thickening of the urinarybladder. 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 Results Laboratory List Name Date C Reactive Protein, Quantitation (CRP QU ANTITATION) 06/26/23 Complete Blood Count (CBC) 06/26/23 Liver Profile (LIVER PROFILE) 06/26/23 Thyroid Stimulating Hormone (TSH) 3 Vitamin B12 Level (VITAMIN B12) 06/26/23 Most recent to oldest [Reference Range]: 1 CReacProt [<0.50 mg/dL] <0.30 mg/dL (06/26/23 3:55 PM) MPV [9.0-12.2 fL] 9.8 fL (06/26/23 3:55 PM) RDW [11.5-14.2 %] 11.9 % (06/26/23 3:55 PM) Alk Phos [35-115 unit/L] 73 unit/L (06/26/23 3:55 PM) ALT [0-33 unit/L] 16 unit/L (06/26/23 3:55 PM) B12 [211-946 pg/mL] 251 pg/mL (06/26/23 3:55 PM) Hct [35-44 %] 39.1 % (06/26/23 3:55 PM) Hgb [11.7-15.0 g/dL] 13.2 g/dL (06/26/23 3:55 PM) MCH [28-33 pg] 29.9 pg (06/26/23 3:55 PM) MCHC [32-36 g/dL] 33.8 g/dL (06/26/23 3:55 PM) MCV [81-96 fL] 88.5 fL (06/26/23 3:55 PM) Plts [150-350 K/uL] 302 K/uL (06/26/23 3:55 PM) RBC [3.90-5.00 M/uL] 4.42 M/uL (06/26/23 3:55 PM) T Bili [0.0-1.2 mg/dL] 0.5 mg/dL (06/26/23 3:55 PM) TSH [0.30-4.20 uIU/mL] 1.98 uIU/mL (06/26/23 3:55 PM) WBC [4.0-10.4 K/uL] 9.90 K/uL (06/26/23 3:55 PM) Vital Signs Most recent to oldest [Reference Range]: 1 Temperature [36.5-37.9 DegC] 36.8 DegC (06/26/23 4:45 PM) Heart Rate 84 bpm (06/26/23 4:45 PM) Respiratory Rate 16 br/min (06/26/23 4:45 PM) Blood Pressure 125/84mmHg (06/26/23 4:45 PM) Social History Social History Type Response Smoking Status Never smoked cigaret rolo Sex Female Patient Care team information Care Team Personnel Name: Adam Rodriguez Kimberly Position: Pharmacist BCMA Member Role: Pharmacy - Lifetime Address: Address: [address] [address] [place] Name: EVA Nelson Lester C Position: Referring Member Role: Primary Care Provider Address: Address: [address] [place] [address], [place] [address] [place] Name: Adam Srinivasan Matthew Position: Pharmacist Member Role: Pharmacy - Lifetime Care Team Related Persons Name: ANDERSON HENRY Address: home [address] [facility] [place], [place] [id number]
--- OUTSIDE RECORDS SUMMARY | 2023-10-27 07:30 | External Medical Summary | Continuity of Care Document ---
Author Name Unknown Organization [facility] [address] [place] [address] B[place] CABRERA [id number] Care Team Providers Care Agricultural Purchasing Agent Name Role Phone Cyrus Nelson Primary Care Physician [phone] [id number] Date[facility]): [facility]/26[facility]23 - 06/26/23 [facility] [address] [facility] [place] [address], [address], [address] [place] [address] [phone] Encounter Diagnosis Body mass index [BMI] 26.0-26.9, adult(Discharge Diagnosis) - 06/26/23 Crohn's disease(Discharge Diagnosis) - 06/26/23 Discharge Disposition: Home or Self Care Attending Physician: MD Hui Andrew Referring Physician: EVA Nelson Lester C Allergies, Adverse Reactions, Alerts Substance Reaction Severity Status Remicade 1 Pharyngeal swelling Active 1throat swells Immunizations Given and Recorded Vaccine Date Status Refusal Reason influenza virus vaccine, inactivated 11/19/18 Give n Medications Bentyl 10 mg oral capsule Start: 03/07/22 11:40:00 EDT, 1 cap, PO, qid, Disp# 90 cap, Refills: 3, Pharmacy: [facility] Start Date: 03/07/22 Status: Ordered cholestyramine 4 g/9 g oral powder for reconstitution Start: 01/09/23 9:12:00 EST, 4 g =, PO, Daily, Disp# 60 each, Refills: 11, Pharmacy: [facility] Start Date: 01/09/23 Status: Ordered Entyvio 300 mg intravenous injection Start: 10/31/16 11:51:00, 300 mg =, IV, [id number], Last infusion was 10/26/2017 Start Date: 10/31/16 Status: Ordered Sutab oral tablet Start: 03/16/23 15:21:00 EDT, See Instructions, Disp# 24 tab, Refills: 0, Follow instruction from endoscopy lab Sutab Coupon: BIN: [id number] PCN: [id number] Group: [id number] , Pharmacy: [facility] Start Date: 03/16/23 Status: Ordered Tri-Sprintec oral tablet Start: 09/18/15 12:18:00, 1 tab, PO, Daily Start Date: 09/18/15 Status: Ordered Mental Status 06/26/23 Barriers to Learning one year None evide nt Mandatory Health Literacy Documentation Yes Health Literacy Communication Barriers N ever Primary Language Rwandan Problem List Condition Confirmation Course Effective Dates Status Health St atus Informant Abdominal pain Confirmed Active Crohn's disease Confirmed Active Preop examination Confirmed Active Diagnosis Diagnosis Type Effective Dates Health Status Cl inical Service Informant Crohn's disease Discharge Diagnosis 06/26/23 Body mass index [BMI] 26.0-26.9, adult Discharge Diagnosis 06/26/23 Non-Specified Procedures Procedure Date Related Diagnosis Body Site [...] urinarybladder. 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 Vital Signs Most recent to oldest [Reference Range]: 1 Height 174 cm (06/26/23 2:49 PM) Patient Weight 81.6 kg (06/26/23 2:49 PM) Body Mass Index 26.95 kg/m2 (06/26/23 2:49 PM) Temperature [36.5-37.9 DegC] 36.3 DegC *LOW* (06/26/23 2:49 PM) Heart Rate 90 bpm (06/26/23 2:49 PM) Respiratory Rate 18 br/min (06/26/23 2:49 PM) Blood Pressure 128/85mmHg (06/26/23 2:49 PM) BP Location # 1 Right Arm (06/26/23 2:49 PM) Social History Social History Type Response Smoking Status Never smoked cigaret rolo Sex Female Patient Care team information Care Team Personnel Name: Adam Rodriguez Kimberly Position: Pharmacist BCMA Member Role: Pharmacy - Lifetime Address: Address: [address] [address] Name: EVA Nelson Lester C Position: Referring Member Role: Primary Care Provider Address: Address: [address] [place] [address] [place] Name: Adam Srinivasan Matthew Position: Pharmacist Member Role: Pharmacy - Lifetime Care Team Related Persons Name: ANDERSON HENRY Address: home [address] [facility] [place] [id number]
--- OUTSIDE RECORDS SUMMARY | 2023-10-27 07:30 | External Medical Summary | Summary of Care ---
Author Name Unknown Organization [facility] Address [address] [place] [address] Phone [phone] Care Team Providers Care Claims Account Manager Name Role Phone Leo Mari DO Primary Care Provider [phone]- [phone] Reason for Visit * Reason Comments NEW PATIENT New pt. Here for amanda peace skin exam. Pt states she has no specific areas of concern. Encounter Details Date Type Department Care Team Description 08/20/2023 Office Visit [address] [phone] Jennyfer Dumas, BARTOLOME-Joanne [address] [place] [address] [place] [address] Multiple nevi*; Skin exam, screening for cancer; Lentigines Allergies Active Allergy Reactions Severity Noted Date Comments Infliximab Edema airway High 06/22/2015 documented as of this encounter (statuses as of 08/20/2023) Medications Medication Sig Dispensed Refills Start Date End Date Status TRI-SPRINTEC 0.18/0.215/0.25 MG-35 MCG PO TABS daily 0 Active Entyvio 300 MG Intravenous Solution Reconstituted (Vedolizumab) Administer 300 mg intravenously once. 0 Active Cholestyramine 4 GM Oral Packet (Questran) Take 1 Packet by mouth in the morning and 1 Packet at noon and 1 Packet in the evening. Take with meals. 0 Active busPIRone HCl 5 MG Oral Tablet (Buspar) Take 1 Tablet by mouth in the morning and 1 Tablet at noon and 1 Tablet before bedtime. 0 Active documented as of this encounter (statuses as of 08/20/2023) Active Problems Problem Noted Date Pelvic abscess in female 06/22/2015 Crohn's disease of small intestine 11/02 documented as of this encounter (statuses as of 08/20/2023) Social History Tobacco Use Types Packs/Day Years Used Date Smoking Tobacco: Never Smokeless Tobacco: Never Alcohol Use Standard Drinks/Week Comments No 0 (1 standard drink = 0.6 oz pur e alcohol) Sex Assigned at Date Recorded Not on file Job Start Date Occupation Industry Not on file Not on file Not on file documented as of this encounter Patient Instructions * Patient Instructions* Jennyfer Dumas PA-C - 08/20/2023 1:13 PM EDT SUNSCREEN USE AND SUN PROTECTION: 1. The best protection is sun avoidance. Seek shade if you can, especially between 10am to 4pm (peak sun hours). 2. Use sunscreen with an SPF (Sun Protection Factor - the number on most sunscreen bottles) of 30 or more that protects from Ultraviolet A (UVA) and Ultraviolet B (UVB) wavelength light (strongly recommend SPF 50). This is referred to as broad spectrum sun protection because it protects from most wa velengths in both spectrums of UVA and UVB light. Unfortunately, even though the protection is broad it is not complete, therefore making sun avoidance the best protection. UVB and UVA have both beenimplicated in causing skin cancers. Older sunscreens only protected from UVB and sunscreens with added UVA protection should contain Titanium dioxide, Zinc oxide, or Avobenzone. Other oil free, non-comedogenic lotion with SPF 30 or greater is fine. 3. Use sun protection if outside for 15 minutes or more. Apply 20-30 minutes before going out and reapply every 1-2 hours. No sunscreen is truly water ''proof'' and it will wash away with sweat, swimming and rubbing. 4. Wear tightly woven, loose fitting (cooler) long sleeved clothing, UV-blocking sun glasses (eyes need protection as well) and wide-brimmed hatwear (no straw hats with holes because light still getsthrough). Strongly recommended *Neutrogena Pure and Free Baby SPF 60 (have separate face and body lotions) orCeraVe AM facial lotion (with SPF 30). If looking for non toxic alternatives-look for non-nancy particle zinc. Product examples; Think sport, Think baby, Rony, Babo botanicals, Alba botanicals, [place] baby. "Baby" products can be used for all ages. documented in this encounter Progress Notes * Jennyfer Dumas PA-C - 08/20/2023 1:01 PM EDT SUBJECTIVE: HPI: Leida Cheung is a 28 year old female seen at the request of Self for evaluation and treatment of full skin exam. Annual vulvar exams performed, no vulvar discoloration and/or lesions to be assessed per pt. + Tanning bed history (high school) + Blistering sunburns. No new or changing lesions, per pt. 4th generation fields. Sports Coordinator Documentation Patient offered raw sampler and declined. REVIEW OF SYSTEMS: SKIN: No other new or changing moles. HEME/LYMPH: No new or enlarging lumps or bumps. CONSTITUTIONAL: No nausea, vomiting, fevers, chills, diarrhea. No recent unintended weight loss, night sweats, appetite or malaise. RESP: negative MSK/EXT: Negative or as per HPI GI: negative CV: Negative or as per HPI Rest of systems are negative or as per HPI SKIN CANCER HX: NONE Reviewed, same day as visit, 0 [facility] Dermatology lab work(s)/pathology report(s) as well as those sent by referring provider prior to seeing pt. No past medical history on file. FAMILY HISTORY: Skin CA: None Skin Disorders: none SOCIAL HISTORY: Social History Tobacco Use Smoking status: Never Smokeless tobacco: Never Substance Use Topics Alcohol use: No Vaping/E-Cigarette Use Vaping/E-Cigarette Substances Vaping/E-Cigarette Devices MEDICA TIONS: Current Outpatient Medications Medication Sig Dispense Refill Cholestyramine 4 GM Oral Packet (Questran) Take 1 Packet by mouth in the morning and 1 Packet at noon and 1 Packet in the evening. Take with meals. busPIRone HCl 5 MG Oral Tablet (Buspar) Take 1 Tablet by mouth in the morning and 1 Tablet at noon and 1 Tablet before bedtime. TRI-SPRINTEC 0.18/0.215/0.25 MG-35 MCG PO TABS daily (Patient not taking: Reported on 08/20/2023) Entyvio 300 MG Intravenous Solution Reconstituted (Vedolizumab) Administer 300 mg intravenously once. No current facility-administered medications for this visit. ALLERGY: Remicade [infliximab] OBJECT LOURDES: GEN: alert, no distress, appears oriented, pleasant, and cooperative. SKIN: Detailed exam of hair, face including lids and lips, neck, chest, abdomen, back, bilateral upper ext. (arm, hand, fingers), bilateral lower ext. (leg, foot, toes), palpation of scalp, fingernails, toenails, inguinal areas, groin (mons pubis), buttocks, and anus completed: 1. Scalp/face/trunk/bilat arms and legs-About 70 total; 2-5mm light and light- medium brown macules and soft papules. 2. Face/trunk/bilat arms and legs-Some well defined light to medium brown homogenous stellate macules. ASSESS MENT/PLAN: 1. Nevi on scalp/face/trunk/bilat arms and legs-no tx needed, pt given reassurance and written education about diagnosis. Skin cancer brochure given and ABCDE's discussed with patient. Annual full body skin examination (unless I recommended otherwise), self-examination, and sun protection (SPF 30+ daily to sun exposed areas, with reapplication every 1-2 hours when out in sun for long periods of time) advised and discussed. Recommended sooner follow up for new or changing lesions. These changes include rapid enlargement, changes in color or shape or symptoms, bleeding, or other concerns. The common features and behavior of non-melanoma skin cancers (e.g. BCC/SCC) as well as the ABCDEs and ugly duckling features of melanoma were also reviewed. 2. Lentigines on face/trunk/bilat arms and legs-no tx needed, pt given reassurance. Patient alone today. Photo(s) of #1-2 taken, pt verbally consented to having photo(s) taken. Follow-up: 1 year for full skin exam Photos and chart reviewed by Dr. Allen Alonso. Presum ed diagnoses, expected natural histories, and management options discussed with the patient at length. Questions were addressed and anticipatory guidance provided. They were instructed to contact me if additional questions, concerns, or problems develop in the interim. -There were no barriers to learning and no other pain was related to today's visit. The patient and/or person accompanying patient demonstrates understanding of the visit and treatment. Jennyfer Dumas PA-C 08/20/2023 1:01 PM Ref: SELF[[id number]] NO STREET ADDRESS AVAILABLE None (office) None (fax) PCP: LEO MARI [address] [address] documented in this encounter Nursing Notes * Nena Braden LPN - 08/20/2023 12:59 PM EDT Patient identified by full name and date of Chief Complaint Patient presents with NEW PATIENT New pt. Here for full skin exam. Pt states she has no specific areas of concern. documented in this encounter Plan of Treatment Upcoming Encounters Date Type Specialty Care Team Description 10/06/2024 Office Visit Dermatology Piter, Jennyfer Arellano PA-C [address] [place] [address] [place] [address] Health Maintenance Due Date Last Done Comments Hepatitis B (1 of 3 - 3-dose series) 1994 COVID-19 Vaccine (#1) 1994 Depression Screening 2006 HIV Screening 2009 Hepatitis C Screening 02/29/2012 DTaP,Tdap,and Td Vaccines (1 - Tdap) 2013 Pap Smear 2015 Influenza Vaccine (FLU shot) (#1) 2023 11/19/2018, 10/13/2017, 11/01/2015 GARDASIL-HPV IMMUNIZATION SERIES Aged Out No longer eligible b ased on patient's age to complete this topic MENINGOCOCCAL (MENACTRA/MENVEO) Aged Out No longer eligible b ased on patient's age to complete this topic Pneumococcal Vaccine: Pediatrics (0 to 5 Years) and At-Risk Patients (6 to 64 Years) Aged Out No longer eligible b ased on patient's age to complete this topic documented as of this encounter Medical Devices Not on filedocumented as of this encounter Procedures Procedure Name Priority Date/Time Associated Diagnosis Comments DERM IMAGE (SITE) Routine 08/20/2023 Skin exam, screening for cancer Multiple nevi Lentigines documented in this encounter Results * DERM IMAGE (SITE) (08/20/2023) 08/20/2023 Jennyfer Dumas PA-C DIGITAL PHOTOG VIRGIE documented in this encounter Visit Diagnoses Diagnosis Multiple nevi- Primary Benign neoplasm of skin, site unspecified Skin exam, screening for cancer Screening for malignant neoplasm of the skin Lentigines Other dyschromia documented in this encounter Advance Directives Latest Code Status on File Code Status Date Activated Date Inactivated Comments Full Code 06/22/2015 12:26 PM 06/26/2015 10:07 PM Thi s order reflects the patients wishes and were consensually agreed upon. Question Answer Comments Discussion of Advance Directives occurred with: Patient Does the patient have a Living Will? No Does the patient have Health Care Power of Concrete Laborer? No Care Teams Claims Account Manager Relationship Specialty Start Date End Date Leo Mari DO [address] [place] [address] PCP - General Family Medicine 06/19/15 documented as of this encounter
--- OUTSIDE RECORDS SUMMARY | 2023-10-27 07:30 | External Medical Summary | Continuity of Care Document ---
Author Name Unknown Organization [facility] Address [address] [place] [address] [place] CABRERA [id number] Care Team Providers Care Topographic Computator Name Role Phone Cyrus Nelson Primary Care Physician [phone] Encounter [facility] [id number] Date(s): 04/30/23 - 04/30/23 [facility] [address] [place] [address]- [phone] Discharge Disposition: Home or Self Care Attending Physician: MD Hui Andrew Referring Physician: MD Hui Andrew Allergies, Adverse Reactions, Alerts Substance Reaction Severity Status Remicade 1 Pharyngeal swelling Active 1throat swells Functional Status 04/30/23 Gait Steady Immunizations Given and Recorded Vaccine Date Status Refusal Reason influenza virus vaccine, inactivated 11/19/18 Give n Medications Bentyl 10 mg oral capsule Start: 03/07/22 11:40:00 EDT, 1 cap, PO, qid, Disp# 90 cap, Refills: 3, Pharmacy: [facility] Start Date: 03/07/22 Status: Ordered cholestyramine 4 g/9 g oral powder for reconstitution Start: 01/09/23 9:12:00 EST, 4 g =, PO, Daily, Disp# 60 each, Refills: 11, Pharmacy: [facility] Start Date: 01/09/23 Status: Ordered Entyvio 300 mg intravenous injection Start: 10/31/16 11:51:00, 300 mg =, IV, [id number], Last infusion was 10/26/2017 Start Date: 10/31/16 Status: Ordered Sutab oral tablet Start: 03/16/23 15:21:00 EDT, See Instructions, Disp# 24 tab, Refills: 0, Follow instruction from endoscopy lab Sutab Coupon: BIN: [id number] PCN: [id number] Group: [id number] , [facility] Start Date: 03/16/23 Status: Ordered Tri-Sprintec oral [...] Most recent to oldest [Reference Range]: 1 2 Patient Weight 80.05 kg (04/30/23 5:13 PM) Temperature [36.5-37.9 DegC] 36.6 DegC (04/30/23 6:11 PM) 36.5 DegC (04/30/23 5:13 PM) Heart Rate 86 bpm (04/30/23 6:11 PM) 86 bpm (04/30/23 5:13 PM) Respiratory Rate 18 br/min (04/30/23 6:11 PM) 18 br/min (04/30/23 5:13 PM) Blood Pressure 127/82mmHg (04/30/23 6:11 PM) 125/85mmHg (04/30/23 5:13 PM) Cuff Pulse Pressure 45 mmHg (04/30/23 6:11 PM) 40 mmHg (04/30/23 5:13 PM) Social History Social History Type Response Smoking Status Never smoked cigaret rolo Sex Female Patient Care team information Care Team Personnel Name: Adam Rodriguez Kimberly Position: Pharmacist BCMA Member Role: Pharmacy - Lifetime Address: Address: [address] [address] Name: EVA Nelson Lester C Position: Referring Member Role: Primary Care Provider Address: Address: [address] [place] [address] [place] Name: Adam Srinivasan Matthew Position: Pharmacist Member Role: Pharmacy - Lifetime Care Team Related Persons Name: ANDERSON HENRY Address: home [address] [facility] [place], [place] [id number]
--- OUTSIDE RECORDS SUMMARY | 2023-10-27 07:30 | External Medical Summary | Continuity of Care Document ---
Author Name Unknown Organization [facility] [address] Address [address] [place], [place] [id number] Care Team Providers Care Payroll Technician Name Role Phone Cyrus Nelson Primary Care Physician [phone] [id number] Date(s): 07/31/23 - 07/31/23 [facility] [address] [facility] [address] [place], [phone] Encounter Diagnosis Crohn's disease of small intestine with abscess(Final) - Discharge Disposition: Home or Self Care Attending [...] qid, Disp# 90 cap, Refills: 3, Pharmacy: [facility] Start Date: 03/07/22 Status: Ordered cholestyramine 4 g/9 g oral powder for reconstitution Start: 01/09/23 9:12:00 EST, 4 g =, PO, Daily, Disp# 60 each, Refills: 11, Pharmacy: [facility] Start Date: 01/09/23 Status: Ordered Entyvio 300 mg intravenous injection Start: 10/31/16 11:51:00, 300 mg =, IV, [id number], Last infusion was 10/26/2017 Start Date: 10/31/16 Status: Ordered Sutab oral tablet Start: 03/16/23 15:21:00 EDT, See Instructions, Disp# 24 tab, Refills: 0, Follow instruction from endoscopy lab Bri Coupon: BIN: [id number] PCN: TAINA Group: [id number] , [facility] Start Date: 03/16/23 Status: Ordered Tri-Sprintec oral [...] urinarybladder. 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 Social History Social History Type Response Smoking Status Never smoked cigaret rolo Sex Female Patient Care team information Care Team Personnel Name: Adam Rodriguez Kimberly Position: Pharmacist BCMA Member Role: Pharmacy - Lifetime Address: Address: [address] [address] Name: EVA Nelson Lester C Position: Referring Member Role: Primary Care Provider Address: Address: [address] [place] [address] [place] Name: Adam Srinivasan Matthew Position: Pharmacist Member Role: Pharmacy - Lifetime Care Team Related Persons Name: ANDERSON HENRY Address: home [address] [facility] [place], [place] [id number]
--- OUTSIDE RECORDS SUMMARY | 2023-10-27 07:30 | External Medical Summary | Summary of Care ---
Author Name Unknown Organization [facility] Address [address] [place] [address] Phone [phone] Care Team Providers Care Research Center Director Name Role Phone Leo Mari DO Primary Care Provider +1- [phone] Reason for Visit * Reason Comments NEW PATIENT New pt. Here for amanda peace skin exam. Pt states she has no specific areas of concern. Encounter Details Date Type Department Care Team Description 08/20/2023 Office Visit [address] [phone] Jennyfer Dumas, BARTOLOME-Joanne [address] [place] [address] [place] [address] Multiple nevi*; Skin exam, screening for cancer; [...] documented in this encounter Progress Notes * Allen Alonso MD - 08/20/2023 3:20 PM EDT I have seen and examined the patient via teledermatology review of chart note and photos with Jennyfer Dumas PA-C. I have reviewed and agree with the assessment and plan. * Jennyfer Dumas PA-C - 08/20/2023 1:01 [...] changing lesions, per pt. 4th generation fields. Hogshead Builder Documentation Patient offered cost estimating manager and declined. REVIEW OF SYSTEMS: SKIN: No [...] NONE Reviewed, same day as visit, 0 [facility] Dermatology lab work(s)/pathology report(s) as well as [...] Jennyfer Dumas PA-C 08/20/2023 1:01 PM Ref: SELF[[id number]] NO STREET ADDRESS AVAILABLE None (office) None (fax) PCP: LEO MARI [address] [facility] [address] [place] [address] [phone] documented in this encounter Nursing Notes * [...] Care Team Description 10/06/2024 Office Visit Dermatology Jennyfer Dumas PA-C [address] [place] [address] [place] [address] Health Maintenance Due Date Last Done Comments [...] DERM IMAGE (SITE) (08/20/2023) 08/20/2023 Jennyfer Dumas PA-Joanne DIGITAL PHOTOG VIRGIE documented in this encounter [...] the patient have Health Care Power of Regional Clinical Director? No Care Teams Research Center Director Relationship Specialty Start Date End Date Leo Mari DO [address] [facility] 2 [place] [address] PCP - General Family Medicine 06/19/15 documented as of this encounter
[2023-10-27] MEDS ORDERED: ONDANSETRON INJ 2 MG/ML 2 ML VIAL IV STA (07:41)
[2023-10-27] MEDS ORDERED: MoRPHine SULFATE 4 MG/ML 1 ML CARP\\VIAL IV STA ×3 (07:41→11:38)
[2023-10-27] MEDS ORDERED: SODIUM CHLORIDE 0.9% 1,000 ML IV STA (07:41)
--- NOTE | 2023-10-27 09:01 | Emergency Department Note ---
Impression & Plan Pancreatitis, Crohn disease, Abdominal pain ED Provider Note NAME: DVAID HENRY AGE: 28 SEX: F : 1995 ARRIVES VIA: Walk-In INFORMANT: Patient, ED PROVIDER(S): Tim Saravia MD CHIEF COMPLAINT: Abdominal pain MEDICAL DECISION MAKING: Patient presents due to concern for abdominal pain in the setting of known history of Crohn's. IV was established blood work obtained patient was ordered IV morphine and Zofran. CT of the abdomen pelvis ordered. Patient did receive additional doses of IV morphine. Patient's blood work unremarkable with exception elevated lipase. CT does show findings consistent with acute pancreatitis. Patient denies any alcohol use. I did speak with the on-call hospitalist Dr. Leonard and the patient was admitted to the medicine service Discussion w/ other healthcare providers: None Prior /Outside records reviewed: I reviewed a primary care visit from July 13, 2023 from Cyrus Powell. The patient is being seen for cellulitis of the right abdominal wall and prescribed Keflex at that time. Differential diagnosis: Appendicitis, ovarian cyst, ovarian torsion, ectopic , TOA, PID, diverticulitis, UTI, obstruction, inflammatory bowel disease, renal colic, PUD, pancreatitis, biliary pathology, hernia, volvulus, constipation, as well as other pathologies were considered. Diagnostics, as interpreted by me: ECG: None Cardiac monitoring: An order was placed for continuous cardiac monitoring. The monitor shows a rate of 87 with sinus rhythm. Patient was placed on pulse oximetry Medical decision rules: None Imaging studies: I informally interpreted the patient's CT abdomen pelvis which does show pancreatic inflammation with formal report to follow. HPI: Patient presents due to concern for abdominal pain that she states began yesterday. The patient did take 1 oxycodone without significant relief and upon awaking this morning seem to have worsening symptoms. Pain is primarily in the epigastrium. The patient is had nausea but no vomiting. Patient does have a known history of Crohn's status post partial small and large bowel removal when she was 20. The patient is followed [facility]. Patient states last time she had a flare was probably this past summer. Patient denies any chest pains or shortness of breath. No blood in the stool. Patient denies any vaginal bleeding or discharge PAST MEDICAL HISTORY: See Below PAST SURGICAL HISTORY: See Below SOCIAL HISTORY: See Below HOME MEDICATIONS: See Below ALLERGIES: See Below VITALS: See Below PHYSICAL EXAMINATION: GENERAL: NAD, non-toxic. EYE EXAM: Normal conjunctiva. PERRL, no anisocoria and EOM's grossly intact w/o pain. OROPHARYNX: Moist mucus membranes, grossly normal dentition. NECK: Supple, no nuchal rigidity, no adenopathy, non-tender. No signs of meningismus. FROM of the neck with good chin to chest and neck extension. No stridor. LUNGS: Clear to auscultation. Normal chest wall mechanics. HEART: NSR, no MRG. ABDOMEN: Abdomen soft, epigastric pain without lower abdominal pain, no masses, no rebound or guarding. BACK: No CVA TTP. SKIN: No rashes and no bruising. UPPER EXTREMITIES: Upper extremities are grossly normal. LOWER EXTREMITIES: Grossly normal, no edema. NEURO EXAM: A&O x3, cranial nerves II-XII grossly intact, normal speech, moves all 4 extremities. Abdominal pain Past Med/Surg History Medical History Pancreatitis Partial obstruction of small intestine Oral contraceptive pill surveillance Hypercholesterolemia Dysmenorrhea Irregular menses Pancreatitis Gallstone Small bowel obstruction C. difficile colitis (09/29/14) Crohn disease Surgical History H/O resection of small bowel S/P cholecystectomy Family History Uncle Prostate cancer paternal Family/Other Myocardial infarction maternal great grandfather Denies family history of Ovarian cancer Breast cancer Colorectal cancer Social History Smoking Status: Never smoker Second Hand Exposure: No; Do You Dip or Chew Tobacco: No; Hx Alcohol Use: No Hx Substance Use: No Preferred Language: [place]an Communication Ability: Effective Visual Impairment: No Limitations Hearing Ability: Normal Stripper Apprentice Required: No Beliefs That Will Affect Care: None marital status: Single Current Living Situation: Spouse current occupational status: employed 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 Feels Safe at Home: Yes Childhood Exposure to Second-Hand Smoke: No Diet: regular Dental Care, Regularly: Yes Physical Activity Frequency: Daily Seatbelt Use: always Sunscreen Use: Yes Assistive Devices: None Allergies Allergies Allergy/AdvReac Type Severity Reaction Status Date / Time infliximab Allergy Severe Anaphylaxis Verified 07/13/23 16:13 Home Meds Home Medications Medication Instructions Recorded Confirmed cholestyramine (with sugar) 4 gram 1 ea PO DAILY 04/29/22 10/27/23 oral powder norgestimate-ethinyl estradiol 1 tab PO DAILY 08/21/22 10/27/23 0.18 mg/0.215mg/0.25mg-35 mcg(28)tablet (Tri-Sprintec (28)) vedolizumab 300 mg intravenous 50 mg IV . EVERY 6 WKS 10/27/23 10/27/23 solution (Entyvio) Previous Rx's Medication Instructions Recorded fenofibrate nanocrystallized 145 145 mg PO QAM Hypertriglyceridemia 12/09/22 mg tablet #90 tabs buspirone 5 mg tablet 5 mg PO BID #60 tabs 06/11/23 Results & Data (ED) Vital Signs Vital Signs - 24 hr 10/27/23 11:00 10/27/23 11:30 10/27/23 12:00 Pulse Rate 84 86 88 Respiratory Rate 12 13 14 Blood Pressure 118/69 113/71 120/71 Blood Pressure Mean 85 85 84 Pulse Oximetry 95 95 93 Oxygen Delivery Method Room Air Room Air 10/27/23 12:30 10/27/23 13:00 Pulse Rate 88 87 Respiratory Rate 18 15 Blood Pressure 121/69 115/74 Blood Pressure Mean 88 84 Pulse Oximetry 94 96 Oxygen Delivery Method Home Medications Current Medication List: was personally reviewed by me Laboratory Data Attestation: I reviewed the patient's lab results. 10/28/23 07:12 10/28/23 07:12 Lab Results 10/27/23 10/27/23 Range/Units 07:41 09:01 WBC 9.19 (4.8-10.8) K/ul RBC 4.98 (4.20-5.40) M/uL Hgb 15.8 (12.0-16.0) g/dl Hct 42.8 (37.0-47.0) % MCV 85.9 (80.0-100.0) fL MCH 31.7 (25.0-34.0) pg MCHC 36.9 H (32.0-36.0) g/dL RDW Std Deviation 37.9 (36.4-46.3) fL RDW Coeff of Thang 12.1 (11.5-14.5) % Plt Count 327 (130-400) K/uL MPV 10.5 (9.4-12.4) fL Immature Gran % (Auto) 0.3 % Neut % (Auto) 69.0 % Lymph % (Auto) 22.0 % Butts % (Auto) 6.9 % Eos % (Auto) 1.1 % Baso % (Auto) 0.7 % Neut # (Auto) 6.35 (1.40-6.50) K/uL Lymph # (Auto) 2.02 (1.20-3.40) K/uL Butts # (Auto) 0.63 H (0.11-0.59) K/uL Eos # (Auto) 0.10 (0.00-0.50) K/uL Baso # (Auto) 0.06 (0.00-0.20) K/uL Immature Gran # (Auto) 0.03 (0.01-0.20) K/uL RBC Morphology Unremarkable Sodium 138 (136-145) mmol/L Potassium 4.5 (3.5-5.1) mmol/L Chloride 102 (98-107) mmol/L Carbon Dioxide 27 (21-32) mmol/L Anion Gap 9 (3-11) BUN 11 (6-23) mg/dl Creatinine 0.62 (0.6-1.2) mg/dl Est Cr Clr Drug Dosing 145.2 ml/min Est GFR ( Amer) 141.2 ml/min Est GFR (Non-Af Amer) 121.9 ml/min BUN/Creatinine Ratio 17.7 (10-20) Glucose 93 (70-99(Fasting)) mg/dl Calcium 9.2 (8.6-10.3) mg/dl Total Bilirubin 0.8 (0.2-1.0) mg/dl AST 25 (13-39) U/L ALT 22 (7-52) U/L Alkaline Phosphatase 75 (34-104) U/L Total Protein 7.0 (6.0-8.3) gm/dl Albumin 4.3 (3.4-5.0) gm/dl Globulin 2.7 (2.5-4.0) gm/dl Albumin/Globulin Ratio 1.6 (0.9-2) Triglycerides 826 H (0-150) mg/dl Cholesterol 145 (0-200) mg/dl LDL Cholesterol, Calc TNP VLDL Cholesterol, Calc TNP HDL Cholesterol 23 mg/dl Cholesterol/HDL Ratio 6.3 H (0-5) Lipase 238 H (11-82) U/L Urine Color Yellow Urine Appearance Clear (Clear) Urine pH 5.5 (4.5-7.5) Ur Specific [place] 1.025 (1.000-1.030) Urine Protein Trace H (Negative) Urine Glucose (UA) Negative (Negative) Urine Ketones Negative (Negative) Urine Blood Negative (Negative) Urine Nitrite Negative (Negative) Urine Bilirubin Negative (Negative) Urine Urobilinogen Negative (Negative) Ur Leukocyte Esterase Negative (Negative) Urine WBC (Auto) 1-5 (0-5) /hpf Urine RBC (Auto) 0-4 (0-4) /hpf U Hyaline Cast (Auto) 1-5 (0-5) /lpf U Epithel Cells (Auto) >30 H (0-5) /lpf Urine Bacteria (Auto) Negative (Negative) Urine Test Negative (Negative) Administered Medications Buspirone HCl (Bus[facility]one 5 Mg Tab) [facility] [place]: 11/27/23 08:59 Last Admin: 10/28/23 07:57 Dose: 5 mg Documented By: JAGDISH Cholestyramine Resin (Cholestyramine Light 4 Gm Pkt) 4 gm PO DAILY@1000 [facility] Stop: 11/27/23 09:59 Last Admin: 10/28/23 09:55 Dose: 4 gm Documented By: JAGDISH Fenofibrate (Fenofibrate Nanocrystallized 145 Mg Tablet) 145 mg PO QAM [facility] Stop: 11/27/23 08:59 Last Admin: 10/28/23 07:57 Dose: 145 mg Documented By: JAGDISH Hydromorphone HCl (Hydromorphone Inj 0.5 Mg/0.5 Ml Syr) 0.25 - 0.5 mg IV Q4H PRN PRN Reason: Breakthrough Pain Stop: 11/10/23 12:42 Last Admin: 10/27/23 23:41 Dose: 0.25 mg Documented By: Admin: 10/27/23 13:40 Dose: 0.5 mg Documented By: HANK Acetaminophen (Ofirmev) 1,000 mg in 100 mls @ 400 mls/hr IV Q8H PRN PRN Reason: Fever/Mild Pain (Pain 1,2,3) Stop: 10/30/23 12:42 Last Infusion: 10/27/23 18:15 Dose: Infused Documented By: Admin: 10/27/23 17:38 Dose: 400 mls/hr Documented By: RENU Lactated Ringer's (Lr) 1,000 mls @ 125 mls/hr IV .Q8H ADELA Stop: 11/27/23 09:29 Last Admin: 10/28/23 09:48 Dose: 125 mls/hr Documented By: JAGDISH Miscellaneous (Tri-Sprintec (28) ~ Order Awaiting Action) 1 each N/A QS ADELA Stop: 11/26/23 15:59 Last Admin: 10/28/23 08:36 Dose: Not Given Documented By: Admin: 10/27/23 23:04 Dose: Not Given Documented By: Admin: 10/27/23 18:38 Dose: Not Given Documented By: BRITTANIE Ondansetron HCl (Ondansetron Inj 2 Mg/Ml 2 Ml Vial) 4 mg IV Q4H PRN PRN Reason: Nausea Stop: 11/26/23 12:55 Last Admin: 10/28/23 08:03 Dose: 4 mg Documented By: Admin: 10/27/23 23:42 Dose: 4 mg Documented By: Admin: 10/27/23 18:41 Dose: 4 mg Documented By: BRITTANIE Discontinued Medications Fenofibrate (Fenofibrate Nanocrystallized 145 Mg Tablet) 145 mg PO NOW STA Stop: 10/27/23 13:42 Last Admin: 10/27/23 14:47 Dose: 145 mg Documented By: HANK Sodium Chloride (Nss) 1,000 mls @ 999 mls/hr IV .Q1H1M STA Stop: 10/27/23 08:41 Last Infusion: 10/27/23 08:56 Dose: Infused Documented By: Admin: 10/27/23 07:52 Dose: 999 mls/hr Documented By: HANK Prochlorperazine (Compazine) 2 mls @ 1 mls/min IV ONE ONE Stop: 10/27/23 09:58 Last Admin: 10/27/23 10:05 Dose: 1 mls/min Documented By: HANK Sodium Chloride (Nss) 500 mls @ 999 mls/hr IV .Q31M ONE Stop: 10/27/23 10:27 Last Infusion: 10/27/23 10:53 Dose: Infused Documented By: Admin: 10/27/23 10:05 Dose: 999 mls/hr Documented By: HANK Lactated Ringer's (Lr) 1,000 mls @ 125 mls/hr IV .Q8H ADELA Stop: 10/28/23 05:29 Last Infusion: 10/28/23 02:53 Dose: Infused Documented By: Admin: 10/27/23 18:45 Dose: 125 mls/hr Documented By: Infusion: 10/27/23 18:45 Dose: Infused Documented By: Admin: 10/27/23 13:40 Dose: 125 mls/hr Documented By: HANK Ioversol (Optiray 320 500ml) 90 ml IV ONCE ONE Stop: 10/27/23 10:46 Last Admin: 10/27/23 10:45 Dose: 90 ml Documented By: TAYLER Morphine Sulfate (Morphine Sulfate 4 Mg/Ml 1 Ml Carp\Vial) 4 mg IV NOW STA Stop: 10/27/23 07:42 Last Admin: 10/27/23 07:52 Dose: 4 mg Documented By: HANK Morphine Sulfate (Morphine Sulfate 4 Mg/Ml 1 Ml Carp\Vial) 4 mg IV NOW STA Stop: 10/27/23 09:58 Last Admin: 10/27/23 10:05 Dose: 4 mg Documented By: HANK Morphine Sulfate (Morphine Sulfate 4 Mg/Ml 1 Ml Carp\Vial) 4 mg IV NOW STA Stop: 10/27/23 11:39 Last Admin: 10/27/23 11:49 Dose: 4 mg Documented By: HANK Ondansetron HCl (Ondansetron Inj 2 Mg/Ml 2 Ml Vial) 4 mg IV NOW STA Stop: 10/27/23 07:42 Last Admin: 10/27/23 07:53 Dose: 4 mg Documented By: HANK Discharge Plan Visit Data Chief Complaint: GI Assessment Stated Complaint: CHRONS DISEASE,PAIN IN ABDOMEN ED Provider: Tim Saravia Discharge Problem: Pancreatitis, Crohn disease, Abdominal pain Patient Disposition: Admitted As Inpatient Discharge Instructions Interventions: ED Discharge Assessment Last Done: 10/27/23 15:55 Discharge Problem: Pancreatitis Qualifiers: Chronicity: acute Pancreatitis type: unspecified pancreatitis type Acute pancreatitis complication: unspecified Qualified Code(s): K85.90 - Acute pancreatitis without necrosis or infection, unspecified Crohn disease Qualifiers: Gastrointestinal tract location: unspecified location Digestive disease complication type: unspecified complication Qualified Code(s): K50.919 - Crohn's disease, unspecified, with unspecified complications Abdominal pain Qualifiers: Abdominal location: epigastric Qualified Code(s): R10.13 - Epigastric pain
[2023-10-27 09:32] LABS: Alanine Aminotransferase 22 U/L (7-52); Albumin Globulin Ratio 1.6 (0.9-2); Albumin Level 4.3 gm/dl (3.4-5.0); Alkaline Phosphatase 75 U/L (34-104); Anion Gap 9 (3-11); Aspartate Aminotransferase 25 U/L (13-39); BUN Creatinine Ratio 17.7 (10-20); Bilirubin,Total 0.8 mg/dl (0.2-1.0); Blood Urea Nitrogen 11 mg/dl (6-23); Calcium 9.2 mg/dl (8.6-10.3); Carbon Dioxide 27 mmol/L (21-32); Chloride 102 mmol/L (98-107); Creatinine Clr Calc Pharmacy 145.2 ml/min; Est GFR (African American) 141.2 ml/min; Est GFR (Non-African American) 121.9 ml/min; Globulin 2.7 gm/dl (2.5-4.0); Glucose 93 mg/dl (70-99(Fasting)); Lipase 238 U/L (11-82); Potassium 4.5 mmol/L (3.5-5.1); Sodium 138 mmol/L (136-145)
[2023-10-27 09:57] LABS: Pregnancy Test, Urine Negative (Negative)
[2023-10-27] MEDS ORDERED: PROCHLORPERAZINE 2 ML IV ONE (09:57)
[2023-10-27] MEDS ORDERED: SODIUM CHLORIDE 0.9% 500 ML IV ONE (09:57)
[2023-10-27 09:58] LABS: Appearance Urine Clear (Clear); Bacteria Urine Automated Negative (Negative); Bilirubin Urine Negative (Negative); Blood Urine Negative (Negative); Color Urine Yellow; Epithelial Cell Urine Auto >30 /lpf (0-5); Glucose Urine UA Negative (Negative); Ketones Urine Negative (Negative); Leukocyte Esterase Urine Negative (Negative); Nitrite Urine Negative (Negative); Protein Urine Trace (Negative); RBC Urine Automated 0-4 /hpf (0-4); Specific Gravity Urine 1.025 (1.000-1.030); Urobilinogen Urine Negative (Negative); pH Urine 5.5 (4.5-7.5)
[2023-10-27 10:22] LABS: Hematocrit (blood only) 42.8 % (37.0-47.0); Hemoglobin 15.8 g/dl (12.0-16.0); Mean Corpuscular Hemoglobin 31.7 pg (25.0-34.0); Mean Corpuscular Hgb Conc 36.9 g/dL (32.0-36.0); Mean Corpuscular Volume 85.9 fL (80.0-100.0); Mean Platelet Volume 10.5 fL (9.4-12.4); Platelet Count 327 K/uL (130-400); RDW Coefficient of Variation 12.1 % (11.5-14.5); RDW Standard Deviation 37.9 fL (36.4-46.3); Red Blood Count 4.98 M/uL (4.20-5.40); White Blood Count 9.19 K/ul (4.8-10.8)
[2023-10-27 10:27] LABS: Basophils # (auto) 0.06 K/uL (0.00-0.20); Basophils % (auto) 0.7 %; Eosinophils % (auto) 1.1 %; Immature Granulocytes # (auto) 0.03 K/uL (0.01-0.20); Immature Granulocytes % (auto) 0.3 %; Lymphocytes # (auto) 2.02 K/uL (1.20-3.40); Monocytes # (auto) 0.63 K/uL (0.11-0.59); Monocytes % (auto) 6.9 %; Neutrophils # (auto) 6.35 K/uL (1.40-6.50); RBC Morphology Unremarkable
[2023-10-27] MEDS ORDERED: OPTIRAY 320 500ml IV ONE (10:45)
--- NOTE | 2023-10-27 11:18 | CT Scan Report ---
CT OF THE ABDOMEN AND PELVIS WITH CONTRAST CLINICAL HISTORY: epigastric pain; h/o partial colectomy COMPARISON STUDY: CT of the abdomen and pelvis April 21, 2023. TECHNIQUE: Following IV administration of 90 mL of Optiray, axial images of the abdomen and pelvis we re obtained from the lung bases to the proximal femurs. Images were reviewed in the axial, sagittal, and coronal planes. IV contrast was administered without complication. Automated exposure control wa s utilized for the study. A dose lowering technique was utilized adhering to the principles of ALARA . CT DOSE: 1212.56 mGy.cm FINDINGS: Lung bases are unremarkable. No pneumatosis, free air or portal venous gas is present. Ther e is no biliary ductal dilatation status post cholecystectomy. Mild peripancreatic stranding and a sm all amount of peripancreatic fluid is noted. The pancreas is slightly edematous. The gland enhances h omogeneously. No peripancreatic fluid collections are present. No vascular abnormalities are identifi ed on this exam. Spleen, adrenal glands and kidneys are normal. There is no hydronephrosis. There is no evidence for a bowel obstruction status post ileocecectomy. The appendix is surgically absent. Ova eli are not enlarged. Major vasculature is patent. There is no lymphadenopathy. IMPRESSION: 1. Findings consistent with acute pancreatitis. Mild peripancreatic stranding and fluid. No evidence for gland necrosis. No peripancreatic fluid collections. 2. No biliary ductal dilatation status post cholecystectomy. 3. No bowel obstruction status post ileocecectomy. ACT 112: Negative or not required by law. Electronically signed by: Kee Augilar M.D. 10/27/2023 11:17 AM
--- NOTE | 2023-10-27 11:52 | History & Physical Report ---
Date of Service October 27, 2023 Assessment & Plan (1) CLIF (generalized anxiety disorder): (2) Hypertriglyceridemia: (3) Crohn disease: Plan Leida is a 28-year old female with history of Crohn's (followed by IBD clinic at [facility] on [facility], s/p ileocecectomy), hypertriglyceridemia induced pancreatitis (2021), s/p cholecystectomy and SBO who presented with worsening abdominal pain over the past 24 hours and was admitted for acute pancreatitis. Acute Pancreatitis -History of two prior episodes of hypertriglyceridemia induced pancreatitis in 2019 and 2021 -Patient has rare alcohol intake and is s/p cholecystectomy, suspect etiology is again hypertriglyceridemia -Pain started yesterday midday, has progressed and worsened this morning -Received 2L NSS boluses in ED, will continue IVF with LR @ 125mL/h -CT A/P: Findings consistent with acute pancreatitis. Mild peripancreatic stranding and fluid. No evidence for gland necrosis. No peripancreatic fluid collections. -Lipase of 238, Triglyceride level of 826 -Will monitor lipids with repeat q12h -No markers of inflammation (no leukocytosis, afebrile) and no concurrent hyperglycemia, so no indication for insulin drip -Will keep patient on total dietary fat restriction, can take some clear liquids if she desires -Do not advance diet beyond clears until triglycerides <500 -Pain control with IV Tylenol q8h, Dilaudid 0.25-0.5mg q4h PRN for breakthrough pain -Zofran q4h for nausea Crohn's Disease -S/P ileocecectomy -Follows with [facility] -Currently receives Vedolizumab infusion every 6 weeks -Due for infusion this Generalized Anxiety Disorder -Continue Buspar 5mg once daily Admit to: Med/surg Diet: LR @ 125 ml/h, clear liquids if tolerated. No dietary fat. VTE Prophylaxis: Early ambulation Code Status: Full Code History of Present Illness Primary Care Provider: Cyrus Nelson, III, EVA Leida is a 28-year old female with history of Crohn's (followed by IBD clinic at [place], on [facility], s/p ileocecectomy), hypertriglyceridemia induced pancr eatitis (2021), s/p cholecystectomy and SBO who presented with worsening abdominal pain. She states that she initially was unsure if her pain was due to a Crohn's flare, but notes over the night/this morning the discomfort seemed most similar to her prior episodes of pancreatitis. She states she took an oxycodone last night which helped but the pain was worse when she awoke this morning. She endorses normal PO intake of food, fluids until the pain started midday yesterday. Endorses some nausea but no vomiting. No changes in bowel or bladder habits. Denies fever, body aches, chills, shortness of breath or chest pain. She states that she very rarely will drink alcohol and has had no alcohol intake in the week prior. She endorses that she often forgets to take fenofibrate, states that she routinely forgets to take it 3 or more times a week. Allergies Allergy/AdvReac Type Severity Reaction Status Date / Time infliximab Allergy Severe Anaphylaxis Verified 07/13/23 16:13 Home Medications Medication Instructions Recorded Confirmed Type cholestyramine (with sugar) 4 gram 1 ea PO DAILY 04/29/22 10/27/23 History oral powder norgestimate-ethinyl estradiol 1 tab PO DAILY 08/21/22 10/27/23 History 0.18 mg/0.215mg/0.25mg-35 mcg(28)tablet (Tri-Sprintec (28)) fenofibrate nanocrystallized 145 145 mg PO QAM Hypertriglyceridemia 12/09/22 10/27/23 Rx mg tablet #90 tabs buspirone 5 mg tablet 5 mg PO BID #60 tabs 06/11/23 10/27/23 Rx vedolizumab 300 mg intravenous 50 mg IV . EVERY 6 WKS 10/27/23 10/27/23 History solution (Entyvio) Past Med/Surg History Medical History (Updated 10/27/23 @ 13:39 by Aniya Cummings DO) Pancreatitis Partial obstruction of small intestine Oral contraceptive pill surveillance Hypercholesterolemia Dysmenorrhea Irregular menses Pancreatitis Gallstone Small bowel obstruction C. difficile colitis (09/29/14) Crohn disease Surgical History (Updated 10/27/23 @ 13:39 by Ainya Cummings DO) H/O resection of small bowel S/P cholecystectomy Family History Uncle Prostate cancer paternal Family/Other Myocardial infarction maternal great grandfather Denies family history of Ovarian cancer Breast cancer Colorectal cancer Social History Smoking Status: Never smoker Second Hand Exposure: No; Do You Dip or Chew Tobacco: No; Hx Alcohol Use: No Hx Substance Use: No Preferred Language: American Communication Ability: Effective Visual Impairment: No Limitations Hearing Ability: Normal Staff Therapist Required: No Beliefs That Will Affect Care: None marital status: Single Current Living Situation: Alone current occupational status: employed 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 Feels Safe at Home: Yes Childhood Exposure to Second-Hand Smoke: No Diet: regular Dental Care, Regularly: Yes Physical Activity Frequency: Daily Seatbelt Use: always Sunscreen Use: Yes Assistive Devices: None Review of Systems Review of Systems: As per above Physical Exam Constitutional: WD/WN, vitals as above Eyes: + anicteric sclerae; no conjunctival abn ormality ENMT: Ears: no external ear abnormality Nose: no external nose abnormality Moist mucous membranes Respiratory: normal respiratory effort, lungs clear to auscultation Cardiovascular: RRR, no murmur, no edema Gastrointestinal (Abdomen): Abdomen soft, nondistended. Left upper and lower quadrant abdominal discomfort to palpation. +Bowel sounds present Musculoskeletal: Moves all limbs independently Skin: no rashes, warm and dry Psychiatric: A+Ox3, euthymic affect Results & Data Results & Data Vital Signs (Past 12 Hours) Vital Signs Temp Pulse Resp BP Pulse Ox O2 Del Method 10/27/23 11:00 84 12 118/69 95 10/27/23 10:50 84 14 120/70 93 10/27/23 10:00 89 20 124/75 95 10/27/23 09:30 82 20 119/72 98 10/27/23 09:02 79 14 123/76 96 Room Air 10/27/23 08:30 78 16 119/75 92 Room Air 10/27/23 08:15 88 22 119/73 93 Room Air 10/27/23 08:00 82 23 120/77 92 Room Air 10/27/23 07:44 87 12 94 Room Air 10/27/23 07:20 36.6 C 101 H 16 116/81 98 Room Air Diagnostic Findings Abdomen/Pelvis CT 10/27/23 07:41 CT OF THE ABDOMEN AND PELVIS WITH CONTRAST CLINICAL HISTORY: epigastric pain; h/o partial colectomy COMPARISON STUDY: CT of the abdomen and pelvis April 21, 2023. TECHNIQUE: Following IV administration of 90 mL of Optiray, axial images of the abdomen and pelvis were obtained from the lung bases to the proximal femurs. Images were reviewed in the axial, sagittal, and coronal planes. IV contrast was administered without complication. Automated exposure control was utilized for the study. A dose lowering technique was utilized adhering to the principles of ALARA. CT DOSE: 1212.56 mGy.cm FINDINGS: Lung bases are unremarkable. No pneumatosis, free air or portal venous gas is present. There is no biliary ductal dilatation status post cholecystectomy. Mild peripancreatic stranding and a small amount of pe ripancreatic fluid is noted. The pancreas is slightly edematous. The gland enhances homogeneously. No peripancreatic fluid collections are present. No vascular abnormalities are identified on this exam. Spleen, adrenal glands and kidneys are normal. There is no hydronephrosis. There is no evidence for a bowel obstruction status post ileocecectomy. The appendix is surgically absent. Ovaries are not enlarged. Major vasculature is patent. There is no lymphadenopathy. IMPRESSION: 1. Findings consistent with acute pancreatitis. Mild peripancreatic stranding and fluid. No evidence for gland necrosis. No peripancreatic fluid collections. 2. No biliary ductal dilatation status post cholecystectomy. 3. No bowel obstruction status post ileocecectomy. ACT 112: Negative or not required by law. Electronically signed by: Kee Aguilar M.D. 10/27/2023 11:17 AM Supervising Physician Co-Signing Physician Notes Patient seen and examined, chart reviewed, case discussed with Aniya Murdock, and I agree with the assessment and plan as above except as otherwise noted Labs and images reviewed Leida 28yo female with a past medical history of Crohn's disease, hypertriglyceridemia, hypercholesterolemia, CLIF who is on vedolizumab who presents with worsening abdominal pain and was recommended for admission for acute pancreatitis. She has a past history of cholecystectomy for gallstones and partial small bowel ressection due to Crohns. Has had 1-2 days of abdominal pain worsening and was in a different area than her Crohns had been. She does not have a transaminitis on admission. Lipase is elevated at 238. She endorses nausea. no fever/chills. Since 1 day ago meals and liquids make her nauseus and had a greatly diminished appetite. Has had a history of pancreatitis in the past which felt similar and which was induced by high triglyceride levels. She is taking fenofibrate 'but on a good week remembers to take maybe 3 days per week.' She does not drink alcohol. [place] [facility] [place] [address]. Has epigastric abdominal tenderness but without rebound/guarding on assessment. Heart rate is regular. Acute pancreatitis. She does not drink alcohol, is s/p choley without transaminitis, calcium is normal. On assessment her triglycerides are over 800 without concurrent hyperglycemia or elevation of inflammatory markers. Clears no dietary fat, continue antilipemic, trend triglycerides every 12 hours. IVF continued. May advance to low-fat diet from clears once triglycerides are less than 500. If Triglycerides uptrend, she develops hypglycemia, or she develops clinical worsening/leukocytosis then will place on 0.1 unit/kg insulin infusion protocol. Agree with assessment and management above. Resident Activity Tracking Resident Involvement: Resident Care Provided Care Provided: Adult [facility]
[2023-10-27] MEDS ORDERED: ACETAMINOPHEN 1,000 MG/100 ML VIAL IV PRN (12:43)
[2023-10-27 13:12] LABS: Chol HDL Ratio 6.3 (0-5); Cholesterol 145 mg/dl (0-200); HDL Cholesterol 23 mg/dl; Triglycerides 826 mg/dl (0-150)
[2023-10-27] MEDS: HYDROmorphone INJ 0.5 MG/0.5 ML SYR IV PRN ×2 (13:40→23:41)
[2023-10-27] MEDS: LACTATED RINGER'S 1,000 ML IV SCH ×2 (13:40→18:45)
[2023-10-27] MEDS ORDERED: FENOFIBRATE NANOCRYSTALLIZED 145 MG TABLET PO STA (13:41)
--- NOTE | 2023-10-27 14:49 | Billing Data ---
Date of Service October 27, 2023 Coding Level of Care Code 25765 INT INP/OBS CARE
[2023-10-27] MEDS: ONDANSETRON INJ 2 MG/ML 2 ML VIAL IV PRN ×2 (18:41→23:42)
[2023-10-27 21:31] LABS: Chol HDL Ratio 9.4 (0-5); Cholesterol 234 mg/dl (0-200); HDL Cholesterol 25 mg/dl; Triglycerides 769 mg/dl (0-150)
[2023-10-28 07:50] LABS: Basophils # (auto) 0.04 K/uL (0.00-0.20); Basophils % (auto) 0.3 %; Eosinophils # (auto) 0.11 K/uL (0.00-0.50); Eosinophils % (auto) 0.9 %; Hematocrit (blood only) 36.7 % (37.0-47.0); Hemoglobin 12.7 g/dl (12.0-16.0); Immature Granulocytes # (auto) 0.04 K/uL (0.01-0.20); Immature Granulocytes % (auto) 0.3 %; Lymphocytes # (auto) 1.43 K/uL (1.20-3.40); Lymphocytes % (auto) 11.6 %; Mean Corpuscular Hemoglobin 29.2 pg (25.0-34.0); Mean Corpuscular Hgb Conc 34.6 g/dL (32.0-36.0); Mean Corpuscular Volume 84.4 fL (80.0-100.0); Mean Platelet Volume 9.4 fL (9.4-12.4); Monocytes # (auto) 1.03 K/uL (0.11-0.59); Monocytes % (auto) 8.4 %; Neutrophils # (auto) 9.67 K/uL (1.40-6.50); Neutrophils % (auto) 78.5 %; Platelet Count 246 K/uL (130-400); RDW Coefficient of Variation 12.1 % (11.5-14.5); Red Blood Count 4.35 M/uL (4.20-5.40); White Blood Count 12.32 K/ul (4.8-10.8)
[2023-10-28 08:00] LABS: Alanine Aminotransferase 15 U/L (7-52); Albumin Level 3.4 gm/dl (3.4-5.0); Alkaline Phosphatase 69 U/L (34-104); Anion Gap 7 (3-11); Aspartate Aminotransferase 19 U/L (13-39); BUN Creatinine Ratio 9.6 (10-20); Bilirubin,Total 1.2 mg/dl (0.2-1.0); Blood Urea Nitrogen 5 mg/dl (6-23); Calcium 8.4 mg/dl (8.6-10.3); Carbon Dioxide 26 mmol/L (21-32); Chloride 102 mmol/L (98-107); Cholesterol 321 mg/dl (0-200); Creatinine Clr Calc Pharmacy 173.1 ml/min; Est GFR (African American) 149.6 ml/min; Est GFR (Non-African American) 129.1 ml/min; Glucose 73 mg/dl (70-99(Fasting)); HDL Cholesterol 37 mg/dl; Potassium 3.7 mmol/L (3.5-5.1); Sodium 135 mmol/L (136-145); Total Protein 6.1 gm/dl (6.0-8.3); Triglycerides 844 mg/dl (0-150)
[2023-10-28] MEDS: ONDANSETRON INJ 2 MG/ML 2 ML VIAL IV PRN (08:03)
[2023-10-28 08:04] LABS: Albumin Globulin Ratio 1.3 (0.9-2); Chol HDL Ratio 8.7 (0-5); Globulin 2.7 gm/dl (2.5-4.0)
[2023-10-28] MEDS ORDERED: FENOFIBRATE NANOCRYSTALLIZED 145 MG TABLET PO SCH (09:00)
[2023-10-28] MEDS ORDERED: busPIRone 5 MG TAB PO SCH (09:00)
--- NOTE | 2023-10-28 09:26 | Hospitalist Progress Note ---
Date of Service October 28, 2023 Assessment & Plan (1) CLIF (generalized anxiety disorder): (2) Hypertriglyceridemia: (3) Crohn disease: Plan Leida is a 28-year old female with history of Crohn's (followed by IBD clinic at [place], on , s/p ileocecectomy), hypertriglyceridemia induced pancreatitis (2019, 2021), s/p cholecystectomy and SBO who presented with worsening abdominal pain over the past 24 hours and was admitted for acute pancreatitis. Acute Pancreatitis -History of two prior episodes of hypertriglyceridemia induced pancreatitis in 2019 and 2021 -Patient has rare alcohol intake and is s/p cholecystectomy, suspect etiology is again hypertriglyceridemia -Pain started yesterday midday, has progressed and worsened this morning -Received 2L NSS boluses in ED, will continue IVF with LR @ 125mL/h -CT A/P: Findings consistent with acute pancreatitis. Mild peripancreatic stranding and fluid. No evidence for gland necrosis. No peripancreatic fluid collections. -Lipase of 238, Triglyceride level of 826 -Will monitor lipids with repeat q12h -No markers of inflammation (no leukocytosis, afebrile) and no concurrent hyperglycemia, so no indication for insulin drip -Will keep patient on total dietary fat restriction, can take some clear liquids if she desires -Do not advance diet beyond clears until triglycerides <500 -Pain control with IV Tylenol q8h, Dilaudid 0.25-0.5mg q4h PRN for breakthrough pain -Zofran q4h for nausea 10/28 --> Added LR @ 125cc/hr. Clear liquid diet ordered, added low fat. Will continue clears/low fat, antilipemetic/fenofibrate (noting on week, takes ~3x/week -- compliance to be encouraged) --> Lipid panel this afternoon, monitor for TRG <500 Crohn's Disease -S/P ileocecectomy -Follows with [facility] -Currently receives Vedolizumab infusion every 6 weeks -Due for infusion this Generalized Anxiety Disorder -Continue Buspar 5mg once daily Admit to: Med/surg Diet: LR @ 125 ml/h, clear liquids if tolerated. No dietary fat. VTE Prophylaxis: Early ambulation Code Status: Full Code Admission and Anticipated Discharge Date Admission Date: October 27, 2023 Subjective Eval this morning, sitting up in bed. No nausea/vomiting today. tolerated clears overnight however upon questioning w/ TRG still around the same, they were giving her ice creams/etc overnight. Discussed possible advancement of diet/repeat labs this evening but she was hopeful for dc to home tonight. She has her infusion Entyvio at home tomorrow at 4pm. Does NOT take NSAIDs, only tylenol. Discussed would talk w/ supervising provider but possible dc on slow adv diet/low fat, and follow up [facility] this evening. Results & Data Results & Data Vital Signs (Past 12 Hours) Vital Signs Temp Pulse Resp BP Pulse Ox O2 Del Method 10/28/23 08:00 37.0 C 100 H 16 114/73 94 Room Air PG Care Time/CCT Total # of Minutes Spent Total Time Spent with Patient: Total time spent is greater than 50% in coordination of care (as documented) at patient's floor/unit and/or counseling patient: Coding Diagnoses CLIF (generalized anxiety disorder) F41.1 Hypertriglyceridemia E78.1 Crohn disease K50.90
[2023-10-28] MEDS ORDERED: LACTATED RINGER'S 1,000 ML IV SCH (09:30)
[2023-10-28] MEDS ORDERED: CHOLESTYRAMINE LIGHT 4 GM PKT PO SCH (10:00)
--- NOTE | 2023-10-28 12:33 | Discharge Summary ---
Date of Service October 28, 2023 Admission HPI Per Admitting Provider Leida is a 28-year old female with history of Crohn's (followed by IBD clinic at [facility] on , s/p ileocecectomy), hypertriglyceridemia induced pancreatitis (2021), s/p cholecystectomy and SBO who presented with worsening abdominal pain. She states that she initially was unsure if her pain was due to a Crohn's flare, but notes over the night/this morning the discomfort seemed most similar to her prior episodes of pancreatitis. She states she took an oxycodone last night which helped but the pain was worse when she awoke this morning. She endorses normal PO intake of food, fluids until the pain started midday yesterday. Endorses some nausea but no vomiting. No changes in bowel or bladder habits. Denies fever, body aches, chills, shortness of breath or chest pain. She states that she very rarely will drink alcohol and has had no alcohol intake in the week prior. She endorses that she often forgets to take fenofibrate, states that she routinely forgets to take it 3 or more times a week. Admission Exam Per Admitting Provider Constitutional: WD/WN, vitals as above Eyes: + anicteric sclerae; no conjunctival abn ormality ENMT: Ears: no external ear abnormality Nose: no external nose abnormality Moist mucous membranes Respiratory: normal respiratory effort, lungs clear to auscultation Cardiovascular: RRR, no murmur, no edema Gastrointestinal (Abdomen): Abdomen soft, nondistended. Left upper and lower quadrant abdominal discomfort to palpation. +Bowel sounds present Musculoskeletal: Moves all limbs independently Skin: no rashes, warm and dry Psychiatric: A+Ox3, euthymic affect Principal Diagnosis Pancreatitis Discharge Exam General: WD/WN female sitting up in bed, NAD HEENT : head normocephalic, atraumatic, mmm, trachea midline Resp: even/unlabored, no w/c/r, on room air CV: RRR, no significant m/r/g, no pitting edema/calf tenderness GI: +BS, soft/NT ; no villegas MSK/Neuro: no focal deficit, no slurred speech, answering questions appropriately Psych: AOx3, cooperative with exam Discharge Data Allergies Allergy/AdvReac Type Severity Reaction Status Date / Time infliximab Allergy Severe Anaphylaxis Verified 07/13/23 16:13 Consultations 10/27/23 11:36 ED Decision to Admit Stat Ordered Studies Abdomen/Pelvis CT 10/27/23 07:41 CT OF THE ABDOMEN AND PELVIS WITH CONTRAST CLINICAL HISTORY: epigastric pain; h/o partial colectomy COMPARISON STUDY: CT of the abdomen and pelvis April 21, 2023. TECHNIQUE: Following IV administration of 90 mL of Optiray, axial images of the abdomen and pelvis were obtained from the lung bases to the proximal femurs. Images were reviewed in the axial, sagittal, and coronal planes. IV contrast was administered without complication. Automated exposure control was utilized for the study. A dose lowering technique was utilized adhering to the principles of ALARA. CT DOSE: 1212.56 mGy.cm FINDINGS: Lung bases are unremarkable. No pneumatosis, free air or portal venous gas is present. There is no biliary ductal dilatation status post cholecystectomy. Mild peripancreatic stranding and a small amount of peripancreatic fluid is noted. The pancreas is slightly edematous. The gland enhances homogeneously. No peripancreatic fluid collections are present. No vascular abnormalities are identified on this exam. Spleen, adrenal glands and kidneys are normal. There is no hydronephrosis. There is no evidence for a bowel obstruction status post ileocecectomy. The appendix is surgically absent. Ovaries are not enlarged. Major vasculature is patent. There is no lymphadenopathy. IMPRESSION: 1. Findings consistent with acute pancreatitis. Mild peripancreatic stranding and fluid. No evidence for gland necrosis. No peripancreatic fluid collections. 2. No biliary ductal dilatation status post cholecystectomy. 3. No bowel obstruction status post ileocecectomy. ACT 112: Negative or not required by law. Electronically signed by: Kee Aguilar M.D. 10/27/2023 11:17 AM Hospital Course (1) Pancreatitis: Leida is a 28-year old female with history of Crohn's (followed by IBD clinic at [facility] on [facility], s/p ileocecectomy), hypertriglyceridemia induced pancreatitis (2021), s/p cholecystectomy and SBO who presented with worsening abdominal pain over the past 24 hours and was admitted for acute pancreatitis. Prior admit reported feeling similar in Lipase 238, triglyceride level 826 Patient admitted to taking her Fenofibrate therapy ~ 3 times weekly, rare alcohol use. CTAP c/w acute pancreatitis, mild peripancreatic stranding/fluid. NO evidence for necrosis/fluid collection IVF/supportive care/pain control/antiemetics as needed Clear liquid diet ordered on admission as well as her fenofibrate NO FURTHER ABDOMINAL PAIN/NAUSEA/VOMITING reported overnight into this morning and reportedly feeling MUCH better/wanting to go home -Discussed, and patient was having ice cream overnight w/ her clear liquids without increased abdominal pain/nausea/vomiting and given such can dc on LOW FAT DIET given she wants to be home for her Entyvio infusion Repeat labs for this afternoon given WBC elevation, however afebrile to ensure no worsening, and encouraged follow up with PCP and [facility] at discharge and to continue low fat diet. Warning signs discussed/return to ER if occurs but appears quite comfortable and tolerating diet without issue. (2) CLIF (generalized anxiety disorder): mood stable, continued buspar (3) Hypertriglyceridemia: encouraged compliance w/ home fenofibrate therapy as reportedly only taking couple times a week on a good week, suspect even less consider alternative agent if not improving levels as outpatient/when taking correctly/daily low fat diet encouraged outpt f/u [facility] (4) Crohn disease: Crohn's Disease -S/P ileocecectomy -Follows with [facility] -Currently receives Vedolizumab infusion every 6 weeks -Due for infusion this , would like dc tonight to ensure no issues at home/getting infusion tomorrow afternoon Total Time Total Time Spent Total Time Spent (In Minutes): 45 Discharge Plan Discharge Items Patient Disposition: Home - Self-Care Reason For Visit: PANCREATITIS Discharge Diagnosis: Pancreatitis Goals: You have been hospitalized for an acute medical problem. During your stay at [facility], we have made an effort to correct the problem that brought you to the hospital while keeping you as comfortable as possible. Medications were used to bring your condition under control and your discharge instructions will include directions for any medications you should take after leaving the hospital. Please make sure you see your Primary Care Provider as part of your follow up plan. Activity: As commented below Non-emergency contact: Primary Care Provider and [employer] Call non-emergency contact if: you have any medication questions, your symptoms worsen and your pain is not controlled Follow-up/Referrals: Cyrus Nelson III, CRNP [Primary Care Provider] - 11/10/23 9:20 am Diet: Clear liquid and Low Fat Diet Comment: clear liquid/low fat -- advance to LOW FAT TOLERATED Addtl Attending Provider Instructions: You have been hospitalized for acute pancreatitis. This is suspected due to elevated triglyceride levels given your prior history. You were treated conservatively with IV fluids, anti nausea medications and pain control and you should continue your FENOFIBRATE DAILY to help prevent ongoing issues. Please follow up with primary care/GI to see if you need increase in this medication but suspect that taking it more regularly would be beneficial to prevent repeated episodes. You should continue a LOW FAT diet at discharge. 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 You should return to the ER with any worsened pain, fever, chest pain, shortness of breath, or for any other symptoms concerning for you. It has been a pleasure being a part of the medical team providing for you while you have been in the hospital. Take care! Pending Studies at Discharge: No Stand-Alone Forms: [facility] Medications and DC Order Prescriptions: Continued fenofibrate nanocrystallized 145 mg tablet 145 mg PO QAM Qty: 90 3RF cholestyramine (with sugar) 4 gram powder 1 ea PO DAILY norgestimate-ethinyl estradiol [Tri-Sprintec (28)] 0.18/0.215/0.25 mg-35 mcg (28) tablet 1 tab PO DAILY buspirone 5 mg tablet 5 mg PO BID Qty: 60 5RF Entyvio 300 mg recon soln 50 mg IV . EVERY 6 WKS Rx Instructions: every 6 weeks 50 mg intravenously; Discharge Orders: Discharge Order (Routine); Ordered 10/28/23 Ordered By: Jennyfer Singh Admission Data Admit Date/Time: 10/27/23 13:17 Attending Provider: Dmitri Mcmahan Admit Provider: Quincy Leonard Primary Care Provider: Cyrus Nelson III Other Providers: Quincy Leonard Supervising Physician Co-Signing Physician Notes The patient was not seen by me. The chart was reviewed. Case discussed with BARTOLOME Ballard. Agree with assessment and plan. She is medically stable for discharge home today, October 28 Coding Level of Care Code 93520 INP/OBS DISCH >30 MIN Diagnoses Pancreatitis K85.90 Acute pancreatitis complication: unspecified Chronicity: acute Pancreatitis type: unspecified pancreatitis type CLIF (generalized anxiety disorder) F41.1 Hypertriglyceridemia E78.1 Crohn disease K50.919 Digestive disease complication type: unspecified complication Gastrointestinal tract location: unspecified location
[2023-10-28 15:40] LABS: Basophils # (auto) 0.04 K/uL (0.00-0.20); Basophils % (auto) 0.4 %; Eosinophils # (auto) 0.17 K/uL (0.00-0.50); Eosinophils % (auto) 1.6 %; Hemoglobin 12.8 g/dl (12.0-16.0); Immature Granulocytes # (auto) 0.02 K/uL (0.01-0.20); Immature Granulocytes % (auto) 0.2 %; Lymphocytes # (auto) 1.93 K/uL (1.20-3.40); Lymphocytes % (auto) 17.9 %; Mean Corpuscular Hemoglobin 29.1 pg (25.0-34.0); Mean Corpuscular Hgb Conc 33.7 g/dL (32.0-36.0); Mean Corpuscular Volume 86.4 fL (80.0-100.0); Mean Platelet Volume 9.4 fL (9.4-12.4); Monocytes # (auto) 0.92 K/uL (0.11-0.59); Monocytes % (auto) 8.5 %; Neutrophils # (auto) 7.71 K/uL (1.40-6.50); Neutrophils % (auto) 71.4 %; Platelet Count 244 K/uL (130-400); RDW Coefficient of Variation 12.3 % (11.5-14.5); RDW Standard Deviation 38.7 fL (36.4-46.3); White Blood Count 10.79 K/ul (4.8-10.8)
[2023-10-28 15:55] LABS: Alanine Aminotransferase 14 U/L (7-52); Albumin Level 3.3 gm/dl (3.4-5.0); Alkaline Phosphatase 69 U/L (34-104); Aspartate Aminotransferase 20 U/L (13-39); Bilirubin,Total 0.8 mg/dl (0.2-1.0); Triglycerides 715 mg/dl (0-150)
[2023-10-28 16:11] LABS: Thyroid Stimulating Hormone 0.706 uIu/ml (0.300-4.500)
--- NOTE | 2023-10-28 16:41 | Communication Note ---
Date of Service: October 28, 2023 B12/tsh resulted after dc summary completed, as prior going to be checked by [facility]. TSH wnl 0.706, B12 LOW 165. Given underlying IBD/chron's/ALYSIA, suspect malabsorption, can contribute to elevated TRG levels w/ malabsorption of fat/protein. Ordered B12 IM x 1 prior to discharge and provided rx for continued PO at discharge.
[2023-10-28] MEDS ORDERED: CYANOCOBALAMIN 1000 MCG/ML VIAL IM SCH (16:45)
== END 2023-10-28 17:50 | disposition home or self-care (01) ==
LOC: EDINP 07:12 → ED 07:12 → SUATTDRO 13:17 → 3W 15:55

== ENCOUNTER 2024-06-02 12:12 | Inpatient (IN) ==
--- NOTE | 2024-06-02 12:32 | Emergency Department Note ---
History of Present Illness General Chief complaint: Abdominal Pain Stated complaint: ABDOMINAL PAIN Time Seen by Provider: 06/02/24 12:18 Source: patient, RN notes reviewed and old records reviewed (12/15/23-primary care office visit for her chronic medical problems) Mode of arrival: ambulatory Limitations: no limitations History of Present Illness Maximum Pain Intensity: 8 This patient is a 29-year-old female who has a history of Crohn's disease as well as chronic pancreatitis due to hypertriglyceridemia, comes in with having abdominal pain it is in the central abdomen towards the left and goes into the back it feels like her previous pancreatitis. No vomiting she has chronic diarrhea which is worse today no blood or melena stool. No dysuria hematuria denies no vaginal bleed or discharge no injury or fall no chest pain or shortness of breath. She says this feels just like her previous pancreatitis however it is not quite as bad as it typically gets and she wanted to catch it early. She says she gets about a flareup every year. She has had 10 abdominal CAT scans since 03/01/2019 Home Medications Medication Instructions Recorded Confirmed Type cholestyramine (with sugar) 4 gram 1 ea PO DAILY 04/29/22 06/02/24 History oral powder fenofibrate nanocrystallized 145 145 mg PO QAM 06/02/24 06/02/24 History mg tablet vitamin B complex 1 tab PO DAILY 06/02/24 06/02/24 History Allergies Allergy/AdvReac Type Severity Reaction Status Date / Time infliximab Allergy Severe Anaphylaxis Verified 06/02/24 14:27 Past Med/Surg History Problem List (Updated 06/02/24 @ 14:24 by Jaime Bermudez MD) Vomiting (Acute) Pancreatitis (Acute) Not currently (Acute) Abdominal pain (Acute) S/P cholecystectomy Iron deficiency anemia CLIF (generalized anxiety disorder) Oral contraceptive pill surveillance Hypercholesterolemia Dysmenorrhea Irregular menses Hypertriglyceridemia Crohn disease (Chronic) Medical History Abdominal pain Pancreatitis Partial obstruction of small intestine Pancreatitis Gallstone Small bowel obstruction C. difficile colitis (09/29/14) Surgical History H/O resection of small bowel Family History Uncle Prostate cancer paternal Family/Other Myocardial infarction maternal great grandfather Denies family history of Ovarian cancer Breast cancer Colorectal cancer Social History Smoking Status: Never smoker Second Hand Exposure: No; Do You Dip or Chew Tobacco: No; Hx Alcohol Use: No Hx Substance Use: No Preferred Language: Kiswahili Communication Ability: Effective Visual Impairment: No Limitations Hearing Ability: Normal Industrial Hygiene Manager Required: No Beliefs That Will Affect Care: None marital status: Single Current Living Situation: Spouse current occupational status: employed 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 Feels Safe at Home: Yes Childhood Exposure to Second-Hand Smoke: No Diet: regular Dental Care, Regularly: Yes Physical Activity Frequency: Daily Seatbelt Use: always Sunscreen Use: Yes Assistive Devices: None Review of Systems A total of 10 systems reviewed and were otherwise negative Physical Exam Vital Signs Vital Signs - 24 hr 06/02/24 12:13 06/02/24 12:25 06/02/24 12:39 Temperature 36.9 C Temperature Source Temporal Artery Scan Pulse Rate 85 80 Respiratory Rate 16 Respiratory Effort / Characteristics Non-Labored Spontaneous Respiratory Depth Normal Blood Pressure 132/85 Blood Pressure Mean 100 Blood Pressure Position Sitting Pulse Oximetry 99 96 Oxygen Delivery Method Room Air Room Air Sepsis Recent Fever Within 48 Hours No Sepsis New/Unexplained Change in Mental Status N/A Sepsis Action Taken by Nursing No Action Required General: Well developed well nourished young female who appears mildly comfortable but otherwise in in no acute distress, breathing comfortably on room air. Normal speech HEENT: Normal cephalic atraumatic. Pupils are equal round and reactive to light. Extraocular movements are intact. Oropharynx is pink with moist mucous membranes. No swelling of the mouth lips or tongue. Neck: Supple with a midline trachea. No meningeal signs or stiffness, no JVD or bruits. No Stridor. Chest: Clear to auscultation bilaterally. No wheezes or rhonchi. No increased work of breathing. Heart: Regular rate and rhythm without murmurs or gallops. Abdomen: Soft mildly tender in epigastric and towards the left upper abdomen, nondistended without rebound guarding or rigidity. Extremities: No cyanosis clubbing or edema. No calf tenderness or assymetry Spine/Back. Non tender to palpation. No CVA tenderness Skin: Good turgor without rashes. Neurologic exam: Cranial nerves two through 12 are intact. Motor and sensation are intact and symmetrical throughout. Course Administered Medications Discontinued Medications Hydromorphone HCl (Hydromorphone Inj 1 Mg/Ml Syringe) 1 mg IV NOW STA Stop: 06/02/24 13:07 Last Admin: 06/02/24 13:12 Dose: 1 mg Documented By: EDDIE Sodium Chloride (Nss) 1,000 mls @ 999 mls/hr IV .Q1H1M ADELA Stop: 06/02/24 14:30 Last Infusion: 06/02/24 14:21 Dose: Infused Documented By: Admin: 06/02/24 13:12 Dose: 999 mls/hr Documented By: Infusion: 06/02/24 13:12 Dose: Infused Documented By: Admin: 06/02/24 12:35 Dose: 999 mls/hr Documented By: EDDIE Ioversol (Optiray 320 100ml) 94 ml IV ONCE ONE Stop: 06/02/24 14:12 Last Admin: 06/02/24 14:12 Dose: 94 ml Documented By: KRISS Morphine Sulfate (Morphine Sulfate 4 Mg/Ml 1 Ml Carp\Vial) 4 mg IV NOW STA Stop: 06/02/24 12:26 Last Admin: 06/02/24 12:33 Dose: 4 mg Documented By: EDDIE Ondansetron HCl (Ondansetron Inj 2 Mg/Ml 2 Ml Vial) 4 mg IV NOW STA Stop: 06/02/24 12:26 Last Admin: 06/02/24 12:33 Dose: 4 mg Documented By: EDDIE Ondansetron HCl (Ondansetron Inj 2 Mg/Ml 2 Ml Vial) 4 mg IV NOW STA Stop: 06/02/24 14:19 Last Admin: 06/02/24 14:21 Dose: 4 mg Documented By: EDDIE Medical Decision Making Differential Diagnosis Pancreatitis, Crohn's disease, colitis, electrolyte or metabolic abnormality, , UTI Medical Records Attestation: I reviewed the patient's medical records. Home Medications Current Medication List: was personally reviewed by me Laboratory Data Attestation: I reviewed the patient's lab results. 06/02/24 12:30 06/02/24 12:30 Lab Results 06/02/24 06/02/24 Range/Units 12:30 12:37 WBC 13.17 H (4.8-10.8) K/ul RBC 4.71 (4.20-5.40) M/uL Hgb 14.5 (12.0-16.0) g/dl Hct 39.1 (37.0-47.0) % MCV 83.0 (80.0-100.0) fL MCH 30.8 (25.0-34.0) pg MCHC 37.1 H (32.0-36.0) g/dL RDW Std Deviation 35.4 L (36.4-46.3) fL RDW Coeff of Thang 11.8 (11.5-14.5) % Plt Count 377 (130-400) K/uL MPV 9.8 (9.4-12.4) fL Immature Gran % (Auto) 0.5 % Neut % (Auto) 75.3 % Lymph % (Auto) 16.4 % Oliver % (Auto) 4.3 % Eos % (Auto) 2.7 % Baso % (Auto) 0.8 % Neut # (Auto) 9.93 H (1.40-6.50) K/uL Lymph # (Auto) 2.16 (1.20-3.40) K/uL Oliver # (Auto) 0.56 (0.11-0.59) K/uL Eos # (Auto) 0.35 (0.00-0.50) K/uL Baso # (Auto) 0.11 (0.00-0.20) K/uL Immature Gran # (Auto) 0.06 (0.01-0.20) K/uL Sodium TNP Potassium TNP Chloride 103 (98-107) mmol/L Carbon Dioxide 24 (21-32) mmol/L Anion Gap TNP BUN 12 (6-23) mg/dl Creatinine 0.53 L (0.6-1.2) mg/dl Est Cr Clr Drug Dosing 174.8 ml/min Est GFR ( Amer) 147.7 ml/min Est GFR (Non-Af Amer) 127.4 ml/min BUN/Creatinine Ratio 22.6 H (10-20) Glucose 89 (70-99(Fasting)) mg/dl Calcium 8.8 (8.6-10.3) mg/dl Total Bilirubin 0.2 (0.2-1.0) mg/dl AST TNP ALT 21 (7-52) U/L Alkaline Phosphatase 67 (34-104) U/L Total Protein 7.4 (6.0-8.3) gm/dl Albumin 4.3 (3.4-5.0) gm/dl Globulin 3.1 (2.5-4.0) gm/dl Albumin/Globulin Ratio 1.4 (0.9-2) Lipase 155 H (11-82) U/L HCG, Qual Negative (Negative) Urine Color Yellow Urine Appearance Cloudy A (Clear) Urine pH 5.0 (4.5-7.5) Ur Specific [place] 1.025 (1.000-1.030) Urine Protein Trace H (Negative) Urine Glucose (UA) Negative (Negative) Urine Ketones Negative (Negative) Urine Blood Trace H (Negative) Urine Nitrite Negative (Negative) Urine Bilirubin Negative (Negative) Urine Urobilinogen Negative (Negative) Ur Leukocyte Esterase 1+ H (Negative) Urine WBC (Auto) 21-50 H (0-5) /hpf Urine RBC (Auto) 0-2 (0-2) /hpf U Hyaline Cast (Auto) 0-2 (0-2) /lpf U Epithel Cells (Auto) 6-10 H (0-2) /hpf Urine Bacteria (Auto) 2+ H (None Seen) Imaging Data Attestation: I personally reviewed and interpreted this imaging study as follows: My Impression: CAT scan of the abdomen/pelvis -no bowel obstruction. The pancreas does look suspicious for pancreatitis Radiologist's Impression: Abdomen/Pelvis CT 06/02/24 13:43 CT abd pelvis IV con only CLINICAL HISTORY: upper abd /back pain eval for pancreatitis/chron's TECHNIQUE: Helical axial images of the abdomen and pelvis were obtained and displayed. Automated dose lowering techniques and/or adjustment according to patient size were utilized for this exam. This exam was performed with intravenous contrast. CT DOSE: 1292.03 mGy.cm COMPARISON: Comparison is made to CT abdomen pelvis 10/19/2023 FINDINGS: Lower chest: No acute abnormality. Liver: Unremarkable. No focal lesions are seen. Gallbladder and biliary tree: Patient is status post cholecystectomy. Physiologic prominence of the biliary ducts is noted. Pancreas: Fat stranding is seen around the tail of the pancreas. There is pancreatic tail edema and hypoenhancement. No peripancreatic fluid collection is seen. Spleen: Unremarkable. Adrenals: Unremarkable. Kidneys and ureters: Unremarkable. Bladder: Unremarkable. Reproductive organs: Unremarkable. Bowel: Patient is status post appendectomy and ileocecectomy. Lymph nodes Retroperitoneal: Unremarkable. Pelvic: Unremarkable. Mesenteric: Unremarkable. Peritoneum: Normal. Vessels: Unremarkable. Abdominal wall: Unremarkable. Bones: Unremarkable. IMPRESSION: Findings compatible with acute pancreatitis. No necrosis or peripancreatic collection is seen. ACT 112: Negative or not required by law. Electronically signed by: Anthony Jones M.D. 06/02/2024 2:25 PM [facility] Narrative This patient comes in with abdominal pain she feels is similar to previous pancreatitis she gets pancreatitis chronically due to triglycerides. IV access established was hydrated 2 L normal saline bolus was given morphine 4 mg IV and Zofran 4 mg IV she tells me she can get a ride home. Blood work was obtained and she was reassessed frequently. test was negative. She did tell the nurse that she is a much more pain and when reassessed her and ordered additional pain medication with Dilaudid 1 mg IV. She was feeling a bit better and I talked her at length about doing a CAT scan she does wish to proceed and I explained the risk and the benefit. She has not had one for about 8 months and she has several potential reasons for her pain including pancreatitis and a Crohn's complication. I did she does have an elevated white blood count. She did freely consent. CAT scan was obtained she came back and threw up after the CAT scan I went in and checked on her she said she was actually nauseated before the dye does not feel she had a reaction she has no shortness of breath her vital signs are stable I reassessed her she has no wheezing the posterior oropharynx is wide open she was given Zofran 4 mg IV as well as additional Dilaudid 0.5 mg that she felt the pain was coming back. Her lipase did come back mildly elevated @ 155, I do suspect she does have a pancreatitis. Her white count is also mildly elevated at 13. Her CAT scan does show acute pancreatitis and given her ongoing symptoms, I do think needs to be admitted/observed for IV fluids bowel rest pain and nausea management. She has required 3 doses of narcotics IV in the ER as well as for Zofran and while she is feeling better at present her symptoms wax and wane and have gotten worse since she got here. In light of this, I do think she would benefit from inpatient admission/observation I discussed the case at length with the [facility] hospitalist who will admit/observe her for these measures Continuous cardiac technician: Orders placed in EMR for continuous cardiac monitoring: Upon my evaluation, the patient noted to be in normal sinus rhythm rate of 70 Impression & Plan Abdominal pain, Crohn disease, Not currently , Pancreatitis, Vomiting Discharge Plan Visit Data Chief Complaint: Abdominal Pain Stated Complaint: ABDOMINAL PAIN ED Provider: Jaime Bermudez Discharge Problem: Abdominal pain, Crohn disease, Not currently , Pancreatitis, Vomiting Forms Stand Alone Forms: My [facility] Prescriptions Prescriptions: No Action cholestyramine (with sugar) 4 gram powder 1 ea PO DAILY vitamin B complex Tablet 1 tab PO DAILY fenofibrate nanocrystallized 145 mg tablet 145 mg PO QAM Rx Instructions: TAKE 1 TABLET BY MOUTH DAILY IN THE MORNING FOR HYPERTRIGLYCERIDEMIA Referrals Referrals: Cyrus Nelson III, CRNP [Primary Care Provider] - Discharge Problem: Abdominal pain Qualifiers: Abdominal location: epigastric Qualified Code(s): R10.13 - Epigastric pain Crohn disease Qualifiers: Gastrointestinal tract location: unspecified location Digestive disease complication type: unspecified complication Qualified Code(s): K50.919 - Crohn's disease, unspecified, with unspecified complications Pancreatitis Qualifiers: Chronicity: acute Pancreatitis type: unspecified pancreatitis type Acute pancreatitis complication: unspecified Qualified Code(s): K85.90 - Acute pancreatitis without necrosis or infection, unspecified Vomiting Qualifiers: Vomiting type: unspecified Nausea presence: with nausea Qualified Code(s): R 11.2 - Nausea with vomiting, unspecified
[2024-06-02] MEDS: ONDANSETRON INJ 2 MG/ML 2 ML VIAL IV STA ×2 (12:33→14:21)
[2024-06-02] MEDS: MoRPHine SULFATE 4 MG/ML 1 ML CARP\\VIAL IV STA (12:33)
[2024-06-02] MEDS: SODIUM CHLORIDE 0.9% 1,000 ML IV SCH (12:35)
[2024-06-02] MEDS: HYDROmorphone INJ 1 MG/ML SYRINGE IV STA (13:12)
[2024-06-02 13:22] LABS: Pregnancy Test, Serum Negative (Negative)
[2024-06-02 13:24] LABS: Appearance Urine Cloudy (Clear); Bacteria Urine Automated 2+ (None Seen); Bilirubin Urine Negative (Negative); Blood Urine Trace (Negative); Cast Urine Automated 0-2 /lpf (0-2); Color Urine Yellow; Glucose Urine UA Negative (Negative); Ketones Urine Negative (Negative); Leukocyte Esterase Urine 1+ (Negative); Nitrite Urine Negative (Negative); Protein Urine Trace (Negative); RBC Urine Automated 0-2 /hpf (0-2); Specific Gravity Urine 1.025 (1.000-1.030); Urobilinogen Urine Negative (Negative); WBC Urine Automated 21-50 /hpf (0-5)
[2024-06-02 13:29] LABS: Hematocrit (blood only) 39.1 % (37.0-47.0); Hemoglobin 14.5 g/dl (12.0-16.0); Mean Corpuscular Hemoglobin 30.8 pg (25.0-34.0); Mean Corpuscular Hgb Conc 37.1 g/dL (32.0-36.0); Mean Platelet Volume 9.8 fL (9.4-12.4); Platelet Count 377 K/uL (130-400); RDW Coefficient of Variation 11.8 % (11.5-14.5); RDW Standard Deviation 35.4 fL (36.4-46.3); Red Blood Count 4.71 M/uL (4.20-5.40); White Blood Count 13.17 K/ul (4.8-10.8)
[2024-06-02 13:34] LABS: Basophils # (auto) 0.11 K/uL (0.00-0.20); Basophils % (auto) 0.8 %; Eosinophils # (auto) 0.35 K/uL (0.00-0.50); Eosinophils % (auto) 2.7 %; Immature Granulocytes # (auto) 0.06 K/uL (0.01-0.20); Immature Granulocytes % (auto) 0.5 %; Lymphocytes # (auto) 2.16 K/uL (1.20-3.40); Lymphocytes % (auto) 16.4 %; Monocytes # (auto) 0.56 K/uL (0.11-0.59); Monocytes % (auto) 4.3 %; Neutrophils # (auto) 9.93 K/uL (1.40-6.50); Neutrophils % (auto) 75.3 %
[2024-06-02 13:50] LABS: Alanine Aminotransferase 21 U/L (7-52); Albumin Globulin Ratio 1.4 (0.9-2); Albumin Level 4.3 gm/dl (3.4-5.0); Alkaline Phosphatase 67 U/L (34-104); BUN Creatinine Ratio 22.6 (10-20); Bilirubin,Total 0.2 mg/dl (0.2-1.0); Blood Urea Nitrogen 12 mg/dl (6-23); Calcium 8.8 mg/dl (8.6-10.3); Carbon Dioxide 24 mmol/L (21-32); Chloride 103 mmol/L (98-107); Creatinine Clr Calc Pharmacy 174.8 ml/min; Est GFR (African American) 147.7 ml/min; Est GFR (Non-African American) 127.4 ml/min; Globulin 3.1 gm/dl (2.5-4.0); Glucose 89 mg/dl (70-99(Fasting)); Lipase 155 U/L (11-82); Total Protein 7.4 gm/dl (6.0-8.3)
[2024-06-02] MEDS: OPTIRAY 320 100ml IV ONE (14:12)
--- NOTE | 2024-06-02 14:27 | CT Scan Report ---
CT abd pelvis IV con only CLINICAL HISTORY: upper abd /back pain eval for pancreatitis/chron's TECHNIQUE: Helical axial images of the abdomen and pelvis were obtained and displayed. Automated dose lowering techniques and/or adjustment according to patient size were utilized for this exam. This e xam was performed with intravenous contrast. CT DOSE: 1292.03 mGy.cm COMPARISON: Comparison is made to CT abdomen pelvis 10/19/2023 FINDINGS: Lower chest: No acute abnormality. Liver: Unremarkable. No focal lesions are seen. Gallbladder and biliary tree: Patient is status post cholecystectomy. Physiologic prominence of the b iliary ducts is noted. Pancreas: Fat stranding is seen around the tail of the pancreas. There is pancreatic tail edema and h ypoenhancement. No peripancreatic fluid collection is seen. Spleen: Unremarkable. Adrenals: Unremarkable. Kidneys and ureters: Unremarkable. Bladder: Unremarkable. Reproductive organs: Unremarkable. Bowel: Patient is status post appendectomy and ileocecectomy. Lymph nodes Retroperitoneal: Unremarkable. Pelvic: Unremarkable. Mesenteric: Unremarkable. Peritoneum: Normal. Vessels: Unremarkable. Abdominal wall: Unremarkable. Bones: Unremarkable. IMPRESSION: Findings compatible with acute pancreatitis. No necrosis or peripancreatic collection is seen. ACT 112: Negative or not required by law. Electronically signed by: Anthony Jones M.D. 06/02/2024 2:25 PM
--- NOTE | 2024-06-02 14:47 | History & Physical Report ---
Date of Service June 02, 2024 Assessment & Plan (1) Acute pancreatitis: Plan: LLQ pain with radiation to back that began the morning of 06/02; associated N/V/D Hx of pancreatitis secondary to hypertriglyceridemia HCG Negative Lipase 155 on arrival A/P CT on arrival revealed acute pancreatitis Triglyceride levels ordered, pending N.p.o. for now, then advance to clear liquid/low-fat diet in 24-48 hours as tolerated IVF resuscitation with LR at 150mL/hr x 3 L Acetaminophen IV q8h as needed for pain 13 Dilaudid IV q3h as needed for breakthrough pain Zofran as needed for nausea/vomiting If the triglyceride induced pancreatitis, will consider starting insulin drip (0.1u/kg/hr) A.m. CBC, BMP, lipase level (2) Hypertriglyceridemia: Plan: Hypertriglyceridemia at 1070; trend q6h until <500 Insulin gtt D5W + 20mEq K BSG q1h Communication order to hold insulin gtt if TGs <500 (3) Hypercholesterolemia: Plan: Continue fenofibrate (4) Crohn disease: (5) S/P cholecystectomy: Plan Disposition: Admit to PCU telemetry Full code N.p.o. for now VTE PPx: SCDs, encourage ambulation History of Present Illness Chief Complaint: LLQ abdominal pain Primary Care Provider: Cyrus Nelson III, CRNP Leida is a 29-year-old female with PMH hypertriglyceridemia induced pancreatitis, Crohn's disease, irregular menses, CLIF, and prior cholecystectomy. She presented for acute onset of LLQ abdominal pain that wraps around to her back that began this morning of 06/02. Patient reports that she woke up around 7 AM, and the pain started shortly after. She did not have any breakfast this morning, but she does note that she ate some high-fat foods yesterday. History of prior pancreatitis, with the last episode being 1 year ago; triggered by high triglycerides. She reports that she does not drink alcohol much anymore; 1 episode of alcohol use 1.5 weeks ago; no prior history of heavy drinking. She had her gallbladder removed 3 years ago. Patient took her regular morning medications today, including her fenofibrate for triglyceridemia. She reports good compliance with taking medications, and reports no recent change in medications. She rates her LLQ pain as 7/10 in the ED, and 8/10 at worst. She characterizes it as a dull, constant pain that radiates to her left lower back. Similar to prior episodes of acute pancreatitis. She believes laying flat on her back makes it better. She did not take any pain medicine prior to coming into the hospital. She reports 1 episode of nausea/vomiting in the hospital this afternoon, as well as diarrhea that started this morning. ED course: NSS 1000 mL IV Morphine sulfate 4 mg IV Zofran 4 mg IV x 2 Dilaudid 1 mg IV Dilaudid 0.5 mg IV ROS: Patient endorses MOORE, LLQ pain with radiation to back, and N/V/D. Patient denies fever, chills, night-sweats, body aches, dizziness, lightheadedness, chest pain, SOB, cough, pleuritic CP, blood in the urine/stool, dysuria, burning with urination, or numbness or tingling in the arms or legs. Allergies Allergy/AdvReac Type Severity Reaction Status Date / Time infliximab Allergy Severe Anaphylaxis Verified 06/02/24 14:27 Home Medications Medication Instructions Recorded Confirmed Type cholestyramine (with sugar) 4 gram 1 ea PO DAILY 04/29/22 06/02/24 History oral powder fenofibrate nanocrystallized 145 145 mg PO QAM 06/02/24 06/02/24 History mg tablet vitamin B complex 1 tab PO DAILY 06/02/24 06/02/24 History Past Med/Surg History Problem List (Updated 06/02/24 @ 14:42 by Saqib Jeffers PA-C) Acute pancreatitis Vomiting (Acute) Pancreatitis (Acute) Not currently (Acute) Abdominal pain (Acute) S/P cholecystectomy Iron deficiency anemia CLIF (generalized anxiety disorder) Oral contraceptive pill surveillance Hypercholesterolemia Dysmenorrhea Irregular menses Hypertriglyceridemia Crohn disease (Chronic) Medical History (Updated 06/02/24 @ 14:42 by Saqib Jeffers PA-C) Abdominal pain Pancreatitis Partial obstruction of small intestine Pancreatitis Gallstone Small bowel obstruction C. difficile colitis (09/29/14) Surgical History H/O resection of small bowel Family History Uncle Prostate cancer paternal Family/Other Myocardial infarction maternal great grandfather Denies family history of Ovarian cancer Breast cancer Colorectal cancer Social History Smoking Status: Never smoker Second Hand Exposure: No; Do You Dip or Chew Tobacco: No; Hx Alcohol Use: No Hx Substance Use: No Preferred Language: Indonesian Communication Ability: Effective Visual Impairment: No Limitations Hearing Ability: Normal Animation Artist Required: No Beliefs That Will Affect Care: None marital status: Single Current Living Situation: Spouse current occupational status: employed 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 Feels Safe at Home: Yes Childhood Exposure to Second-Hand Smoke: No Diet: regular Dental Care, Regularly: Yes Physical Activity Frequency: Daily Seatbelt Use: always Sunscreen Use: Yes Assistive Devices: None Review of Systems Review of Systems: See HPI above Physical Exam Physical Exam: General: no acute distress; non-toxic appearing; well-nourished; cooperative; SpO2 96% on RA HEENT: normocephalic, atraumatic; no scleral icterus; PERRLA; moist mucus membrane; vision and hearing grossly intact Neck: supple; no lymphadenopathy; trachea midline Skin: warm, dry without signs of tenting; no cyanosis; no rashes, bruising, lesions, or erythema noted CV: chest wall NTP; RRR; S1/S2 normal; no murmurs/rubs/gallops; pulses intact and symmetric at radial, DP, and PT Lungs: no acute respiratory distress; symmetrical chest wall expansion; clear breath sounds across all lung ward w/o adventitious sounds; no wheezing ABD: Soft; LLQ is TTP; BS present; no rebound/guarding; no distention; positive left-sided CVA tenderness; no signs of rashes, bruising, or bleeding on the abdomen flanks or back MSK: no tics or fasciculations; no edema noted in the LEs b/l, nonerythematous Neuro: A&Ox3; normal mood and affect; fluent speech; no focal deficits; sensation grossly intact in the LEs b/l Results & Data Results & Data Vital Signs (Past 12 Hours) Vital Signs Temp Pulse Resp BP Pulse Ox O2 Del Method 06/02/24 12:39 80 06/02/24 12:25 96 Room Air 06/02/24 12:13 36.9 C 85 16 132/85 99 Room Air Laboratory Results Abnormal lab results 06/02/24 06/02/24 Range/Units 12:30 12:37 WBC 13.17 H (4.8-10.8) K/ul MCHC 37.1 H (32.0-36.0) g/dL RDW Std Deviation 35.4 L (36.4-46.3) fL Neut # (Auto) 9.93 H (1.40-6.50) K/uL Creatinine 0.53 L (0.6-1.2) mg/dl BUN/Creatinine Ratio 22.6 H (10-20) Lipase 155 H (11-82) U/L Urine Appearance Cloudy A (Clear) Urine Protein Trace H (Negative) Urine Blood Trace H (Negative) Ur Leukocyte Esterase 1+ H (Negative) Urine WBC (Auto) 21-50 H (0-5) /hpf U Epithel Cells (Auto) 6-10 H (0-2) /hpf Urine Bacteria (Auto) 2+ H (None Seen) Diagnostic Findings Abdomen/Pelvis CT 06/02/24 13:43 CT abd pelvis IV con only CLINICAL HISTORY: upper abd /back pain eval for pancreatitis/chron's TECHNIQUE: Helical axial images of the abdomen and pelvis were obtained and displayed. Automated dose lowering techniques and/or adjustment according to pa tient size were utilized for this exam. This exam was performed with intravenous contrast. CT DOSE: 1292.03 mGy.cm COMPARISON: Comparison is made to CT abdomen pelvis 10/19/2023 FINDINGS: Lower chest: No acute abnormality. Liver: Unremarkable. No focal lesions are seen. Gallbladder and biliary tree: Patient is status post cholecystectomy. Physiologic prominence of the biliary ducts is noted. Pancreas: Fat stranding is seen around the tail of the pancreas. There is pancreatic tail edema and hypoenhancement. No peripancreatic fluid collection is seen. Spleen: Unremarkable. Adrenals: Unremarkable. Kidneys and ureters: Unremarkable. Bladder: Unremarkable. Reproductive organs: Unremarkable. Bowel: Patient is status post appendectomy and ileocecectomy. Lymph nodes Retroperitoneal: Unremarkable. Pelvic: Unremarkable. Mesenteric: Unremarkable. Peritoneum: Normal. Vessels: Unremarkable. Abdominal wall: Unremarkable. Bones: Unremarkable. IMPRESSION: Findings compatible with acute pancreatitis. No necrosis or peripancreatic collection is seen. ACT 112: Negative or not required by law. Electronically signed by: Anthony Jones M.D. 06/02/2024 2:25 PM ECG Additional Comments: EKG ordered, pending Code Status & VTE Plan Code Status Full code VTE Prophylaxis Plan VTE Prophylaxis will be ordered: Yes Supervising Physician Co-Signing Physician Notes Patient seen and examined, chart reviewed, case discussed with Saqib Jeffers PA-C and I agree with the assessment and plan as above except as otherwise noted Labs and images reviewed 29-year-old female with a history of Crohn's who presents with pancreatitis. Lipase minimally elevated at 155 has multiple episodes of pancreatitis, around yearly. Hx of hypertriglyceridemia. CT c/w acute pancreatitis. She has a history of hypertriglyceridemia, triglyceride level ordered. No alcohol intake. No hyperbilirubinemia or transaminitis, and has a prior history of cholecystectomy. She follows with [facility], is s/p ileocecectomy. Does have a history of hypertriglyceridemia induced pancreatitis in 2019 and 2021. Pt does endorses unusually high fatty meal intake yesterday which may have triggered her sx. Electrolyte level ordered on admission. Is currently resulted greater than 1000. Given hypertriglyceridemia with triglycerides greater than 1000 and recurrent acute pancreatitis with leukocytosis will treat with insulin gtt. protocol. D5 plus KCl at 75 cc/h with dextrose push available for rescue if needed. Insulin gtt. 0.1 units/kg. Triglyceride check every 6 hours. Continue on insulin gtt. until triglycerides are less than 500 and then discontinued. N.p.o. at this time, once able to be advanced needs low-fat diet. Glucose checks every hour, uptitrate D5 as needed to maintain BSG 150-250. Discussed with nursing staff. PG Care Time/CCT Total # of Minutes Spent Total Time Spent with Patient: Total time spent is greater than 50% in coordination of care (as documented) at patient's floor/unit and/or counseling patient: C[place] [address] INT INP/OBS CARE 3MIN Patient Type Established History Comprehensive Exam Comprehensive Medical Decision Making High Complexity Diagnoses Acute pancreatitis K85.90 Hypertriglyceridemia E78.1 Hypercholesterolemia E78.00 Crohn disease K50.919 Digestive disease complication type: unspecified complication Gastrointestinal tract location: unspecified location S/P cholecystectomy Z90.49 (4) Crohn disease Digestive disease complication type: unspecified complication Gastrointestinal tract location: unspecified location Qualified Code(s): K50.919 - Crohn's disease, unspecified, with unspecified complications
[2024-06-02 14:51] LABS: Potassium 3.8 mmol/L (3.5-5.1)
[2024-06-02] MEDS: HYDROmorphone INJ 0.5 MG/0.5 ML SYR IV STA (14:55)
[2024-06-02] MEDS: LACTATED RINGER'S 1,000 ML IV SCH (15:53)
[2024-06-02] MEDS: HYDROmorphone INJ 1 MG/ML SYRINGE ONE (17:14)
[2024-06-02] MEDS: ONDANSETRON INJ 2 MG/ML 2 ML VIAL ONE (17:15)
[2024-06-02] MEDS ORDERED: HYDROmorphone INJ 0.5 MG/0.5 ML SYR IV PRN (19:27)
[2024-06-02] MEDS ORDERED: ACETAMINOPHEN 325 MG TAB PO PRN (19:27)
[2024-06-02] MEDS: PROCHLORPERAZINE 5 MG in SYRINGE 4 ML IV ONE (20:28)
[2024-06-02] MEDS: HYDROmorphone INJ 1 MG/ML SYRINGE IV PRN (20:28)
[2024-06-02] MEDS: D5W AND 1/2NSS + 20MEQ KCL 20 MEQ/1,000 ML BAG IV SCH (20:33)
[2024-06-02] MEDS: INSULIN REGULAR 250 UNITS in SODIUM CHLORIDE 0.9% 247.5 ML IV SCH (20:36)
[2024-06-02] MEDS: KETOROLAC TROMETHAMINE 15 MG/ML VIAL IV ONE (20:49)
[2024-06-03] MEDS: ONDANSETRON INJ 2 MG/ML 2 ML VIAL IV PRN ×2 (00:52→11:08)
[2024-06-03] MEDS: DEXTROSE 50% 50 ML SYRINGE IV PRN (01:58)
[2024-06-03] MEDS: DEXTROSE 50% 50 ML SYRINGE IV ONE ×2 (01:58)
[2024-06-03] MEDS: SODI CHLOR 2.5MEQ/ML 14.6% 77 MEQ, POTASSIUM CHLORIDE 20 MEQ in DEXTROSE 10% 1,000 ML IV SCH (04:08)
[2024-06-03 07:33] LABS: Basophils # (auto) 0.04 K/uL (0.00-0.20); Basophils % (auto) 0.3 %; Eosinophils # (auto) 0.03 K/uL (0.00-0.50); Eosinophils % (auto) 0.2 %; Hematocrit (blood only) 35.8 % (37.0-47.0); Hemoglobin 12.8 g/dl (12.0-16.0); Immature Granulocytes # (auto) 0.05 K/uL (0.01-0.20); Immature Granulocytes % (auto) 0.3 %; Lymphocytes # (auto) 0.98 K/uL (1.20-3.40); Lymphocytes % (auto) 6.8 %; Mean Corpuscular Hemoglobin 29.5 pg (25.0-34.0); Mean Corpuscular Hgb Conc 35.8 g/dL (32.0-36.0); Mean Corpuscular Volume 82.5 fL (80.0-100.0); Mean Platelet Volume 9.5 fL (9.4-12.4); Monocytes # (auto) 1.01 K/uL (0.11-0.59); Neutrophils # (auto) 12.35 K/uL (1.40-6.50); Neutrophils % (auto) 85.4 %; Platelet Count 283 K/uL (130-400); RDW Coefficient of Variation 11.8 % (11.5-14.5); RDW Standard Deviation 35.4 fL (36.4-46.3); Red Blood Count 4.34 M/uL (4.20-5.40); White Blood Count 14.46 K/ul (4.8-10.8)
[2024-06-03 07:58] LABS: BUN Creatinine Ratio 10.7 (10-20); Calcium 7.7 mg/dl (8.6-10.3); Creatinine Clr Calc Pharmacy 163.7 ml/min; Est GFR (Non-African American) 125.1 ml/min; Potassium 3.9 mmol/L (3.5-5.1)
[2024-06-03] MEDS ORDERED: Nursing to Pharmacy Communication SCH (09:00)
[2024-06-03] MEDS: FENOFIBRATE NANOCRYSTALLIZED 145 MG TABLET PO SCH (09:29)
[2024-06-03] MEDS: CHOLESTYRAMINE LIGHT 4 GM PKT PO SCH (09:33)
[2024-06-03 12:58] LABS: Thyroid Stimulating Hormone 0.62 uIu/ml (0.300-4.500)
--- NOTE | 2024-06-03 14:55 | Hospitalist Progress Note ---
Date of Service June 03, 2024 Assessment & Plan (1) Acute pancreatitis: Plan: LLQ pain with radiation to back that began the morning of 06/02; associated N/V/D Hx of pancreatitis secondary to hypertriglyceridemia HCG Negative Lipase 155 on arrival A/P CT on arrival revealed acute pancreatitis Triglyceride levels markedly elevated, peaked at 1941 Was on insulin gtt until triglycerides were under 500 Triglyceride level 7/5 AM was 315 IVF D5W + 20mEq K x3 bags Continue IVF of LR x2 bags N.p.o. for now, then advance to clear liquid/low-fat diet in 24-48 hours as tolerated Plan to start clear liquid diet 06/04 AM Acetaminophen IV q8h as needed for pain 13 Dilaudid IV q3h as needed for breakthrough pain Zofran as needed for nausea (2) Hypertriglyceridemia: Plan: Hypertriglyceridemia at 1070 on presentation Continue fenofibrate Consider addition of Vascepa 2 g twice daily on discharge Plan Discontinued insulin GTT Adjusted IVF VTE PPx: SCDs, encourage ambulation CODE STATUS: Full code Admission and Anticipated Discharge Date Admission Date: June 02, 2024 Subjective Patient seen and evaluated at bedside. She reports feeling better today compared to yesterday. She notes her pain is more controlled, though her ab domen still remains tender. She has intermittent nausea with 2 episodes of vomiting this morning when returning from the bathroom. Denies any diarrhea today. She denied any nausea at the time of my evaluation. Will continue n.p.o. today with advancement to clear liquids tomorrow morning, 06/04/2024. Patient has no additional complaints or concerns at this time. Physical Exam Physical Exam: General: No acute distress, nondiaphoretic, well-developed, well-nourished. Skin: The skin was without rashes, erythema, edema, or bruising. Cardiac: Regular rate and rhythm without murmurs gallops or rubs. Pulm: Clear to auscultation bilaterally without wheezes, rales or rhonchi. No retractions or accessory muscle use. Abdominal: Soft, nondistended. Tender to palpation in LLQ. Bowel sounds present. No rebound/guarding. Neuro: A&O x3. No focal neurological deficits. Results & Data Results & Data Vital Signs (Past 12 Hours) Vital Signs Temp Pulse Pulse Resp BP Pulse Ox O2 Del Method 06/03/24 10:43 36.8 C 83 22 100/65 97 Room Air 06/03/24 07:40 96 H 06/03/24 07:31 37.1 C 101 H 23 104/65 94 Room Air Laboratory Results Reviewed CBC Reviewed BMP Reviewed TSH PG Care Time/CCT Total # of Minutes Spent Total Time Spent with Patient: Total time spent is greater than 50% in coordination of care (as documented) at patient's floor/unit and/or counseling patient: Coding Level of Care Code 51520 SUB INP/OBS CARE 3/50MIN Diagnoses Acute pancreatitis K85.90 Hypertriglyceridemia E78.1
[2024-06-03] MEDS: LACTATED RINGER'S 1,000 ML IV SCH (20:17)
[2024-06-04] MEDS: ACETAMINOPHEN 1,000 MG/100 ML VIAL IV PRN (03:39)
[2024-06-04 06:14] LABS: Basophils # (auto) 0.06 K/uL (0.00-0.20); Basophils % (auto) 0.4 %; Eosinophils % (auto) 2.6 %; Hematocrit (blood only) 33.8 % (37.0-47.0); Hemoglobin 11.6 g/dl (12.0-16.0); Immature Granulocytes # (auto) 0.13 K/uL (0.01-0.20); Immature Granulocytes % (auto) 0.9 %; Lymphocytes # (auto) 1.47 K/uL (1.20-3.40); Lymphocytes % (auto) 9.7 %; Mean Corpuscular Hemoglobin 29.4 pg (25.0-34.0); Mean Corpuscular Hgb Conc 34.3 g/dL (32.0-36.0); Mean Corpuscular Volume 85.8 fL (80.0-100.0); Mean Platelet Volume 9.7 fL (9.4-12.4); Monocytes # (auto) 1.09 K/uL (0.11-0.59); Monocytes % (auto) 7.2 %; Neutrophils # (auto) 12.06 K/uL (1.40-6.50); Neutrophils % (auto) 79.2 %; Platelet Count 260 K/uL (130-400); RDW Coefficient of Variation 12.3 % (11.5-14.5); RDW Standard Deviation 38.5 fL (36.4-46.3); Red Blood Count 3.94 M/uL (4.20-5.40); White Blood Count 15.21 K/ul (4.8-10.8)
[2024-06-04 06:46] LABS: BUN Creatinine Ratio 6.5 (10-20); Calcium 7.9 mg/dl (8.6-10.3); Est GFR (African American) 140.2 ml/min; Potassium 3.4 mmol/L (3.5-5.1)
[2024-06-04] MEDS: POTASSIUM CHLORIDE CRTAB 20 MEQ TABCR PO STA (08:46)
--- NOTE | 2024-06-04 19:51 | Discharge Summary ---
Discharge Summary Date of Service June 04, 2024 Principal Dx & Hospital Course #1 = Principal Diagnosis (1) Acute pancreatitis: LLQ pain with radiation to back that began the morning of 06/02; associated N/V/D Hx of pancreatitis secondary to hypertriglyceridemia HCG Negative Lipase 155 on arrival A/P CT on arrival revealed acute pancreatitis Triglyceride levels markedly elevated, peaked at 1941 Was on insulin gtt until triglycerides were under 500 Triglyceride level 7/5 AM was 315 IVF D5W + 20mEq K x3 bags Continue IVF of LR x2 bags Tolerated progression from clear liquids to low-fat low fiber diet 06/04/2024. No nausea, vomiting, or increased abdominal pain. (2) Hypertriglyceridemia: Hypertriglyceridemia at 1070 on presentation Continue fenofibrate Continue cholestyramine Started Vascepa 2 g twice daily on discharge Follow-up with PCP scheduled for 06/10/24 with lab work prior to appointment. Plan CODE STATUS: Full code Notes For Next Care Provider Patient with acute pancreatitis secondary to hypertriglyceridemia. Responded well to insulin drip and IVF. Well-tolerated progression to low-fat low fiber diet. Follow-up with PCP scheduled for 06/10/2024. Patient is to get lab work prior to appointment. Lab slip given to patient on discharge. Medication Changes From Visit Started Vascepa 2 g twice daily on discharge Admission HPI Per Admitting Provider Leida is a 29-year-old female with PMH hypertriglyceridemia induced pancreatitis, Crohn's disease, irregular menses, CLIF, and prior cholecystectomy. She presented for acute onset of LLQ abdominal pain that wraps around to her b ack that began this morning of 06/02. Patient reports that she woke up around 7 AM, and the pain started shortly after. She did not have any breakfast this morning, but she does note that she ate some high-fat foods yesterday. History of prior pancreatitis, with the last episode being 1 year ago; triggered by high triglycerides. She reports that she does not drink alcohol much anymore; 1 episode of alcohol use 1.5 weeks ago; no prior history of heavy drinking. She had her gallbladder removed 3 years ago. Patient took her regular morning medications today, including her fenofibrate for triglyceridemia. She reports good compliance with taking medications, and reports no recent change in medications. She rates her LLQ pain as 7/10 in the ED, and 8/10 at worst. She characterizes it as a dull, constant pain that radiates to her left lower back. Similar to prior episodes of acute pancreatitis. She believes laying flat on her back makes it better. She did not take any pain medicine prior to coming into the hospital. She reports 1 episode of nausea/vomiting in the hospital this afternoon, as well as diarrhea that started this morning. ED course: NSS 1000 mL IV Morphine sulfate 4 mg IV Zofran 4 mg IV x 2 Dilaudid 1 mg IV Dilaudid 0.5 mg IV ROS: Patient endorses MOORE, LLQ pain with radiation to back, and N/V/D. Patient denies fever, chills, night-sweats, body aches, dizziness, lightheadedness, chest pain, SOB, cough, pleuritic CP, blood in the urine/stool, dysuria, burning with urination, or numbness or tingling in the arms or legs. Admission Exam Per Admitting Provider General: no acute distress; non-toxic appearing; well-nourished; cooperative; SpO2 96% on RA HEENT: normocephalic, atraumatic; no scleral icterus; PERRLA; moist mucus membrane; vision and hearing grossly intact Neck: supple; no lymphadenopathy; trachea midline Skin: warm, dry without signs of tenting; no cyanosis; no rashes, bruising, lesions, or erythema noted CV: chest wall NTP; RRR; S1/S2 normal; no murmurs/rubs/gallops; pulses intact and symmetric at radial, DP, and PT Lungs: no acute respiratory distress; symmetrical chest wall expansion; clear breath sounds across all lung ward w/o adventitious sounds; no wheezing ABD: Soft; LLQ is TTP; BS present; no rebound/guarding; no distention; positive left-sided CVA tenderness; no signs of rashes, bruising, or bleeding on the abdomen flanks or back MSK: no tics or fasciculations; no edema noted in the LEs b/l, nonerythematous Neuro: A&Ox3; normal mood and affect; fluent speech; no focal deficits; sensation grossly intact in the LEs b/l Discharge Exam General: No acute distress, nondiaphoretic, well-developed, well-nourished. Skin: The skin was without rashes, erythema, edema, or bruising. Cardiac: Regular rate and rhythm without murmurs gallops or rubs. Pulm: Clear to auscultation bilaterally without wheezes, rales or rhonchi. No retractions or accessory muscle use. Abdominal: Soft, nondistended. Tender to palpation in LLQ. Bowel sounds present. No rebound/guarding. Neuro: A&O x3. No focal neurological deficits. Updated Medication List Medication Instructions Recorded Confirmed Type cholestyramine (with sugar) 4 gram 1 ea PO DAILY 04/29/22 06/02/24 History oral powder fenofibrate nanocrystallized 145 145 mg PO QAM 06/02/24 06/02/24 History mg tablet vitamin B complex 1 tab PO DAILY 06/02/24 06/02/24 History icosapent ethyl 1 gram capsule 2 g (2 x 1 gram) PO BID #60 caps 06/04/24 Rx (Vascepa) Hospital Stay Data Consultations 06/02/24 14:46 ED Decision to Admit Stat Diagnostic Imagining Performed Abdomen/Pelvis CT 06/02/24 13:43 CT abd pelvis IV con only CLINICAL HISTORY: upper abd /back pain eval for pancreatitis/chron's TECHNIQUE: Helical axial images of the abdomen and pelvis were obtained and displayed. Automated dose lowering techniques and/or adjustment according to patient size were utilized for this exam. This exam was performed with intravenous contrast. CT DOSE: 1292.03 mGy.cm COMPARISON: Comparison is made to CT abdomen pelvis 10/19/2023 FINDINGS: Lower chest: No acute abnormality. Liver: Unremarkable. No focal lesions are seen. Gallbladder and biliary tree: Patient is status post cholecystectomy. Physiologic prominence of the biliary ducts is noted. Pancreas: Fat stranding is seen around the tail of the pancreas. There is pancreatic tail edema and hypoenhancement. No peripancreatic fluid collection is seen. Spleen: Unremarkable. Adrenals: Unremarkable. Kidneys and ureters: Unremarkable. Bladder: Unremarkable. Reproductive organs: Unremarkable. Bowel: Patient is status post appendectomy and ileocecectomy. Lymph nodes Retroperitoneal: Unremarkable. Pelvic: Unremarkable. Mesenteric: Unremarkable. Peritoneum: Normal. Vessels: Unremarkable. Abdominal wall: Unremarkable. Bones: Unremarkable. IMPRESSION: Findings compatible with acute pancreatitis. No necrosis or peripancreatic collection is seen. ACT 112: Negative or not required by law. Electronically signed by: Anthony Jones M.D. 06/02/2024 2:25 PM Pending Results Patient Have Any Pending Studies at Discharge: No Discharge Instructions Given to Patient (Per Discharging Provider) Huey Casarez were admitted to the hospital with acute pancreatitis. This is what caused your abdominal pain and nausea/vomiting/diarrhea. This episode is likely due to markedly elevated triglyceride levels. You responded well to an insulin drip and IV fluids. You well-tolerated and low-fat diet. Upon discharge from the hospital: * Follow low-fat, low fiber, soft diet and advance diet cautiously as tolerated. * Start Vascepa (concentrated fish oil) 2 g twice daily. This is to help control your triglycerides. This prescription has been sent to the [facility] on [address]. * Continue your fenofibrate 145 mg daily. This medication also helps control your triglycerides * Continue your other medications as prescribed. * Blood work drawn prior to your PCP appointment. A lab slip has been attached to your discharge paperwork. * Follow-up with your PCP. Your appointment is scheduled for 06/10/2024 at 1:00 PM. Please return to the hospital if you experience any of the following: Fever of 100.4 F or higher, severe pain from your upper belly to your back, nausea and vomiting, lightheadedness, dizziness, yellowing of your skin or eyes (jaundice), bruises on your belly or back, belly swelling and tenderness, rapid pulse, chest pain, difficulty breathing, or passing out. It was a pleasure taking care of you while you were in the hospital, Alaina Masterson PA-C Total Time Total Time Spent Total Time Spent (In Minutes): Greater than 30 minutes spent completing this discharge process including direct patient care, medication reconciliation, documentation, review of labs and images, and coordination of care. Coding Level of Care Code 29584 INP/OBS DISCH >30 MIN Diagnoses Acute pancreatitis K85.90 Hypertriglyceridemia E78.1
== END 2024-06-04 16:09 | disposition home or self-care (01) | DRG 642 ==
LOC: ED 12:12 → SUATTDRO 17:57 → 2S 17:57
DX: F41.1 Generalized anxiety disorder; E78.00 Pure hypercholesterolemia, unspecified; E78.1 Pure hyperglyceridemia; K85.80 Other acute pancreatitis without necrosis or infection; Z79.899 Other long term (current) drug therapy; Z88.8 Allergy status to other drugs, medicaments and biological substances

== ENCOUNTER 2025-09-13 11:41 | Observation (INO) ==
[2025-09-13 12:27] LABS: Hematocrit (blood only) 40.5 % (37.0-47.0); Hemoglobin 13.5 g/dl (12.0-16.0); Immature Granulocytes # (auto) 0.04 K/uL (0.01-0.20); Immature Granulocytes % (auto) 0.4 %; Mean Corpuscular Hemoglobin 29.2 pg (25.0-34.0); Mean Corpuscular Volume 87.7 fL (80.0-100.0); Platelet Count 320 K/uL (130-400); RDW Standard Deviation 38.5 fL (36.4-46.3); Red Blood Count 4.62 M/uL (4.20-5.40); White Blood Count 8.89 K/ul (4.8-10.8)
[2025-09-13 12:44] LABS: Alanine Aminotransferase 16 U/L (7-52); Albumin Globulin Ratio 1.2 (0.9-2); Albumin Level 4.0 gm/dl (3.4-5.0); Alkaline Phosphatase 58 U/L (34-104); Anion Gap 6 (3-11); Bilirubin,Total 0.5 mg/dl (0.2-1.0); Blood Urea Nitrogen 11 mg/dl (6-23); Calcium 9.4 mg/dl (8.6-10.3); Carbon Dioxide 27 mmol/L (21-32); Chloride 103 mmol/L (98-107); Creatinine Clr Calc Pharmacy 158.8 ml/min; Globulin 3.3 gm/dl (2.5-4.0); Glucose 88 mg/dl (70-99(Fasting)); Potassium 3.9 mmol/L (3.5-5.1); Sodium 136 mmol/L (136-145); Total Protein 7.3 gm/dl (6.0-8.3)
--- NOTE | 2025-09-13 13:14 | Emergency Department Note ---
History of Present Illness General Chief complaint: Cardiac Assessment Stated complaint: HEAVY CHEST, POUNDING HEART Time Seen by Provider: 09/13/25 12:58 History of Present Illness Maximum Pain Intensity: 3 This is a 30-year-old female who presents to the emergency department via private vehicle with complaints of "chest heaviness, pounding heartbeat". The patient notes that this past Thursday she developed chest heaviness and palpitations. This has progressed. She was seen by PCP yesterday and had EKG, laboratory studies were ordered and she notes the plan was to be set up for outpatient cardiac monitoring. Patient was informed to return here if worsening. She does note cardiac family history. She notes father has a pacemaker and valve abnormality and mother has history of CVA. Patient has history personally of Crohn's. Home Medications Medication Instructions Recorded Confirmed Type cholestyramine (with sugar) 4 gram 1 ea PO DAILY 04/29/22 09/13/25 History oral powder vitamin B complex 1 tab PO DAILY 06/02/24 09/13/25 History vedolizumab 300 mg intravenous See Rx Instructions IV .COMPLEX 06/10/24 09/13/25 History solution (Entyvio) fenofibrate nanocrystallized 145 145 mg PO QAM #90 tabs 05/11/25 09/13/25 Rx mg tablet cyanocobalamin (vitamin B-12) 1,000 mcg PO DAILY #30 caps 05/15/25 09/13/25 Rx 1,000 mcg capsule hydroxyzine HCl 25 mg tablet 25 mg PO BID PRN anxiety #30 tabs 09/12/25 09/13/25 Rx cyclobenzaprine 5 mg tablet 5 - 10 mg PO TID PRN Muscle Spasm 09/13/25 09/13/25 History omega-3 fatty acids 1,000 mg 1,000 mg PO DAILY 09/13/25 09/13/25 History capsule sumatriptan succinate 50 mg tablet 50 mg PO .UD 09/13/25 09/13/25 History Allergies Allergy/AdvReac Type Severity Reaction Status Date / Time infliximab Allergy Severe Anaphylaxis Verified 09/13/25 16:34 Past Med/Surg History Problem List (Updated 09/14/25 @ 08:47 by Mitch Oro PA-C) Palpitations (Acute) Chest heaviness (Acute) Vitamin B 12 deficiency Vitamin D deficiency Lumbar back pain with radiculopathy affecting left lower extremity Migraine with aura Acute pancreatitis Iron deficiency anemia CLIF (generalized anxiety disorder) Hypercholesterolemia Dysmenorrhea Irregular menses Hypertriglyceridemia Crohn disease (Chronic) Medical History Abdominal pain Pancreatitis Partial obstruction of small intestine Pancreatitis Gallstone Small bowel obstruction C. difficile colitis (09/29/14) Surgical History S/P cholecystectomy S/P wisdom tooth extraction H/O resection of small bowel Family History (Updated 09/13/25 @ 17:49 by Tyler Johnson MD, PhD) Uncle Prostate cancer paternal Family/Other Myocardial infarction maternal great grandfather Grandfather (Maternal) Prostate cancer Grandfather (Paternal) Prostate cancer Father No problems noted. Mother No problems noted. 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 Feels Safe at Home: Yes Childhood Exposure to Second-Hand Smoke: No Diet: regular caffeine: Yes during the past year weight has: remained stable Dental Care, Regularly: Yes Physical Activity Frequency: Daily Seatbelt Use: always Sunscreen Use: Yes Assistive Devices: None Review of Systems A total of 10 systems reviewed and were otherwise negative Physical Exam Vital Signs Vital Signs - 24 hr 09/13/25 11:50 09/13/25 13:00 09/13/25 14:35 Temperature 36.8 C Temperature Source Oral Pulse Rate 99 H Pulse Rate [Apical] 90 Pulse Rate from SpO2 Sensor Respiratory Rate 16 16 Respiratory Effort / Characteristics Non-Labored Spontaneous Non-Labored Spontaneous Respiratory Depth Normal Normal Respiratory Pattern Regular Blood Pressure 167/105 H Blood Pressure [Right Arm] 135/86 Blood Pressure Mean 125 Blood Pressure Mean [Right Arm] 102 Blood Pressure Position [Right Arm] Lying Pulse Oximetry 98 99 100 Oxygen Delivery Method Room Air Room Air Room Air Sepsis Recent Fever Within 48 Hours No Sepsis New/Unexplained Change in Mental Status No Sepsis Action Taken by Nursing No Action Required 09/13/25 15:00 Temperature Temperature Source Pulse Rate 103 H Pulse Rate [Apical] Pulse Rate from SpO2 Sensor 100 H Respiratory Rate 17 Respiratory Effort / Characteristics Respiratory Depth Respiratory Pattern Blood Pressure 123/78 Blood Pressure [Right Arm] Blood Pressure Mean 90 Blood Pressure Mean [Right Arm] Blood Pressure Position [Right Arm] Pulse Oximetry 99 Oxygen Delivery Method Sepsis Recent Fever Within 48 Hours Sepsis New/Unexplained Change in Mental Status Sepsis Action Taken by Nursing VITAL SIGNS - Vital signs and nursing notes were reviewed. Stable and afebrile. GENERAL -30-year-old female appearing her stated age who is in no acute distress. Communicates well with provider and answers questions appropriately. SKIN - Without rashes. No meningeal or petechial rash. HEAD - NC/AT. EYES - Sclera anicteric. NECK - No nuchal rigidity. LUNGS - CTA CARDIAC - RRR ABDOMEN - Abdominal contour normal without pulsations or visible masses. BS normoactive all four quadrants. No tenderness, palpable masses, hepatosplenomegaly, or ascites noted. EXTREMITIES - No clubbing or peripheral cyanosis. +5/5 strength noted in UE/LE bilaterally. NEUROLOGIC - Cranial nerves II through XII grossly intact. PSYCH - alert, oriented and pleasant on exam Course Administered Medications Acetaminophen (Acetaminophen 325 Mg Tab) 650 mg PO Q6H PRN PRN Reason: pain 1-3;MOORE;T>100.4F Stop: 10/13/25 15:24 Last Admin: 09/14/25 04:56 Dose: 650 mg Documented By: HUMBERTO Fenofibrate (Fenofibrate Nanocrystallized 145 Mg Tablet) 145 mg PO QAM [facility] Stop: 10/14/25 08:59 Last Admin: 09/14/25 08:36 Dose: 145 mg Documented By: HERMINIA Methimazole (Methimazole 5 Mg Tablet) 5 mg PO DAILY [facility] Stop: 10/14/25 08:59 Last Admin: 09/14/25 08:37 Dose: 5 mg Documented By: HERMINIA Pantoprazole Sodium (Pantoprazole 40 Mg Tab) 40 mg PO QAM [facility] Stop: 10/14/25 08:59 Last Admin: 09/14/25 08:37 Dose: 40 mg Documented By: HERMINIA Propranolol HCl (Propranolol Hcl 10 Mg Tab) 10 mg PO QAM [facility] Stop: 10/14/25 08:59 Last Admin: 09/14/25 08:37 Dose: 10 mg Documented By: HERMINIA Discontinued Medications Aspirin (Aspirin 81 Mg Ectab) 81 mg PO NOW STA Stop: 09/13/25 15:30 Last Admin: 09/13/25 15:58 Dose: 81 mg Documented By: DARI Lorazepam (Lorazepam 0.5 Mg Tab) 0.5 mg PO NOW STA Stop: 09/14/25 04:48 Last Admin: 09/14/25 05:05 Dose: 0.5 mg Documented By: HUMBERTO Methimazole (Methimazole 5 Mg Tablet) 5 mg PO NOW STA Stop: 09/13/25 17:54 Last Admin: 09/13/25 18:21 Dose: 5 mg Documented By: DARI Pantoprazole Sodium (Pantoprazole 40 Mg Tab) 40 mg PO NOW STA Stop: 09/13/25 19:33 Last Admin: 09/13/25 20:03 Dose: 40 mg Documented By: AdrienneGV Propranolol HCl (Propranolol Hcl 10 Mg Tab) 10 mg PO NOW STA Stop: 09/13/25 17:55 Last Admin: 09/13/25 18:20 Dose: 10 mg Documented By: DARI Medical Decision Making Laboratory Data 09/13/25 11:59 09/13/25 11:59 Lab Results 09/13/25 09/13/25 Range/Units 11:59 14:36 WBC 8.89 (4.8-10.8) K/ul RBC 4.62 (4.20-5.40) M/uL Hgb 13.5 (12.0-16.0) g/dl Hct 40.5 (37.0-47.0) % MCV 87.7 (80.0-100.0) fL MCH 29.2 (25.0-34.0) pg MCHC 33.3 (32.0-36.0) g/dL RDW Std Deviation 38.5 (36.4-46.3) fL RDW Coeff of Thang 12.1 (11.5-14.5) % Plt Count 320 (130-400) K/uL MPV 9.6 (9.4-12.4) fL Immature Gran % (Auto) 0.4 % Neut % (Auto) 66.7 % Lymph % (Auto) 23.5 % Howell % (Auto) 5.8 % Eos % (Auto) 2.9 % Baso % (Auto) 0.7 % Neut # (Auto) 5.92 (1.40-6.50) K/uL Lymph # (Auto) 2.09 (1.20-3.40) K/uL Howell # (Auto) 0.52 (0.11-0.59) K/uL Eos # (Auto) 0.26 (0.00-0.50) K/uL Baso # (Auto) 0.06 (0.00-0.20) K/uL Immature Gran # (Auto) 0.04 (0.01-0.20) K/uL D-Dimer 240 (0-500) ug/L FEU Sodium 136 (136-145) mmol/L Potassium 3.9 (3.5-5.1) mmol/L Chloride 103 (98-107) mmol/L Carbon Dioxide 27 (21-32) mmol/L Anion Gap 6 (3-11) BUN 11 (6-23) mg/dl Creatinine 0.57 L (0.6-1.2) mg/dl Est Cr Clr Drug Dosing 158.8 ml/min eGFR 124.52 BUN/Creatinine Ratio 19.3 (10-20) Glucose 88 (70-99(Fasting)) mg/dl Calcium 9.4 (8.6-10.3) mg/dl Total Bilirubin 0.5 (0.2-1.0) mg/dl AST 19 (13-39) U/L ALT 16 (7-52) U/L Alkaline Phosphatase 58 (34-104) U/L Troponin I High Sens < 2.3 < 2.3 (0-14) pg/ml Total Protein 7.3 (6.0-8.3) gm/dl Albumin 4.0 (3.4-5.0) gm/dl Globulin 3.3 (2.5-4.0) gm/dl Albumin/Globulin Ratio 1.2 (0.9-2) TSH 2.028 (0.300-4.500) uIu/ml Free T4 0.84 (0.61-1.60) ng/dl Free T3 4.71 H (2.3-4.2) pg/ml HCG, Qual Negative (Negative) Imaging Data Radiologist's Impression: Chest X-Ray 09/13/25 12:58 XR chest 1V portable CLINICAL HISTORY: chest heaviness COMPARISON STUDY: 07/28/2022 FINDINGS: Heart size and pulmonary vasculature are normal. No consolidation or pleural effusion. No pneumothorax. IMPRESSION: No acute findings. ACT 112: Negative or not required by law. Electronically signed by: Peter Bradley M.D. 09/13/2025 1:25 PM MDM Narrative Patient was seen and evaluated as above in room C11. Review was performed of triage nursing notes and vital signs. I did review pertinent previous visits and patient history. After obtaining a thorough history and physical examination the above work up was performed. Patient presents to us today with the above symptoms. She is well-appearing and nontoxic on examination. Options of care were discussed with the patient. EKG was performed. This reveals normal sinus rhythm at a rate of 97 bpm. QTc 431. QRS 80. No ST elevation on this rhythm tracing. Chest x-ray as above and negative. Labs reveal no leukocytosis or concerning anemia. D-dimer within normal range. No evidence of kidney or liver failure. Troponin within normal range. TSH normal with a free T3 of 4.71, mildly elevated. hCG returned negative. The patient was symptomatic at specific times and therefore did check the quality assurance monitor final. There were sinus pauses noted. I discussed this with cardiology, Dr. Pierre. We discussed options. Echocardiogram ordered. We will continue cardiac monitoring. I discussed options with the patient. I do believe that further evaluation and management in the inpatient setting is warranted. Case discussed with the hospitalist service. Please refer to further documentation regarding her stay. GCS: 15 In the evaluation and treatment of this patient the following differential diagnoses were entertained: FL, PE, pericarditis, costochondritis, sick sinus syndrome, among others Impression & Plan Chest heaviness, Palpitations Discharge Plan Visit Data Chief Complaint: Cardiac Assessment Stated Complaint: HEAVY CHEST, POUNDING HEART ED Provider: Meng Aguilar ED Midlevel Provider: Mitch Oro Discharge Problem: Chest heaviness, Palpitations Patient Disposition: Admitted As Inpatient Condition: Good Discharge Instructions Interventions: ED Discharge Assessment Last Done: 09/13/25 21:43
--- NOTE | 2025-09-13 13:26 | XRay Report ---
XR chest 1V portable CLINICAL HISTORY: chest heaviness COMPARISON STUDY: 07/28/2022 FINDINGS: Heart size and pulmonary vasculature are normal. No consolidation or pleural effusion. No p neumothorax. IMPRESSION: No acute findings. ACT 112: Negative or not required by law. Electronically signed by: Peter Bradley M.D. 09/13/2025 1:25 PM
[2025-09-13 13:30] LABS: Pregnancy Test, Serum Negative (Negative)
[2025-09-13 15:19] LABS: Thyroid Stimulating Hormone 2.028 uIu/ml (0.300-4.500)
[2025-09-13] MEDS: ASPIRIN 81 MG ECTAB PO STA (15:58)
--- NOTE | 2025-09-13 17:00 | History & Physical Report ---
Date of Service September 13, 2025 History of Present Illness Chief Complaint: "I started feeling like my heart was beating fast on Thursday (09/11/2025); it would last about 5 minutes, then go away, then come back again. It continued on Thursday (09/12/2025) and Thursday (09/13/2025) day and night. I also felt like the middle of my chest was heavy, but I didn't bump into anything or hit anything. The heaviness would also come and go, lasting about 5 minutes at a time, on Thursday (09/11/2025), Thursday (09/12/2025), and Thursday (09/13/2025). That is why I saw my family doctor, EVA Kelly, on Thursday morning (09/12/2025, 11:00am) and she ordered a lot of blood tests and thought she heard something and advised me to come to [facility] ER to get my heart checked out. I haven't felt these fast heart beats or chest heaviness before. I wasn't doing any work when I felt these fast heart beats or chest heaviness; I work on the [employer]. I did not feel short of breath. I was not coughing or wheezing. The pain in my chest stayed in the middle; it did not go to my back or up into my face or down my arm. I did not feel nauseated. I was not sweating. I was feeling anxious about why my heart was beating fast and why my chest felt heavy. So, my family doctor, Ms. Tracey Moreno, prescribed some hydroxyine 25mg PO bid prn anxiety, which I have not even picked up from the pharmacy. Instead, I came right to [facility] ER. I feel ok right now." Primary Care Provider: EVA Carrero 30 years old female with PMH of FULL CODE @ home, overweight with BMI 26.8 (height 172.7 cm; weight 80.0 kg), hyperlipidemia on fenofibrate 145mg PO daily, vitamin D deficiency with 25-OH vitamin D level of 27.3 ng/mL (, 12:43pm), and ulcerative colitis (diagnosed at ~13 years of age, s/p partial colectomy at 20 years of age, [facility]), now on vendolizumab (Entyvio) 300mg IV q8 weeks, who reports the acute onset of: "I started feeling like my heart was beating fast on Thursday (09/11/2025); it would last about 5 minutes, then go away, then come back again. It continued on Thursday (09/12/2025) and Thursday (09/13/2025) day and night. I also felt like the middle of my chest was heavy, but I didn't bump into anything or hit anything. The heaviness would also come and go, lasting about 5 minutes at a time, on Thursday (09/11/2025), Thursday (09/12/2025), and Thursday (09/13/2025). That is why I saw my family doctor, EVA Kelly, on Thursday morning (09/12/2025, 11:00am) and she ordered a lot of blood tests and thought she heard something and advised me to come to [facility] ER to get my heart checked out. I haven't felt these fast heart beats or chest heaviness before. I wasn't doing any work when I felt these fast heart beats or chest heaviness; I work on the [employer]. I did not feel short of breath. I was not coughing or wheezing. The pain in my chest stayed in the middle; it did not go to my back or up into my face or down my arm. I did not feel nauseated. I was not sweating. I was feeling anxious about why my heart was beating fast and why my chest felt heavy. So, my family doctor, Ms. Tracey Moreno, prescribed some hydroxyine 25mg PO bid prn anxiety, which I have not even picked up from the pharmacy. Instead, I came right to [facility] ER. I feel ok right now. Oh, my family doctor, Ms. Tracey Moreno, also said that she was going to set up a heart monitor for me to see if I had any irregular heart beats." Patient denies antecedent/coincident fevers, chills, diaphoresis, cough, wheeze, sore throat, hemoptysis, pleurisy, nausea, vomiting, diarrhea, abdominal pain, abdominal pain, pelvic pain, hematemesis, hematochezia, melena, hematuria, dysuria, frequency, urgency, headaches, dizziness, lightheadedness, visual changes, hearing changes, weakness, falls, syncope, trauma, travel history, sick contacts, or food/drug ingestions novel or new. All other review of systems are reported as negative by the patient on observation date 09/13/2025. In [facility] ER bed #C11b, patient was afebrile @ 36.8 degrees Celsius, HR 90, RR 16, O2 sat 100% on room air, and BP 135/86 (09/13/2025, 2:35pm). Exam was noted for a clear and non-tender chest. Labs in [facility] ER bed #C11b included: Troponin-I #1 < 2.3 pg/mL (09/13/2025, 11:59am). Troponin-I #2 < 2.3 pg/mL (09/13/2025, 2:36pm). TSH 2.028 uIU/mL, free T3 4.71 pg/mL (09/13/2025, 11:59am), free T4 (09/13/2025, 11:59am). WBC 8.89, N67 L24 M6 E3 B1, Hb 13.5, MCV 87.7, MCHC 33.3, platelet 320 (09/13/2025, 11:59am). D-dimer 240 ug/L (09/13/2025, 11:59am). Na 136, K 3.9, BUN 11, creatinine 0.57, glucose 88, Ca 9.4, AST 19, ALT 16, ALK PHOS 58, total bilirubin 0.5 (09/13/2025, 11:59am). HCG negative (09/13/2025, 11:59am). U/A (09/13/2025, 3:25pm): Additional testing in [facility] ER bed #C11b included: Portable CXR (09/13/2025, 12:58pm): No infiltrate, effusion, cardiomegaly, pulmonary vascular congestion, or pneumothorax (by my review). EKG #1 (09/13/2025, 11:56am): NSR @ 97, WA 192, QTC 431, possible LAE in lead II, no acute ST depressions/elevations, TWI, or q waves (by my review). EKG #2 (09/13/2025, 4:03pm): NSR @ 91, WA 186, QTC 428, possible LAE in lead II, no acute ST depressions/elevations, TWI, or q waves (by my review). TTE (09/13/2025, 2:56pm): 1. LVEF 60-65%. Normal LV wall thickness. LV wall motion normal. 2. RV normal size and systolic function. 3. LA/RA size normal. No ASD. PFO not assessed. 4. No AR. No hemodynamically significant . 5. PV not well visualized. 6. Trace MR. No MS. 7. Trace TR. No TS. 8. Aortic root normal. Normal IVC diameter and respiratory variation suggests normal CVP. 9. No pericardial effusion. (as per CARDS Dr. Ignacio Olguin). Patient was subsequently placed in OBSERVATION on the hospitalist service @ [facility] on 09/13/2025 with the following diagnosis: 1. Palpitations and mid-sternal chest heaviness of unclear etiology, in the setting of acute hyperthyroidism. To address #1, patient was placed on telemetry and started on methimazole 5mg PO daily (09/13/2025, 5:44am) and propanolol 10mg PO daily (09/13/2025, 5:44am). Patient also awaits formal CARDS Service evaluation with Dr. Sharif Pierre in the 09/14/2025 am regarding the utility of heart monitor to capture arrhythmias after hospital discharge home in t he 09/14/2025 am. Allergies Allergy/AdvReac Type Severity Reaction Status Date / Time infliximab Allergy Severe Anaphylaxis Verified 09/13/25 16:34 Home Medications Medication Instructions Recorded Confirmed Type cholestyramine (with sugar) 4 gram 1 ea PO DAILY 04/29/22 09/13/25 History oral powder vitamin B complex 1 tab PO DAILY 06/02/24 09/13/25 History vedolizumab 300 mg intravenous See Rx Instructions IV .COMPLEX 06/10/24 09/13/25 History solution (Entyvio) fenofibrate nanocrystallized 145 145 mg PO QAM #90 tabs 05/11/25 09/13/25 Rx mg tablet cyanocobalamin (vitamin B-12) 1,000 mcg PO DAILY #30 caps 05/15/25 09/13/25 Rx 1,000 mcg capsule hydroxyzine HCl 25 mg tablet 25 mg PO BID PRN anxiety #30 tabs 09/12/25 09/13/25 Rx cyclobenzaprine 5 mg tablet 5 - 10 mg PO TID PRN Muscle Spasm 09/13/25 09/13/25 History omega-3 fatty acids 1,000 mg 1,000 mg PO DAILY 09/13/25 09/13/25 History capsule sumatriptan succinate 50 mg tablet 50 mg PO .UD 09/13/25 09/13/25 History Past Med/Surg History Problem List Sinus pause (Acute) Chest heaviness (Acute) Vitamin B 12 deficiency Vitamin D deficiency Lumbar back pain with radiculopathy affecting left lower extremity Migraine with aura Acute pancreatitis Iron deficiency anemia CLIF (generalized anxiety disorder) Hypercholesterolemia Dysmenorrhea Irregular menses Hypertriglyceridemia Crohn disease (Chronic) Medical History Abdominal pain Pancreatitis Partial obstruction of small intestine Pancreatitis Gallstone Small bowel obstruction C. difficile colitis (09/29/14) Surgical History S/P cholecystectomy S/P wisdom tooth extraction H/O resection of small bowel Family History Uncle Prostate cancer paternal Family/Other Myocardial infarction maternal great grandfather Grandfather (Maternal) Prostate cancer Grandfather (Paternal) Prostate cancer Father No problems noted. Mother No problems noted. Denies family history of Ovarian cancer Breast cancer Colorectal cancer Social History Smoking Status: Never smoker Second Hand Exposure: No; Do You Dip or Chew Tobacco: No; Hx Alcohol Use: Yes Alcohol type: wine Alcohol Intake Frequency: Monthly or Less Hx Substance Use: No Preferred Language: Senegalese Communication Ability: Effective Visual Impairment: No Limitations Hearing Ability: Normal Dressage Instructor Required: No Beliefs That Will Affect Care: None marital status: Single Current Living Situation: Significant Other Current Living Situation Comment: lives with fidb current occupational status: employed 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 Physical Exam Constitutional: General: Comfortable, cooperative, coherent. Wide awake and alert. Not confused, lethargic, or obtunded. Patient speaks in complete, fluent, and articulate sentences without pause, interruption, cough, or wheeze. HEENT: NC/AT. EOMI. PERRL. No nystagmus, gaze paresis, anisocoria, miosis, mydriasis, chemosis, hyphema, scleral injection, conjunctivitis, or pterygium. No otorrhea. No rhinorrhea. Neck: Supple, no stridor, bruit, or goiter. Jugular venous pressure 5cm above the sternal angle of Parveen, which is typically 5 cm above the right atrium. Lymph: No anterior/posterior cervical lymphadenopathy, supraclavicular/infraclavicular lymphadenopathy, axilla/epitrochlear/inguinal lymphadenopathy. Chest: Symmetric rise and fall with respirations. Non-tender to palpation. Heart: RRR, S1 and S2. No S3 or S4 summation gallop. No tripartite friction rub. No murmur. Lungs: Clear to auscultation and percussion. No audible expiratory wheeze, egophony, pectoriloquy, increase in tactile fremitus, or flatness/dullness to percussion at the bases. Abd: Soft, non-tender, non-distended. Bowel sounds auscultated in all 4 quadrants. No rebound, guarding, Courtney's sign, or organomegaly. Ext: No clubbing, cyanosis, or edema. 2+ pedal pulses bilaterally. Skin: No decubitus ulcer, exanthem, or enanthem. Neuro: No tremors, tics, or myoclonus. DTR+. Urology: No villegas catheter. No urethral discharge. Results & Data Results & Data Vital Signs (Past 12 Hours) Vital Signs Temp Pulse Pulse Resp BP BP Pulse Ox 09/13/25 16:30 105 H 15 137/95 99 09/13/25 16:07 93 H 09/13/25 16:00 108 H 20 98 09/13/25 15:36 93 H 13 151/100 H 99 09/13/25 15:00 103 H 17 123/78 99 09/13/25 14:35 90 16 135/86 100 09/13/25 13:00 99 09/13/25 11:50 36.8 C 99 H 16 167/105 H 98 O2 Del Method 09/13/25 16:30 09/13/25 16:07 09/13/25 16:00 09/13/25 15:36 09/13/25 15:00 09/13/25 14:35 Room Air 09/13/25 13:00 Room Air 09/13/25 11:50 Room Air Laboratory Results As above in the History of Present Illness. Diagnostic Findings As above in the History of Present Illness. Code Status & VTE Plan VTE Prophylaxis Plan VTE Prophylaxis will be ordered: Yes PG Care Time/CCT Total # of Minutes Spent Total Time Spent with Patient: Total time spent is greater than 50% in coordination of care (as documented) at patient's floor/unit and/or counseling patient: Coding Level of Care Code 18227 INT INP/OBS CARE 2/55MIN
[2025-09-13] MEDS: PROPRANOLOL HCL 10 MG TAB PO STA (18:20)
[2025-09-13 18:33] LABS: T4 Free Thyroxine 0.84 ng/dl (0.61-1.60)
--- NOTE | 2025-09-13 21:37 | Ultrasound Report ---
Exam(s): US THYROID EXAM: US Soft Tissues Head and Neck, Thyroid CLINICAL HISTORY: Reason for exam: Eval for goiter, Grave's disease. TECHNIQUE: Real-time ultrasound scan of the thyroid gland and soft tissues of the neck with image documentation. COMPARISON: No relevant prior studies available. FINDINGS: Left thyroid lobe: 1.2 x 4.9 x 1.2 cm, homogeneous echo pattern. No enlarged or calcified nodules. Right thyroid lobe: 1.1 x 5.1 x 1.1 cm, homogeneous echo pattern. No enlarged or calcified nodules. Isthmus: 1.9 mm. No enlarged or calcified nodules. Lymph nodes: Unremarkable. No lymphadenopathy. IMPRESSION: 1. Somewhat elongated thyroid lobes, though homogeneous echo pattern and no nodules. Electronically signed by: Tracie Nova M.D. 09/13/25 21:36 PM
[2025-09-13 22:13] LABS: Follicle Stimulating Hormone 1.2 IU/L
[2025-09-14] MEDS: ACETAMINOPHEN 325 MG TAB PO PRN (04:56)
[2025-09-14] MEDS: LORazepam 0.5 MG TAB PO STA (05:05)
[2025-09-14 05:43] LABS: Appearance Urine Clear (Clear); Bacteria Urine Automated None Seen (None Seen); Cast Urine Automated 0-2 /lpf (0-2); Epithelial Cell Urine Auto 0-2 /hpf (0-2); Glucose Urine UA Negative (Negative); RBC Urine Automated >20 /hpf (0-2)
[2025-09-14 08:13] VITALS: RESP 17
[2025-09-14] MEDS: FENOFIBRATE NANOCRYSTALLIZED 145 MG TABLET PO SCH (08:36)
[2025-09-14] MEDS: PROPRANOLOL HCL 10 MG TAB PO SCH (08:37)
--- NOTE | 2025-09-14 11:52 | Cardiology Consultation ---
Date of Consultation September 14, 2025 Assessment & Plan (1) Palpitations: (2) Sinus arrhythmia: (3) Hyperthyroidism: Plan Patient is a 30 year old admitted with worsening palpitations, chest tightness, found to have sinus arrhythmia on telemetry and possible new onset hyperthy roidism. No concerning arrhythmias noted. No significant pauses or bradycardia. Recommendations: EKG was unremarkable on admission Echo with preserved LVEF and no valvular disease HS troponin unremarkable x2. Started on methimazole and propranolol 10 mg daily for thyroid disorder and palpitations. Can titrate propranolol as needed to improve palpitations. No concerning findings on telemetry overnight or this morning. Lyme testing is negative. Electrolytes stable. No further cardiac testing warranted at this time. Will sign off. Please contact business management consultant mover with additional questions or concerns. Case discussed with Dr. Pierre I spent a total of 60 minutes on the date of service in preparation, delivery, and documentation of the care provided to this patient, excluding any time spent in the performance of separately billed services. Eileen Ramirez PA-C Department of Cardiology, [facility] This chart was completed in part utilizing Speech Voice Recognition Software. Grammatical errors, random word insertions, pronoun errors, and incomplete sentences are an occasional consequence of this system due to software limitations, ambient noise, and hardware issues. Any formal questions or concerns about the content, text, or information contained within the body of this dictation should be directly addressed to the provider for clarification. Supervising Physician Co-Signing Physician Notes Patient was seen and personally examined. Full assessment and plan as outlined above by advanced provider. Care and management discussed and personally endorsed 30-year-old female referred for admission with symptoms of heart pounding and palpitations. Telemetry demonstrates marked sinus variability, no high degree AV block. Recommendations as planned above. Palpitations and complaints precipitated by hyperthyroidism already under therapy. Continue low-dose beta-alonzo. Cardiology would be glad to see back in 2 to 3 months if symptoms persist Discussed in detail with patient who understands and sought reassurance History of Present Illness Reason for Consultation: Palpitations; sinus arrhythmia Requesting Physician: Dr. Johnson Attending Physician: Dr. Pierre History of Present Illness Patient is a 30 year old female who presented to [place] ER yesterday with complaints of worsening palpitations with associated chest tightness. Palpitations reported over jessenia last year by patient, but recently worsening in frequency and duration. She went to see PCP and was to have an outpatient monitor. However the following day, patient reported her symptoms were bothersome and she came to the ER for evaluation. In ER, EKG demonstrated NSR without acute findings. Telemetry revealed NSR with sinus arrhythmia and variable HR. There was a possibility of a junctional beat at times as well. Lab work revealed mild hyperthyroidism as well. She was started on propranolol and methimazole last evening upon admission. She reports improved symptoms overnight. Echo completed and demonstrated normal LVEF with normal wall motion and no significant valvular disease At time of consult, patient resting comfortably. Palpitations have improved overnight. No significant pauses or bradycardia reported. No sustained arrhythmias. History includes: 1. Anxiety 2. Dyslipidemia 3. Crohn's disease Allergies Allergy/AdvReac Type Severity Reaction Status Date / Time infliximab Allergy Severe Anaphylaxis Verified 09/13/25 16:34 Home Medications Medication Instructions Recorded Confirmed Type cholestyramine (with sugar) 4 gram 1 ea PO DAILY 04/29/22 09/13/25 History oral powder vitamin B complex 1 tab PO DAILY 06/02/24 09/13/25 History vedolizumab 300 mg intravenous See Rx Instructions IV .COMPLEX 06/10/24 09/13/25 History solution (Entyvio) fenofibrate nanocrystallized 145 145 mg PO QAM #90 tabs 05/11/25 09/13/25 Rx mg tablet cyanocobalamin (vitamin B-12) 1,000 mcg PO DAILY #30 caps 05/15/25 09/13/25 Rx 1,000 mcg capsule hydroxyzine HCl 25 mg tablet 25 mg PO BID PRN anxiety #30 tabs 09/12/25 09/13/25 Rx cyclobenzaprine 5 mg tablet 5 - 10 mg PO TID PRN Muscle Spasm 09/13/25 09/13/25 History omega-3 fatty acids 1,000 mg 1,000 mg PO DAILY 09/13/25 09/13/25 History capsule sumatriptan succinate 50 mg tablet 50 mg PO .UD 09/13/25 09/13/25 History Patient History Medical History Abdominal pain Pancreatitis Partial obstruction of small intestine Pancreatitis Gallstone Small bowel obstruction C. difficile colitis (09/29/14) Surgical History S/P cholecystectomy S/P wisdom tooth extraction H/O resection of small bowel Family History (Updated 09/13/25 @ 17:49 by Tyler Johnson MD, PhD) Uncle Prostate cancer paternal Family/Other Myocardial infarction maternal great grandfather Grandfather (Maternal) Prostate cancer Grandfather (Paternal) Prostate cancer Father No problems noted. Mother No problems noted. 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 Feels Safe at Home: Yes Childhood Exposure to Second-Hand Smoke: No Diet: regular caffeine: Yes during the past year weight has: remained stable Dental Care, Regularly: Yes Physical Activity Frequency: Daily Seatbelt Use: always Sunscreen Use: Yes Assistive Devices: None Review of Systems Review of Systems: All systems reviewed & are unremarkable except as noted in HPI & below Physical Exam Constitutional: WD/WN, vitals as above no acute distress Neck: trachea midline, no thyromegaly Respiratory: normal respiratory effort, lungs clear to auscultation Cardiovascular: Rate/Rhythm: regular rate and regular rhythm Heart Sounds: no murmur Vessels: no JVD Extremities: no edema Results & Data Vital Signs (Past 12 Hours) Vital Signs Temp Pulse Pulse Resp BP Pulse Ox O2 Del Method 09/14/25 07:30 59 L 09/14/25 07:00 36.4 C L 80 17 119/76 99 Room Air 09/14/25 02:28 36.5 C 71 18 109/68 98 Room Air Laboratory Results Cardiac Enzymes 09/13/25 09/13/25 Range/Units 11:59 14:36 AST 19 (13-39) U/L Troponin I High Sens < 2.3 < 2.3 (0-14) pg/ml CBC 09/13/25 Range/Units 11:59 WBC 8.89 (4.8-10.8) K/ul RBC 4.62 (4.20-5.40) M/uL Hgb 13.5 (12.0-16.0) g/dl Hct 40.5 (37.0-47.0) % Plt Count 320 (130-400) K/uL Neut # (Auto) 5.92 (1.40-6.50) K/uL Lymph # (Auto) 2.09 (1.20-3.40) K/uL Rock # (Auto) 0.52 (0.11-0.59) K/uL Eos # (Auto) 0.26 (0.00-0.50) K/uL Baso # (Auto) 0.06 (0.00-0.20) K/uL Comprehensive Metabolic Panel 09/13/25 Range/Units 11:59 Sodium 136 (136-145) mmol/L Potassium 3.9 (3.5-5.1) mmol/L Chloride 103 (98-107) mmol/L Carbon Dioxide 27 (21-32) mmol/L BUN 11 (6-23) mg/dl Creatinine 0.57 L (0.6-1.2) mg/dl Glucose 88 (70-99(Fasting)) mg/dl Calcium 9.4 (8.6-10.3) mg/dl AST 19 (13-39) U/L ALT 16 (7-52) U/L Alkaline Phosphatase 58 (34-104) U/L Total Protein 7.3 (6.0-8.3) gm/dl Albumin 4.0 (3.4-5.0) gm/dl Intake and Output 09/13/25 09/14/25 09/14/25 22:59 06:59 14:59 Intake Total 240 / 240 Output Total 90 / 90 Balance 150 / 150 Intake: Oral 240 / 240 Output: Urine 90 / 90 Other: # Unmeasured Voids 1 Weight 80 kg Weight Measurement Method Built in [facility] Diagnostic Findings Telemetry reviewed: NSR with intermittent sinus arrhythmia. No significant pauses or bradycardia. No sustained arrhythmias EKG on arrival: NSR, normal EKG no acute findings Echo report reviewed: Normal LVEF at 60-65% Normal wall motion no valvular disease Normal RV size and function Chest X-Ray 09/13/25 12:58 XR chest 1V portable CLINICAL HISTORY: chest heaviness COMPARISON STUDY: 07/28/2022 FINDINGS: Heart size and pulmonary vasculature are normal. No consolidation or pleural effusion. No pneumothorax. IMPRESSION: No acute findings. ACT 112: Negative or not required by law. Electronically signed by: Peter Bradley M.D. 09/13/2025 1:25 PM Thyroid Ultrasound 09/13/25 18:30 Exam(s): US THYROID EXAM: US Soft Tissues Head and Neck, Thyroid CLINICAL HISTORY: Reason for exam: Eval for goiter, Grave's disease. TECHNIQUE: Real-time ultrasound scan of the thyroid gland and soft tissues of the neck with image documentation. COMPARISON: No relevant prior studies available. FINDINGS: Left thyroid lobe: 1.2 x 4.9 x 1.2 cm, homogeneous echo pattern. No enlarged or calcified nodules. Right thyroid lobe: 1.1 x 5.1 x 1.1 cm, homogeneous echo pattern. No enlarged or calcified nodules. Isthmus: 1.9 mm. No enlarged or calcified nodules. Lymph nodes: Unremarkable. No lymphadenopathy. IMPRESSION: 1. Somewhat elongated thyroid lobes, though homogeneous echo pattern and no nodules. Electronically signed by: Tracie Nova M.D. 09/13/25 21:36 PM Medications Administered Current Inpatient Medications Acetaminophen (Acetaminophen 325 Mg Tab) 650 mg PO Q6H PRN PRN Reason: pain 1-3;MOORE;T>100.4F Stop: 10/13/25 15:24 Last Admin: 09/14/25 04:56 Dose: 650 mg Fenofibrate (Fenofibrate Nanocrystallized 145 Mg Tablet) 145 mg PO QAM ADELA Stop: 10/14/25 08:59 Last Admin: 09/14/25 08:36 Dose: 145 mg Methimazole (Methimazole 5 Mg Tablet) 5 mg PO DAILY ADELA Stop: 10/14/25 08:59 Last Admin: 09/14/25 08:37 Dose: 5 mg Pantoprazole Sodium (Pantoprazole 40 Mg Tab) 40 mg PO QAM ADELA Stop: 10/14/25 08:59 Last Admin: 09/14/25 08:37 Dose: 40 mg Propranolol HCl (Propranolol Hcl 10 Mg Tab) 10 mg PO QAM ADELA Stop: 10/14/25 08:59 Last Admin: 09/14/25 08:37 Dose: 10 mg PG Care Time/CCT Total # of Minutes Spent Total Time Spent with Patient: Total time spent is greater than 50% in coordination of care (as documented) at patient's floor/unit and/or counseling patient: 60 minutes Coding Level of Care Code 36803 OFFICE CONSULT LVL M Diagnoses Palpitations R00.2 Sinus arrhythmia I49.8 Hyperthyroidism E05.90
[2025-09-14] MEDS: OPTIRAY 320 100ml IV ONE (12:59)
[2025-09-14 13:02] VITALS: TEMP 98.2; O2SAT 100
--- NOTE | 2025-09-14 13:13 | CT Scan Report ---
CT soft tissue neck w con CLINICAL HISTORY: Evaluate for lymphadenopathy, mass lesion COMPARISON STUDY: Ultrasound yesterday FINDINGS: Thyroid gland, submandibular glands, and parotid glands are unremarkable. Upper airway is p atent and symmetric. No enlarged adenopathy seen. Visualized paranasal sinuses and mastoid air cells are clear. IMPRESSION: No enlarged adenopathy seen. ACT 112: Negative or not required by law. Electronically signed by: Peter Bradley M.D. 09/14/2025 1:12 PM
[2025-09-14 13:16] LABS: Chlamydia pneumoniae PCR Not Detected (NotDetected); Coronavirus 229E PCR Not Detected (NotDetected); Coronavirus CoV-2 (COVID19)PCR Not Detected (NotDetected); Coronavirus HKU1 PCR Not Detected (NotDetected); Coronavirus NL63 PCR Not Detected (NotDetected); Coronavirus OC43PCR Not Detected (NotDetected); Human Metapneumovirus PCR Not Detected (NotDetected); Parainfluenza Virus 1 PCR Not Detected (NotDetected); Parainfluenza Virus 2 PCR Not Detected (NotDetected); Parainfluenza Virus 3 PCR Not Detected (NotDetected); Parainfluenza Virus 4 PCR Not Detected (NotDetected); Respiratory Syncytial VirusPCR Not Detected (NotDetected); Rhinovirus/Enterovirus PCR Not Detected (NotDetected)
--- NOTE | 2025-09-14 15:08 | Discharge Summary ---
Discharge Summary Date of Service September 14, 2025 Principal Dx & Hospital Course #1 = Principal Diagnosis (1) Hyperthyroidism: TSH 2.028 uIU/mL, free T3 4.71 pg/mL (09/13/2025, 11:59am), free T4 0.84 ng/dL (09/13/2025, 11:59am). Thyroid U/S (09/13/2025, 6:30pm): 1. Left thyroid lobe: 1.2 x 4.9 x 1.2 cm, homogeneous echo pattern. No enlarged or calcified nodules. 2. Right thyroid lobe: 1.1 x 5.1 x 1.1 cm, homogeneous echo pattern. No enlarged or calcified nodules. 3. Isthmus: 1.9 mm. No enlarged or calcified nodules. 4. Lymph nodes: Unremarkable. No lymphadenopathy. CT neck with IV contrast (09/13/2025, 11:52am): 1. Thyroid gland, submandibular glands, and parotid glands are unremarkable. 2. Upper airway is patent and symmetric. 3. No enlarged adenopathy seen. 4. Visualized paranasal sinuses and mastoid air cells are clear. TSH receptor binding antibody (09/13/2025, 3:25pm, sent out): Patient was advised to follow up with her PCP EVA Kelly, within 5-7 days of hospital discharge, regarding TSH receptor binding antibody (09/13/2025, 3:25pm, sent out): . If the above sent-out test is positive for TSH receptor binding antibody, patient was advised to undergo outpatient RAIU (radioactive iodine uptake) testing of thyroid gland to rule out Grave's disease. Patient reports that she will comply with this recommendation. While patient already suffers from Certified Art Therapist hn's disease, which is an autoimmune condition, and while Grave's disease is also an autoimmune condition marked by its hyperthyroid state, I do not suspect that patient suffers from Grave's disease. Instead, I suspect that this patient suffers from an acute viral thyroiditis, given patient's sore neck (bilateral, submandibular) > 1 month. To this end, I ordered BIOFIRE upper respiratory PCR testing (09/14/2025, 12:20pm) for adenovirus, Bordetella pertussis, Bordetella parapertussis, Chlamydophila pneumoniae, Coronavirus OC43, HKU1, 229E, NL63, COVID, human metapneumovirus, influenza A/B, Mycoplasma pneumoniae, parainfluenza 1,2,3,4, RSV, enterovirus/rhinovirus, all of which were negative. I still suspect, nonetheless, that patient suffers from an acute viral thyroiditis causing cervicalgia. Of note, patient does not suffer from cervical lymphoma, based on the thyroid U/S (09/13/2025, 6:30pm) and CT neck with IV contrast (09/13/2025, 11:52am) findings above. Of final note, patient was evaluated by [facility] of Dr. Sharif Pierre on 09/14/2025, 11:38am, and he opined that: "30-year-old female referred for admission with symptoms of heart pounding and palpitations. Telemetry demonstrates marked sinus variability, no high degree AV block. Recommendations as planned above. Palpitations and complaints precipitated by hyperthyroidism already under therapy. Continue low-dose beta-alonzo. Cardiology would be glad to see back in 2 to 3 months if symptoms persist Discussed in detail with patient who understands and sought reassurance." (2) Microscopic hematuria: U/A (ordered 09/13/2025, 3:25pm): U/A (collected 09/14/2025, 5:10am): clear yellow, LE trace, nitrite-, WBC 6-10, blood 3+ with RBC > 20, epithelial cells 0-2, bacteria none seen (with patient reporting that she is having her menses now). HCG negative (09/13/2025, 11:59am). Patient has no symptoms (e.g., fevers, chills, diaphoresis, nausea, vomiting, abdominal pain, pelvic pain, flank pain, hematuria, dysuria, frequency, urgency) to suggest acute UTI. 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 Patient was advised to undergo repeat U/A testing in 30 days when patient is NOT having her menses when she provides a urine sample for U/A testing as the current U/A (09/14/2025, 5:10am) may be confounded by menses-blood mixing with urine sample. Patient was advised if microscopic hematuria persists in 30 days with repeat U/A testing, that patient should consider undergoing CT urography or cystoscopy with [facility] to rule out urothelial malignancy. Patient reports that she will comply with this recommendation. (3) HPV (human papilloma virus) infection: Incidental findings of positive HPV E6/E7 mRNA tests (12/22/2024, 12:00pm), which represents a high risk infection, compared to negative HPV 16, 18, and 45 mRNA tests (12/22/2024, 12:00pm). All 5 HPV groups above are considered high risk infection. Patient was advised to confer with her PCP EVA Kelly, within 5-7 days of hospital discharge, to discuss outpatient PAP smear testing to rule out cervical carcinoma, as any/all of the 5 HPV groups above are associated with an increased incidence of cervical carcinoma. Patient reports that she will comply with this recommendation. Admission HPI Per Admitting Provider 30 years old female with PMH of FULL CODE @ home, overweight with BMI 26.8 (height 172.7 cm; weight 80.0 kg), hyperlipidemia on fenofibrate 145mg PO daily, vitamin D deficiency with 25-OH vitamin D level of 27.3 ng/mL (09/12/2025, 12:43pm), and ulcerative colitis (diagnosed at ~13 years of age, s/p partial colectomy at 20 years of age, ), now on vendolizumab (Entyvio) 300mg IV q8 weeks, who reports the acute onset of: "I started feeling like my heart was beating fast on Thursday (09/11/2025); it would last about 5 minutes, then go away, then come back again. It continued on Thursday (09/12/2025) and Thursday (09/13/2025) day and night. I also felt like the middle of my chest was heavy, but I didn't bump into anything or hit anything. The heaviness would also come and go, lasting about 5 minutes at a time, on Thursday (09/11/2025), Thursday (09/12/2025), and Thursday (09/13/2025). That is why I saw my family doctor, EVA Kelly, on Thursday morning (09/12/2025, 11:00am) and she ordered a lot of blood tests and thought she heard something and advised me to come to [facility] ER to get my heart checked out. I haven't felt these fast heart beats or chest heaviness before. I wasn't doing any work when I felt these fast heart beats or chest heaviness; I work on the [employer]. I did not feel short of breath. I was not coughing or wheezing. The pain in my chest stayed in the middle; it did not go to my back or up into my face or down my arm. I did not feel nauseated. I was not sweating. I was feeling anxious about why my heart was beating fast and why my chest felt heavy. So, my family doctor, Ms. Tracey Moreno, prescribed some hydroxyine 25mg PO bid prn anxiety, which I have not even picked up from the pharmacy. Instead, I came right to [facility] ER. I feel ok right now. Oh, my family doctor, Traceytan Moreno, also said that she was going to set up a heart monitor for me to see if I had any irregular heart beats." Patient denies antecedent/coincident fevers, chills, diaphoresis, cough, wheeze, sore throat, hemoptysis, pleurisy, nausea, vomiting, diarrhea, abdominal pain, abdominal pain, pelvic pain, hematemesis, hematochezia, melena, hematuria, dysuria, frequency, urgency, headaches, dizziness, lightheadedness, visual changes, hearing changes, weakness, falls, syncope, trauma, travel history, sick contacts, or food/drug ingestions novel or new. All other review of systems are reported as negative by the patient on observation date 09/13/2025. In [facility] ER bed #C11b, patient was afebrile @ 36.8 degrees Celsius, HR 90, RR 16, O2 sat 100% on room air, and BP 135/86 (09/13/2025, 2:35pm). Exam was noted for a clear and non-tender chest. Labs in [facility] ER bed #C11b included: Troponin-I #1 < 2.3 pg/mL (09/13/2025, 11:59am). Troponin-I #2 < 2.3 pg/mL (09/13/2025, 2:36pm). TSH 2.028 uIU/mL, free T3 4.71 pg/mL (09/13/2025, 11:59am), free T4 0.84 ng/dL (09/13/2025, 11:59am). WBC 8.89, N67 L24 M6 E3 B1, Hb 13.5, MCV 87.7, MCHC 33.3, platelet 320 (09/13/2025, 11:59am). D-dimer 240 ug/L (09/13/2025, 11:59am). Na 136, K 3.9, BUN 11, creatinine 0.57, glucose 88, Ca 9.4, AST 19, ALT 16, ALK PHOS 58, total bilirubin 0.5 (09/13/2025, 11:59am). HCG negative (09/13/2025, 11:59am). U/A (ordered 09/13/2025, 3:25pm): U/A (collected 09/14/2025, 5:10am): clear yellow, LE trace, nitrite-, WBC 6-10, blood 3+ with RBC > 20, epithelial cells 0-2, bacteria none seen (with patient reporting that she is having her menses now). Additional testing in [facility] ER bed #C11b included: Portable CXR (09/13/2025, 12:58pm): No infiltrate, effusion, cardiomegaly, pulmonary vascular congestion, or pneumothorax (by my review). EKG #1 (09/13/2025, 11:56am): NSR @ 97, MN 192, QTC 431, possible LAE in lead II, no acute ST depressions/elevations, TWI, or q waves (by my review). EKG #2 (09/13/2025, 4:03pm): NSR @ 91, MN 186, QTC 428, possible LAE in lead II, no acute ST depressions/elevations, TWI, or q waves (by my review). TTE (09/13/2025, 2:56pm): 1. LVEF 60-65%. Normal LV wall thickness. LV wall motion normal. 2. RV normal size and systolic function. 3. LA/RA size normal. No ASD. PFO not assessed. 4. No AR. No hemodynamically significant . 5. PV not well visualized. 6. Trace MR. No MS. 7. Trace TR. No TS. 8. Aortic root normal. Normal IVC diameter and respiratory variation suggests normal CVP. 9. No pericardial effusion. (as per CARDS Dr. Ignacio Olguin). Patient was subsequently placed in OBSERVATION on the hospitalist service @ [facility] on 09/13/2025 with the following diagnosis: 1. Palpitations and mid-sternal chest heaviness of unclear etiology, in the setting of acute hyperthyroidism. To address #1, patient was placed on telemetry and started on methimazole 5mg PO daily (09/13/2025, 5:44am) and propanolol 10mg PO daily (09/13/2025, 5:44am). Patient also awaits formal CARDS Service evaluation with Dr. Sharif Pierre in the 09/14/2025 am regarding the utility of heart monitor to capture arrhythmias after hospital discharge home in t he 09/14/2025 am. Discharge Exam Constitutional General: Comfortable, cooperative, coherent. Wide awake and alert. Not confused, lethargic, or obtunded. Patient speaks in complete, fluent, and articulate sentences without pause, interruption, cough, or wheeze. HEENT: NC/AT. EOMI. PERRL. No nystagmus, gaze paresis, anisocoria, miosis, mydriasis, chemosis, hyphema, scleral injection, conjunctivitis, or pterygium. No otorrhea. No rhinorrhea. Neck: Supple, no stridor, bruit, or goiter. Jugular venous pressure 5cm above the sternal angle of Parveen, which is typically 5 cm above the right atrium. Lymph: No anterior/posterior cervical lymphadenopathy, supraclavicular/infraclavicular lymphadenopathy, axilla/epitrochlear/inguinal lymphadenopathy. Chest: Symmetric rise and fall with respirations. Non-tender to palpation. Heart: RRR, S1 and S2. No S3 or S4 summation gallop. No tripartite friction rub. No murmur. Lungs: Clear to auscultation and percussion. No audible expiratory wheeze, egophony, pectoriloquy, increase in tactile fremitus, or flatness/dullness to percussion at the bases. Abd: Soft, non-tender, non-distended. Bowel sounds auscultated in all 4 quadrants. No rebound, guarding, Courtney's sign, or organomegaly. Ext: No clubbing, cyanosis, or edema. 2+ pedal pulses bilaterally. Skin: No decubitus ulcer, exanthem, or enanthem. Neuro: No tremors, tics, or myoclonus. DTR+. Urology: No villegas catheter. No urethral discharge. Discharge Plan Discharge Items Patient Disposition: Home - Self-Care Reason For Visit: CHEST HEAVINESS Discharge Diagnosis: 1. Palpitations and mid-sternal chest heaviness of unclear etiology, in the setting of acute hyperthyroidism, R/O Grave's disease versus viral thyroiditis, given patient's sore neck (bilateral, submandibular) > 1 month. Condition on Discharge: Good Activity: Resume your previous activity Lifting: Gradually increase as tolerated Bathing: No limitations Exercise/Sports: Gradually increase as tolerated Driving/Machine Use: No limitations Weightbearing: Full weightbearing Non-emergency contact: Primary Care Provider Call non-emergency contact if: you have any medication questions Follow-up/Referrals: Tracey Moreno CRNP [Primary Care Provider] - 09/21/25 3:40 pm Diet: Heart Healthy Addtl Attending Provider Instructions: See your PCP EVA Kelly, within 5-7 days of hospital discharge for routine follow up visit and to discuss: 1. Send-out test results for TSH receptor binding antibody (09/13/2025, 3:25pm) as initial workup for Grave's disease. In the interim, continue empirically started methimazole 5mg PO daily (09/13/2025, 6:21pm) and propanolol 10mg PO daily (09/13/2025, 6:20pm). 2. Send-out test results for urine metanephrine, urine normetanephrine (09/13/2025, 7:01pm). 3. Outpatient PAP smear testing to follow up incidental findings of HPV E6/E7 mRNA test (12/22/2024, 12:00pm). Pending Studies at Discharge: Yes Stand-Alone Forms: My [facility], Smoking Cessation Medications and DC Order Prescriptions: New propranolol 10 mg Tablet 10 mg PO QAM Qty: 30 0RF methimazole 5 mg Tablet 5 mg PO DAILY Qty: 30 0RF Continued fenofibrate nanocrystallized 145 mg tablet 145 mg PO QAM Qty: 90 3RF cyanocobalamin (vitamin B-12) 1,000 mcg capsule 1,000 mcg PO DAILY Qty: 30 2RF cholestyramine (with sugar) 4 gram powder 1 ea PO DAILY Entyvio 300 mg recon soln See Rx Instructions IV .COMPLEX Rx Instructions: intravenously every 6 weeks per pt; rimegepant [Nurtec ODT] 75 mg tablet,disintegrating 75 mg PO .UD 0RF hydroxyzine HCl 25 mg tablet 25 mg PO BID PRN (Reason: anxiety) Qty: 30 0RF cyclobenzaprine 5 mg tablet 5 - 10 mg PO TID PRN (Reason: Muscle Spasm) omega-3 fatty acids 1,000 mg Capsule 1,000 mg PO DAILY sumatriptan succinate 50 mg tablet 50 mg PO .UD vitamin B complex Tablet 1 tab PO DAILY Discharge Orders: Discharge Order (Routine); Ordered 09/14/25 Ordered By: Tyler Johnson Admission Data Admit Date/Time: 09/13/25 15:26 Attending Provider: Tyler Johnson Admit Provider: Tyler Johnson Primary Care Provider: Tracey Moreno Other Providers: Sharif Pierre [facility] Stay Data Consultations 09/14/25 08:00 Consult Cardiology Routine Diagnostic Imagining Performed 09/13/25 18:30 US thyroid Routine 09/14/25 11:52 CT neck soft tissues [CT soft tissue neck w con] Urgent Pending Results Patient Have Any Pending Studies at Discharge: Yes Discharge Instructions Given to Patient (Per Discharging Provider) See your PCP EVA Kelly, within 5-7 days of hospital discharge for routine follow up visit and to discuss: 1. Send-out test results for TSH receptor binding antibody (09/13/2025, 3:25pm) as initial workup for Grave's disease. In the interim, continue empirically started methimazole 5mg PO daily (09/13/2025, 6:21pm) and propanolol 10mg PO daily (09/13/2025, 6:20pm). 2. Send-out test results for urine metanephrine, urine normetanephrine (09/13/2025, 7:01pm). 3. Outpatient PAP smear testing to follow up incidental findings of HPV E6/E7 mRNA test (12/22/2024, 12:00pm). Total Time Total Time Spent Total Time Spent (In Minutes): 35 minutes. Of this time period, 19 minutes were spent in coordinating patient's discharge. Coding Level of Care Code 74393 INP/OBS DISCH >30 MIN Diagnoses Hyperthyroidism E05.90 Microscopic hematuria R31.29 HPV (human papilloma virus) infection B97.7
[2025-09-14 15:11] VITALS: BP 134/90; PULSE 83
[2025-09-14] MEDS: PROPRANOLOL HCL 10 MG TAB PO STA (17:06)
--- NOTE | 2025-09-18 05:31 | Electrocardiogram Report ---
Test Reason : Blood Pressure : */* mmHG Vent. Rate : 91 BPM Atrial Rate : 91 BPM P-R Int : 186 ms QRS Dur : 84 ms QT Int : 348 ms P-R-T Axes : 50 46 43 degrees QTcB Int : 428 ms Normal sinus rhythm with sinus arrhythmia Possible Left atrial enlargement Borderline ECG When compared with ECG of 13-Sep-2025 11:56, (unconfirmed) No significant change was found Confirmed by Odell Garcia ([id number]) on 09/18/2025 5:31:07 AM Referred By: REFERRED SELF Confirmed By: Odell Garcai
--- NOTE | 2025-09-18 05:51 | Electrocardiogram Report ---
Test Reason : Blood Pressure : */* mmHG Vent. Rate : 97 BPM Atrial Rate : 97 BPM P-R Int : 192 ms QRS Dur : 80 ms QT Int : 340 ms P-R-T Axes : 54 32 40 degrees QTcB Int : 431 ms Normal sinus rhythm Possible Left atrial enlargement Borderline ECG When compared with ECG of 15-Jul-2022 07:57, No significant change was found Confirmed by Odell Garcia ([id number]) on 09/18/2025 5:51:26 AM Referred By: Confirmed By: Odell Garcia
[2025-09-21 16:33] LABS: Creatinine, Random Urine 212 mg/dL (20-275)
== END 2025-09-14 17:55 | disposition home or self-care (01) ==
LOC: EDINP 11:41 → ED 11:41 → 2S 19:32